=== PATIENT | female | born 1965 | race Caucasian/White ===

== ENCOUNTER 2021-11-06 20:08 | Emergency (ER) | payer MEDICARE, MEDICAID, SELFPAY ==
[2021-11-06 20:15] VITALS: BP 138/69; PULSE 65; RESP 18; TEMP 37.2; O2SAT 96; BMI 34.9
[2021-11-06 22:22] LABS: Appearance Urine Clear; Color Urine Yellow; Glucose Urine UA Negative (Negative); Leukocyte Esterase Urine Large (3+) (Negative); Nitrite Urine Negative (Negative); Specific Gravity - Urine <= 1.005 (1.005-1.025); UMIC TRIGGER UACC YES; Urine Blood Negative (Negative); Urine Ketones Negative (Negative); Urine Protein Negative (Neg-Trace)
[2021-11-06 22:27] LABS: Bacteria Urine None Seen (None Seen); Hyaline Casts Urine 0-2 /LPF (0-2); RBC Urine 0-2 /HPF (0-2); Squamous Epithelial Cell Urine 0-2 /HPF (0-2); UACC Culture Trigger YES
--- NOTE | 2021-11-07 02:05 | ED_ITS ---
HPI - Female Genitourinary General Chief complaint: Urogenital-Female Stated complaint: sharp pains down below for passed cpl weeks Time Seen by Provider: 11/07/21 01:27 Source: patient Mode of arrival: ambulatory History of Present Illness HPI Narrative: 56-year-old female who presents with urinary pain and burning but denies any associated fever, chills, nausea, vomiting. In addition, patient denies any vaginal discharge. Related Data Previous Rx's Medication Instructions Recorded nitrofurantoin 100 mg PO Q12H 5 days #10 caps 11/07/21 monohydrate/macrocrystals 100 mg capsule (Macrobid) Allergies Allergy/AdvReac Type Severity Reaction Status Date / Time acetaminophen [From Vicodin] Allergy Mild Anaphylaxis Verified 03/02/21 17:15 hydrocodone [From Vicodin] Allergy Mild Anaphylaxis Verified 03/02/21 17:15 penicillin V Allergy Mild Hives Verified 03/02/21 17:15 Review of Systems Review of Systems: Pertinent positives and negatives as stated in HPI 10 point review of systems is otherwise negative. PMFSH Past Medical History Source: nursing notes reviewed Social History Social History Advance Directives: No Physical Exam Vital Signs: Vital Signs: Last Vital Signs Temp 98.9 F 11/06/21 20:15 Pulse 65 11/06/21 20:15 Resp 18 11/06/21 20:15 BP 138/69 11/06/21 20:15 Pulse Ox 96 11/06/21 20:15 O2 Del Method 11/06/21 20:15 BMI result Body Mass Index 34.9 VITAL SIGNS: Reviewed. GENERAL: Well developed, well nourished, in no acute distress. HEAD: Normocephalic/atraumatic EYES: PERRLA, EOMI EARS: Ext canals without abnormality OROPHARYNX: no oral lesions noted, posterior pharynx clear LUNGS: Normal breath sounds. No adventitious sounds or accessory muscle use. SpO2<96> CARDIOVASCULAR: Regular rate and rhythm without noted murmurs ABDOMEN: Soft, non-tender, non-distended with bowel sounds. MUSCULOSKELETAL: No tenderness, deformities, or effusions noted on gross inspection. EXTREMITIES: No cyanosis, clubbing or edema. SKIN: Inspection of the skin reveals no rashes NEUROLOGIC: Alert and oriented x 4. Strength and sensation to light touch were grossly intact x 4. Course Course Course Narrative: 56-year-old female with history and clinical presentation consistent with UTI on review investigations. Patient received initial antibiotics here in the emergency room and then was discharged with remaining course. She also received ibuprofen for pain control. MDM - Female Genitourinary Lab Data Labs: Lab Results 11/06/21 Range/Units 22:09 Urine Color Yellow Urine Appearance Clear Urine pH 7.0 (5.0-9.0) Ur Specific [place] <= 1.005 (1.005-1.025) Urine Protein Negative (Neg-Trace) mg/dL Urine Glucose (UA) Negative (Negative) mg/dL Urine Ketones Negative (Negative) mg/dL Urine Blood Negative (Negative) Urine Nitrite Negative (Negative) Ur Leukocyte Esterase Large (3+) H (Negative) Urine RBC 0-2 (0-2) /HPF Urine WBC 6-10 H (0-5) /HPF Ur Squamous Epith Cells 0-2 (0-2) /HPF Urine Bacteria None Seen (None Seen) Hyaline Casts 0-2 (0-2) /LPF Discharge Plan Discharge Clinical Impression: Cystitis Patient Disposition: Home, Self-Care Instructions: Urinary Tract Infection in Women (ED) Additional Instructions: 1. Resume all home medications as prescribed. 2. Complete the entire course of antibiotics as ordered. 3. Follow-up with your primary care provider for re-evaluation further outpatient management. Return to the ER for worsening symptoms. Prescriptions: New nitrofurantoin monohyd/m-cryst [Macrobid] 100 mg capsule 100 mg PO Q12H 5 Days Qty: 10 0RF Rx Instructions: must administer with a meal/food Referrals: Micah Rosado MD [Primary Care Provider] -
[2021-11-07] MEDS: Ibuprofen 400 MG TABLET PO (02:10)
[2021-11-07] MEDS: Nitrofurantoin Monohyd/M-Cryst 100 MG CAPSULE PO (02:10)
[2021-11-07 12:51] LABS: CT PCR NOT DETECTED (Not Detect.); NG PCR NOT DETECTED (Not Detect.)
== END 2021-11-07 02:14 | disposition home or self-care (01) ==
PROVIDERS: Emergency Provider Student in an Organized Health Care Education/Training Program; PCP Internal Medicine
DX: N30.90 Cystitis, unspecified without hematuria (principal)
CPT/HCPCS: 81001; 87086; 87491; 87591; 99283

== ENCOUNTER 2022-02-22 18:41 | Emergency (ER) | payer MEDICARE, MEDICAID, SELFPAY ==
--- NOTE | ~2022-02-22 | XR_ITS ---
EXAMINATION: XR CHEST CLINICAL INFORMATION: Productive cough. COMPARISON: None TECHNIQUE: Frontal view of the chest was obtained. 8:06 PM FINDINGS: No significant abnormality is noted involving the heart, lungs, mediastinum, bony thorax or soft tissues. XR/XR chest 1V IMPRESSION: Unremarkable examination.
[2022-02-22 19:31] VITALS: BP 134/85; PULSE 84; RESP 20; TEMP 36.6; O2SAT 96; BMI 34.2
--- NOTE | 2022-02-22 19:34 | ED_ITS ---
HPI - Chest Pain General Chief Complaint: Upper Respiratory Symptoms <OLIVIA Mcnulty - Last Filed: 02/22/22 19:38> Stated Complaint: Mucus discharge, chest pain <OLIVIA Mcnulty - Last Filed: 02/22/22 19:38> Time Seen by Provider: 02/22/22 21:24 <OLIVIA Mcnulty - Last Filed: 02/22/22 19:38> Source: patient and family <Diya Menezes MD - Last Filed: 02/22/22 23:12> Mode of arrival: ambulatory <Diya Menezes MD - Last Filed: 02/22/22 23:12> Limitations: no limitations <Diya Menezes MD - Last Filed: 02/22/22 23:12> History of Present Illness HPI narrative: 56-year-old female history of asthma and obstructive sleep apnea presented with coughing for about 10 days with green sputum, no fever, no chills, significant other had similar symptoms but he feels better now. Patient declined any fever or chills, patient had no history of smoking but using his CPAP at night for obstructive sleep apnea. No recent travel or prolonged immobilization, patient also been having sore throat and voice change. <Diya Menezes MD - Last Filed: 02/22/22 23:12> Related Data Home Medications: Home Medications Medication Instructions Recorded Confirmed adalimumab 40 mg/0.4 mL 40 mg subcut Q2W 11/21/21 subcutaneous pen kit (Humira(CF) Pen) albuterol sulfate 90 mcg/actuation 2 puff inhalation Q4H PRN wheezing 11/21/21 aerosol inhaler apple cider vinegar 500 mg tablet mg PO 11/21/21 cetirizine 10 mg tablet 10 mg PO QAM 11/21/21 citalopram 20 mg tablet 20 mg PO QAM 11/21/21 cranberry extract 500 mg capsule 2,000 mg PO BID 11/21/21 (Cranberry Concentrate) fluticasone propionate 220 1 puff inhalation BID 11/21/21 mcg/actuation HFA aerosol inhaler (Flovent HFA) fluticasone propionate 50 2 spray intranasal DAILY PRN 11/21/21 mcg/actuation nasal spray,suspension folic acid 1 mg tablet 1 mg PO QAM 11/21/21 levothyroxine 100 mcg tablet 100 mcg PO DAILY 11/21/21 methocarbamol 500 mg tablet 500 mg PO BEDTIME PRN low back pain 11/21/21 methotrexate sodium 2.5 mg tablet 20 mg PO QWEEK 11/21/21 omeprazole 20 mg capsule,delayed 20 mg PO QAM 11/21/21 release simvastatin 20 mg tablet 20 mg PO BEDTIME 11/21/21 Previous Rx's Medication Instructions Recorded lidocaine 4 % topical patch 1 patch topical DAILY PRN pain #15 11/21/21 (AsperFlex (lidocaine)) ea prednisone 20 mg tablet 40 mg PO DAILY 5 days #10 tabs 11/21/21 albuterol sulfate 90 mcg/actuation 1 inh inhalation QID PRN shortness 02/22/22 aerosol inhaler of breath or wheezing #8.5 grams azithromycin 250 mg tablet See Rx Instructions PO .COMPLEX #6 02/22/22 (Zithromax Z-Luiz) tabs prednisone 20 mg tablet 20 mg PO BID #10 tabs 02/22/22 <OLIVIA Mcnulty - Last Filed: 02/22/22 19:38> Allergies/Adverse Reactions: Allergies Allergy/AdvReac Type Severity Reaction Status Date / Time naproxen [From Naprosyn] Allergy Severe Anaphylaxis Verified 02/22/22 19:37 acetaminophen [From Vicodin] Allergy Mild Anaphylaxis Verified 02/22/22 19:37 hydrocodone [From Vicodin] Allergy Mild Anaphylaxis Verified 02/22/22 19:37 penicillin V Allergy Mild Hives Verified 02/22/22 19:37 ibuprofen Allergy Stomach Verified 02/22/22 21:03 Upset <OLIVIA Mcnulty - Last Filed: 02/22/22 19:38> Review of Systems Review of Systems: All other systems are reviewed and are negative Constitutional: Reports as per HPI and Reports no additional constitutional complaints Eyes: Reports as per HPI and Reports no additional eye complaints Reports system reviewed and no additional complaints, except as documented Cardiovascular: Reports as per HPI and Reports no additional cardiovascular complaints Respiratory: Reports as per HPI and Reports no additional respiratory complaints Gastrointestinal: Reports as per HPI and Reports no additional gastrointestinal complaints Genitourinary: Reports no additional female genitourinary complaints Musculoskeletal: Reports no additional musculoskeletal complaints Skin/Breast: Reports system reviewed and no additional complaints, except as docu Psychiatric: Reports no additional psychiatric complaints Endocrine: Reports no additional endocrine complaints Hematologic/Lymphatic: Reports no additional hematologic/lymphatic complaints Allergic/Immunologic: Reports no additional allergic/immunologic complaints Reports system reviewed and no additional complaints, except as documented and Reports Abnormal speech present <Diya Menezes MD - Last Filed: 02/22/22 23:12> [facility] Social History Social History: Social History Advance Directives: No Advance Directives Information Provided: Yes <OLIVIA Mcnulty - Last Filed: 02/22/22 19:38> Physical Exam Vital Signs: Vital Signs: Last Vital Signs Temp 97.9 F 02/22/22 19:31 Pulse 84 02/22/22 21:11 Resp 20 02/22/22 21:11 BP 134/85 02/22/22 19:31 Pulse Ox 96 02/22/22 19:31 O2 Del Method 02/22/22 19:31 BMI result Body Mass Index 34.2 <OLIVIA Mcnulty - Last Filed: 02/22/22 19:38> Vital Signs: Last Vital Signs Temp 97.9 F 02/22/22 19:31 Pulse 84 02/22/22 21:11 Resp 20 02/22/22 21:11 BP 134/85 02/22/22 19:31 Pulse Ox 96 02/22/22 19:31 O2 Del Method 02/22/22 19:31 BMI result Body Mass Index 34.2 vital signs have been reviewed as appeared to be correct. Blood pressure no rmal. Heart rate normal. Respiration rate normal. Temperature normal. Oxygen saturation normal. <Diya Menezes MD - Last Filed: 02/22/22 23:12> Appearance: Alert. Oriented X3. No acute distress. Head: Normal external exam. Normocephalic. Atraumatic. No Celis signs noted. No raccoon eyes noted Eyes: PERRLA. EOMI. Conjunctiva and sclera normal. Eyelids normal. ENT: TM's Normal. Pharynx normal. Uvula midline. Moist mucous membranes. No trismus noted. No drooling noted. No muffled voice noted. Neck: Normal inspection. Neck supple. FROM. No adenopathy. Thyroid Normal. No meningeal signs. No neck mass noted. CVS: Normal heart rate and rhythm. Heart sound normal. No murmurs noted. Pulses normal throughout. Respiratory: No respiratory distress. Painless inspiration. Breath sounds normal. diffuse bilateral expiratory wheezing, with prolonged expiration. Chest nontender. No accessory muscle usage noted or decreased air movement noted. Abdomen: Soft and nontender. Bowel sounds normal in all 4 quadrants. No distention noted. No organomegaly noted. No visible injury noted. Back: No CVA tenderness. Full range of motion noted. Skin: Skin warm and dry. Normal skin color. Normal skin turgor. No rashes/lesions/lacerations noted. Extremities: No lower extremity edema. Extremities exhibit normal range of motion. Extremities nontender. Neuro: Oriented X 3. Cranial nerve exam: II-XII are grossly intact No motor deficit. No sensory deficit. Reflexes normal. <Diya Menezes MD - Last Filed: 02/22/22 23:12> Course Course Course Narrative: RME--56yo F w/PMHx asthma c/o productive cough of green phlegm and lethargy x 1 week. Reports CP when coughing. denies SOB Lung sounds diminished in bases. hoarse voice on exam, talking in complete sentences COVID/flu/RSV, CXR, albuterol inhaler ordered <OLIVIA Mcnulty - Last Filed: 02/22/22 19:38> Reevaluation(s) Reevaluation #1: acute bronchitis times 10 days with greenish sputum we will start the patient on Z-Luiz/ prednisone/albuterol. <Diya Menezes MD - Last Filed: 02/22/22 23:12> Time: 23:11 <Diya Menezes MD - Last Filed: 02/22/22 23:12> Medications Administered Discontinued Medications Generic Name Dose Route Start Last Admin Trade Name Freq PRN Reason Stop Dose Admin Albuterol Sulfate 2 puff 02/22/22 19:35 02/22/22 21:04 Albuterol Sulfate 90 Mcg 8 Gm Inhaler INHALE 02/22/22 19:36 2 puff ONCE ONE Administration Prednisone 40 mg 02/22/22 21:48 02/22/22 22:40 Prednisone 20 Mg Tablet PO 02/22/22 21:49 40 mg ONCE ONE Administration <OLIVIA Mcnulty - Last Filed: 02/22/22 19:38> Medications Administered Discontinued Medications Generic Name Dose Route Start Last Admin Trade Name Sharron PRN Reason Stop Dose Admin Albuterol Sulfate 2 puff 02/22/22 19:35 02/22/22 21:04 Albuterol Sulfate 90 Mcg 8 Gm Inhaler INHALE 02/22/22 19:36 2 puff ONCE ONE Administration Prednisone 40 mg 02/22/22 21:48 02/22/22 22:40 Prednisone 20 Mg Tablet PO 02/22/22 21:49 40 mg ONCE ONE Administration <Diya Menezes MD - Last Filed: 02/22/22 23:12> Medical Decision Making Differential Diagnosis Differential Diagnoses: The differential diagnosis associated with the presentation includes <Diya Menezes MD - Last Filed: 02/22/22 23:12> Pneumonia, RSV, COVID-19 infection, influenza. <Diya Menezes MD - Last Filed: 02/22/22 23:12> Lab Data MDM Lab Attestation statement: I reviewed the patient's lab results. <Diya Menezes MD - Last Filed: 02/22/22 23:12> Labs: Lab Results 02/22/22 Range/Units 21:32 Influenza Type A (PCR) NEGATIVE (Negative) Influenza Type B (PCR) NEGATIVE (Negative) RSV RNA Qual (PCR) NEGATIVE (Negative) SARS-CoV-2 RNA (RT-PCR) NEGATIVE (Negative) <OLIVIA Mcnulty - Last Filed: 02/22/22 19:38> Lab Results 02/22/22 Range/Units 21:32 Influenza Type A (PCR) NEGATIVE (Negative) Influenza Type B (PCR) NEGATIVE (Negative) RSV RNA Qual (PCR) NEGATIVE (Negative) SARS-CoV-2 RNA (RT-PCR) NEGATIVE (Negative) <Diya Menezes MD - Last Filed: 02/22/22 23:12> Independent Interpretation I performed an independent interpretation of an: Plain X-Ray ( Chest: No acute pathology.) <Diya Menezes MD - Last Filed: 02/22/22 23:12> Radiology Impression Discussion of test interpretation with radiology: I have reviewed the radiologist's reading. ( No acute intrathoracic pathology.) <Diya Menezes MD - Last Filed: 02/22/22 23:12> Discharge Plan Discharge Clinical Impression: Bronchitis <OLIVIA Mcnulty - Last Filed: 02/22/22 19:38> Patient Disposition: Home, Self-Care <OLIVIA Mcnulty - Last Filed: 02/22/22 19:38> Instructions: Acute Bronchitis (ED) <OLIVIA Mcnulty - Last Filed: 02/22/22 19:38> Prescriptions: New albuterol sulfate 90 mcg/actuation HFA aerosol inhaler 1 inh inhalation QID PRN (Reason: shortness of breath or wheezing) Qty: 8.5 0RF prednisone 20 mg tablet 20 mg PO BID Qty: 10 0RF azithromycin [Zithromax Z-Luiz] 250 mg tablet See Rx Instructions .ROUTE .COMPLEX Qty: 6 0RF Rx Instructions: For 250 mg dose pack: take 500 mg today (day 1), then 250 mg for 4 days (days 2-5) No Action prednisone 20 mg tablet 40 mg PO DAILY 5 Days Qty: 10 0RF fluticasone propionate 50 mcg/actuation spray,suspension 2 spray intranasal DAILY PRN fluticasone propionate [Flovent HFA] 220 mcg/actuation HFA aerosol inhaler 1 puff inhalation BID methotrexate sodium 2.5 mg tablet 20 mg PO QWEEK folic acid 1 mg tablet 1 mg PO QAM omeprazole 20 mg capsule,delayed release(DR/EC) 20 mg PO QAM citalopram 20 mg tablet 20 mg PO QAM levothyroxine 100 mcg tablet 100 mcg PO DAILY cetirizine 10 mg tablet 10 mg PO QAM Humira(CF) Pen 40 mg/0.4 mL pen injector kit 40 mg subcut Q2W albuterol sulfate 90 mcg/actuation HFA aerosol inhaler 2 puff inhalation Q4H PRN (Reason: wheezing) methocarbamol 500 mg tablet 500 mg PO BEDTIME PRN (Reason: low back pain) simvastatin 20 mg tablet 20 mg PO BEDTIME apple cider vinegar 500 mg tablet PO cranberry extract [Cranberry Concentrate] 500 mg capsule 2,000 mg PO BID Rx Instructions: administer with meals lidocaine [AsperFlex (lidocaine)] 4 % adhesive patch,medicated 1 patch topical DAILY PRN (Reason: pain) Qty: 15 0RF <OLIVIA Mcnulty Last Filed: 02/22/22 19:38> Referrals: Micah Rosado MD [Primary Care Provider] - <OLIVIA Mcnulty - Last Filed: 02/22/22 19:38>
[2022-02-22] MEDS: Albuterol Sulfate 90 MCG 8 GM INHALER 2 PUFF INHALE (21:04)
--- OUTSIDE RECORDS SUMMARY | 2022-02-22 21:07 | XMS_ITS | Continuity of Care Document ---
:1965 Author Organization [facility] Address [address] [place] [id number]- Care Team Providers Name Role Phone Jacqueline Calero MD Primary Care Physician Encounter [facility] [place] Date(s): 03/25/20 - 03/25/[address] [address]- Discharge Disposition: A-D/C Home Attending Physician: Sylvia Blas MD Admitting Physician: Sylvia Blas MD Referring Physician: Not on Staff, Referring MD Allergies, Adverse Reactions, Alerts Substance Reaction Severity Status ibuprofen Bleeding hemorrhoids Active penicillin Dyspnea Active sulfa drugs Active Vicodin Active Medications citalopram 20 mg oral tablet TAKE 1 TABLET BY MOUTH EVERY MORNING Start Date: 02/23/20 Status: Orderedfolic acid 1 mg oral tablet 1 mg, 1, tablet, By Mouth, Daily, # 30 tablet, Refills 0, Maintenance, 02/23/20 11:29:00 EST, Partial fill upon patient request if the prescription is for a schedule II opioid drug. Start Date: 02/23/20 Status: Orderedibuprofen 400 mg oral tablet 400 mg, 1, tablet, By Mouth, Every 4 hours, PRN, # 40 tablet, Refills 0, Tot. Refills 0, Maintenance, Pain , Mild, 03/25/20 9:49:00 EST, Route to Pharmacy Electronically, [id number], Partial fill upon patient request if the prescripti... Start Date: 03/25/20 Status: OrderedKeflex Capsule 500 mg, By Mouth, 2 times a day, Maintenance, 03/23/20 17:54:00 EST Start Date: 03/23/20 Stop Date: 03/30/20 Status: Orderedlevothyroxine 0.1 mg oral tablet 1 tablet = 100 mcg, By Mouth, Daily, # 30 tablet, 0 Refills, Maintenance, 02/23/20 11:29:00 EST, Tablet, Partial fill upon patient request if the prescription is for a schedule II opioid drug. Start Date: 02/23/20 Status: Orderedmethocarbamol 500 mg oral tablet TK 1 T PO HS PRF BACK PAIN Start Date: 02/23/20 Status: Orderedmethotrexate 2.5 mg oral tablet TK 8 TS PO ONCE A WEEK Start Date: 02/23/20 Status: Orderedomeprazole 20 mg oral enteric coated capsule 1 capsule = 20 mg, By Mouth, Daily, # 30 capsule, 0 Refills, Maintenance, 02/23/20 11:28:00 EST, EC Capsule, Partial fill upon patient request if the prescription is for a schedule II opioid drug. Start Date: 02/23/20 Status: Orderedondansetron 4 mg oral tablet, disintegrating 1 tablet = 4 mg, By Mouth, Every 8 hours, PRN as needed for nausea/vomiting, # 9 tablet, 0 Refills, Maintenance, 03/20/20 15:08:00 EST, DIS Tablet, Partial fill upon patient request if the prescriptionis for a schedule II opioid drug. Start Date: 03/20/20 Stop Date: 03/23/20 Status: Orderedsimvastatin 20 mg oral tablet 20 mg, 1, tablet, By Mouth, Daily at bedtime, # 90 tablet, Refills 0, Maintenance, 02/23/20 11:29:00EST, Partial fill upon patient request if the prescription is for a schedule II opioid drug. Start Date: 02/23/20 Status: Ordered Problem List Condition Effective Dates Status Health Status Informant Fibromyalgia(Confirmed) Active Hyperlipidemia(Confirmed) Active Hypothyroidism(Confirmed) Active ANITA on CPAP(Confirmed) Active Osteoarthritis(Confirmed) Active Arthritis, rheumatoid(Confirmed) Active Results Radiology Reports Exam Date Time Procedure Performing Provider Status 03/25/20 3:33 AM Chest Portable Odessa Fernandez; Oscar (Verified) Notes:(Chest Portable) Reason For Exam: Shortness of BreathRESULT: Chest Portable Chest Portable Hx of Present Illness: day 6 of covid symptoms reports not feeling well, sob, dizzy when supine, sharp chest pains incr. w inspirtion, upper chest sternal area; Reason: Shortness of Breath; Clinical Question(s): CHF COMPARISON: 03/20/2020 FINDINGS: LINES AND TUBES: None. LUNGS AND PLEURA: Clear lungs. Normal pulmonary vascularity. No pleural effusion. No pneumothorax. HEART, MEDIASTINUM AND PATRICIA: Heart is normal in size. Normal upper mediastinal and hilar contour. BONES AND SOFT TISSUES: No acute abnormality. IMPRESSION: No active disease. WSN: [id number] Ordering Physician: Raeann Lubin Dictated By: Pedrito Isaac MD Dictated Date/Time: 03/25/20 8:21 am Reviewed By: Pedrito Isaac MD Signed By: Pedrito Isaac MD Signed Date/Time: 03/25/20 8:21 am Transcribed By: HECTOR Transcribed Date/Time: 03/25/20 8:20 am Vital Signs Most recent to oldest [Reference 1 2 3 Range]: Oxygen Saturation [94-100 %] 96 % 97 % 96 % (03/25/20 9:44 AM) (03/25/20 6:37 AM) (03/25/20 4:23 A M) Pulse Rate [55-90 bpm] 71 bpm 68 bpm 71 bpm (03/25/20 9:44 AM) (03/25/20 6:37 AM) (03/25/20 4:23 A M) Blood Pressure [90-138/55-84 mm 143/79 mm Hg 142/73 mm Hg 143/83 mm Hg Hg] *H* *H* *H* (03/25/20 9:44 AM) (03/25/20 6:37 AM) (03/25/20 4:23 A M) Respiratory Rate [16-30 br/min] 20 br/min 16 br/min 18 br/min (03/25/20 9:44 AM) (03/25/20 6:37 AM) (03/25/20 4:23 A M) Temperature [96.8-100.4 DegF] 98.0 DegF 98.4 DegF (03/25/20 9:44 AM) (03/25/20 2:24 AM) Mode of Delivery (Oxygen) Room air Room air Room a ir (03/25/20 9:44 AM) (03/25/20 6:37 AM) (03/25/20 4:23 A M) Blood pressure sites Arm, left (03/25/20 9:44 AM) Temperature Route Oral Oral (03/25/20 9:44 AM) (03/25/20 2:24 AM) Social History Social History Type Response Smoking Status Never (less than 100 in life time) entered on: 02/23/20 Sex
--- OUTSIDE RECORDS SUMMARY | 2022-02-22 21:07 | XMS_ITS | Continuity of Care Document ---
:1965 Author Organization [facility] Address [address] [place] [address]- Care Team Providers Name Role Phone Jacqueline Calero MD Primary Care Physician [id number] Date(s): 04/02/20 - 04/09/20 [facility] [id number] [place] [address]- Encounter Diagnosis UTI (urinary tract infection) (Discharge Diagnosis) - 04/02/20 COVID-19 virus infection (Discharge Diagnosis) - 04/02/20 Viral upper respiratory illness (Discharge Diagnosis) - 04/02/20 Attending Physician: Jacqueline Calero MD Allergies, Adverse Reactions, Alerts Substance Reaction Severity Status penicillin Dyspnea Active sulfa drugs Active Vicodin [...] 03/25/20 9:49:00 EST, Route to Pharmacy Electronically, [facility] #[id number], Partial fill upon patient request if the [...] CPAP(Confirmed) Active Osteoarthritis(Confirmed) Active Arthritis, rheumatoid(Confirmed) Active Diagnosis Diagnosis Type Effective Dates Health [facility] Status Service UTI (urinary tract Discharge 04/02/20 infection) Diagnosis COVID-19 virus Discharge 04/02/20 infection Diagnosis Viral upper Discharge 04/02/20 respiratory Diagnosis illness Social History Social History Type Response Smoking Status Never (less than 100 in life time) entered on: 02/23/20 Sex
--- OUTSIDE RECORDS SUMMARY | 2022-02-22 21:07 | XMS_ITS | Continuity of Care Document ---
:1965 Author Organization [facility] Address [address] [place] [id number]- Care Team Providers Name Role Phone Jacqueline Calero MD Primary Care Physician Encounter [facility] Date(s): 03/20/20 - 03/20/[address] [address]- Encounter Diagnosis COVID-19 virus infection (Final) - 03/20/20 Discharge Disposition: A-D/C Home Attending Physician: Virginia Beatty MD Admitting Physician: Virginia Beatty MD Referring Physician: Not on Staff, Referring [...] II opioid drug. Start Date: 02/23/20 Status: Orderedlevothyroxine 0.1 mg oral tablet 1 [...] Exam Date Time Procedure Performing Provider Status 03/20/20 12:37 PM Chest Portable Suma Naranjo (Verified ) Notes:(Chest Portable) Reason For Exam: COVID, vomiting;Other:RESULT: Chest Portable Chest Portable Hx of Present Illness: 2 days of chills, N V and fatigue. No CP . No SOB; Reason: Other:; COVID, vomiting; Clinical Question(s): Other: COMPARISON: None. FINDINGS: LINES AND TUBES: None. LUNGS AND PLEURA: Clear lungs. Normal pulmonary vascularity. No pleural effusion. No pneumothorax. HEART, MEDIASTINUM AND PATRICIA: Heart is normal in size. Normal upper mediastinal and hilar contour. BONES AND SOFT TISSUES: No acute abnormality. IMPRESSION: No acute abnormality. WSN: [id number] Ordering Physician: Elena Anne Dictated By: Jono Blackburn MD Dictated Date/Time: 03/20/20 12:45 p Reviewed By: Jono Blackburn MD Signed By: Jono Blackburn MD Signed Date/Time: 03/20/20 12:45 pm Transcribed By: HECTOR Transcribed Date/Time: 03/20/20 12:44 pm Vital Signs Most recent to oldest 1 2 3 [Reference Range]: Oxygen Saturation [94-100 %] 97 % 96 % 96 % (03/20/20 3:48 PM) (03/20/20 1:51 PM) (03/20/20 11: 14 AM) Pulse Rate [55-90 bpm] 77 bpm 74 bpm 85 bpm (03/20/20 3:48 PM) (03/20/20 1:51 PM) (03/20/20 11: 14 AM) Blood Pressure [90-138/55-84 130/73 mm Hg 121/68 mm Hg 117 /70 mm Hg mm Hg] (03/20/20 3:48 PM) (03/20/20 1:51 PM) (03/20/20 11: 14 AM) Respiratory Rate [16-30 18 br/min 18 br/min 18 br/mi n br/min] (03/20/20 3:48 PM) (03/20/20 1:51 PM) (03/20/20 11: 14 AM) Temperature [96.8-100.4 98.8 DegF 98.0 DegF DegF] (03/20/20 3:48 PM) (03/20/20 10:35 AM) Mode of Delivery (Oxygen) Room air Room air Room a ir (03/20/20 3:48 PM) (03/20/20 1:51 PM) (03/20/20 11: 14 AM) Blood pressure sites Arm, right (03/20/20 10:35 AM) Temperature Route Oral Oral (03/20/20 3:48 PM) (03/20/20 10:35 AM) Social History Social History Type Response Smoking Status Never (less than 100 in life time) entered on: 02/23/20 Sex
--- OUTSIDE RECORDS SUMMARY | 2022-02-22 21:07 | XMS_ITS | Continuity of Care Document ---
:1965 Author Organization [facility] Address [address] [place] [id number]- Care Team Providers Name Role Phone Jacqueline Calero MD Primary Care Physician Encounter [facility] [place] Date(s): 11/17/21 - 11/18/[address] [address]- Discharge Disposition: A-D/C Walkout Attending Physician: Not on Staff, Attending MD Admitting Physician: Not on Staff, Admitting MD Referring Physician: Not on Staff, Referring MD Allergies, Adverse Reactions, Alerts Substance Reaction Severity Status sulfa drugs Active Vicodin Active penicillin Dyspnea Active Medications citalopram 20 mg oral tablet [...] 03/25/20 9:49:00 EST, Route to Pharmacy Electronically, [id number], Partial fill upon patient request if the [...] Date: 02/23/20 Status: Ordered Problem List Condition Confirmation Course Effective Dates Status Health I nformant Status Fibromyalgia Confirmed Active Hyperlipidemia Confirmed Active Hypothyroidism Confirmed Active ANITA on CPAP Confirmed Active Osteoarthritis Confirmed Active Arthritis, rheumatoid Confirmed Active Results Radiology Reports Exam Date Time Procedure Performing Provider Status 11/17/21 5:34 PM Foot Min 3 Views Right Matilde Flynn; Auth ( Verified) Notes:(Foot Min 3 Views Right) Reason For Exam: PainRESULT: Foot Min 3 Views Right Foot Min 3 Views Right, 3 views Hx of Present Illness: Patient reports severe right foot pain since yesterday. No known tramatic injury but patient reports has been doing a lot of walking at [employer] over past few days. Has history of arthritis, taking tylenol and methotrexate without effect.; Reason: Pain; Clinical Question(s): Fracture; Arthritis COMPARISON: None. FINDINGS: No fractures or bone lesions. Mild narrowing of the talonavicular joint. Mild degenerative narrowing of the first MTP joint. Smallto moderate plantar calcaneal spur. Normal soft tissues. IMPRESSION: 1. No acute fracture or malalignment. 2. Mild degenerative narrowing of the talonavicular joint. 3. Mild degenerative narrowing of the first MTP joint. 4. Small to moderate plantar calcaneal spur. WSN: [id number] Ordering Physician: Ozzy Bundy Dictated By: Gary Gómez MD Dictated Date/Time: 11/17/21 5:37 pm Reviewed By: Gary Gómez MD Signed By: Gary óGmez MD Signed Date/Time: 11/17/21 5:37 pm Transcribed By: HECTOR Transcribed Date/Time: 11/17/21 5:34 pm Vital Signs Most recent to oldest 1 2 3 [Reference Range]: Oxygen Saturation [94-100 %] 94 % 97 % 99 % (11/17/21 11:40 PM) (11/17/21 9:32 PM) (11/17/21 7: 47 PM) Pulse Rate [55-90 bpm] 72 bpm 66 bpm 65 bpm (11/17/21 11:40 PM) (11/17/21 9:32 PM) (11/17/21 7: 47 PM) Blood Pressure [90-138/55-84 152/83 mm Hg 133/77 mm Hg 127 /67 mm Hg mm Hg] *H* (11/17/21 9:32 PM) (11/17/21 7:47 PM) (11/17/21 11:40 PM) Respiratory Rate [16-30 16 br/min 18 br/min br/min] (11/17/21 2:50 PM) (11/17/21 11:55 AM) Temperature [96.8-100.4 DegF] 98.4 DegF 99.2 DegF 98 .1 DegF (11/17/21 11:40 PM) (11/17/21 9:32 PM) (11/17/21 7: 47 PM) Mode of Delivery (Oxygen) Room air Room air Room a ir (11/17/21 5:46 PM) (11/17/21 2:50 PM) (11/17/21 2:0 3 PM) Blood pressure sites Leg, left Arm, left Arm, left (11/17/21 11:40 PM) (11/17/21 9:32 PM) (11/17/21 7: 47 PM) Temperature Route Oral Oral Oral (11/17/21 11:40 PM) (11/17/21 9:32 PM) (11/17/21 7: 47 PM) Social History Social History Type Response Smoking Status Never (less than 100 in life time) entered on: 02/23/20 Sex XR Foot - right GE 3 Views BHSPowerscribe , CIS S: TRANSCRIBE Gary Gómez MD: VERIFY Event Display: Result: Authored Date: [id number] Foot Min 3 Views Right, 3 views Hx of Present Illness: Patient reports severe right foot pain since yesterday. No known tramatic injury but patient reports has been doing a lot of walking at [employer] over past few days. Has history of arthritis, taking tylenol and methotrexate without effect.; Reason: Pain; Clinical Question(s): Fracture; Arthritis COMPARISON: None. FINDINGS: No fractures or bone lesions. Mild narrowing of the talonavicular joint. Mild degenerative narrowing of the first MTP joint. Smallto moderate plantar calcaneal spur. Normal soft tissues. IMPRESSION: 1. No acute fracture or malalignment. 2. Mild degenerative narrowing of the talonavicular joint. 3. Mild degenerative narrowing of the first MTP joint. 4. Small to moderate plantar calcaneal spur. WSN: [id number] Ordering Physician: Ozzy Bundy Dictated By: Gary Gómez MD Dictated Date/Time: 11/17/21 5:37 pm Reviewed By: Gary Gómez MD Signed By: Gary Gómez MD Signed Date/Time: 11/17/21 5:37 pm Transcribed By: HECTOR Transcribed Date/Time: 11/17/21 5:34 pm Patient Care team information PersonnelName: Jacqueline Calero MD Address: Address: [address] [place] [address] [facility] [address]
--- OUTSIDE RECORDS SUMMARY | 2022-02-22 21:07 | XMS_ITS | Continuity of Care Document ---
:1965 Author Organization [facility] Address [address] [place] [address]- Care Team Providers Name Role Phone Jacqueline Calero MD Primary Care Physician Encounter [facility] [place] Date(s): 02/23/20 - 03/01/20 [facility] [address] [place] [address]- Encounter Diagnosis Osteoarthritis (Discharge Diagnosis) - 02/23/20 Arthritis, rheumatoid (Discharge Diagnosis) - 02/23/20 Fibromyalgia (Discharge Diagnosis) - 02/23/20 Hypothyroidism (Discharge Diagnosis) - 02/23/20 Hyperlipidemia (Discharge Diagnosis) - 02/23/20 ANITA on CPAP (Discharge Diagnosis) - 02/23/20 Attending Physician: Jacqueline Calero MD Allergies, Adverse [...] II opioid drug. Start Date: 02/23/20 Status: Orderedsimvastatin 20 mg oral tablet 20 [...] Diagnosis Type Effective Dates Health Clinical Infor mant Status Service Osteoarthritis Discharge 02/23/20 Diagnosis Arthritis, Discharge 02/23/20 rheumatoid Diagnosis Fibromyalgia Discharge 02/23/20 Diagnosis Hypothyroidism Discharge 02/23/20 Diagnosis Hyperlipidemia Discharge 02/23/20 Diagnosis ANITA on CPAP Discharge 02/23/20 Diagnosis Procedures Procedure Date Related Diagnosis Body Site Status H/O: tubal ligation Complete d Social History Social History Type Response Smoking Status Never (less than 100 in life time) entered on: 02/23/20 Sex
--- OUTSIDE RECORDS SUMMARY | 2022-02-22 21:07 | XMS_ITS | Continuity of Care Document ---
:1965 Author Organization [facility] Address [address] [place] [address]- Care Team Providers Name Role Phone Jacqueline Calero MD Primary Care Physician Encounter [facility] Date(s): 02/23/20 - 05/23/20 [facility] [address] [place], [place] [address] Attending Physician: Jacqueline Calero MD Allergies, Adverse [...] 03/25/20 9:49:00 EST, Route to Pharmacy Electronically, [facility] #[id number], Partial fill upon patient request if the [...] CPAP(Confirmed) Active Osteoarthritis(Confirmed) Active Arthritis, rheumatoid(Confirmed) Active Social History Social History Type Response Smoking Status Never (less than 100 in life time) entered on: 02/23/20 Sex
--- OUTSIDE RECORDS SUMMARY | 2022-02-22 21:07 | XMS_ITS | Continuity of Care Document ---
:[address] [facility] Address [address] [place] [address]- Care Team Providers Name Role Phone Abdias ORTEGA, Jacqueline Primary Care Physician Encounter [facility] Date(s): 02/26/20 - 03/27/20 [facility] [address] [place], [place] [address] Allergies, Adverse Reactions, Alerts Substance Reaction Severity [...] 03/25/20 9:49:00 EST, [id number], Partial fill upon patient request if the [...]
--- OUTSIDE RECORDS SUMMARY | 2022-02-22 21:07 | XMS_ITS | Continuity of Care Document ---
:1965 Author Organization [facility] Address [address] [place] [address]- Care Team Providers Name Role Phone Abdias ORTEGA, Jacqueline Primary Care Physician Encounter [facility] [place] Date(s): 04/23/20 - 05/23/20 [facility] [address] [place], [place] [address] Attending Physician: Ozzie Christy Admitting Physician: Ozzie Christy Referring Physician: Ozzie Christy Allergies, Adverse Reactions, Alerts Substance Reaction Severity [...] 03/25/20 9:49:00 EST, Route to Pharmacy Electronically, [facility] #[id number], Partial fill upon patient request if the [...]
--- OUTSIDE RECORDS SUMMARY | 2022-02-22 21:07 | XMS_ITS | Continuity of Care Document ---
:1965 Author Organization [facility] Address [address] [place] [address]- Care Team Providers Name Role Phone Abdias ORTEGA, Jacqueline Primary Care Physician Encounter [facility] [place] Date(s): 03/29/20 - 04/28/20 [facility] [address] [place], [place] [address] Allergies, Adverse Reactions, Alerts Substance Reaction Severity [...] 03/25/20 9:49:00 EST, Route to Pharmacy Electronically, [facility] #[id number], Partial fill upon patient request if the [...]
[2022-02-22 21:11] VITALS: PULSE 84; RESP 20; O2SAT 98
[2022-02-22 22:15] LABS: Influenza A PCR NEGATIVE (Negative); Influenza B PCR NEGATIVE (Negative); Resp Syncy Virus RNA Qual PCR NEGATIVE (Negative); SARS COV2 PCR INHOUSE NEGATIVE (Negative)
[2022-02-22] MEDS: predniSONE 20 MG TABLET 40 MG PO (22:40)
[2022-02-22 23:38] VITALS: BP 115/76; PULSE 93; RESP 16; O2SAT 97
== END 2022-02-22 23:38 | disposition home or self-care (01) ==
PROVIDERS: Physician Assistant; Emergency Provider Emergency Medicine; PCP Internal Medicine
DX: J40 Bronchitis, not specified as acute or chronic (principal); Z20.828 Contact with and (suspected) exposure to other viral communicable diseases
CPT/HCPCS: 0241U; 71045; 94640; 99283; 99284

== ENCOUNTER 2022-06-02 22:33 | Emergency (ER) | payer MEDICARE, MEDICAID, SELFPAY ==
--- NOTE | ~2022-06-02 | US_ITS ---
EXAMINATION: US LOWER EXTREMITY VENOUS WITH DOPPLER, BILATERAL CLINICAL INFORMATION: Bilateral lower extremity edema and pain. Evaluate for deep vein thrombosis. COMPARISON: None available. TECHNIQUE: Ultrasound of the deep veins is performed from the hip to the calf with compression sonography and color and pulse Doppler assessment. Spectral analysis with color-flow imaging is performed. FINDINGS: RIGHT: There is normal venous compression and respiratory variation and augmented flow. The visualized common femoral vein, superficial femoral vein, profunda femoral vein, popliteal vein, and the trifurcation region shows no evidence of deep venous thrombosis. There is no significant popliteal fossa cyst. LEFT: There is normal venous compression and respiratory variation and augmented flow. The visualized common femoral vein, superficial femoral vein, profunda femoral vein, popliteal vein, and the trifurcation region shows no evidence of deep venous thrombosis. There is no significant popliteal fossa cyst. If the patient's symptoms persist, followup ultrasound in 5 days 7 days might be of value to exclude proximal propagation from a non-visualized calf vein. US/US venous duplex LE BI IMPRESSION: No DVT demonstrated in the bilateral lower extremity.
--- NOTE | ~2022-06-02 | XR_ITS ---
EXAMINATION: XR KNEE, RIGHT XR KNEE, LEFT CLINICAL INFORMATION: Bilateral knee pain and swelling. COMPARISON: None. TECHNIQUE: AP, bilateral oblique, and lateral views of the right and left knee. FINDINGS: Right Knee: Mild tricompartmental joint space narrowing with tricompartmental marginal osteophytes. Patellofemoral subchondral cystic change. No acute fracture or dislocation. No concerning lytic or blastic osseous lesion. Superior patellar enthesophytes. Trace joint effusion. Left Knee: Severe medial compartment joint space narrowing with mild bony remodeling. Prominent tricompartmental marginal osteophytes. No concerning lytic or blastic osseous lesion. No acute fracture or dislocation. Trace joint effusion. Posterior ossified loose body measuring up to 0.6 cm. XR/XR knee RT 3V IMPRESSION: RIGHT KNEE: Moderate tricompartmental osteoarthritis. Trace joint effusion. LEFT KNEE: Severe medial as well as moderate patellofemoral and lateral compartment osteoarthritis. Trace joint effusion. Posterior ossified loose body measuring up to 0.6 cm.
--- NOTE | ~2022-06-02 | XR_ITS ---
EXAMINATION: XR KNEE, RIGHT XR KNEE, LEFT CLINICAL INFORMATION: Bilateral knee pain and swelling. COMPARISON: None. TECHNIQUE: AP, bilateral oblique, and lateral views of the right and left knee. FINDINGS: Right Knee: Mild tricompartmental joint space narrowing with tricompartmental marginal osteophytes. Patellofemoral subchondral cystic change. No acute fracture or dislocation. No concerning lytic or blastic osseous lesion. Superior patellar enthesophytes. Trace joint effusion. Left Knee: Severe medial compartment joint space narrowing with mild bony remodeling. Prominent tricompartmental marginal osteophytes. No concerning lytic or blastic osseous lesion. No acute fracture or dislocation. Trace joint effusion. Posterior ossified loose body measuring up to 0.6 cm. XR/XR knee LT 3V IMPRESSION: RIGHT KNEE: Moderate tricompartmental osteoarthritis. Trace joint effusion. LEFT KNEE: Severe medial as well as moderate patellofemoral and lateral compartment osteoarthritis. Trace joint effusion. Posterior ossified loose body measuring up to 0.6 cm.
[2022-06-02 23:25] VITALS: BP 138/80; PULSE 64; RESP 16; TEMP 36.1; O2SAT 96; BMI 33.5
[2022-06-03 02:34] VITALS: BP 155/66; PULSE 59; RESP 14; TEMP 36.6; O2SAT 97
[2022-06-03 04:00] LABS: MANUAL DIFF FLAG NO
[2022-06-03 04:02] LABS: Basophils Absolute Auto 0.1 X10*3/uL (0.0-0.2); Basophils Percent Auto 0.6 % (0-2); Eosinophils Percent Auto 0.5 % (0-4); Hematocrit 41.6 % (37.0-47.0); Hemoglobin 14.6 g/dl (12.0-16.0); Imm Gran Abs Auto 0.02 X10*3/uL (0.00-0.03); Imm Gran Pct Auto 0.3 % (0.0-0.4); Lymphocytes Absolute Auto 3.3 X10*3/uL (1.2-4.9); Lymphocytes Percent Auto 41.4 % (20-40); Mean Corpuscular HGB Conc 35.1 g/dl (31.0-35.0); Mean Corpuscular Volume 91.2 fL (80.0-98.0); Mean Platelet Volume 9.8 fL (9.4-12.3); Monocytes Absolute Auto 0.6 X10*3/uL (0.1-1.2); Monocytes Percent Auto 7.2 % (2-11); Neutrophils Absolute Auto 3.9 x10*3/uL (2.0-8.3); Platelet Count 271 X10*3/uL (160-400); Red Blood Count 4.56 X10*6/uL (4.20-5.50); Red Cell Distribution Width 13.4 % (11.0-16.0); White Blood Count 7.9 X10*3/uL (4.8-10.8)
[2022-06-03 04:21] LABS: Alanine Aminotransferase 20 U/L (0-31); Albumin Level 4.1 g/dL (3.5-5.0); Alkaline Phosphatase 61 U/L (39-117); Anion Gap 13 (12-20); Aspartate Amino Transferase 15 U/L (5-31); Bilirubin Total 0.6 mg/dL (0.0-1.0); Blood Urea Nitrogen 18 mg/dL (9-16); Carbon Dioxide 25 mmol/L (22-29); Chloride 106 mmol/L (96-108); Creatinine Clr Calc Pharmacy 70.7; Estimated Glomerular Filt Rate > 60; Glucose Random 92 mg/dL (60-115); Potassium 4.2 mmol/L (3.3-5.1); Sodium 140 mmol/L (135-145); Total Protein 6.6 g/dL (6.5-8.0)
[2022-06-03 05:02] VITALS: BP 135/62; PULSE 58; RESP 16; TEMP 36.5; O2SAT 96
[2022-06-03 05:18] LABS: Appearance Urine Cloudy; Color Urine Yellow; Glucose Urine UA Negative (Negative); Leukocyte Esterase Urine Large (3+) (Negative); Nitrite Urine Negative (Negative); UMIC TRIGGER UACC YES; Urine Blood Small (1+) (Negative); Urine Ketones Negative (Negative); Urine Protein Negative (Neg-Trace)
[2022-06-03 05:28] LABS: Bacteria Urine 1+ (None Seen); Hyaline Casts Urine 0-2 /LPF (0-2); UACC Culture Trigger YES; WBC Urine >50 /HPF (0-5)
[2022-06-03 06:30] VITALS: BP 138/55; PULSE 58; RESP 19; TEMP 36.8; O2SAT 95
--- NOTE | 2022-06-03 07:00 | ED.FALL ---
HPI - Fall General Chief Complaint: Fall Stated Complaint: Fall Time Seen by Provider: 06/03/22 06:47 Source: patient Mode of arrival: ambulatory Limitations: no limitations History of Present Illness HPI Narrative: 56-year-old female with a history of hypothyroidism, GERD, high cholesterol, rheumatoid arthritis on methotrexate and Humira who presents to the ER with complaints of bilateral knee pain/swelling/instability. Patient reports this has been ongoing for several weeks. Yesterday her legs gave out completing her to fall. Denies head strike or loss of consciousness. Patient reports she seen by a Dr Harrell ([facility] In the last month she has had cortisone injections in both knees. She denies any associated redness, warmth, fevers or chills. MD complaint: fall Related Data Home Medications Medication Instructions Recorded Confirmed adalimumab 40 mg/0.4 mL 40 mg subcut Q2W 11/21/21 subcutaneous pen kit (Humira(CF) Pen) albuterol sulfate 90 mcg/actuation 2 puff inhalation Q4H PRN wheezing 11/21/21 06/03/22 aerosol inhaler citalopram 20 mg tablet 20 mg PO QAM 11/21/21 06/03/22 fluticasone propionate 220 1 puff inhalation BID 11/21/21 06/03/22 mcg/actuation HFA aerosol inhaler (Flovent HFA) fluticasone propionate 50 2 spray intranasal DAILY PRN 11/21/21 06/03/22 mcg/actuation nasal Congestion spray,suspension folic acid 1 mg tablet 1 mg PO QAM 11/21/21 06/03/22 levothyroxine 100 mcg tablet 100 mcg PO DAILY 11/21/21 06/03/22 methocarbamol 500 mg tablet 500 mg PO BEDTIME PRN low back pain 11/21/21 06/03/22 methotrexate sodium 2.5 mg tablet 20 mg PO QWEEK 11/21/21 06/03/22 omeprazole 20 mg capsule,delayed 20 mg PO QAM 11/21/21 06/03/22 release simvastatin 20 mg tablet 20 mg PO BEDTIME 11/21/21 06/03/22 Previous Rx's Medication Instructions Recorded nitrofurantoin 100 mg PO Q12H 5 days #10 caps 06/03/22 monohydrate/macrocrystals 100 mg capsule (Macrobid) Allergies Allergy/AdvReac Type Severity Reaction Status Date / Time naproxen [From Naprosyn] Allergy Severe Anaphylaxis Verified 02/22/22 19:37 acetaminophen [From Vicodin] Allergy Mild Anaphylaxis Verified 02/22/22 19:37 hydrocodone [From Vicodin] Allergy Mild Anaphylaxis Verified 02/22/22 19:37 penicillin V Allergy Mild Hives Verified 02/22/22 19:37 ibuprofen Allergy Stomach Verified 02/22/22 21:03 Upset Review of Systems Review of Systems: Yes all other systems are reviewed and are negative Constitutional: Constitutional: Reports no additional constitutional complaints, Denies body ache(s), Denies chills, Denies fever(s), Denies headache(s) and Denies weakness Eyes: Eyes: Reports no additional eye complaints and Denies change in vision ENT: Reports system reviewed and no additional complaints, except as documented, Denies dizziness, Denies headache(s), Denies nasal congestion, Denies nasal discharge and Denies neck pain Cardiovascular: Cardiovascular: Reports no additional cardiovascular complaints, Denies chest pain, Denies leg edema and Denies dyspnea Respiratory: Respiratory: Reports no additional respiratory complaints, Denies cough and Denies dyspnea Gastrointestinal: Gastrointestinal: Reports no additional gastrointestinal complaints, Denies abdominal pain, Denies diarrhea, Denies nausea and Denies vomiting Genitourinary: Genitourinary: Reports no additional female genitourinary complaints and Denies urinary incontinence Musculoskeletal: Musculoskeletal: Reports no additional musculoskeletal complaints, Denies back pain, Reports arthralgias, Reports joint swelling, Denies neck pain, Denies numbness and Denies tingling Integumentary/Breasts: Skin/Breast: Reports system reviewed and no additional complaints, except as docu and Denies rash Neurologic: Reports system reviewed and no additional complaints, except as documented, Denies Abnormal speech present, Denies dizziness, Denies headache(s), Denies numbness, Denies tingling and Denies weakness PMFSH Past Medical History Attestation statement: The following information was validated with the patient. Source: old records reviewed and nursing notes reviewed Social History Social History Alcohol intake: never Smoked in Last 30 Days: No Use of substances other than those prescribed or required for medical reasons: No Advance Directives: No Advance Directives Information Provided: Yes Patient : No Physical Exam Vital Signs: Vital Signs: Last Vital Signs Temp 98.3 F 06/03/22 06:30 Pulse 53 06/03/22 08:41 Resp 18 06/03/22 08:41 BP 129/60 06/03/22 08:41 Pulse Ox 94 06/03/22 08:41 O2 Del Method Room Air 06/03/22 08:41 BMI result Body Mass Index 33.5 Const: General: cooperative, healthy appearing, comfortable and no acute distress Orientation/consciousness: patient oriented x3 Limitations: no limitations HEENT: Head: Yes normal to inspection Ears: hearing grossly normal bilaterally General nose exam: Normal external nose present Face and sinus: Yes normal facial exam Mouth: Normal oral and palatal mucosa present Throat: Yes posterior oropharynx normal Eyes: General: appearance normal, both eyes and all related structures Pupils: Equal, round and reactive pupils present Neck: Neck: Yes normal visual inspection Chest: Chest palpation & inspection: normal inspection of the chest Resp: Effort & Inspection: normal respiratory effort Auscultation: clear to auscultation bilaterally Cardio: Rate: regular rate Rhythm: regular rhythm Peripheral pulses: Peripheral pulses 2+ throughout GI: Inspection: Yes normal to inspection Palpation (GI): Soft to palpation and nontender Auscultation: normal bowel sounds Back/Spine/Pelvis: Thoracic/Lumbar Spine: thoracic and lumbar spine normal to inspection Skin: General skin exam: no rashes or lesions noted Neuro: General: patient oriented x3, no focal motor deficits and normal sensation to monofilament Cranial nerves: Yes Equal, round and reactive pupils present Cognition (Neuro): normal cognition Speech: No Abnormal speech present Gait exam (Neuro): Normal gait present Motor exam (neuro): 5/5 motor strength present throughout Extrem: Other: Patient with mild tenderness in the patient over both anterior and posterior knees. There is some mild swelling noted over the posterior aspect of both knees. There is no warmth or redness. There is full range of motion of both knees. There is no ligamental laxity. Patient has distal DP and PT pulses bilaterally. Sensation is intact distally. No calf pain or calf swelling General: Yes normal to inspection Course Course Course Narrative: Labs are unremarkable. UA is consistent with UTI Venous ultrasounds are negative for DVT X-rays of the knees show osteoarthritis, small joint effusion Patient is ambulatory. Plan for discharge home with antibiotic for her urinary tract infection. Patient can follow up outpatient with her wire twister. Reviewed worrisome signs and symptoms of when to return to the emergency room. Comfortable plan for discharge home. Medical Decision Making Medical Decision Making [facility] Narrative: This is a 56-year-old female who presents to the ER with complaints of bilateral knee pain, swelling, instability for the last few weeks with a fall which occurred yesterday after her legs gave out on her. Patient denies any head strike or loss of consciousness. She does have a history of rheumatoid arthritis and is on methotrexate and Humira followed by wire twister. Patient has also had bilateral cortisone injections in the last month. None exam there is some tenderness on palpation as well as some mild swelling to both posterior knees. There is full range of motion, CMS is intact, no ligamental laxity. Will obtain bilateral knee x-rays, venous ultrasound, lab Differential Diagnosis Differential Diagnoses: The differential diagnosis associated with the presentation includes No signs of cellulitis, consider arthritis, ligamental strain, DVT Lab Data [facility] Lab Attestation statement: I reviewed the patient's lab results. 06/03/22 03:54 06/03/22 03:54 Labs: Lab Results 06/03/22 06/03/22 06/03/22 Range/Units 03:54 03:54 05:12 WBC 7.9 (4.8-10.8) X10*3/uL RBC 4.56 (4.20-5.50) X10*6/uL Hgb 14.6 (12.0-16.0) g/dl Hct 41.6 (37.0-47.0) % MCV 91.2 (80.0-98.0) fL MCH 32.0 (27.0-33.0) pg MCHC 35.1 H (31.0-35.0) g/dl RDW 13.4 (11.0-16.0) % Plt Count 271 (160-400) X10*3/uL MPV 9.8 (9.4-12.3) fL Immature Gran % (Auto) 0.3 (0.0-0.4) % Neut % (Auto) 50.0 (45-73) % Lymph % (Auto) 41.4 H (20-40) % Slope % (Auto) 7.2 (2-11) % Eos % (Auto) 0.5 (0-4) % Baso % (Auto) 0.6 (0-2) % Lymph # (Auto) 3.3 (1.2-4.9) X10*3/uL [place] # (Auto) 0.6 (0.1-1.2) X10*3/uL Eos # (Auto) 0.0 (0.0-0.4) X10*3/uL Baso # (Auto) 0.1 (0.0-0.2) X10*3/uL Abs Immat Gran (auto) 0.02 (0.00-0.03) X10*3/uL Absolute Neuts (auto) 3.9 (2.0-8.3) x10*3/uL Absolute Nucleated RBC 0.000 (0.0-0.012) X10*3/uL Nucleated RBC % (auto) 0.0 (0.0-0.2) /100WBC Sodium 140 (135-145) mmol/L Potassium 4.2 (3.3-5.1) mmol/L Chloride 106 (96-108) mmol/L Carbon Dioxide 25 (22-29) mmol/L Anion Gap 13 (12-20) BUN 18 H (9-16) mg/dL Creatinine 0.81 (0.5-1.4) mg/dL Estim Creat Clear Calc 70.7 Estimated GFR > 60 Random Glucose 92 (60-115) mg/dL Calcium 9.0 (8.4-10.2) mg/dL Magnesium 2.1 (1.6-2.6) mg/dL Total Bilirubin 0.6 (0.0-1.0) mg/dL AST 15 (5-31) U/L ALT 20 (0-31) U/L Alkaline Phosphatase 61 (39-117) U/L Total Creatine Kinase 60 (26-140) U/L Total Protein 6.6 (6.5-8.0) g/dL Albumin 4.1 (3.5-5.0) g/dL Urine Color Yellow Urine Appearance Cloudy Urine pH 6.0 (5.0-9.0) Ur Specific Preemption 1.010 (1.005-1.025) Urine Protein Negative (Neg-Trace) mg/dL Urine Glucose (UA) Negative (Negative) mg/dL Urine Ketones Negative (Negative) mg/dL Urine Blood Small (1+) H (Negative) Urine Nitrite Negative (Negative) Ur Leukocyte Esterase Large (3+) H (Negative) Urine RBC 3-5 H (0-2) /HPF Urine WBC >50 (0-5) /HPF Ur Squamous Epith Cells 3-5 (0-2) /HPF Urine Bacteria 1+ (None Seen) Hyaline Casts 0-2 (0-2) /LPF Independent Interpretation I performed an independent interpretation of an: Plain X-Ray and Ultrasound Interpretation: I independently reviewed the ultrasound and knee x-rays agree with radiologist's report Radiology Impression Discussion of test interpretation with radiology: I have reviewed the radiologist's reading. Radiologist Impression: [address] [address] Ultrasound Report Signed Patient: Breanne Palacios MR#: [id number] : 1965 Acct:[id number] Age/Sex: 56 / F ADM Date: 06/03/22 Loc: .ED Attending Dr: Ordering Physician: Denisha Vidales NP Date of Service: 06/03/22 Procedure(s): US venous duplex LE BI Accession Number(s): [id number] cc: Dneisha Vidales NP~ EXAMINATION: US LOWER EXTREMITY VENOUS WITH DOPPLER, BILATERAL CLINICAL INFORMATION: Bilateral lower extremity edema and pain. Evaluate for deep vein thrombosis. COMPARISON: None available. TECHNIQUE: Ultrasound of the deep veins is performed from the hip to the calf with compression sonography and color and pulse Doppler assessment. Spectral analysis with color-flow imaging is performed. FINDINGS: RIGHT: There is normal venous compression and respiratory variation and augmented flow. The visualized common femoral vein, superficial femoral vein, profunda femoral vein, popliteal vein, and the trifurcation region shows no evidence of deep venous thrombosis. There is no significant popliteal fossa cyst. LEFT: There is normal venous compression and respiratory variation and augmented flow. The visualized common femoral vein, superficial femoral vein, profunda femoral vein, popliteal vein, and the trifurcation region shows no evidence of deep venous thrombosis. There is no significant popliteal fossa cyst. If the patient's symptoms persist, followup ultrasound in 5 days 7 days might be of value to exclude proximal propagation from a non-visualized calf vein. US/US venous duplex LE BI IMPRESSION: No DVT demonstrated in the bilateral lower extremity. INDINGS: Right Knee: Mild tricompartmental joint space narrowing with tricompartmental marginal osteophytes. Patellofemoral subchondral cystic change. No acute fracture or dislocation. No concerning lytic or blastic osseous lesion. Superior patellar enthesophytes. Trace joint effusion. Left Knee: Severe medial compartment joint space narrowing with mild bony remodeling. Prominent tricompartmental marginal osteophytes. No concerning lytic or blastic osseous lesion. No acute fracture or dislocation. Trace joint effusion. Posterior ossified loose body measuring up to 0.6 cm. XR/XR knee RT 3V IMPRESSION: RIGHT KNEE: Moderate tricompartmental osteoarthritis. Trace joint effusion. ? LEFT KNEE: Severe medial as well as moderate patellofemoral and lateral compartment osteoarthritis. Trace joint effusion. Posterior ossified loose body measuring up to 0.6 cm. Discharge Plan Discharge Clinical Impression: Osteoarthritis, Urinary tract infection Patient Disposition: Home, Self-Care Instructions: Urinary Tract Infection in Women (ED), Osteoarthritis (ED) Additional Instructions: Your x-ray show osteoarthritis of both of your knees. You do have a small amount of fluid in your knees which can happen from inflammation. There is no signs of blood clots or [place] cyst on the ultrasound. Your lab work is normal. You do have a urinary tract infection. We are prescribing you an antibiotic. Take the antibiotic as prescribed. Increase fluids, rest. Follow-up with your arthritis doctor in regards to your visit today Prescriptions: New nitrofurantoin monohyd/m-cryst [Macrobid] 100 mg capsule 100 mg PO Q12H 5 Days Qty: 10 0RF Rx Instructions: must administer with a meal/food No Action fluticasone propionate 50 mcg/actuation spray,suspension 2 spray intranasal DAILY PRN (Reason: Congestion) fluticasone propionate [Flovent HFA] 220 mcg/actuation HFA aerosol inhaler 1 puff inhalation BID methotrexate sodium 2.5 mg tablet 20 mg PO QWEEK folic acid 1 mg tablet 1 mg PO QAM omeprazole 20 mg capsule,delayed release(DR/EC) 20 mg PO QAM citalopram 20 mg tablet 20 mg PO QAM levothyroxine 100 mcg tablet 100 mcg PO DAILY Humira(CF) Pen 40 mg/0.4 mL pen injector kit 40 mg subcut Q2W albuterol sulfate 90 mcg/actuation HFA aerosol inhaler 2 puff inhalation Q4H PRN (Reason: wheezing) methocarbamol 500 mg tablet 500 mg PO BEDTIME PRN (Reason: low back pain) simvastatin 20 mg tablet 20 mg PO BEDTIME Referrals: Nicholas Kapadia MD [Physician] - 1 week Micah Rosado MD [Primary Care Provider] - 1 week
[2022-06-03 07:49] LABS: Magnesium 2.1 mg/dL (1.6-2.6)
[2022-06-03 08:41] VITALS: BP 129/60; PULSE 53; RESP 18; O2SAT 94
== END 2022-06-03 10:27 | disposition home or self-care (01) ==
PROVIDERS: Nurse Practitioner Family; Emergency Provider Emergency Medicine; PCP Internal Medicine
DX: M17.0 Bilateral primary osteoarthritis of knee (principal); N39.0 Urinary tract infection, site not specified; M79.662 Pain in left lower leg; M79.661 Pain in right lower leg; M25.462 Effusion, left knee; M25.461 Effusion, right knee; Z79.899 Other long term (current) drug therapy
CPT/HCPCS: 36415; 73562; 80053; 81001; 82550; 83735; 85025; 87086; 87147; 93970; 99284

== ENCOUNTER 2022-07-29 23:26 | Emergency (ER) | payer MEDICARE, MEDICAID, SELFPAY ==
--- NOTE | 2022-07-30 | ECG_ITS ---
Test Reason : chest pain Blood Pressure : / mmHG Vent. Rate : 056 BPM Atrial Rate : 056 BPM P-R Int : 148 ms QRS Dur : 076 ms QT Int : 442 ms P-R-T Axes : 040 004 025 degrees QTc Int : 426 ms Sinus bradycardia Otherwise normal ECG No previous ECGs available Referred By: Generic ED Physician Electronically Signed By:Alex Qiu
[2022-07-30 00:38] VITALS: BP 139/72; PULSE 59; RESP 18; TEMP 36.5; O2SAT 96; BMI 34.5
[2022-07-30 01:03] VITALS: BP 148/79; PULSE 59; RESP 14; TEMP 36.4; O2SAT 100
[2022-07-30 01:19] LABS: MANUAL DIFF FLAG NO
[2022-07-30 01:20] LABS: Basophils Absolute Auto 0.1 X10*3/uL (0.0-0.2); Basophils Percent Auto 0.7 % (0-2); Eosinophils Absolute Auto 0.1 X10*3/uL (0.0-0.4); Eosinophils Percent Auto 1.2 % (0-4); Hematocrit 40.4 % (37.0-47.0); Hemoglobin 14.5 g/dl (12.0-16.0); Imm Gran Abs Auto 0.01 X10*3/uL (0.00-0.03); Imm Gran Pct Auto 0.1 % (0.0-0.4); Lymphocytes Absolute Auto 2.6 X10*3/uL (1.2-4.9); Lymphocytes Percent Auto 35.5 % (20-40); Mean Corpuscular HGB Conc 35.9 g/dl (31.0-35.0); Mean Corpuscular Hemoglobin 32.9 pg (27.0-33.0); Mean Corpuscular Volume 91.6 fL (80.0-98.0); Mean Platelet Volume 9.8 fL (9.4-12.3); Monocytes Absolute Auto 0.5 X10*3/uL (0.1-1.2); Neutrophils Absolute Auto 4.1 x10*3/uL (2.0-8.3); Neutrophils Percent Auto 55.5 % (45-73); Platelet Count 276 X10*3/uL (160-400); Red Blood Count 4.41 X10*6/uL (4.20-5.50); Red Cell Distribution Width 13.1 % (11.0-16.0); White Blood Count 7.4 X10*3/uL (4.8-10.8)
[2022-07-30 01:43] LABS: Alanine Aminotransferase 29 U/L (0-31); Alkaline Phosphatase 63 U/L (39-117); Anion Gap 12 (12-20); Aspartate Amino Transferase 28 U/L (5-31); Bilirubin Total 0.6 mg/dL (0.0-1.0); Blood Urea Nitrogen 14 mg/dL (9-16); Carbon Dioxide 28 mmol/L (22-29); Chloride 106 mmol/L (96-108); Creatinine Clr Calc Pharmacy 71.8; Estimated Glomerular Filt Rate > 60; Glucose Random 95 mg/dL (60-115); Potassium 4.4 mmol/L (3.3-5.1); Sodium 142 mmol/L (135-145); Total Protein 6.7 g/dL (6.5-8.0)
[2022-07-30 01:45] LABS: Troponin-I High Sensitivity < 2.7 ng/L (<3.5-17.0)
--- NOTE | 2022-07-30 02:10 | ED.GENADULT ---
HPI - General Adult General Chief complaint: General Medical Stated complaint: lower back pain radiating down leg Time Seen by Provider: 07/30/22 01:30 Source: patient Limitations: no limitations History of Present Illness HPI narrative: 56-year-old female presents with multiple complaints. Patient is complaining of left back pain radiating slightly anteriorly. The pain is sharp and severe. Is worse with movement. Not associated with nausea, vomiting, diarrhea, constipation. She denies any urinary frequency, urgency or dysuria. Patient denies any falls or injuries. Symptoms started earlier today. Patient is also complaining of a chest pain. Chest pain is sharp and intermittent. The symptoms last approximately 5 minutes at the longest. There are worse with movement and palpation. Patient describes the pain as moderate. Patient has had this in the past. Symptoms are associated with anxiety Related Data Home Medications Medication Instructions Recorded Confirmed adalimumab 40 mg/0.4 mL 40 mg subcut Q2W 11/21/21 subcutaneous pen kit (Humira(CF) Pen) albuterol sulfate 90 mcg/actuation 2 puff inhalation Q4H PRN wheezing 11/21/21 06/03/22 aerosol inhaler citalopram 20 mg tablet 20 mg PO QAM 11/21/21 06/03/22 fluticasone propionate 220 1 puff inhalation BID 11/21/21 06/03/22 mcg/actuation HFA aerosol inhaler (Flovent HFA) fluticasone propionate 50 2 spray intranasal DAILY PRN 11/21/21 06/03/22 mcg/actuation nasal Congestion spray,suspension folic acid 1 mg tablet 1 mg PO QAM 11/21/21 06/03/22 levothyroxine 100 mcg tablet 100 mcg PO DAILY 11/21/21 06/03/22 methocarbamol 500 mg tablet 500 mg PO BEDTIME PRN low back pain 11/21/21 06/03/22 methotrexate sodium 2.5 mg tablet 20 mg PO QWEEK 11/21/21 06/03/22 omeprazole 20 mg capsule,delayed 20 mg PO QAM 11/21/21 06/03/22 release simvastatin 20 mg tablet 20 mg PO BEDTIME 11/21/21 06/03/22 Previous Rx's Medication Instructions Recorded nitrofurantoin 100 mg PO Q12H 5 days #10 caps 06/03/22 monohydrate/macrocrystals 100 mg capsule (Macrobid) cyclobenzaprine 10 mg tablet 10 mg PO TID PRN muscle spasm #10 07/30/22 tabs gabapentin 300 mg capsule 300 mg PO TID #14 caps 07/30/22 Allergies Allergy/AdvReac Type Severity Reaction Status Date / Time naproxen [From Naprosyn] Allergy Severe Anaphylaxis Verified 07/30/22 00:47 hydrocodone [From Vicodin] Allergy Mild Anaphylaxis Verified 07/30/22 00:47 penicillin V Allergy Mild Hives Verified 07/30/22 00:47 ibuprofen Allergy Stomach Verified 07/30/22 00:47 Upset Review of Systems Review of Systems: CONSTITUTIONAL: Denies weight loss, fever and chills. HEENT: Denies changes in vision and hearing. RESPIRATORY: Denies SOB and cough. CV: Denies palpitations + CP. GI: Denies abdominal pain, nausea, vomiting and diarrhea. : Denies dysuria and urinary frequency. MSK: Denies myalgia and joint pain. SKIN: Denies rash and pruritus. NEUROLOGICAL: Denies headache and syncope. PSYCHIATRIC: Denies recent changes in mood. Denies anxiety and depression. All other ROS are negative unless in HPI [facility] Social History Social History Alcohol intake: never Smoked in Last 30 Days: No Use of substances other than those prescribed or required for medical reasons: No Advance Directives: No Advance Directives Information Provided: Yes Patient : No Physical Exam ED Vital Signs: Vital Signs - 24 hr 07/30/22 00:38 07/30/22 01:03 Temperature 97.7 F 97.5 F Pulse Rate 59 59 Respiratory Rate 18 14 Blood Pressure 139/72 148/79 H Pulse Oximetry 96 100 Oxygen Delivery Method Room Air Room Air BMI result Body Mass Index 34.5 GEN: Well developed, no acute distress, alert, oriented HEENT: Normocephalic, atraumatic, normal external ears, nose appears normal, no oropharyngeal edema or exudates Eyes: Normal to appearance Neck: Supple, no lymphadenopathy Respiratory: Talks in complete sentences, no respiratory distress, clear to auscultation bilaterally Cardiovascular: Regular rate and rhythm, no murmurs rubs or gallops Abdomen: Soft, nontender, nondistended, no guarding, no rebound Back: No CVA tenderness, reproducible tenderness a left will lateral posterior thoracic area of, reproducible chest wall tenderness to the sternal area bilateral midclavicular lines Extremities: No clubbing cyanosis or edema Neurologic: No focal neurologic deficits, cranial nerves 2-12 intact, strength is 5/5 bilaterally Skin: No rash Course Course Course Narrative: The workup is complete. EKG shows no evidence of ischemia. Her examination is most consistent with musculoskeletal chest pain and back pain given the reproducible component of it. I doubt aortic dissection, aneurysm, pneumonia, pneumothorax, acute coronary sent. Patient is allergic to NSAIDs. Patient will start gabapentin, Tylenol and muscle relaxants. She will follow-up with her primary care provider. Patient will return for any worsening concerning symptoms. Medical Decision Making Medical Decision Making [facility] Narrative: 56-year-old female presents with multiple pain complaints. Patient complains of pain in the left thoracic lateral back area radiating anteriorly. It is reproducible on examination. Lung exam reveals no evidence of crackles, rales or wheezing. Suspect this is musculoskeletal. Doubt cardiac, pneumothorax, PE, radiculopathy. EKG is nonischemic. Will order troponin. No emergent indication for x-ray. Patient is also complaining of with vague sharp chest pain. The chest pain started on the right side, migrated to left in the sternum. The symptoms are atypical in that they are not associated with exertion, sharp and lasts approximately 5 minutes duration. They go away on her own. Patient has also had these symptoms in the past associated with anxiety. Examination revealed reproducible component to her pain symptoms. Most likely is musculoskeletal. As above, doubt acute coronary syndrome, pneumothorax, pneumonia Differential Diagnosis Differential Diagnoses: The differential diagnosis associated with the presentation includes (See above) Lab Data [facility] Lab Attestation statement: I reviewed the patient's lab results. 07/30/22 01:15 07/30/22 01:15 Labs: Lab Results 07/30/22 07/30/22 07/30/22 Range/Units 01:15 01:15 01:15 WBC 7.4 (4.8-10.8) X10*3/uL RBC 4.41 (4.20-5.50) X10*6/uL Hgb 14.5 (12.0-16.0) g/dl Hct 40.4 (37.0-47.0) % MCV 91.6 (80.0-98.0) fL MCH 32.9 (27.0-33.0) pg MCHC 35.9 H (31.0-35.0) g/dl RDW 13.1 (11.0-16.0) % Plt Count 276 (160-400) X10*3/uL MPV 9.8 (9.4-12.3) fL Immature Gran % (Auto) 0.1 (0.0-0.4) % Neut % (Auto) 55.5 (45-73) % Lymph % (Auto) 35.5 (20-40) % [place] % (Auto) 7.0 (2-11) % Eos % (Auto) 1.2 (0-4) % Baso % (Auto) 0.7 (0-2) % Lymph # (Auto) 2.6 (1.2-4.9) X10*3/uL [place] # (Auto) 0.5 (0.1-1.2) X10*3/uL Eos # (Auto) 0.1 (0.0-0.4) X10*3/uL Baso # (Auto) 0.1 (0.0-0.2) X10*3/uL Abs Immat Gran (auto) 0.01 (0.00-0.03) X10*3/uL Absolute Neuts (auto) 4.1 (2.0-8.3) x10*3/uL Absolute Nucleated RBC 0.000 (0.0-0.012) X10*3/uL Nucleated RBC % (auto) 0.0 (0.0-0.2) /100WBC Sodium 142 (135-145) mmol/L Potassium 4.4 (3.3-5.1) mmol/L Chloride 106 (96-108) mmol/L Carbon Dioxide 28 (22-29) mmol/L Anion Gap 12 (12-20) BUN 14 (9-16) mg/dL Creatinine 0.81 (0.5-1.4) mg/dL Estim Creat Clear Calc 71.8 Estimated GFR > 60 Random Glucose 95 (60-115) mg/dL Calcium 9.0 (8.4-10.2) mg/dL Total Bilirubin 0.6 (0.0-1.0) mg/dL AST 28 (5-31) U/L ALT 29 (0-31) U/L Alkaline Phosphatase 63 (39-117) U/L Troponin I High Sens < 2.7 (<3.5-17.0) ng/L Total Protein 6.7 (6.5-8.0) g/dL Albumin 4.0 (3.5-5.0) g/dL Independent Interpretation I performed an independent interpretation of an: EKG (Sinus bradycardia heart rate 56, no acute ST elevations depressions, nonspecific T-wave changes.) Prescription Management I considered prescription management with: Pain Medication Chronic Conditions Patient?s care impacted by: Other (Chronic arthritis) Discharge Plan Discharge Clinical Impression: Back pain, Atypical chest pain Patient Disposition: Home, Self-Care Instructions: Chest Pain (ED), Back Pain (ED), Chest Wall Pain (ED) Prescriptions: New cyclobenzaprine 10 mg tablet 10 mg PO TID PRN (Reason: muscle spasm) Qty: 10 0RF gabapentin 300 mg capsule 300 mg PO TID Qty: 14 0RF No Action nitrofurantoin monohyd/m-cryst [Macrobid] 100 mg capsule 100 mg PO Q12H 5 Days Qty: 10 0RF Rx Instructions: must administer with a meal/food fluticasone propionate 50 mcg/actuation spray,suspension 2 spray intranasal DAILY PRN (Reason: Congestion) fluticasone propionate [Flovent HFA] 220 mcg/actuation HFA aerosol inhaler 1 puff inhalation BID methotrexate sodium 2.5 mg tablet 20 mg PO QWEEK folic acid 1 mg tablet 1 mg PO QAM omeprazole 20 mg capsule,delayed release(DR/EC) 20 mg PO QAM citalopram 20 mg tablet 20 mg PO QAM levothyroxine 100 mcg tablet 100 mcg PO DAILY Humira(CF) Pen 40 mg/0.4 mL pen injector kit 40 mg subcut Q2W albuterol sulfate 90 mcg/actuation HFA aerosol inhaler 2 puff inhalation Q4H PRN (Reason: wheezing) methocarbamol 500 mg tablet 500 mg PO BEDTIME PRN (Reason: low back pain) simvastatin 20 mg tablet 20 mg PO BEDTIME Referrals: Micah Rosado MD [Primary Care Provider] - 3 days
[2022-07-30] MEDS: Gabapentin 300 MG CAPSULE PO (02:32)
[2022-07-30] MEDS: Acetaminophen 325 MG TABLET 975 MG PO (02:32)
[2022-07-30] MEDS: Cyclobenzaprine HCl 10 MG TABLET PO (02:32)
== END 2022-07-30 02:44 | disposition home or self-care (01) ==
PROVIDERS: Emergency Provider Emergency Medicine; PCP Internal Medicine
DX: M54.50 Low back pain, unspecified (principal); R07.89 Other chest pain; M79.605 Pain in left leg; M79.604 Pain in right leg; Z79.899 Other long term (current) drug therapy
CPT/HCPCS: 36415; 80053; 84484; 85025; 93005; 99283; 99285

== ENCOUNTER 2022-08-07 06:14 | Emergency (ER) | payer MEDICARE, MEDICAID, SELFPAY ==
[2022-08-07 06:37] VITALS: BP 146/76; PULSE 63; RESP 18; O2SAT 94
[2022-08-07 06:54] VITALS: PULSE 63; RESP 18; O2SAT 94; BMI 34.2
--- NOTE | 2022-08-07 07:06 | PC.NURSE ---
N2N report given to ALBIN Pérez
--- NOTE | 2022-08-07 07:11 | ECG_ITS ---
Test Reason : chest pain Blood Pressure : / mmHG Vent. Rate : 063 BPM Atrial Rate : 063 BPM P-R Int : 150 ms QRS Dur : 074 ms QT Int : 420 ms P-R-T Axes : 042 -02 030 degrees QTc Int : 429 ms Artifact in tracing Normal sinus rhythm Normal ECG When compared with ECG of 30-JUL-2022 00:52, No significant changes seen Referred By: Marion Mckeon Electronically Signed By:ARUN MALCOLM
[2022-08-07] MEDS: Magnesium Hydrox/Alum Hydrox 30 ML ORAL.SUSP PO (07:35)
[2022-08-07] MEDS: Lidocaine HCl Viscous 2 % 15 ML SOLUTION 10 ML MUCOUS MEM (07:35)
[2022-08-07 07:41] LABS: MANUAL DIFF FLAG NO
[2022-08-07 07:47] LABS: Basophils Absolute Auto 0.1 X10*3/uL (0.0-0.2); Basophils Percent Auto 0.8 % (0-2); Eosinophils Absolute Auto 0.2 X10*3/uL (0.0-0.4); Eosinophils Percent Auto 3.9 % (0-4); Hematocrit 40.4 % (37.0-47.0); Hemoglobin 14.6 g/dl (12.0-16.0); Imm Gran Abs Auto 0.01 X10*3/uL (0.00-0.03); Imm Gran Pct Auto 0.2 % (0.0-0.4); Lymphocytes Absolute Auto 2.3 X10*3/uL (1.2-4.9); Mean Corpuscular HGB Conc 36.1 g/dl (31.0-35.0); Mean Corpuscular Hemoglobin 33.4 pg (27.0-33.0); Mean Corpuscular Volume 92.4 fL (80.0-98.0); Mean Platelet Volume 9.5 fL (9.4-12.3); Monocytes Absolute Auto 0.4 X10*3/uL (0.1-1.2); Monocytes Percent Auto 7.1 % (2-11); Platelet Count 238 X10*3/uL (160-400); Red Blood Count 4.37 X10*6/uL (4.20-5.50); Red Cell Distribution Width 13.2 % (11.0-16.0); White Blood Count 5.9 X10*3/uL (4.8-10.8)
--- NOTE | 2022-08-07 07:51 | ED.CHESTPAIN ---
HPI - Chest Pain General Chief Complaint: Chest Pain Stated Complaint: chest pain Time Seen by Provider: 08/07/22 07:02 Source: patient Mode of arrival: ambulatory History of Present Illness HPI narrative: 56-year-old female who arrives with onset of burning chest pain that started at 530 this morning and was not associated with any recent fever, chills, cough, sore throat, dizziness, diaphoresis, shortness of breath, nausea, abdominal pain or dysuria. Patient states she is still experiencing this symptom. Related Data Home Medications Medication Instructions Recorded Confirmed adalimumab 40 mg/0.4 mL 40 mg subcut Q2W 11/21/21 subcutaneous pen kit (Humira(CF) Pen) albuterol sulfate 90 mcg/actuation 2 puff inhalation Q4H PRN wheezing 11/21/21 06/03/22 aerosol inhaler citalopram 20 mg tablet 20 mg PO QAM 11/21/21 06/03/22 fluticasone propionate 220 1 puff inhalation BID 11/21/21 06/03/22 mcg/actuation HFA aerosol inhaler (Flovent HFA) fluticasone propionate 50 2 spray intranasal DAILY PRN 11/21/21 06/03/22 mcg/actuation nasal Congestion spray,suspension folic acid 1 mg tablet 1 mg PO QAM 11/21/21 06/03/22 levothyroxine 100 mcg tablet 100 mcg PO DAILY 11/21/21 06/03/22 methocarbamol 500 mg tablet 500 mg PO BEDTIME PRN low back pain 11/21/21 06/03/22 methotrexate sodium 2.5 mg tablet 20 mg PO QWEEK 11/21/21 06/03/22 omeprazole 20 mg capsule,delayed 20 mg PO QAM 11/21/21 06/03/22 release simvastatin 20 mg tablet 20 mg PO BEDTIME 11/21/21 06/03/22 Previous Rx's Medication Instructions Recorded nitrofurantoin 100 mg PO Q12H 5 days #10 caps 06/03/22 monohydrate/macrocrystals 100 mg capsule (Macrobid) cyclobenzaprine 10 mg tablet 10 mg PO TID PRN muscle spasm #10 07/30/22 tabs gabapentin 300 mg capsule 300 mg PO TID #14 caps 07/30/22 Allergies Allergy/AdvReac Type Severity Reaction Status Date / Time naproxen [From Naprosyn] Allergy Severe Anaphylaxis Verified 07/30/22 00:47 hydrocodone [From Vicodin] Allergy Mild Anaphylaxis Verified 07/30/22 00:47 penicillin V Allergy Mild Hives Verified 07/30/22 00:47 ibuprofen Allergy Stomach Verified 07/30/22 00:47 Upset Review of Systems Review of Systems: Pertinent positives and negatives as stated in HPI PMFSH Past Medical History Source: nursing notes reviewed Social History Social History Alcohol intake: never Smoked in Last 30 Days: No Use of substances other than those prescribed or required for medical reasons: No Advance Directives: No Advance Directives Information Provided: No Patient : No Physical Exam Vital Signs: Vital Signs: Last Vital Signs Pulse 63 08/07/22 06:54 Resp 18 08/07/22 06:54 BP 146/76 H 08/07/22 06:37 Pulse Ox 94 08/07/22 06:54 O2 Del Method Room Air 08/07/22 06:54 BMI result Body Mass Index 34.2 VITAL SIGNS: Reviewed. GENERAL: Well developed, well nourished, in no acute distress. HEAD: Normocephalic/atraumatic EYES: PERRLA, EOMI EARS: Ext canals without abnormality NOSE: Nares patent bilateral OROPHARYNX: no oral lesions noted, posterior pharynx clear NECK: Supple, no adenopathy LUNGS: Normal breath sounds. No adventitious sounds or accessory muscle use. SpO2<94> CARDIOVASCULAR: Regular rate and rhythm without noted murmurs, no JVD or lower extremity edema. ABDOMEN: Soft, non-tender, non-distended with bowel sounds. MUSCULOSKELETAL: No tenderness, deformities, or effusions noted on gross inspection. EXTREMITIES: No cyanosis, clubbing or edema. SKIN: Inspection of the skin reveals no rashes NEUROLOGIC: Alert and oriented x 4. Strength and sensation to light touch were grossly intact x 4. Medications Administered Discontinued Medications Generic Name Dose Route Start Last Admin Trade Name Freq PRN Reason Stop Dose Admin Al Hydroxide/Mg Hydroxide 30 ml 08/07/22 07:25 08/07/22 07:35 Magnesium Hydrox/Alum Hydrox 30 Ml Oral.Susp PO 08/07/22 07:26 30 ml ONCE ONE Administration Lidocaine HCl 10 ml 08/07/22 07:25 08/07/22 07:35 Lidocaine Hcl Viscous 2 % 15 Ml Solution MUCOUS MEM 08/07/22 07:26 10 ml ONCE ONE Administration Sucralfate 1 gm 08/07/22 07:52 08/07/22 08:29 Sucralfate Oral Suspension 1 Gm/10 Ml Oral.Susp PO 08/07/22 07:53 1 gm ONCE ONE Administration Medical Decision Making Medical Decision Making MDM Narrative: 56-year-old female with suspicion that this is not cardiac type chest pain but will rule out. I reviewed all investigations and my suspicion is that patient is having acid reflux and will be treated as such. There are otherwise no concerns for acute abnormalities, on re-evaluation patient is feeling improved. Differential Diagnosis Please see the discussion above Lab Data Please see the discussion above 08/07/22 07:38 08/07/22 07:38 Labs: Lab Results 08/07/22 08/07/22 08/07/22 Range/Units 07:38 07:38 07:38 WBC 5.9 (4.8-10.8) X10*3/uL RBC 4.37 (4.20-5.50) X10*6/uL Hgb 14.6 (12.0-16.0) g/dl Hct 40.4 (37.0-47.0) % MCV 92.4 (80.0-98.0) fL MCH 33.4 H (27.0-33.0) pg MCHC 36.1 H (31.0-35.0) g/dl RDW 13.2 (11.0-16.0) % Plt Count 238 (160-400) X10*3/uL MPV 9.5 (9.4-12.3) fL Immature Gran % (Auto) 0.2 (0.0-0.4) % Neut % (Auto) 50.0 (45-73) % Lymph % (Auto) 38.0 (20-40) % [place] % (Auto) 7.1 (2-11) % Eos % (Auto) 3.9 (0-4) % Baso % (Auto) 0.8 (0-2) % Lymph # (Auto) 2.3 (1.2-4.9) X10*3/uL [place] # (Auto) 0.4 (0.1-1.2) X10*3/uL Eos # (Auto) 0.2 (0.0-0.4) X10*3/uL Baso # (Auto) 0.1 (0.0-0.2) X10*3/uL Abs Immat Gran (auto) 0.01 (0.00-0.03) X10*3/uL Absolute Neuts (auto) 3.0 (2.0-8.3) x10*3/uL Absolute Nucleated RBC 0.000 (0.0-0.012) X10*3/uL Nucleated RBC % (auto) 0.0 (0.0-0.2) /100WBC Sodium 145 (135-145) mmol/L Potassium 5.2 H (3.3-5.1) mmol/L Chloride 110 H (96-108) mmol/L Carbon Dioxide 26 (22-29) mmol/L Anion Gap 14 (12-20) BUN 12 (9-16) mg/dL Creatinine 0.82 (0.5-1.4) mg/dL Estim Creat Clear Calc 70.6 Estimated GFR > 60 Random Glucose 104 (60-115) mg/dL Calcium 9.3 (8.4-10.2) mg/dL Total Bilirubin 0.7 (0.0-1.0) mg/dL AST 22 (5-31) U/L ALT 33 H (0-31) U/L Alkaline Phosphatase 68 (39-117) U/L Troponin I High Sens < 2.7 (<3.5-17.0) ng/L Total Protein 6.7 (6.5-8.0) g/dL Albumin 3.9 (3.5-5.0) g/dL 08/07/22 Range/Units 09:26 WBC (4.8-10.8) X10*3/uL RBC (4.20-5.50) X10*6/uL Hgb (12.0-16.0) g/dl Hct (37.0-47.0) % MCV (80.0-98.0) fL MCH (27.0-33.0) pg MCHC (31.0-35.0) g/dl RDW (11.0-16.0) % Plt Count (160-400) X10*3/uL MPV (9.4-12.3) fL Immature Gran % (Auto) (0.0-0.4) % Neut % (Auto) (45-73) % Lymph % (Auto) (20-40) % [place] % (Auto) (2-11) % Eos % (Auto) (0-4) % Baso % (Auto) (0-2) % Lymph # (Auto) (1.2-4.9) X10*3/uL [place] # (Auto) (0.1-1.2) X10*3/uL Eos # (Auto) (0.0-0.4) X10*3/uL Baso # (Auto) (0.0-0.2) X10*3/uL Abs Immat Gran (auto) (0.00-0.03) X10*3/uL Absolute Neuts (auto) (2.0-8.3) x10*3/uL Absolute Nucleated RBC (0.0-0.012) X10*3/uL Nucleated RBC % (auto) (0.0-0.2) /100WBC Sodium 143 (135-145) mmol/L Potassium 4.8 (3.3-5.1) mmol/L Chloride 108 (96-108) mmol/L Carbon Dioxide 26 (22-29) mmol/L Anion Gap 14 (12-20) BUN 12 (9-16) mg/dL Creatinine 0.84 (0.5-1.4) mg/dL Estim Creat Clear Calc 68.9 Estimated GFR > 60 Random Glucose 98 (60-115) mg/dL Calcium 9.1 (8.4-10.2) mg/dL Total Bilirubin (0.0-1.0) mg/dL AST (5-31) U/L ALT (0-31) U/L Alkaline Phosphatase (39-117) U/L Troponin I High Sens (<3.5-17.0) ng/L Total Protein (6.5-8.0) g/dL Albumin (3.5-5.0) g/dL Independent Interpretation I performed an independent interpretation of an: EKG Interpretation: Normal sinus rhythm, HR-63, no STEMI, CA/QRS/QTC is within normal limits. Discharge Plan Discharge Clinical Impression: Gastroesophageal reflux disease Patient Disposition: Home, Self-Care Instructions: Diet for Stomach Ulcers and Gastritis (ED), Gastroesophageal Reflux Disease (ED), Noncardiac Chest Pain (ED) Additional Instructions: 1. Resume all home medication. 2. Recommend additional Mylanta as directed on the outside packaging just prior to your meals for additional symptom relief. 3. Follow-up with primary care provider. Return to the ER for any worsening symptoms. Prescriptions: No Action nitrofurantoin monohyd/m-cryst [Macrobid] 100 mg capsule 100 mg PO Q12H 5 Days Qty: 10 0RF Rx Instructions: must administer with a meal/food cyclobenzaprine 10 mg tablet 10 mg PO TID PRN (Reason: muscle spasm) Qty: 10 0RF gabapentin 300 mg capsule 300 mg PO TID Qty: 14 0RF fluticasone propionate 50 mcg/actuation spray,suspension 2 spray intranasal DAILY PRN (Reason: Congestion) fluticasone propionate [Flovent HFA] 220 mcg/actuation HFA aerosol inhaler 1 puff inhalation BID methotrexate sodium 2.5 mg tablet 20 mg PO QWEEK folic acid 1 mg tablet 1 mg PO QAM omeprazole 20 mg capsule,delayed release(DR/EC) 20 mg PO QAM citalopram 20 mg tablet 20 mg PO QAM levothyroxine 100 mcg tablet 100 mcg PO DAILY Humira(CF) Pen 40 mg/0.4 mL pen injector kit 40 mg subcut Q2W albuterol sulfate 90 mcg/actuation HFA aerosol inhaler 2 puff inhalation Q4H PRN (Reason: wheezing) methocarbamol 500 mg tablet 500 mg PO BEDTIME PRN (Reason: low back pain) simvastatin 20 mg tablet 20 mg PO BEDTIME
[2022-08-07 08:02] LABS: Alanine Aminotransferase 33 U/L (0-31); Albumin Level 3.9 g/dL (3.5-5.0); Alkaline Phosphatase 68 U/L (39-117); Anion Gap 14 (12-20); Aspartate Amino Transferase 22 U/L (5-31); Bilirubin Total 0.7 mg/dL (0.0-1.0); Blood Urea Nitrogen 12 mg/dL (9-16); Calcium 9.3 mg/dL (8.4-10.2); Carbon Dioxide 26 mmol/L (22-29); Chloride 110 mmol/L (96-108); Creatinine Clr Calc Pharmacy 70.6; Estimated Glomerular Filt Rate > 60; Glucose Random 104 mg/dL (60-115); Potassium 5.2 mmol/L (3.3-5.1); Sodium 145 mmol/L (135-145); Total Protein 6.7 g/dL (6.5-8.0)
[2022-08-07 08:19] LABS: Troponin-I High Sensitivity < 2.7 ng/L (<3.5-17.0)
[2022-08-07] MEDS: Sucralfate Oral Suspension 1 GM/10 ML ORAL.SUSP PO (08:29)
[2022-08-07 09:58] LABS: Anion Gap 14 (12-20); Blood Urea Nitrogen 12 mg/dL (9-16); Calcium 9.1 mg/dL (8.4-10.2); Carbon Dioxide 26 mmol/L (22-29); Chloride 108 mmol/L (96-108); Creatinine Clr Calc Pharmacy 68.9; Estimated Glomerular Filt Rate > 60; Glucose Random 98 mg/dL (60-115); Potassium 4.8 mmol/L (3.3-5.1); Sodium 143 mmol/L (135-145)
== END 2022-08-07 10:23 | disposition home or self-care (01) ==
PROVIDERS: Emergency Provider Student in an Organized Health Care Education/Training Program
DX: K21.9 Gastro-esophageal reflux disease without esophagitis (principal); R07.89 Other chest pain; Z79.899 Other long term (current) drug therapy
CPT/HCPCS: 36415; 80048; 80053; 84484; 85025; 93005; 99283; 99285

== ENCOUNTER 2023-03-01 22:48 | Emergency (ER) | payer MEDICARE, MEDICAID, SELFPAY ==
--- NOTE | ~2023-03-01 | XR_ITS ---
EXAMINATION: XR CHEST CLINICAL INFORMATION: Chest pain. COMPARISON: Chest radiograph 02/22/2022. TECHNIQUE: 2 views of the chest were obtained. FINDINGS: Normal appearance of the cardiomediastinal silhouette. Mild central peribronchial thickening is not significantly changed. No focal consolidation. No pleural effusion or pneumothorax. No acute osseous findings. Visualized upper abdomen is within normal limits. XR/XR chest 2V IMPRESSION: Mild central peribronchial thickening which is nonspecific and could be associated with asthma, bronchitis, reactive airways disease or atypical infections.
--- NOTE | 2023-03-01 22:50 | ECG_ITS ---
Test Reason : CHESTPAIN Blood Pressure : / mmHG Vent. Rate : 087 BPM Atrial Rate : 087 BPM P-R Int : 142 ms QRS Dur : 076 ms QT Int : 362 ms P-R-T Axes : 049 001 033 degrees QTc Int : 435 ms Normal sinus rhythm Cannot rule out Anterior infarct , age undetermined Abnormal ECG When compared with ECG of 07-AUG-2022 07:49, T wave inversion no longer evident in Lateral leads Referred By: Generic ED Physician Electronically Signed By:JAMIE LANTIGUA MD
[2023-03-01 23:03] VITALS: BP 167/94; PULSE 85; RESP 20; TEMP 36.3; O2SAT 97; BMI 34.6
[2023-03-01 23:07] LABS: MANUAL DIFF FLAG NO
[2023-03-01 23:10] LABS: Basophils Absolute Auto 0.1 X10*3/uL (0.0-0.2); Basophils Percent Auto 0.9 % (0-2); Eosinophils Absolute Auto 0.2 X10*3/uL (0.0-0.4); Eosinophils Percent Auto 2.8 % (0-4); Hematocrit 40.8 % (37.0-47.0); Hemoglobin 14.5 g/dl (12.0-16.0); Imm Gran Abs Auto 0.01 X10*3/uL (0.00-0.03); Imm Gran Pct Auto 0.1 % (0.0-0.4); Lymphocytes Absolute Auto 2.2 X10*3/uL (1.2-4.9); Lymphocytes Percent Auto 32.5 % (20-40); Mean Corpuscular HGB Conc 35.5 g/dl (31.0-35.0); Mean Corpuscular Hemoglobin 31.8 pg (27.0-33.0); Mean Corpuscular Volume 89.5 fL (80.0-98.0); Mean Platelet Volume 9.8 fL (9.4-12.3); Monocytes Absolute Auto 0.5 X10*3/uL (0.1-1.2); Monocytes Percent Auto 7.4 % (2-11); Neutrophils Absolute Auto 3.8 x10*3/uL (2.0-8.3); Neutrophils Percent Auto 56.3 % (45-73); Platelet Count 326 X10*3/uL (160-400); Red Blood Count 4.56 X10*6/uL (4.20-5.50); Red Cell Distribution Width 12.5 % (11.0-16.0); White Blood Count 6.8 X10*3/uL (4.8-10.8)
[2023-03-01 23:22] LABS: Alanine Aminotransferase 20 U/L (0-31); Albumin Level 3.9 g/dL (3.5-5.0); Alkaline Phosphatase 107 U/L (39-117); Anion Gap 12 (12-20); Aspartate Amino Transferase 20 U/L (5-31); Bilirubin Direct 0.1 mg/dL (0.0-0.5); Bilirubin Total 0.4 mg/dL (0.0-1.0); Blood Urea Nitrogen 9 mg/dL (9-16); Calcium 9.2 mg/dL (8.4-10.2); Carbon Dioxide 26 mmol/L (22-29); Chloride 108 mmol/L (96-108); Creatinine Clr Calc Pharmacy 68.9; Estimated Glomerular Filt Rate > 60; Glucose Random 110 mg/dL (60-115); Lipase 20 U/L (8-78); Sodium 142 mmol/L (135-145); Total Protein 7.2 g/dL (6.5-8.0)
[2023-03-01 23:32] LABS: Troponin-I High Sensitivity < 2.7 ng/L (<3.5-17.0)
[2023-03-01 23:34] VITALS: BP 138/82; PULSE 84; RESP 18; O2SAT 93
[2023-03-01 23:35] LABS: COVID-19 Test Negative (Negative); IDNOW Serial# 16C4AD1C
[2023-03-01 23:54] LABS: IDNOW Serial# 55D5AD1C; Influenza A Negative (Negative); Influenza B2 Negative (Negative)
--- NOTE | 2023-03-02 00:18 | ED.CHESTPAIN ---
HPI - Chest Pain General Chief Complaint: Chest Pain Stated Complaint: chest and right arm pain Time Seen by Provider: 03/01/23 23:47 Source: patient Mode of arrival: ambulatory Limitations: no limitations History of Present Illness HPI narrative: Patient comes to the emergency room complaining of chest pain for 1 week. Patient states that she has under a lot of pressure. Patient's son-in-law recently . Patient states that everybody is asking her questions regarding the service which patient does not know the answers. Patient states that she feels a lot of pressure that people at expecting her to know all the details of the service and it is making her feel very anxious and having chest pressure. At this time, patient states that she feels well, no chest pain or pressure. Related Data Home Medications Medication Instructions Recorded Confirmed adalimumab 40 mg/0.4 mL 40 mg subcut Q2W 11/21/21 subcutaneous pen kit (Humira(CF) Pen) albuterol sulfate 90 mcg/actuation 2 puff inhalation Q4H PRN wheezing 11/21/21 06/03/22 aerosol inhaler citalopram 20 mg tablet 20 mg PO QAM 11/21/21 06/03/22 fluticasone propionate 220 1 puff inhalation BID 11/21/21 06/03/22 mcg/actuation HFA aerosol inhaler (Flovent HFA) fluticasone propionate 50 2 spray intranasal DAILY PRN 11/21/21 06/03/22 mcg/actuation nasal Congestion spray,suspension folic acid 1 mg tablet 1 mg PO QAM 11/21/21 06/03/22 levothyroxine 100 mcg tablet 100 mcg PO DAILY 11/21/21 06/03/22 methocarbamol 500 mg tablet 500 mg PO BEDTIME PRN low back pain 11/21/21 06/03/22 methotrexate sodium 2.5 mg tablet 20 mg PO QWEEK 11/21/21 06/03/22 omeprazole 20 mg capsule,delayed 20 mg PO QAM 11/21/21 06/03/22 release simvastatin 20 mg tablet 20 mg PO BEDTIME 11/21/21 06/03/22 Previous Rx's Medication Instructions Recorded nitrofurantoin 100 mg PO Q12H 5 days #10 caps 06/03/22 monohydrate/macrocrystals 100 mg capsule (Macrobid) cyclobenzaprine 10 mg tablet 10 mg PO TID PRN muscle spasm #10 07/30/22 tabs gabapentin 300 mg capsule 300 mg PO TID #14 caps 07/30/22 Allergies Allergy/AdvReac Type Severity Reaction Status Date / Time naproxen [From Naprosyn] Allergy Severe Anaphylaxis Verified 03/01/23 23:06 hydrocodone [From Vicodin] Allergy Mild Anaphylaxis Verified 03/01/23 23:06 penicillin V Allergy Mild Hives Verified 03/01/23 23:06 ibuprofen Allergy Stomach Verified 03/01/23 23:06 Upset Review of Systems Review of Systems: Constitutional : No Weight loss, No Fever, No Chills, No Night Sweats, No Fatigue, No Malaise ENT/Mouth : No Hearing loss, No Ear Pain, No Nasal Congestion, No Sinus Pain, No Hoarseness, No sore throat, No Rhinorrhea, No Swallowing Difficulty Eyes: No Eye Pain, No Swelling, No Redness, No Foreign Body, No Discharge, No Vision Changes Cardiovascular : Complaining of chest pressure, No Chest Pain, No SOB, No Dyspnea on Exertion, No Orthopnea, No Edema, No Palpitations Respiratory : No Cough, No Sputum, No Wheezing, No Smoke Exposure, No Dyspnea Gastrointestinal : No Nausea, No Vomiting, No Diarrhea, No Constipation, No abdominal Pain, No Hematochezia, No Melena Genitourinary : no irregular bleeding, No Dysuria, No Urinary Frequency, No Hematuria, No Urinary Incontinence, No Urgency, No Flank Pain, No Urinary Flow Changes, No Hesitancy Musculoskeletal : No joint pain, No Myalgias, No Joint Swelling Skin : No Skin Lesions, No rash Neuro : No Weakness, No Numbness, No Paresthesias, No Loss of Consciousness, No Dizziness, No Headache Psych : Complaining of anxiety, No Depression, No SI/HI/AH/VH, No Social Issues, Heme/Lymph: No Bruising, No Bleeding,No Lymphadenopathy Endocrine : No Polyuria, No Polydipsia, No Temperature Intolerance [facility] Social History Social History Alcohol intake: never Smoked in Last 30 Days: No Use of substances other than those prescribed or required for medical reasons: No Advance Directives: No Advance Directives Information Provided: Yes Patient : No Physical Exam Vital Signs: Vital Signs: Last Vital Signs Temp 97.3 F 03/01/23 23:03 Pulse 84 03/01/23 23:34 Resp 18 03/01/23 23:34 BP 138/82 03/01/23 23:34 Pulse Ox 93 03/01/23 23:34 O2 Del Method Room Air 03/01/23 23:34 BMI result Body Mass Index 34.6 Const: Other: Appearance: Alert. Oriented X3. No acute distress. Eyes: Pupils equal, round and reactive to light. ENT: Pharynx normal. Neck: Normal inspection. Neck supple. No lymph nodes noted. No crepitus CVS: Normal heart rate and rhythm. Pulses normal. Normal S1 and S2 Respiratory: No respiratory distress. Breath sounds normal. No Wheezing. No rales Abdomen: Soft and nontender. No rigidity. No distention. Skin: Skin warm and dry. Normal skin color. Normal skin turgor. Extremities: No lower extremity edema. No Lacerations. No Rash Neuro: Oriented X 3. No motor deficit. No sensory deficit. Moving all extremities. No slurred speech. CN 2 through 12 grossly intact Psych: calm, cooperative, normal affect Medical Decision Making Medical Decision Making [facility] Narrative: -my interpretation of EKG: Normal sinus rhythm, heart rate 87, no ST segment depression or elevation, no T-wave inversion, QTC 435 -my interpretation of chest x-ray: No acute abnormality, no infiltrates or rib fractures -my interpretation of labs, hematology and chemistry unremarkable, troponin negative. -patient has been symptomatic for 1 week, troponin negative. Given patient's history, patient likely having anxiety. At this time patient is asymptomatic -patient's vitals are stable, blood pressure 138/82, heart rate 84, respirations 18, oxygen saturation 97% on room air Differential Diagnosis Differential Diagnoses: The differential diagnosis associated with the presentation includes (Anxiety, acute coronary syndrome, STEMI, NSTEMI) Admission/Observation Consideration of admission/observation: Escalation of care including admission/observation considered (Given patient's symptoms, admission was considered an arrival) Lab Data [facility] Lab Attestation statement: I reviewed the patient's lab results. 03/01/23 23:01 03/01/23 23:01 Labs: Lab Results 03/01/23 Range/Units 23:01 WBC 6.8 (4.8-10.8) X10*3/uL RBC 4.56 (4.20-5.50) X10*6/uL Hgb 14.5 (12.0-16.0) g/dl Hct 40.8 (37.0-47.0) % MCV 89.5 (80.0-98.0) fL MCH 31.8 (27.0-33.0) pg MCHC 35.5 H (31.0-35.0) g/dl RDW 12.5 (11.0-16.0) % Plt Count 326 D (160-400) X10*3/uL MPV 9.8 (9.4-12.3) fL Immature Gran % (Auto) 0.1 (0.0-0.4) % Neut % (Auto) 56.3 (45-73) % Lymph % (Auto) 32.5 (20-40) % [place] % (Auto) 7.4 (2-11) % Eos % (Auto) 2.8 (0-4) % Baso % (Auto) 0.9 (0-2) % Lymph # (Auto) 2.2 (1.2-4.9) X10*3/uL [place] # (Auto) 0.5 (0.1-1.2) X10*3/uL Eos # (Auto) 0.2 (0.0-0.4) X10*3/uL Baso # (Auto) 0.1 (0.0-0.2) X10*3/uL Abs Immat Gran (auto) 0.01 (0.00-0.03) X10*3/uL Absolute Neuts (auto) 3.8 (2.0-8.3) x10*3/uL Absolute Nucleated RBC 0.000 (0.0-0.012) X10*3/uL Nucleated RBC % (auto) 0.0 (0.0-0.2) /100WBC Sodium 142 (135-145) mmol/L Potassium 4.0 (3.3-5.1) mmol/L Chloride 108 (96-108) mmol/L Carbon Dioxide 26 (22-29) mmol/L Anion Gap 12 (12-20) BUN 9 (9-16) mg/dL Creatinine 0.80 (0.5-1.4) mg/dL Estim Creat Clear Calc 68.9 Estimated GFR > 60 Random Glucose 110 (60-115) mg/dL Calcium 9.2 (8.4-10.2) mg/dL Total Bilirubin 0.4 (0.0-1.0) mg/dL Direct Bilirubin 0.1 (0.0-0.5) mg/dL AST 20 (5-31) U/L ALT 20 (0-31) U/L Alkaline Phosphatase 107 (39-117) U/L Troponin I High Sens < 2.7 (<3.5-17.0) ng/L Total Protein 7.2 (6.5-8.0) g/dL Albumin 3.9 (3.5-5.0) g/dL Lipase 20 (8-78) U/L COVID-19 ([place]) Negative (Negative) COVID-19 Clin Com See Note Influenza Type A ([place]) Negative (Negative) Influenza Type B ([place]) Negative (Negative) Influenza A & B Note See Note Independent Interpretation I performed an independent interpretation of an: EKG and Plain X-Ray Radiology Impression Discussion of test interpretation with radiology: I have reviewed the radiologist's reading. Radiologist Impression: FINDINGS: Normal appearance of the cardiomediastinal silhouette. Mild central peribronchial thickening is not significantly changed. No focal consolidation. No pleural effusion or pneumothorax. No acute osseous findings. Visualized upper abdomen is within normal limits. XR/XR chest 2V IMPRESSION: Mild central peribronchial thickening which is nonspecific and could be associated with asthma, bronchitis, reactive airways disease or atypical infections. Discharge Plan Discharge Clinical Impression: Anxiety, Atypical chest pain Patient Disposition: Home, Self-Care Instructions: Anxiety (ED), Chest Pain (ED) Additional Instructions: Please follow-up with your primary care physician tomorrow. If you have any worsening or new symptoms, please return to the emergency room or call 911 Prescriptions: No Action nitrofurantoin monohyd/m-cryst [Macrobid] 100 mg capsule 100 mg PO Q12H 5 Days Qty: 10 0RF Rx Instructions: must administer with a meal/food cyclobenzaprine 10 mg tablet 10 mg PO TID PRN (Reason: muscle spasm) Qty: 10 0RF gabapentin 300 mg capsule 300 mg PO TID Qty: 14 0RF fluticasone propionate 50 mcg/actuation spray,suspension 2 spray intranasal DAILY PRN (Reason: Congestion) fluticasone propionate [Flovent HFA] 220 mcg/actuation HFA aerosol inhaler 1 puff inhalation BID methotrexate sodium 2.5 mg tablet 20 mg PO QWEEK folic acid 1 mg tablet 1 mg PO QAM omeprazole 20 mg capsule,delayed release(DR/EC) 20 mg PO QAM citalopram 20 mg tablet 20 mg PO QAM levothyroxine 100 mcg tablet 100 mcg PO DAILY Humira(CF) Pen 40 mg/0.4 mL pen injector kit 40 mg subcut Q2W albuterol sulfate 90 mcg/actuation HFA aerosol inhaler 2 puff inhalation Q4H PRN (Reason: wheezing) methocarbamol 500 mg tablet 500 mg PO BEDTIME PRN (Reason: low back pain) simvastatin 20 mg tablet 20 mg PO BEDTIME
[2023-03-02 00:46] VITALS: BP 139/74; PULSE 84; RESP 14; TEMP 36.7; O2SAT 96
== END 2023-03-02 00:57 | disposition home or self-care (01) ==
PROVIDERS: Emergency Provider Emergency Medicine; PCP Internal Medicine
DX: F41.9 Anxiety disorder, unspecified (principal); R07.89 Other chest pain; Z11.52 Encounter for screening for COVID-19
CPT/HCPCS: 71046; 80048; 80076; 83690; 84484; 85025; 87502; 87635; 93005; 99283; 99285

== ENCOUNTER → 2023-03-01 22:50 | Outpatient (BNV) | payer MEDICARE, MEDICAID, SELFPAY | PROVIDERS: Emergency Provider Emergency Medicine; PCP Internal Medicine; Visit Provider Internal Medicine Cardiovascular Disease | DX: R94.31 Abnormal electrocardiogram [ECG] [EKG] (principal); R07.9 Chest pain, unspecified | CPT/HCPCS: 93010 ==

== ENCOUNTER 2023-09-05 20:17 | Emergency (ER) | payer MEDICARE, MEDICAID, SELFPAY ==
--- NOTE | ~2023-09-05 | XR_ITS ---
EXAMINATION: XR LUMBOSACRAL SPINE CLINICAL INFORMATION: Pain. COMPARISON: None available. TECHNIQUE: Three views of the lumbosacral spine. 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 Grade 1 anterolisthesis of L4 on L5. Mild multilevel degenerative disc disease, as well as multilevel bilateral facet arthropathy. No loss of vertebral body height. No acute fracture or subluxation. No concerning lytic or blastic osseous lesion. XR/XR lumbar spine 2-3V IMPRESSION: 1. 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 2. Grade 1 anterolisthesis of L4 on L5. Mild multilevel degenerative disc disease and bilateral facet arthropathy.
[2023-09-05 20:49] VITALS: BP 140/68; PULSE 73; RESP 17; TEMP 36.1; O2SAT 96; BMI 34.2
[2023-09-06 00:53] VITALS: BP 155/76; PULSE 67; RESP 17; TEMP 36.8; O2SAT 98
--- OUTSIDE RECORDS SUMMARY | 2023-09-06 01:07 | XMS_ITS | Continuity of Care Document ---
Author Organization [facility] ter Address [address] [place] [id number]- Care Team Providers Care Associate Software Developer Name Role Phone Jacqueline Calero MD Primary Care Physician Encounter [facility] Date(s): 12/01/22 - 12/31/[address] [id number] Attending Physician: Ozzie Christy Admitting Physician: AdmOzzie lim Referring Physician: Admtr, Ar8 Allergies, Adverse Reactions, Alerts Substance Reaction Severity Status naproxen nausea and vomiting Active penicillin Dyspnea Active sulfa drugs nausea and vomiting Active Vicodin Active Medications acetaminophen 325 mg oral tablet 650 mg, By Mouth, Every 6 hours, May take OTC not to exceed 3000 mg/day, Refills 0, Maintenance, 12/08/22 8:13:00 EDT, Partial fill upon patient request if the prescription is for a schedule II opioid drug. Start Date: 12/08/22 Status: Ordered Albuterol (Eqv-Proventil HFA) 90 mcg/inh inhalation aerosol 2 puffs, Inhalation, Every 6 hours, 0 Refills, Maintenance, 11/29/22 10:33:00 EDT, Partial fill upon patient request if the prescription is for a schedule II opioid drug. Start Date: 11/29/22 Status: Ordered aspirin 325 mg oral delayed release tablet 325 mg, By Mouth, 2 times a day, to begin POD # 1, Refills 0, Maintenance, 12/08/22 8:14:00 EDT, Partial fill upon patient request if the prescription is for a schedule II opioid drug. Start Date: 12/08/22 Status: Ordered atorvastatin 20 mg oral tablet 1 tablet = 20 mg, TAKE 1 TABLET BY MOUTH EVERY DAY Start Date: 11/29/22 Status: Ordered cetirizine 10 mg oral tablet 1 tablet = 10 mg, By Mouth, Daily, # 30 tablet, 0 Refills, Maintenance, 11/29/22 10:30:00 EDT, Tablet, Partial fill upon patient request if the prescription is for a schedule II opioid drug. Start Date: 11/29/22 Status: Ordered citalopram 20 mg oral tablet TAKE 1 TABLET BY MOUTH EVERY MORNING Start Date: 02/23/20 Status: Ordered Colace Capsule 100 mg, 1, capsule, By Mouth, 2 times a day, Refills 0, Maintenance, 12/08/22 8:14:00 EDT, Partial fill upon patient request if the prescription is for a schedule II opioid drug. Start Date: 12/08/22 Status: Ordered folic acid 1 mg oral tablet 1 mg, 1, tablet, By Mouth, Daily, # 30 tablet, Refills 0, Maintenance, 02/23/20 11:29:00 EST, Partial fill upon patient request if the prescription is for a schedule II opioid drug. Start Date: 02/23/20 Status: Ordered levothyroxine 0.1 mg oral tablet 1 tablet = 100 mcg, By Mouth, Daily, # 30 tablet, 0 Refills, Maintenance, 02/23/20 11:29:00 EST, Tablet, Partial fill upon patient request if the prescription is for a schedule II opioid drug. Start Date: 02/23/20 Status: Ordered methotrexate 2.5 mg oral tablet TK 8 TS PO ONCE A WEEK Start Date: 02/23/20 Status: Ordered omeprazole 20 mg oral enteric coated capsule 1 capsule = 20 mg, By Mouth, Daily, # 30 capsule, 0 Refills, Maintenance, 02/23/20 11:28:00 EST, ECCapsule, Partial fill upon patient request if the prescription is for a schedule II opioid drug. Start Date: 02/23/20 Status: Ordered Problem List Condition Confirmation Course Effective Dates Status H ealth Status Informant Fibromyalgia Confirmed Active Hyperlipidemia Confirmed Active Hypothyroidism Confirmed Active Obese class I Confirmed Active ANITA on CPAP Confirmed Active Osteoarthritis Confirmed Active Arthritis, rheumatoid Confirmed Active Social History Social History Type Response Smoking Status Never (less than 100 in lifetime) entered on: 11/29/22 Sex Patient Care team information Care Team Personnel Name: Surendra Henning RN Position: [facility] RN Member Role: Primary Care Nurse Name: Vanessa James RN Position: [facility] RN Member Role: Primary Care Nurse Name: Jacqueline Calero MD Position: [facility] Physician - Primary Care Member Role: PCP Address: Address: [address] [place] [address] Adult [facility] [place] [address]- Name: Makeda Prasad RN Position: [facility] RN Member Role: Primary Care Nurse Care Team Related Persons Name: RIASTACIE Address: home [address] [place] [address] Name: JAGDISH ROLLINS Address: home [address] [place] [address]
--- OUTSIDE RECORDS SUMMARY | 2023-09-06 01:07 | XMS_ITS | Continuity of Care Document ---
Author Organization [facility] Address [address] [place] [address]- Care Team Providers Care Brim Pouncer Machine Operator Name Role Phone Abdias ORTEGA, Jacqueline Primary Care Physician Encounter [facility] Date(s): 11/29/22 - 12/29/22 [facility] [address], [place] [id number] Attending Physician: Ozzie Christy Admitting Physician: AdmOzzie lim Referring Physician: Admtr, Ar8 Allergies, Adverse Reactions, Alerts Substance Reaction Severity Status sulfa drugs nausea and vomiting Active Vicodin Active naproxen nausea and vomiting Active penicillin Dyspnea Active Medications acetaminophen 325 mg oral tablet [...] Team Personnel Name: Surendra Henning RN Position: [facility] RN Member Role: Primary Care Nurse Name: Vanessa James RN Position: [facility] RN Member Role: Primary Care Nurse Name: Jacqueline Calero MD Position: [facility] Physician - Primary Care Member Role: PCP Address: Address: [address] [place] [address] Adult & [place] [address]- Name: Makeda Prasad RN Position: [facility] RN Member Role: Primary Care Nurse Care Team Related Persons Name: RIASTACIE Address: home [address] [place] [address] Name: JAGDISH ROLLINS Address: home [address] [place] [address]
--- OUTSIDE RECORDS SUMMARY | 2023-09-06 01:07 | XMS_ITS | Continuity of Care Document ---
Author Organization [facility] ter Address [address] [place] [address]- Care Team Providers Care Energy Advisor Name Role Phone Abdias ORTEGA, Jacqueline Primary Care Physician Encounter [facility] Date(s): 12/07/22 - 12/08/[address] [address] Discharge Disposition: A-Transfer VNA/Home Health Attending Physician: Jasen Layton MD Admitting Physician: Jasen Layton MD Referring Physician: Jasen Layton MD Allergies, Adverse Reactions, Alerts Substance Reaction [...] opioid drug. Start Date: 12/08/22 Status: Ordered Acetaminophen Tablet 650 mg, Tablet, By Mouth, 12/08/22 7:00:00 EDT Start Date: 12/08/22 Stop Date: 12/08/22 Status: Completed Albuterol (Eqv-Proventil HFA) 90 mcg/inh inhalation aerosol [...] opioid drug. Start Date: 02/23/20 Status: Ordered oxyCODONE 5 mg oral tablet See Instructions, PRN, Take 1-2 tablets every 4 hours as needed for moderate to severe pain., # 84 tablet, Refills 0, Tot. Refills 0, Acute 12/16/22 8:00:00 EDT, Pain , Severe, 12/08/22 8:10:00 EDT, Instructions Replace Required Details, Route to Phar... Start Date: 12/08/22 Stop Date: 12/16/22 Status: Ordered OxyCODONE IR Tablet 10 mg, Tablet, By Mouth, Every 4 hours, PRN for Pain , Severe, Routine, 12/07/22 13:29:00 EDT Start Date: 12/07/22 Stop Date: 12/08/22 Status: Discontinued traMADol 50 mg oral tablet See Instructions, PRN Pain , Mild, Take 1-2 tablets every 6 hours as needed for mild pain. not to exceed 400 mg/day, # 56 tablet, 0 Refills, Acute 12/18/22 8:00:00 EDT, 12/08/22 8:11:00 EDT, Tablet, [facility], Partial fill upon patien... Start Date: 12/08/22 Stop Date: 12/18/22 Status: Ordered Problem List Condition Confirmation Course Effective Dates Status H ealth Status Informant Fibromyalgia Confirmed Active Hyperlipidemia Confirmed Active Hypothyroidism Confirmed Active Obese class I Confirmed Active ANITA on CPAP Confirmed Active Osteoarthritis Confirmed Active Arthritis, rheumatoid Confirmed Active Results Radiology Reports * Exam Date Time Procedure Performing Provider Status 12/07/22 2:39 PM Knee 1 or 2 Views Left Crissy Gutierrez (Verified) Notes: (Knee 1 or 2 Views Left) Reason For Exam: Postop RESULT: Knee 1 or 2 Views Left Knee 1 or 2 Views Left INDICATION: Postop knee replacement COMPARISON: None. FINDINGS: Distal femoral and proximal tibial metallic components are in typical position. No periprosthetic fracture. Soft tissue emphysema, but no unexpected soft tissue findings. IMPRESSION: Typical postoperative appearance. WSN: [id number] Ordering Physician: Tiffany Cates Dictated By: Francisco Wu MD Dictated Date/Time: 12/07/22 3:02 pm Reviewed By: Francisco Wu MD Signed By: Francisco Wu MD Signed Date/Time: 12/07/22 3:02 pm Transcribed By: HECTOR Transcribed Date/Time: 12/07/22 3:02 pm Vital Signs Most recent to oldest [Reference Range]: 1 2 3 Height 150 cm (12/08/22 7:55 AM) 150 cm (12/08/22 3:38 AM) 150 cm (12/07/22 11:54 PM) Weight 76.3 kg (12/07/22 2:37 PM) 76.3 kg (12/07/22 11:20 AM) Oxygen Saturation [94-100 %] 95 % (12/08/22 7:55 AM) 97 % (12/08/22 3:38 AM) 96 % (12/07/22 11:54 PM) Pulse Rate [55-90 bpm] 76 bpm (12/08/22 7:55 AM) 58 bpm (12/08/22 3:38 AM) 65 bpm (12/07/22 11:54 PM) Body Mass Index [18.5-24.99 kg/m2] 33.91 kg/m2 *>HHI* (12/07/22 2:37 PM) 31.76 kg/m2 *>HHI* (12/07/22 11:20 AM) Blood Pressure [90-138/55-84 mm Hg] 106/63mm Hg (12/08/22 7:55 AM) 118/64mm Hg (12/08/22 3:38 AM) 117/63mm Hg (12/07/22 11:54 PM) Respiratory Rate [16-30 br/min] 18 br/min (12/08/22 9:22 AM) 18 br/min (12/08/22 8:29 AM) 18 br/min (12/08/22 7:55 AM) Temperature [96.8-100.4 DegF] 99.1 DegF (12/08/22 7:55 AM) 98.4 DegF (12/08/22 3:38 AM) 98.2 DegF (12/07/22 11:54 PM) Liters per Minute 4 L/min (12/07/22 11:40 AM) 4 L/min (12/07/22 11:35 AM) Mode of Delivery (Oxygen) Room air (12/08/22 7:55 AM) Room air (12/08/22 3:38 AM) Room air (12/07/22 11:54 PM) Blood pressure sites Arm, right (12/08/22 7:55 AM) Arm, right (12/08/22 3:38 AM) Arm, right (12/07/22 11:54 PM) Temperature Route Oral (12/08/22 7:55 AM) Oral (12/08/22 3:38 AM) Oral (12/07/22 11:54 PM) Dry Weight 76.3 kg (12/07/22 2:37 PM) 76.3 kg (12/07/22 11:20 AM) Weight Obtained Via Standing scale (12/07/22 11:20 AM) Dry Weight Obtained Via Standing scale (12/07/22 11:20 AM) Social History Social History Type Response Smoking Status Never (less than 100 in lifetime) entered on: 11/29/22 Sex History and physical note * Event Display: History and Physical Hospital Authored Date: [id number] * Event Display: History and Physical Hospital Authored Date: [id number] SURGICAL HISTORY AND PHYSICAL DATE: 12/07/2022 PRIMARY DIAGNOSIS: Osteoarthritis of the left knee. REASON FOR ADMISSION: Left total knee replacement. HISTORY OF PRESENT ILLNESS: The patient is a 57-year-old female who presents today for evaluation of her left knee for upcoming surgery. She has a known longstanding history of left knee osteoarthritis and has undergone a lengthy course of conservative management with generalized failure of nonsurgical options. Her pain is severe and worsened with activity. She is now ready to pursue a left totalknee replacement with Dr. Layton on 12/07/2022. PAST MEDICAL HISTORY: 1. Osteoarthritis of the left knee. 2. Obesity, BMI 34. 3. Sleep apnea. 4. Hyperlipidemia. 5. Depression. 6. Fibromyalgia. 7. Hypothyroidism. 8. Rheumatoid arthritis. 9. Hernia, which she is seeing a surgeon for tomorrow for evaluation; however, she reports this is not bothering her that much at this time. She was instructed to update us after this evaluation. PAST SURGICAL HISTORY: 1. Hernia. 2. Tubal ligation. MEDICATIONS: 1. Albuterol inhaler as needed. 2. Tylenol as needed. 3. Apple cider vinegar, which she has stopped in preparation for surgery. 4. Atorvastatin 40 mg daily at night. 5. Cetirizine 10 mg daily at night. 6. Citalopram 20 mg daily at night. 7. Folic acid 1 mg daily at night. 8. Levothyroxine 0.1 mg at night. 9. Methotrexate 2.5 mg, she takes 8 tablets every Sunday at night. 10. Omeprazole 20 mg at night. 11. Humira, which she is no longer taking, she reports. ALLERGIES: VICODIN, PENICILLIN, SULFA and NAPROSYN. SOCIAL HISTORY: Denies alcohol, tobacco or illicit drug usage. PHYSICIANS: Primary care provider is Dr. Calero. REVIEW OF SYSTEMS: The patient denies headache, dizziness or syncope. Denies fever, chills, unexplained weight loss or fatigue. Denies rash or lesions. Denies rhinorrhea, earache, sore throat or swollen glands. Denies cough, shortness of breath or wheezing. Denies chest pain, pressure, palpitationsor edema. Denies nausea, vomiting, diarrhea, constipation, or abdominal pain. Denies dysuria, urinary urgency or frequency. Denies calf pain or history of blood clots. Denies any bleeding tendencies.Denies any active dental issues. PHYSICAL EXAMINATION: VITAL SIGNS: Weight 168 pounds, temperature 95.3, blood pressure 108/74, pulse 70. GENERAL: Alert and oriented. Normal insight, affect, and grooming. SKIN: Intact without rash or lesions. Nails without clubbing or cyanosis. HEENT: Normocephalic. Conjunctivae pink. Sclerae are anicteric. NECK: Supple. Trachea midline. No lymphadenopathy. CHEST: Lungs are clear to auscultation bilaterally and breathing is unlabored. CARDIOVASCULAR: Heart has a regular rate and rhythm with normal S1, S2. No murmurs, rubs or gallopsappreciated. No JVD. Carotid pulses without bruits. ABDOMEN: Soft, nontender with normal bowel sounds. No masses noted. No bruits appreciated. EXTREMITIES: No erythema, no abrasions, no edema noted. Skin temperature is normal. Swelling is notpresent. Sensation is normal, 2+ dorsalis pedis pulses bilaterally. Good dorsi and plantar flexion bilaterally. Calves are supple, nontender. Skin about the feet is intact. Left knee range of motion is 0-100 degrees. PREOPERATIVE DIAGNOSTIC DATA: Orthopedic x-rays demonstrate osteoarthritis of the left knee. EKG, which reads sinus bradycardia. LABORATORY DATA: CBC, chem panel, coag studies within normal limits. Her A1c is 4.9. ASSESSMENT AND PLAN: The patient has advanced osteoarthritis of the left knee and is now scheduled for left total knee replacement with Dr. Layton on 12/07/2022. The patient saw the medical consultteam for preoperative clearance, who stated there is no absolute medical contraindications for the proposed surgery, who stated the patient is at low risk for upcoming surgery and no further testing is required at this time. The patient wishes to spend at least one night in the hospital. The patient will receive IV TXA. She will be on aspirin postoperatively for DVT prophylaxis. She will not receive Celebrex due to her allergy. We will monitor her end-tidal CO2 and O2 levels will utilize a CPAPmachine and will bring the setting with her to the hospital. The patient has been counseled regarding the risks and benefits of the proposed procedure. Her questions have been answered and she acknowledges understanding. The patient wishes to proceed with surgery. CONTACTS: [facility] phone number [phone]. Prescriptions given at the time of the H and P include aspirin and Colace. She already has omeprazole at home. She will require prescription for pain medications upon discharge. Dictated by: Diana Guerin N.P. Signing Clinician: Jaesn Layton M.D. Dictated: 12/04/2022 09:17:30 Transcribed: 04:37:23 AM Transcribed by: NAYAN DocID: [id number] PRELIMINARY REPORT UNLESS MANUALLY/ELECTRONICALLY SIGNED Note * Event Display: Adult Preadmission Health Questionnaire Authored Date: * Event Display: Lab Data & Pts Medical History Authored Date: * Vanessa James RN: PERFORM Event Display: Discharge/Transfer Note Hospital Authored Date: Nursing Discharge Note Entered On: 12/08/2022 11:30 EDT Performed On: 12/08/2022 11:30 EDT by Vanessa James RN Nursing Discharge Note 2 Discharge Time : 12/08/2022 11:20 EDT Discharge Level of Care at Discharge : Homehealth/VNA Discharge VNA/Hospice/Home Care(v001) : [facility] Patient Left Unit Via : Wheelchair Patient Accompanied Off Unit with : Significant other DC Instructions Provided & Signed by Pt : Yes Patient Understands D/C Instructions : Yes Patient Instructions Discharge Signed : Yes Did Pt have Specialty Bed or Wound Vac : No Vanessa James RN - 12/08/2022 11:30 EDT * Teresa Zhang NP: PERFORM, SIGN, VERIFY, MODIFY, SIGN Event Display: Discharge/Transfer Note Hospital Authored Date: Patient: ZAINAB ROLLINS Age: 57 years Sex: Female : 1965 Associated Diagnoses: None Author: Teresa Zhang NP Discharge Summary Admission Date: December 07, 2022 Discharge Date: December 08, 2022 Admitting Diagnosis: Left knee osteoarthritis Discharge Diagnosis: Left knee osteoarthritis Final Diagnosis : Left knee osteoarthritis Procedure: Left total knee arthroplasty Surgeon: Dr. Jasen Layton. Past Medical History: 1. Osteoarthritis of the left knee. 2. Obesity, BMI 34. 3. Sleep apnea. 4. Hyperlipidemia. 5. Depression. 6. Fibromyalgia. 7. Hypothyroidism. 8. Rheumatoid arthritis. 9. Hernia, which she is seeing a surgeon for tomorrow for evaluation; however, she reports this is not bothering her that much at this time. She was instructed to update us after this evaluation. PAST SURGICAL HISTORY: 1. Hernia. 2. Tubal ligation. Orthopedics: The patient is status post left total knee arthroplasty. It is anticipated that they will be discharged home today pending PT, OT clearance. The patient is doing well from a surgical standpoint. Their incision is healing well. Neurovascular status is intact. Calves are supple and nontender. Making good progress with Physical Therapy and Occupational therapy. Supervision with ambulation walking 30 feet , ambulating with a walker WBAT. ROM 0-90. Pain is well controlled on their current regimen, Acetaminophen 650 mg every 6 hours, Tramadol as needed for mild pain, and Oxycodone as needed for moderate to severe pain. Patient is tolerating this well. They will be sent home with a pre scription for this medication. Prescription: Tramadol 50 mg tablet. Take 1-2 tablets every 6 hours as needed for pain x 7 days. # 56 tablet. Oxycodone IR 5mg tablet. Take 1-2 tablets every 4 hours as needed for pain x 7 days. # 84 tablet. Hospital course: Relatively uneventful medically. The patient denies any nausea or vomiting and has been able to tolerate their diet. Pain is controlled now. Patient is voiding spontaneously. + bowel sounds. Bowels medications given with anticipation of a BM. No other issues. No calf tenderness. Current Medication List: Acetaminophen (acetaminophen 325 mg oral tablet) 650 Milligram By Mouth Every 6 hours May take OTC not to exceed 3000 mg/day Albuterol (Albuterol (Eqv-Proventil HFA) 90 mcg/inh inhalation aerosol) 2 puff(s) Inhalation Every 6 hours Aspirin (aspirin 325 mg oral delayed release tablet) 325 Milligram By Mouth 2 times a day to begin POD # 1 Atorvastatin (atorvastatin 20 mg oral tablet) 1 tab(s) 20 Milligram TAKE 1 TABLET BY MOUTH EVERY DAY Cetirizine (cetirizine 10 mg oral tablet) 1 tab(s) 10 Milligram By Mouth Daily Citalopram (citalopram 20 mg oral tablet) TAKE 1 TABLET BY MOUTH EVERY MORNING Docusate (Colace Capsule) 100 Milligram 1 capsule By Mouth 2 times a day Folic Acid (folic acid 1 mg oral tablet) 1 Milligram 1 tablet By Mouth Daily Levothyroxine (levothyroxine 0.1 mg oral tablet) 1 tab(s) 100 Microgram By Mouth Daily Methotrexate (methotrexate 2.5 mg oral tablet) TK 8 TS PO ONCE A WEEK Omeprazole (omeprazole 20 mg oral enteric coated capsule) 1 capsule 20 Milligram By Mouth Daily Oxycodone (oxyCODONE 5 mg oral tablet) See Instructions as needed Take 1-2 tablets every 4 hours asneeded for moderate to severe pain. Pain , Severe Tramadol (traMADol 50 mg oral tablet) See Instructions as needed Pain , Mild Take 1-2 tablets every6 hours as needed for mild pain. not to exceed 400 mg/day Allergies: Allergies (Active and Proposed Allergies Only) naproxen (Severity: Unknown severity, Onset: Unknown) Reactions: nausea and vomiting sulfa drugs (Severity: Unknown severity, Onset: Unknown) Reactions: nausea and vomiting Vicodin (Severity: Unknown severity, Onset: Unknown) penicillin (Severity: Unknown severity, Onset: Unknown) Reactions: Dyspnea Current Labs: Basic Metabolic Panel: Hematology: Sodium: 140 mmol/L (12/08/22) Hgb: 12.8 Gm/dL (12/08/22) Potassium (POC): 4.3 mmol/L (12/08/22) Hemoglobin A1C (Monitoring): ------ Phosphorus: ------ WBC: 8.8 k/mm3 (12/08/22) Magnesium: ------ Platelets: 211 k/mm3 (12/08/22) BUN (POC) POC Cartridge: 12 mg/dL (12/08/22) INR Level: ------ Creatinine-Blood: 0.9 mg/dL (12/08/22) Creatinine Clearance: ------ Additional - Last 24 Hours Abs. NRBC: 0.0 k/mm3 (12/08/22) Anion Gap: 12 (12/08/22) Bicarbonate Level: 25 mmol/L (12/08/22) BUN: BUN (12/08/22) Chloride: 103 mmol/L (12/08/22) Creatinine, Blood: Creatinine, Blood (12/08/22) Est Creatinine Clearance: 46.60 (12/08/22) Estimated GFR Creatinine: 72 ML/MIN/1.73 M2 (12/08/22) Hct: 36.1 % (12/08/22) MCH: 32.8 pg (12/08/22) MCHC: 35.5 g/dL (12/08/22) MCV: 92.6 femtoliters (12/08/22) MPV: 10.6 femtoliters (12/08/22) Nucleated RBC (Automated): 0.0 #/100 WBC'S (12/08/22) RBC: 3.90 m/mm3 (12/08/22) RDW-SD: 44.3 femtoliters (12/08/22) DVT prophylaxis ASA EC 325 mg p o bid x 30 days Disposition: Anticipates being discharged today to home. Follow up at [facility] in two weeks , patient is aware of this. The patient has an Aquacel dressing in place. They may shower with it and the dressing can be discontinued on POD 14. Discharge Information Admission Date: 12/07/2022 Principal Discharge Diagnosis Discharge Plan Discharge Disposition Discharge: home with VNA. Home Health Face to Face I certify that this patient is under my care and that I or an allowed non- physician practitioner working with me, had a [id number] encounter with the patient on this date: 12/08/2022. The encounter with the patient was in whole, or in part, for the following medical condition, whichis the primary reason for home health care: Localized osteoarthritis of left knee. Physical Therapy: Functional mobility training, Home exercise program to strengthen, increase ROM, Falls prevention training. Homebound due to: Inability to leave home without assistance/supervision, Inability to ambulate without assistance. Physician Signature: Jasen Layton MD * Marah Page RN: PERFORM, SIGN, VERIFY Event Display: Case Management Discharge Plan Authored Date: [id number] Patient: ZAINAB ROLLINS Age: 57 years Sex: Female : 1965 Associated Diagnoses: None Author: Marah Page RN Discharge Plan Case Management Discharge Plan : Case Management Discharge Plan Data 12/08/2022 9:54 EDT Discharge Level of Care at Discharge Homehealth/VNA Discharge VNA/Hospice/Home Care [facility] Discharge Transportation Arranged car Discharge Arranged Transport Date/Time 12/08/2022 13:00 Mode of Transportation Arranged family Name of Agency #1 [facility] Service Categories #1 Physical Therapy Service Comments #1 [facility] will call within 24-48h of dischargefor start of care if you do not hear from them please call * Vanessa James RN: PERFORM Event Display: Patient Education/Instruction Authored Date: [id number] Inpatient Adult Discharge Instructions [address] [address] Name: ZAINAB ROLLINS : 1965 Visit: 12/07/2022 09:58:00 Current Date: 12/08/2022 11:06 Account: [id number] Inpatient Adult Discharge Instructions We would like to thank you for allowing us to assist you with your healthcare needs. The following includes patient education materials and information regarding your injury/illness. Our entire staffstrives to provide an excellent experience for our patients and their families. PLEASE ENSURE YOU FOLLOW-UP PER THE INSTRUCTIONS BELOW! ?? YOUR OPINION IS IMPORTANT TO US! Please complete the survey you may receive by mail or email. Your feedback will be used to make improvements to the healthcare experiences of our patients and their families. Surveys are administered by [employer] ?? If further treatment with your primary care physician or another doctor is recommended, it is important for you to keep the appointment. Call your primary care physician or return to the Emergency Department immediately if your condition worsens, fails to improve, or new symptoms develop. If you need to find a doctor, you can call [facility] Link for a referral at [phone] or toll free at [phone]) or log in to [email or web address].. ?? [facility], in keeping with [facility] guidance, no longer requires face masks for staff, patientsor visitors in most situations. Similiar to time spent indoors at other locations, there is the chance that you were exposed to repiratory viruses during your time with us (such as flu or COVID-19). If you develop symptoms concerning for a viral respiratory infection, please seek testing (and treatment if indicated) from your medical provider or home test kit. ?? You can view and manage your care through the patient portal or by using a health care zuleima of your choosing. [employer] is a website that allows you to securely view your medical information including your hospital discharge summary, office visit summaries, medications and follow-up visits. You can also request appointments, renew medications, and request access to your medical information using a health care zuleima of your choosing, or just ask a question. You can enroll at [email or web address] or register during your next office visit. You have been discharged from [facility], Patient Care Unit: SW7. If you have any questions regarding these instructions after you leave, please call us and we will be happy to assist you. [facility] Your Care Team Attending Physician Jasen Layton MD Discharging Providers Vicente LOVE, Teresa Reason for Admission OA LEFT KNEE 23HR Your Diagnosis Localized osteoarthritis of left knee Tests Performed Below is a partial list of the tests performed during your hospitalization. You may have had other tests and procedures not included in this list. Please discuss all test results with your provider. BUN CBC Creatinine Electrolytes XR Knee 1 or 2 Views Left Primary Care Provider Abdias ORTEGA, [facility] Advance Directive Health Care Proxy on File Yes - Health Care Proxy Discharge Vitals Temperature: 99.1 DegF Height: 150 cm Pulse Rate: 76 bpm Weight: 76.3 kg Respiratory Rate: 18 br/min Body Mass Index:??33.91 kg/m2??Critical Systolic Blood Pressure: 106 mm Hg Body surface area: 1.78 Diastolic Blood Pressure: 63 mm Hg ?? Oxygen Saturation: 95 % ?? Studies Pending All tests and labs ordered during this hospital stay have been completed unless listed below. Please discuss all pending results with your provider listed above in these instructions. ?? BUN CBC Creatinine Electrolytes What to do next Instructions From Your Doctor Discharge Orders You Need to Schedule the Following Appointments Follow Up with??[facility] When:??Within 1 to 2 weeks Discharge Medications ZAINAB ROLLINS :1965 Visit Date:12/07/2022 Medications: Please continue your medications until treatment is completed or stopped by your provider. Medications not listed below should be discontinued. Discuss any questions related to medications with your provider. What How Much When Instructions Next Dose New Acetaminophen (acetaminophen 325 mg oral tablet) 650 Milligram Oral Every 6 hours May take OTC not to exceed 3000 mg/ day ?? 1:30 pm New Aspirin (aspirin 325 mg oral delayed release tablet) 325 Milligram Oral Twice a day to begin POD # 1 ?? 8 pm New Docusate (Colace Capsule) 100 Milligram Oral Twice a day 8 pm New Oxycodone (oxyCODONE 5 mg oral tablet) See instructions Take 1-2 tablets every 4 hours as needed for moderate to severe pain., As needed for Pain , Severe ?? Pickup at [facility] 3 1:30 pm New Tramadol (traMADol 50 mg oral tablet) See instructions Take 1-2 tablets every 6 hours as needed for mild pain. not to exceed 400 mg/ day, As needed for Pain , Mild ?? Pickup at [facility] 3 anytime, as needed, as directed, not in combination with oxycodone Unchanged Albuterol (Albuterol (Eqv-Proventil HFA) 90 mcg/ inh inhalation aerosol) 2 puff(s) Inhalation Every 6 hours Unchanged Atorvastatin (atorvastatin 20 mg oral tablet) 1 tab(s) TAKE 1 TABLET BY MOUTH EVERY DAY ?? Unchanged Cetirizine (cetirizine 10 mg oral tablet) 1 tab(s) Oral Daily Unchanged Citalopram (citalopram 20 mg oral tablet) TAKE 1 TABLET BY MOUTH EVERY MORNING ?? Unchanged Folic Acid (folic acid 1 mg oral tablet) 1 tab(s) Oral Daily Unchanged Levothyroxine (levothyroxine 0.1 mg oral tablet) 1 tab(s) Oral Daily Unchanged Methotrexate (methotrexate 2.5 mg oral tablet) TK 8 TS PO ONCE A WEEK ?? Unchanged Omeprazole (omeprazole 20 mg oral enteric coated capsule) 1 capsule Oral Daily Pharmacy Information [facility] 3: [address], [place] [id number] [phone] ?? What When Comments Stop Taking Adalimumab (Humira Pen 40 mg/ 0.4 mL subcutaneous kit) Test Results Below is a partial list of the most recent Laboratory test results done prior to this discharge. You may have had other tests and procedures not included in this list. Please discuss all test resultswith your provider. Est Creatinine Clearance - 46.60 mL/min (12/08/2022) BUN (12/08/2022) ???BUN - 12 mg/dL CBC (12/08/2022) ???WBC - 8.8 k/mm3???RBC - 3.90 m/mm3???Hgb - 12.8 Gm/dL???Hct - 36.1 %???MCV - 92.6 femtoliters???MCH - 32.8 pg???MCHC - 35.5 g/dL???Platelet Count - 211 k/mm3???RDW-SD - 44.3 femtoliters???MPV - 10.6 femtoliters???Nucleated RBC (Automated) - 0.0 #/100 WBC'S???Abs. NRBC - 0.0 k/mm3 Creatinine (12/08/2022) ???Creatinine-Blood - 0.9 mg/dL???Estimated GFR Creatinine - 72 ML/MIN/1.73 M2 Electrolytes (12/08/2022) ???Sodium - 140 mmol/L???Potassium - 4.3 mmol/L???Chloride - 103 mmol/L???Bicarbonate Level - 25 mmol/L???Anion Gap - 12 Allergies (NKA means No Known Allergies) Vicodin naproxen??(nausea and vomiting) penicillin??(Dyspnea) sulfa drugs??(nausea and vomiting) Problems Active Problems??(7) Arthritis, rheumatoid?? Fibromyalgia?? Hyperlipidemia?? Hypothyroidism?? Obese class I?? ANITA on CPAP?? Osteoarthritis?? Education Materials Below is the list of Educational Leaflet Providered with your Discharge Instructions. Total Knee Replacement Discharge Instructions?? Valuables and Belongings I fully understand and agree that [facility] accepts no responsibility for all my personal property including clothing, toilet articles, radios, jewelry, dentures, hearing aids, rings, money, or any other property that is in my possession or is brought to me after admission. I understand certain valuables may be placed in a hospital safe for a short period of time. I understand that the hospital is not liable for loss or damage due to accident, fire, or other natural occurrence while said property is in the safe. I accept full responsibility for any personal property that I keep with me, and will not hold the hospital responsible in case of loss or disappearance. I acknowledge that i have been encouraged to send valuables and belongings home. ?? Review of Valuable and Belonging List: With patient Possessions released to: Hair ties in patient's hair sent to OR with patient, all other valuabels and belongings sent with patient's siter Elisa Date for Pt to Sign Valuables/Belongings: 12/07/22 16:45:00 ?? Other Discharge Information ? Case Management Discharge Plan?? Discharge Plan?? Discharge Agency Information?? Discharge Level of Care at Discharge: Homehealth/VNA Name of Agency #1: [facility] Discharge Transportation Arranged: car Service Categories #1: Physical Therapy Mode of Transportation Arranged: family Service Comments #1: [facility] will call within 24-48h of dischargefor start of care ??if you do not hear from them please call Discharge Arranged Transport Date/Time: 12/08/22 13:00:00 ?? Discharge VNA/Hospice/Home Care: [facility] ? Pulmonary Rehab Status?? Pulmonary Rehab Discharge Status?? Respiratory Rate: 18 br/min ? Common Emergency Awareness Tips IS IT A STROKE? Act FAST and Check for these signs: FACE Does the face look uneven? ARM Does one arm drift down? SPEECH Does their speech sound strange? TIME Call at any sign of stroke ?? Heart Attack Signs Chest discomfort: Most heart attacks involve discomfort in the center of the chest and lasts more than a few minutes, or goes away and comes back. It can feel like uncomfortable pressure, squeezing, fullness or pain. Discomfort in upper body: Symptoms can include pain or discomfort in one or both arms, back, neck, jaw or stomach. Shortness of breath: With or without discomfort. Other signs: Breaking out in a cold sweat, nausea, or lightheaded. Remember, MINUTES DO MATTER. If you experience any of these heart attack warning signs, call to get immediate medical attention! ?? Smoking can increase your chances of developing chronic health problems and can cause harmful effects to other family members in your house. If you smoke, you are strongly encouraged to quit. Please call [facility] at [phone] or [phone] ([phone]) or log in to [email or web address] for referrals to smoking cessation programs. ?? 471 Suicide & Crisis Lifeline is available 11/09 if you or someone you know needs to find a reason to keep living. By calling 283 you'll be connected to a skilled, trained counselor at a crisis center in your area. INPATIENT DISCHARGE INSTRUCTIONS SIGNATURE ALPHONSE ZAINAB ROLLINS Location:[facility] Registration Date and Time:12/07/2022 09:58 EDT Primary Care Physician: Farzana Calero MD, Attending Physician: Jasen Layton MD, I ZAINAB ROLLINS, have received the above patient education materials/instructions and have verbalized understanding. If ambulance or transport services are being used I further acknowledge being given a choice of service. ?? If you need to contact me, please call me at this number: . Patient/Cdl Instructor Name: Patient/Cdl Instructor Signature: Relationship to Patient: Witness Name/Signature: Date: * Vanessa James RN: PERFORM Event Display: Patient Education Leaflets Authored Date: Total Knee Replacement Discharge Instructions ?? 667 Total Knee Replacement Discharge Instructions ??? Please read and review your Total Knee Replacement Book for detailed information ??? Your appetite may be decreased but try to maintain a good balanced diet ?? Ice and elevation ?Ice is important to help keep swelling down. ?Keep elevated as much as possible. ?Ice the knee 4 times a day for 20 minutes each time. Be sure not to put the ice/ice pack directly on your skin. Use a dish towel or something similar between the ice and your skin. ??? Moving ? Get up and walk frequently. ??? Do 20 ankle pumps every hour. ??? Complete your exercises 4times a day, bending and straightening your knee ??? Begin exercises the evening you go home ??? Moving is especially important. This helps to prevent blood clots. Take short frequent walks. ? Wear your knee brace when walking until your surgeon or physical therapist tells you to stop. ??? You may sleep with or without the brace and sleep anyway you are comfortable. ??? Place a pillow underthe ankle/lower leg when lying down to help with extension of your knee. ??? Do not put a pillow under your knee ??? Continue to move your foot up and down, this exercise helps to prevent blood clotsand to help reduce swelling in your knee ??? No driving until approved by your surgeon ?? Incision ?Your incision is closed with absorbable stitches and surgical glue. ?The dressing iswaterproof. You may shower the next day. ??? You may develop some discoloration around your incision (yellowish or bruising) ??? Your dressing will stay on for 1-2 weeks ?You cannot go in a bath, pool, ocean, pond, allan or jacuzzi for 6 weeks. This is to reduce your risk of infection ? You may have some numbness around the incision. This is normal and will improve with time. Some patients have numbness that does not completely go away. ?? When to call the Surgeon?CALL [phone] ?If you have shortness of breath or chest pain, call 911 or go to the nearest emergency department. ??? If you have drainage and/or redness around your wound. ?If you have a fever greater than 101.5 (38.5 degrees Celsius). ?If you have persistent calf pain or swelling (This couldbe a blood clot). ??? If your pain is worsening. ? If you have any difficulty with urination or burning with urination ? Cardiology * Event Display: Cardiac Rhythm Strips Authored Date: * Event Display: Cardiac Rhythm Strips Authored Date: Hospital Progress note * Aleksandra Frank DO: PERFORM, SIGN, VERIFY Event Display: Progress Note Hospital Authored Date: [id number] Patient: ZAINAB ROLLINS Age: 57 years Sex: Female : 1965 Associated Diagnoses: None Author: Aleksandra Frank DO Block Information Procedure Date: 12/07/22 Laterality: left Type: adductor canal, spinal Injection Site: Bruising: no Redness: no Swelling: no Tenderness: no Block site: clean and dry Block Duration: Block length of time: 6-8 Hours Motor Blockade: no Sensory Blockade: no Patient Satisfaction: Were you satisfied with your block/procedure? yes Would you have a block/procedure in the future? yes Patient Follow-up: None, Block Resolved * Jacob TALAMANTES, Vanessa: SIGN, MODIFY, PERFORM, SIGN, VERIFY Event Display: Progress Note Hospital Authored Date: Patient: ZAINAB ROLLINS Age: 57 years Sex: Female : 1965 Associated Diagnoses: None Author: Vanessa James RN Findings Problem Related to Alteration in Musculoskeletal : Alteration in Musculoskeletal Func/new 12/08/2022 9:00 EDT Alteration in Musculoskeletal Related to Mobility, Orthopedic Procedure, Total joint replacement, Other: [facility] Goals & Outcomes, Musculoskeletal Affected extremity will maintain color/motion/sensation, Pt able to perform ADL's to best of ability, Pt demonstrates precautions/exercise/ transfers per protocol, Pt will ambulate safely with assistive device, Pt will be free from complications of immobility, Pt will demonstrate ability to participate in ADL's, Pt will report acceptable level of comfort/painrelief Interventions, Musculoskeletal Monitor patients ambulation status, monitor Color/Motion/Sensation, Assist with repositioning, Teach & Encourage use of Incentive spirometer Goals/Interventions, Musculoskeletal No Musculoskeletal, Problem Start 12/08/2022 9:26 Reviewed Plan with, Musculoskeletal Patient Patient Progression, Musculoskeletal Pt progressing according to plan . Nursing Data Vital Signs : VITAL SIGNS SECTION 12/08/2022 7:55 EDT Early Warning Score 2.00 12/08/2022 7:55 EDT Temperature 99.1 DegF Temperature Route Oral Pulse Rate 76 bpm Respiratory Rate 18 br/min Systolic Blood Pressure 106 mm Hg Diastolic Blood Pressure 63 mm Hg Blood pressure sites Arm, right Mean Arterial Pressure 77 mm Hg Pulse Pressure 43 mm Hg Oxygen Saturation 95 % Mode of Delivery (Oxygen) Room air . Narrative/Incidental POD #1 L TKR. Patient is alert and oriented x3. Lung sounds are clear upon auscultation. Patient denies any sob/cp. Incentive spirometer encouraged. Bowel sounds are +x4, abdomen is soft/nontender, patient endorses flatus. Last bowel movement 12/07, patient on a regular diet, tolerating well, patient denies any n/v. Patient voiding clear/yellow urine. Patient oob with walker and 1 assist, up to chair this am, worked with PT/OT. Patient has a left knee aquacel dressing c/d/i, +pp, +cms, +d/p flex. Patient rating pain 7/10, 10mg of oxycodone po q4 and scheduled tylenol po given as ordered. C boots on bilaterally, aspirin for dvt prophylaxis. Immobilizer in place. Ice to knee. Will continue tomonitor musculoskeletal status.. Discharge Information Case Management Discharge Plan : Case Management Discharge Plan Data 12/07/2022 12:26 EDT Discharge Level of Care at Discharge Homehealth/VNA Discharge VNA/Hospice/Home Care [facility] Name of Agency #1 [facility] Service Categories #1 Physical Therapy Service Comments #1 [facility] will contact you to schedule home visits Rehabilitation Discharge : Rehab Discharge Index 12/07/2022 17:02 EDT Comments on treatment indicated Ot to address ADL's, transfers, safety Full chart review completed Yes Hospital course PROCEDURE: Left total knee replacement.c Dr. Layton on 12/07. Transfer tub/shower OT Plan Supervision 12/07/2022 16:26 EDT Comments on treatment indicated 57 yo F s/p L TKA with Dr. Layton on 12/07/22. LLE WBAT with KI only if unable to SLR. Skilled PT for transfers, gait with RW, stairs, therex. Rec home with services. Walker: distance 10-20 Distance pt will ambulate 100 ft with RW Full chart review completed Yes Hospital course Hospital course Other findings see comment Plan of care PT Gait training, Transfer training, Therapeutic exercise, Functional Activities, Balance training, Neuromuscular education * Jacob TALAMANTES, Vanessa: PERFORM Event Display: Progress Note Hospital Authored Date: Discharge instructions reviewed, questions answered. IV removed, tip intact. * Surendra Henning RN: PERFORM, SIGN, VERIFY Event Display: Progress Note Hospital Authored Date: [id number] Patient: ZAINAB ROLLINS Age: 57 years Sex: Female : 1965 Associated Diagnoses: None Author: Surendra Henning RN Findings Problem Related to Alteration in Musculoskeletal : Alteration in Musculoskeletal Func/new 12/07/2022 16:00 EDT Alteration in Musculoskeletal Related to Mobility, Orthopedic Procedure, Totaljoint replacement, Other: left TKR 12/[facility] Goals & Outcomes, Musculoskeletal Affected extremity will maintain color/motion/sensation, Pt able to perform ADL's to best of ability, Pt demonstrates precautions/exercise/ transfers per protocol, Pt will ambulate safely with assistive device, Pt will be free from complications of immobility, Pt will demonstrate ability to participate in ADL's, Pt will report acceptable level of comfort/painrelief Interventions, Musculoskeletal Monitor patients ambulation status, monitor Color/Motion/Sensation, Assist with repositioning, Encourage deep breathing & coughing exercises, Notify MD immediately if tissue perfusion deteriorates, Obtain assistive devices as needed, Teach & Encourage use of Incentive spirometer, Teach Pt/caregiver on ADL's & adaptive equipment, Teach Pt/caregiver on exercises, Teach pt/caregiver on use of pain scale, Teach Pt/caregiver complications of immobility, Teach Pt/caregiver techniques to increase mobility, Teach Pt/caregiver on safety precautions [facility] Goals/Interventions, Musculoskeletal Yes Musculoskeletal, Problem Start 12/07/2022 16:07 Reviewed Plan with, Musculoskeletal Patient Patient Progression, Musculoskeletal Plan Initiation . Nursing Data Vital Signs : VITAL SIGNS SECTION 12/07/2022 18:40 EDT Early Warning Score 2.00 12/07/2022 18:40 EDT Temperature 97.5 DegF Temperature Route Oral Pulse Rate 70 bpm Respiratory Rate 18 br/min Systolic Blood Pressure 118 mm Hg Diastolic Blood Pressure 67 mm Hg Blood pressure sites Arm, right Mean Arterial Pressure 84 mm Hg Pulse Pressure 51 mm Hg Oxygen Saturation 97 % Mode of Delivery (Oxygen) Room air . Narrative/Incidental Pt A+Ox3, VSS. Lung sounds clear, incentive spirometer encouraged, pt denies any SOB or chest pain.Pt on capno at bedtime and ETCO2 is WNL. Abdomen s/nt/nd, +BS, LBM 12/07. Pt voiding in the bathroom with no issues. Cboots on and pt to start ASA in the AM for DVT prophylaxis. Evaluation P: Alteration in Musculoskeletal I: Interventions in care plan E: Pt OOB 1 assist with the walker, +PP, +CMS, +D/P. Left knee aquacel/acewrap dressing is C/D/I. Immobilizer and ice in place. Pt given 5mg oxy for pain. Will continue to monitor pt for pain and continue to monitor CMS. Discharge Information Case Management Discharge Plan : Case Management Discharge Plan Data 12/07/2022 12:26 EDT Discharge Level of Care at Discharge Homehealth/VNA [facility] Service Comments #1 [facility] will contact you to schedule home visits Rehabilitation Discharge : Rehab Discharge Index 12/07/2022 17:02 EDT Comments on treatment indicated Ot to address ADL's, transfers, safety Full chart review completed Yes Hospital course PROCEDURE: Left total knee replacement.c Dr. Layton on 12/07. Transfer tub/shower OT Plan Supervision 12/07/2022 16:26 EDT Comments on treatment indicated 57 yo F s/p L TKA with Dr. Layton on 12/07/22. LLE WBAT with KI only if unable to SLR. Skilled PT for transfers, gait with RW, stairs, therex. Rec home with services. Walker: distance 10-20 Distance pt will ambulate 100 ft with RW Full chart review completed Yes Hospital course Hospital course Other findings see comment Plan of care PT Gait training, Transfer training, Therapeutic exercise, Functional Activities, Balance training, Neuromuscular education Patient Care team information Care Team Personnel Name: Surendra Henning RN Position: [facility] RN Member Role: Primary Care Nurse Name: Vanessa James RN Position: S RN Member Role: Primary Care Nurse Name: Jacqueline Calero MD Position: [facility] Physician - Primary Care Member Role: PCP Address: Address: [address] [place] [address] Adult [place] [address]- Name: Makeda Prasad RN Position: [facility] RN Member Role: Primary Care Nurse Care Team Related Persons Name: STACIE ROLLINS Address: home [address] [place] [address] Name: JAGDISH ROLLINS Address: [place] [address] [place] [address]
--- OUTSIDE RECORDS SUMMARY | 2023-09-06 01:07 | XMS_ITS | Continuity of Care Document ---
Author Organization [facility] Address [address] [place] [address]- Care Team Providers Care Maintenance Repairer Name Role Phone Abdias ORTEGA, Jacqueline Primary Care Physician Encounter [facility] Date(s): 11/29/22 - 12/06/22 [facility] [address] [place], [place] [address] Attending Physician: Kai Turner MD Referring Physician: Jasen Layton MD Allergies, Adverse Reactions, Alerts Substance Reaction Severity Status naproxen nausea and vomiting Active Vicodin Active penicillin Dyspnea Active sulfa drugs nausea and vomiting Active Medications Albuterol (Eqv-Proventil HFA) 90 mcg/inh inhalation aerosol 2 puffs, Inhalation, Every 6 hours, 0 Refills, Maintenance, 11/29/22 10:33:00 EDT, Partial fill upon patient request if the prescription is for a schedule II opioid drug. Start Date: 11/29/22 Status: Ordered atorvastatin 20 mg oral tablet [...] EVERY MORNING Start Date: 02/23/20 Status: Ordered folic acid 1 mg oral tablet 1 mg, 1, tablet, By Mouth, Daily, # 30 tablet, Refills 0, Maintenance, 02/23/20 11:29:00 EST, Partial fill upon patient request if the prescription is for a schedule II opioid drug. Start Date: 02/23/20 Status: Ordered Humira Pen 40 mg/0.4 mL subcutaneous kit 0 Refills, Maintenance, 11/29/22 10:33:00 EDT, Partial fill upon patient request if the prescription is for a schedule II opioid drug. Start Date: 11/29/22 Status: Ordered levothyroxine 0.1 mg oral tablet [...] Osteoarthritis Confirmed Active Arthritis, rheumatoid Confirmed Active Procedures Procedure Date Related Diagnosis Body Site Status Hernia surgery Completed Vital Signs Most recent to oldest [Reference Range]: 1 Height 151 cm (11/29/22 10:15 AM) Weight 77.4 kg (11/29/22 10:15 AM) Oxygen Saturation [94-100 %] 99 % (11/29/22 10:15 AM) Pulse Rate [55-90 bpm] 57 bpm (11/29/22 10:15 AM) Body Mass Index [18.5-24.99 kg/m2] 33.95 kg/m2 *>HHI* (11/29/22 10:15 AM) Blood Pressure [90-138/55-84 mm Hg] 160/ 75mm Hg *H* (11/29/22 10:15 AM) Respiratory Rate [16-30 br/min] 18 br/mi n (11/29/22 10:15 AM) Mode of Delivery (Oxygen) Room air (11/29/22 10:15 AM) Blood pressure sites Arm, right (11/29/22 10:15 AM) Dry Weight 77.4 kg (11/29/22 10:15 AM) Weight Obtained Via Standing scale (11/29/22 10:15 AM) Dry Weight Obtained Via Standing scale (11/29/22 10:15 AM) Social History Social History Type Response Smoking Status Never (less than 100 in lifetime) entered on: 11/29/22 Sex EKG study * Event Display: ECG 12-Lead Authored Date: Please click on pdf link to open report * Event Display: ECG 12-Lead Authored Date: Ventricular Rate: 52 BPM Atrial Rate: 52 BPM P-R Interval: 156 ms QRS Duration: 70 ms Q-T Interval: 438 ms QTC Calculation(Bazett): 407 ms P Hammond: 58 degrees R Hammond: 7 degrees T Hammond: 23 degrees Sinus bradycardia Otherwise normal ECG When compared with ECG of 25-MAR-2020 02:35, No significant change was found Confirmed by JONAS REBOLLAR MD ([id number]) on 11/29/2022 4:33:38 PM [place]: JONAS REBOLLAR MD Patient Care team information Care Team Personnel Name: Jacqueline Calero MD Position: [facility] Physician - Primary Care Member Role: PCP Address: Address: [address] [place] [address] Adult [place] [address]- Care Team Related Persons Name: STACIE ROLLINS Address: [address] [place] [address] Name: JAGDISH ROLLINS Address: [address] [place] [address]
[2023-09-06 02:46] VITALS: BP 135/81; PULSE 65; RESP 18; TEMP 36.6; O2SAT 97
[2023-09-06] MEDS: oxyCODONE HCl Immed Release 5 MG TABLET PO (03:29)
--- NOTE | 2023-09-06 03:48 | ED.BACK ---
HPI - Back Pain/Injury General Chief Complaint: Back Pain/Injury Stated Complaint: hip and back pain Time Seen by Provider: 09/06/23 03:16 Source: patient Mode of arrival: ambulatory Limitations: no limitations History of Present Illness ED Provider: Dr. Trina Valdes HPI Narrative: Patient comes to the emergency room complaining of lower back pain for several days. Patient states that she did not fall or did not sustain any obvious injury. According to the patient, she does note that she has chronic arthritis in her right knee and needs surgery. Patient states that over last few days the lower back pain has gradually become worse, does not radiate. Patient states it is worse with sitting or standing. Denies any urinary/fecal incontinence/retention. Denies any radiation down to the legs. Patient states that the pain is mostly in the lower back and stays in the buttocks area. Related Data Home Medications ?Medication ?Instructions ?Recorded ?Confirmed adalimumab 40 mg/0.4 mL 40 mg subcut Q2W 11/21/21 subcutaneous pen kit (Humira(CF) Pen) albuterol sulfate 90 mcg/actuation 2 puff inhalation Q4H PRN wheezing 11/21/21 06/03/22 aerosol inhaler citalopram 20 mg tablet 20 mg PO QAM 11/21/21 06/03/22 fluticasone propionate 220 1 puff inhalation BID 11/21/21 06/03/22 mcg/actuation HFA aerosol inhaler (Flovent HFA) fluticasone propionate 50 2 spray intranasal DAILY PRN 11/21/21 06/03/22 mcg/actuation nasal Congestion spray,suspension folic acid 1 mg tablet 1 mg PO QAM 11/21/21 06/03/22 levothyroxine 100 mcg tablet 100 mcg PO DAILY 11/21/21 06/03/22 methocarbamol 500 mg tablet 500 mg PO BEDTIME PRN low back pain 11/21/21 06/03/22 methotrexate sodium 2.5 mg tablet 20 mg PO QWEEK 11/21/21 06/03/22 omeprazole 20 mg capsule,delayed 20 mg PO QAM 11/21/21 06/03/22 release simvastatin 20 mg tablet 20 mg PO BEDTIME 11/21/21 06/03/22 Previous Rx's ?Medication ?Instructions ?Recorded nitrofurantoin 100 mg PO Q12H 5 days #10 caps 06/03/22 monohydrate/macrocrystals 100 mg capsule (Macrobid) cyclobenzaprine 10 mg tablet 10 mg PO TID PRN muscle spasm #10 07/30/22 tabs gabapentin 300 mg capsule 300 mg PO TID #14 caps 07/30/22 oxycodone 5 mg tablet 5 mg PO BID PRN pain #8 tabs 09/06/23 Allergies Allergy/AdvReac Type Severity Reaction Status Date / Time naproxen [From Naprosyn] Allergy Severe Anaphylaxis Verified 09/05/23 20:53 hydrocodone [From Vicodin] Allergy Mild Anaphylaxis Verified 09/05/23 20:53 penicillin V Allergy Mild Hives Verified 09/05/23 20:53 ibuprofen Allergy Stomach Verified 09/05/23 20:53 Upset Review of Systems Review of Systems: Constitutional : No Weight loss, No Fever, No Chills, No Night Sweats, No Fatigue, No Malaise ENT/Mouth : No Hearing loss, No Ear Pain, No Nasal Congestion, No Sinus Pain, No Hoarseness, No sore throat, No Rhinorrhea, No Swallowing Difficulty Eyes: No Eye Pain, No Swelling, No Redness, No Foreign Body, No Discharge, No Vision Changes Cardiovascular : No Chest Pain, No SOB, No Dyspnea on Exertion, No Orthopnea, No Edema, No Palpitations Respiratory : No Cough, No Sputum, No Wheezing, No Smoke Exposure, No Dyspnea Gastrointestinal : No Nausea, No Vomiting, No Diarrhea, No Constipation, No abdominal Pain, No Hematochezia, No Melena Genitourinary : no irregular bleeding, No Dysuria, No Urinary Frequency, No Hematuria, No Urinary Incontinence, No Urgency, No Flank Pain, No Urinary Flow Changes, No Hesitancy Musculoskeletal : Complaining of lower back pain, No joint pain, No Myalgias, No Joint Swelling Skin : No Skin Lesions, No rash Neuro : No Weakness, No Numbness, No Paresthesias, No Loss of Consciousness, No Dizziness, No Headache Psych : No Anxiety/Panic, No Depression, No SI/HI/AH/VH, No Social Issues, Heme/Lymph: No Bruising, No Bleeding,No Lymphadenopathy Endocrine : No Polyuria, No Polydipsia, No Temperature Intolerance PMFSH Past Medical History Medical History (Updated 09/06/23 @ 03:53 by Trina Valdes MD) Hypothyroidism Arthritis Spondylolisthesis, grade 1 Social History Social History Alcohol intake: never Smoked in Last 30 Days: No Advance Directives: No Advance Directives Information Provided: Yes Do you have a plan to hurt others: No Plan Patient : No Physical Exam Vital Signs: Vital Signs: Last Vital Signs Temp 97.8 F 09/06/23 02:46 Pulse 65 09/06/23 02:46 Resp 18 09/06/23 02:46 BP 135/81 09/06/23 02:46 Pulse Ox 97 09/06/23 02:46 O2 Del Method Room Air 09/06/23 02:46 BMI result Body Mass Index 34.2 Const: Other: Appearance: Alert. Oriented X3. No acute distress. Eyes: Pupils equal, round and reactive to light. ENT: Pharynx normal. Neck: Normal inspection. Neck supple. No lymph nodes noted. No crepitus CVS: Normal heart rate and rhythm. Pulses normal. Normal S1 and S2 Respiratory: No respiratory distress. Breath sounds normal. No Wheezing. No rales Abdomen: Soft and nontender. No rigidity. No distention. Back: Pain to palpation in the lumbar area, no palpable step-offs, negative straight leg raise test Skin: Skin warm and dry. Normal skin color. Normal skin turgor. Extremities: No lower extremity edema. No Lacerations. No Rash Neuro: Oriented X 3. No motor deficit. No sensory deficit. Moving all extremities. No slurred speech. CN 2 through 12 grossly intact Psych: calm, cooperative, normal affect Medications Administered Discontinued Medications Generic Name Dose Route Start Last Admin Trade Name Sharron PRN Reason Stop Dose Admin Oxycodone HCl 5 mg 09/06/23 03:26 09/06/23 03:29 Oxycodone Hcl Immed Release 5 Mg Tablet PO 09/06/23 03:27 5 mg ONCE ONE Administration Medical Decision Making Medical Decision Making MDM Narrative: Radiology report: Spondylolisthesis grade 1. -I discussed the x-rays with the patient. Patient will follow-up with her primary care physician. It is likely that she will need physical therapy. -patient can not take NSAIDs due to history of GI bleed. Tylenol not helping much. I discussed with the patient that she can take oxycodone. I discussed with the patient that this medication is on narcotic and has the potential of overdose and addiction. Patient states that she has had oxycodone in the past for her previous knee replacement and uses narcotics judiciously. Differential Diagnosis Differential Diagnoses: The differential diagnosis associated with the presentation includes (Sciatica, herniated disc, spondylolisthesis, contusion) Independent Interpretation I performed an independent interpretation of an: Plain X-Ray Radiology Impression Discussion of test interpretation with radiology: I have reviewed the radiologist's reading. 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 Grade 1 anterolisthesis of L4 on L5. Mild multilevel degenerative disc disease, as well as multilevel bilateral facet arthropathy. No loss of vertebral body height. No acute fracture or subluxation. No concerning lytic or blastic osseous lesion. XR/XR lumbar spine 2-3V IMPRESSION: 1. 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 2. Grade 1 anterolisthesis of L4 on L5. Mild multilevel degenerative disc disease and bilateral facet arthropathy Discharge Plan Discharge Clinical Impression: Spondylolisthesis, grade 1 Patient Disposition: Home, Self-Care Instructions: Spondylolisthesis (ED) Additional Instructions: Please follow-up with your primary care physician tomorrow. If you have any worsening or new symptoms, please return to the emergency room or call 911 Prescriptions: New oxycodone 5 mg tablet 5 mg PO BID PRN (Reason: pain) Qty: 8 0RF Rx Instructions: Partial Fill upon patient request. No Action nitrofurantoin monohyd/m-cryst [Macrobid] 100 mg capsule 100 mg PO Q12H 5 Days Qty: 10 0RF Rx Instructions: must administer with a meal/food cyclobenzaprine 10 mg tablet 10 mg PO TID PRN (Reason: muscle spasm) Qty: 10 0RF gabapentin 300 mg capsule 300 mg PO TID Qty: 14 0RF fluticasone propionate 50 mcg/actuation spray,suspension 2 spray intranasal DAILY PRN (Reason: Congestion) fluticasone propionate [Flovent HFA] 220 mcg/actuation HFA aerosol inhaler 1 puff inhalation BID methotrexate sodium 2.5 mg tablet 20 mg PO QWEEK folic acid 1 mg tablet 1 mg PO QAM omeprazole 20 mg capsule,delayed release(DR/EC) 20 mg PO QAM citalopram 20 mg tablet 20 mg PO QAM levothyroxine 100 mcg tablet 100 mcg PO DAILY Humira(CF) Pen 40 mg/0.4 mL pen injector kit 40 mg subcut Q2W albuterol sulfate 90 mcg/actuation HFA aerosol inhaler 2 puff inhalation Q4H PRN (Reason: wheezing) methocarbamol 500 mg tablet 500 mg PO BEDTIME PRN (Reason: low back pain) simvastatin 20 mg tablet 20 mg PO BEDTIME Print Language: Frisian
[2023-09-06 03:56] VITALS: BP 155/74; PULSE 60; RESP 16; TEMP 36.4; O2SAT 99
== END 2023-09-06 04:00 | disposition home or self-care (01) ==
PROVIDERS: Emergency Provider Emergency Medicine; PCP Internal Medicine
DX: M43.16 Spondylolisthesis, lumbar region (principal); M54.50 Low back pain, unspecified; M17.11 Unilateral primary osteoarthritis, right knee; E03.9 Hypothyroidism, unspecified; Z79.899 Other long term (current) drug therapy
CPT/HCPCS: 72100; 99283; 99284

== ENCOUNTER 2024-01-14 22:47 | Emergency (ER) | payer MEDICARE, MEDICAID, SELFPAY ==
[2024-01-14 22:49] VITALS: BP 145/78; PULSE 84; RESP 18; TEMP 36.4; O2SAT 96; BMI 34.3
[2024-01-14 23:10] LABS: MANUAL DIFF FLAG NO
[2024-01-14 23:15] LABS: Basophils Percent Auto 0.7 % (0-2); Eosinophils Absolute Auto 0.2 X10*3/uL (0.0-0.4); Eosinophils Percent Auto 3.9 % (0-4); Hematocrit 38.2 % (37.0-47.0); Hemoglobin 13.8 g/dl (12.0-16.0); Imm Gran Abs Auto 0.01 X10*3/uL (0.00-0.03); Imm Gran Pct Auto 0.2 % (0.0-0.4); Lymphocytes Percent Auto 36.5 % (20-40); Mean Corpuscular HGB Conc 36.1 g/dl (31.0-35.0); Mean Corpuscular Hemoglobin 31.3 pg (27.0-33.0); Mean Corpuscular Volume 86.6 fL (80.0-98.0); Mean Platelet Volume 9.2 fL (9.4-12.3); Monocytes Absolute Auto 0.5 X10*3/uL (0.1-1.2); Monocytes Percent Auto 9.4 % (2-11); Neutrophils Absolute Auto 2.7 x10*3/uL (2.0-8.3); Neutrophils Percent Auto 49.3 % (45-73); Platelet Count 267 X10*3/uL (160-400); Red Blood Count 4.41 X10*6/uL (4.20-5.50); Red Cell Distribution Width 13.8 % (11.0-16.0); White Blood Count 5.4 X10*3/uL (4.8-10.8)
[2024-01-14 23:29] LABS: Alanine Aminotransferase 32 U/L (0-31); Albumin Level 3.9 g/dL (3.5-5.0); Alkaline Phosphatase 95 U/L (39-117); Anion Gap 11 (12-20); Aspartate Amino Transferase 25 U/L (5-31); Bilirubin Total 0.3 mg/dL (0.0-1.0); Blood Urea Nitrogen 12 mg/dL (9-16); Calcium 9.1 mg/dL (8.4-10.2); Carbon Dioxide 26 mmol/L (22-29); Chloride 106 mmol/L (96-108); Creatinine Clr Calc Pharmacy 68.9; Estimated Glomerular Filt Rate > 60; Glucose Random 99 mg/dL (60-115); Potassium 3.9 mmol/L (3.3-5.1); Sodium 139 mmol/L (135-145); Total Protein 6.8 g/dL (6.5-8.0)
[2024-01-15 00:57] LABS: Appearance Urine Clear; Color Urine Yellow; Glucose Urine UA Negative (Negative); Leukocyte Esterase Urine Large (3+) (Negative); Nitrite Urine Negative (Negative); PH 5.5 (5.0-9.0); Specific Gravity - Urine 1.015 (1.005-1.025); UMIC TRIGGER UACC YES; Urine Blood Negative (Negative); Urine Ketones Negative (Negative); Urine Protein Negative (Neg-Trace)
[2024-01-15 01:02] LABS: Bacteria Urine None Seen (None Seen); Hyaline Casts Urine 0-2 /LPF (0-2); RBC Urine 0-2 /HPF (0-2); UACC Culture Trigger YES; WBC Urine 21-50 /HPF (0-5)
--- NOTE | 2024-01-15 01:46 | ED.FEMALEGU ---
HPI - Female Genitourinary General Chief complaint: Urogenital-Female Stated complaint: ?UTI Time Seen by Provider: 01/15/24 00:45 Source: patient Mode of arrival: ambulatory Limitations: no limitations History of Present Illness ED Provider: Nacho Conrad HPI Narrative: 58-year-old female past medical history of pediculosis presents to ED for increased urinary frequency and foul odor and urine. Patient denies any abdominal pain Related Data Home Medications ?Medication ?Instructions ?Recorded ?Confirmed adalimumab 40 mg/0.4 mL 40 mg subcut Q2W 11/21/21 subcutaneous pen kit (Humira(CF) Pen) albuterol sulfate 90 mcg/actuation 2 puff inhalation Q4H PRN wheezing 11/21/21 06/03/22 aerosol inhaler citalopram 20 mg tablet 20 mg PO QAM 11/21/21 06/03/22 fluticasone propionate 220 1 puff inhalation BID 11/21/21 06/03/22 mcg/actuation HFA aerosol inhaler (Flovent HFA) fluticasone propionate 50 2 spray intranasal DAILY PRN 11/21/21 06/03/22 mcg/actuation nasal Congestion spray,suspension folic acid 1 mg tablet 1 mg PO QAM 11/21/21 06/03/22 levothyroxine 100 mcg tablet 100 mcg PO DAILY 11/21/21 06/03/22 methocarbamol 500 mg tablet 500 mg PO BEDTIME PRN low back pain 11/21/21 06/03/22 methotrexate sodium 2.5 mg tablet 20 mg PO QWEEK 11/21/21 06/03/22 omeprazole 20 mg capsule,delayed 20 mg PO QAM 11/21/21 06/03/22 release simvastatin 20 mg tablet 20 mg PO BEDTIME 11/21/21 06/03/22 Previous Rx's ?Medication ?Instructions ?Recorded nitrofurantoin 100 mg PO Q12H 5 days #10 caps 06/03/22 monohydrate/macrocrystals 100 mg capsule (Macrobid) cyclobenzaprine 10 mg tablet 10 mg PO TID PRN muscle spasm #10 07/30/22 tabs gabapentin 300 mg capsule 300 mg PO TID #14 caps 07/30/22 oxycodone 5 mg tablet 5 mg PO BID PRN pain #8 tabs 09/06/23 nitrofurantoin 100 mg PO Q12H 7 days #14 caps 01/15/24 monohydrate/macrocrystals 100 mg capsule (Macrobid) Allergies Allergy/AdvReac Type Severity Reaction Status Date / Time naproxen [From Naprosyn] Allergy Severe Anaphylaxis Verified 01/14/24 22:54 hydrocodone [From Vicodin] Allergy Mild Anaphylaxis Verified 01/14/24 22:54 penicillin V Allergy Mild Hives Verified 01/14/24 22:54 ibuprofen Allergy Stomach Verified 01/14/24 22:54 Upset Review of Systems Review of Systems: Foul odor urine, increased urinary frequency Yes all other systems are reviewed and are negative [facility] Past Medical History Medical History (Updated 01/15/24 @ 01:56 by OLIVIA Bai) Hypothyroidism Arthritis Spondylolisthesis, grade 1 Social History Social History Alcohol intake: never Smoked in Last 30 Days: No Use of substances other than those prescribed or required for medical reasons: No Advance Directives: No Advance Directives Information Provided: Yes Do you have a plan to hurt others: No Plan Physical Exam Vital Signs: Vital Signs: Last Vital Signs Temp 97.6 F 01/14/24 22:49 Pulse 84 01/14/24 22:49 Resp 18 01/14/24 22:49 BP 145/78 H 01/14/24 22:49 Pulse Ox 96 01/14/24 22:49 O2 Del Method Room Air 01/14/24 22:49 BMI result Body Mass Index 34.3 Const: General: cooperative, healthy appearing, comfortable, no acute distress, well developed, alert, awake and Physically active Orientation/consciousness: patient oriented x3 HEENT: Head: Yes normal to inspection, Yes No palpable skull fracture present, Yes normocephalic and Yes atraumatic Eyes: General: appearance normal, both eyes and all related structures Neck: Neck: Yes normal visual inspection, Yes full ROM, Yes no lymphadenopathy, Yes no meningeal signs, Yes trachea midline, Yes supple, No anterior neck swelling and No tender Chest: Chest palpation & inspection: normal inspection of the chest and normal palpation of entire chest wall Resp: Effort & Inspection: normal respiratory effort and able to speak in complete sentences Auscultation: clear to auscultation bilaterally Cardio: Jugular venous distension: no JVD Heart sounds: S1 normal heart sound present and S2 normal heart sound present GI: Inspection: Yes normal to inspection Palpation (GI): Soft to palpation, not firm, nontender, no guarding and not rigid : General: Yes no CVA tenderness Back/Spine/Pelvis: Back: no CVA tenderness and No back tenderness Skin: General skin exam: no rashes or lesions noted, elasticity normal and turgor normal Neuro: General: patient oriented x3, gait normal, tone normal, moves all extremities, Normal light touch and pain sensation, no meningeal signs, no focal motor deficits, CN's II-XI intact bilaterally and normal sensation to monofilament Extrem: General: Yes normal to inspection, Yes full ROM and Yes capillary refill normal Psych: Appearance: grossly normal, well kempt and not disheveled Medical Decision Making Medical Decision Making [facility] Narrative: 58-year-old female presents to ED for increased urinary frequency and foul odor urine. Patient denies any abdominal pain, nausea, vomiting, flank pain, fever, or chills. Labs were normal. UA shows UTI. Ravin antibiotics. Not suspecting urosepsis, kidney stones, pyelonephritis, SERENITY, any life-threatening etiologies. Tenderness and informed to return to the ED immediately. Differential Diagnosis Differential Diagnoses: The differential diagnosis associated with the presentation includes (UTI, pyelonephritis, kidney stone) Admission/Observation Consideration of admission/observation: Escalation of care including admission/observation considered Lab Data [facility] Lab Attestation statement: I reviewed the patient's lab results. 01/14/24 23:04 01/14/24 23:04 Labs: Lab Results 01/14/24 01/15/24 Range/Units 23:04 00:50 WBC 5.4 (4.8-10.8) X10*3/uL RBC 4.41 (4.20-5.50) X10*6/uL Hgb 13.8 (12.0-16.0) g/dl Hct 38.2 (37.0-47.0) % MCV 86.6 (80.0-98.0) fL MCH 31.3 (27.0-33.0) pg MCHC 36.1 H (31.0-35.0) g/dl RDW 13.8 (11.0-16.0) % Plt Count 267 (160-400) X10*3/uL MPV 9.2 L (9.4-12.3) fL Immature Gran % (Auto) 0.2 (0.0-0.4) % Neut % (Auto) 49.3 (45-73) % Lymph % (Auto) 36.5 (20-40) % [place] % (Auto) 9.4 (2-11) % Eos % (Auto) 3.9 (0-4) % Baso % (Auto) 0.7 (0-2) % Lymph # (Auto) 2.0 (1.2-4.9) X10*3/uL [place] # (Auto) 0.5 (0.1-1.2) X10*3/uL Eos # (Auto) 0.2 (0.0-0.4) X10*3/uL Baso # (Auto) 0.0 (0.0-0.2) X10*3/uL Abs Immat Gran (auto) 0.01 (0.00-0.03) X10*3/uL Absolute Neuts (auto) 2.7 (2.0-8.3) x10*3/uL Absolute Nucleated RBC 0.000 (0.0-0.012) X10*3/uL Nucleated RBC % (auto) 0.0 (0.0-0.2) /100WBC Sodium 139 (135-145) mmol/L Potassium 3.9 (3.3-5.1) mmol/L Chloride 106 (96-108) mmol/L Carbon Dioxide 26 (22-29) mmol/L Anion Gap 11 L (12-20) BUN 12 (9-16) mg/dL Creatinine 0.82 (0.5-1.4) mg/dL Estim Creat Clear Calc 68.9 Estimated GFR > 60 Random Glucose 99 (60-115) mg/dL Calcium 9.1 (8.4-10.2) mg/dL Total Bilirubin 0.3 (0.0-1.0) mg/dL AST 25 (5-31) U/L ALT 32 H (0-31) U/L Alkaline Phosphatase 95 (39-117) U/L Total Protein 6.8 (6.5-8.0) g/dL Albumin 3.9 (3.5-5.0) g/dL Urine Color Yellow Urine Appearance Clear Urine pH 5.5 (5.0-9.0) Ur Specific [place] 1.015 (1.005-1.025) Urine Protein Negative (Neg-Trace) mg/dL Urine Glucose (UA) Negative (Negative) mg/dL Urine Ketones Negative (Negative) mg/dL Urine Blood Negative (Negative) Urine Nitrite Negative (Negative) Ur Leukocyte Esterase Large (3+) H (Negative) Urine RBC 0-2 (0-2) /HPF Urine WBC 21-50 H (0-5) /HPF Ur Squamous Epith Cells 3-5 (0-2) /HPF Urine Bacteria None Seen (None Seen) Hyaline Casts 0-2 (0-2) /LPF Independent Historian Clinical information obtained from an independent historian. History obtained from or confirmed by: Other (Patient) External Record Review External record reviewed: Other (prior visits) Prescription Management I considered prescription management with: Antibiotic Discharge Plan Discharge Clinical Impression: Urinary tract infection Patient Disposition: Home, Self-Care Instructions: Urinary Tract Infection in Women (ED) Additional Instructions: Return to the ED for any flank pain, dysuria, hematuria, abdominal pain, nausea, vomiting, fever, chills, or any other concerning symptoms. Recommend follow up with primary care provider. Child with antibiotics. Prescriptions: New nitrofurantoin monohyd/m-cryst [Macrobid] 100 mg capsule 100 mg PO Q12H 7 Days Qty: 14 0RF Rx Instructions: must administer with a meal/food No Action nitrofurantoin monohyd/m-cryst [Macrobid] 100 mg capsule 100 mg PO Q12H 5 Days Qty: 10 0RF Rx Instructions: must administer with a meal/food cyclobenzaprine 10 mg tablet 10 mg PO TID PRN (Reason: muscle spasm) Qty: 10 0RF gabapentin 300 mg capsule 300 mg PO TID Qty: 14 0RF oxycodone 5 mg tablet 5 mg PO BID PRN (Reason: pain) Qty: 8 0RF Rx Instructions: Partial Fill upon patient request. fluticasone propionate 50 mcg/actuation spray,suspension 2 spray intranasal DAILY PRN (Reason: Congestion) fluticasone propionate [Flovent HFA] 220 mcg/actuation HFA aerosol inhaler 1 puff inhalation BID methotrexate sodium 2.5 mg tablet 20 mg PO QWEEK folic acid 1 mg tablet 1 mg PO QAM omeprazole 20 mg capsule,delayed release(DR/EC) 20 mg PO QAM citalopram 20 mg tablet 20 mg PO QAM levothyroxine 100 mcg tablet 100 mcg PO DAILY Humira(CF) Pen 40 mg/0.4 mL pen injector kit 40 mg subcut Q2W albuterol sulfate 90 mcg/actuation HFA aerosol inhaler 2 puff inhalation Q4H PRN (Reason: wheezing) methocarbamol 500 mg tablet 500 mg PO BEDTIME PRN (Reason: low back pain) simvastatin 20 mg tablet 20 mg PO BEDTIME Stand Alone Forms: Work/School Release Interventions: ED Discharge Assessment Last Done: 01/15/24 02:37 Discharge Date/Time: 01/15/24 02:37 Print Language: Kyrgyz
--- NOTE | 2024-01-15 02:36 | PC.NURSE ---
Reviewed discharge instructions with pt. pt verbalized understanding, no distress upon discharge.
[2024-01-15 02:37] VITALS: BP 145/78; PULSE 84; RESP 18; TEMP 36.4; O2SAT 96
== END 2024-01-15 02:37 | disposition home or self-care (01) ==
PROVIDERS: Emergency Provider Emergency Medicine; PCP Internal Medicine
DX: N39.0 Urinary tract infection, site not specified (principal); R35.0 Frequency of micturition; Z79.899 Other long term (current) drug therapy
CPT/HCPCS: 36415; 80053; 81001; 85025; 87086; 87147; 99283; 99284

== ENCOUNTER 2024-01-25 17:35 | Emergency (ER) | payer MEDICARE, MEDICAID, SELFPAY ==
[2024-01-25 18:20] VITALS: BP 147/88; PULSE 94; RESP 18; TEMP 37; O2SAT 100; BMI 34.7
--- NOTE | 2024-01-25 18:21 | ED_ITS ---
HPI - General Adult General Chief complaint: General Medical Stated complaint: ? UTI Time Seen by Provider: 01/25/24 21:59 Source: patient and old records reviewed Limitations: no limitations History of Present Illness ED Provider: Juanpablo TOLEDO narrative: This is a 58-year-old female who presents to the emergency department for rash on her stomach. She recently was treated here for a UTI, in his since finished her antibiotics. She reports that few days ago she started getting a rash located in the fold the bottom of her stomach. It is not itchy, she has tried using medicated powder on it with no relief of symptoms. She also has been experiencing dark urine, and thought water to her urine for the past 1-2 days. Denies any history of diabetes. Related Data Home Medications ?Medication ?Instructions ?Recorded ?Confirmed adalimumab 40 mg/0.4 mL 40 mg subcut Q2W 11/21/21 subcutaneous pen kit (Humira(CF) Pen) albuterol sulfate 90 mcg/actuation 2 puff inhalation Q4H PRN wheezing 11/21/21 06/03/22 aerosol inhaler citalopram 20 mg tablet 20 mg PO QAM 11/21/21 06/03/22 fluticasone propionate 220 1 puff inhalation BID 11/21/21 06/03/22 mcg/actuation HFA aerosol inhaler (Flovent HFA) fluticasone propionate 50 2 spray intranasal DAILY PRN 11/21/21 06/03/22 mcg/actuation nasal Congestion spray,suspension folic acid 1 mg tablet 1 mg PO QAM 11/21/21 06/03/22 levothyroxine 100 mcg tablet 100 mcg PO DAILY 11/21/21 06/03/22 methocarbamol 500 mg tablet 500 mg PO BEDTIME PRN low back pain 11/21/21 06/03/22 methotrexate sodium 2.5 mg tablet 20 mg PO QWEEK 11/21/21 06/03/22 omeprazole 20 mg capsule,delayed 20 mg PO QAM 11/21/21 06/03/22 release simvastatin 20 mg tablet 20 mg PO BEDTIME 11/21/21 06/03/22 Previous Rx's ?Medication ?Instructions ?Recorded nitrofurantoin 100 mg PO Q12H 5 days #10 caps 06/03/22 monohydrate/macrocrystals 100 mg capsule (Macrobid) cyclobenzaprine 10 mg tablet 10 mg PO TID PRN muscle spasm #10 07/30/22 tabs gabapentin 300 mg capsule 300 mg PO TID #14 caps 07/30/22 oxycodone 5 mg tablet 5 mg PO BID PRN pain #8 tabs 09/06/23 nitrofurantoin 100 mg PO Q12H 7 days #14 caps 01/15/24 monohydrate/macrocrystals 100 mg capsule (Macrobid) nystatin 100,000 unit/gram topical 1 appl topical TID 2 weeks #60 01/25/24 powder grams Allergies Allergy/AdvReac Type Severity Reaction Status Date / Time naproxen [From Naprosyn] Allergy Severe Anaphylaxis Verified 01/25/24 18:22 hydrocodone [From Vicodin] Allergy Mild Anaphylaxis Verified 01/25/24 18:22 penicillin V Allergy Mild Hives Verified 01/25/24 18:22 ibuprofen Allergy Stomach Verified 01/25/24 18:22 Upset Review of Systems Constitutional: Constitutional: Reports as per HPI Integumentary/Breasts: Skin/Breast: Reports new lesions Endocrine: Endocrine: Reports polydipsia PMFSH Past Medical History Medical History (Updated 01/25/24 @ 23:27 by Medardo Geronimo) Hypothyroidism Arthritis Spondylolisthesis, grade 1 Social History Social History Alcohol intake: never Advance Directives: No Advance Directives Information Provided: No Physical Exam ED Vital Signs: Vital Signs - 24 hr 01/25/24 18:20 01/25/24 23:37 01/25/24 23:43 Temperature 98.6 F 97.8 F 97.8 F Pulse Rate 94 88 88 Respiratory Rate 18 16 16 Blood Pressure 147/88 H 147/92 H 147/92 H Pulse Oximetry 100 98 98 Oxygen Delivery Method Room Air Room Air Room Air BMI result Body Mass Index 34.7 Const General: cooperative, healthy appearing and no acute distress Nutritional Appearance: obese Limitations: no limitations GI Other: Minimal redness, with find scaling located in the skin fold of the pannus. No discharge, petechiae or ecchymoses. Without swelling, bleeding. Course Course Course Narrative: This is an RME done by OLIVIA Chambers: Additional HPI, ROS, PE not included below will be deferred to primary provider. 58-year-old female who was recently on antibiotics presents with rash in [place] region/abdominal folds status post taking antibiotics. She states she does not feel great. She reports she took her antibiotics to their entirety. Medical Decision Making Medical Decision Making [facility] Narrative: 58-year-old female presents for evaluation of a minor rash. Her rash is consistent with a candidal infection after recently being treated with antibiotics for UTI. Given that it is in a skin fold we will treat with nystatin powder Differential Diagnosis Differential Diagnoses: The differential diagnosis associated with the presentation includes Intertrigo Tinea corporis Eczema Contact dermatitis Cellulitis Lab Data Labs: Lab Results 01/25/24 Range/Units 18:33 Urine Color Yellow Urine Appearance Clear Urine pH 6.0 (5.0-9.0) Ur Specific [place] 1.010 (1.005-1.025) Urine Protein Negative (Neg-Trace) mg/dL Urine Glucose (UA) Negative (Negative) mg/dL Urine Ketones Negative (Negative) mg/dL Urine Blood Negative (Negative) Urine Nitrite Negative (Negative) Ur Leukocyte Esterase Small (1+) H (Negative) Urine RBC 0-2 (0-2) /HPF Urine WBC 6-10 H (0-5) /HPF Ur Squamous Epith Cells 0-2 (0-2) /HPF Urine Bacteria None Seen (None Seen) Hyaline Casts 0-2 (0-2) /LPF Discharge Plan Discharge Clinical Impression: Candidal intertrigo Patient Disposition: Home, Self-Care Instructions: Skin Yeast Infection (ED) Additional Instructions: You appear to have a skin infection. This is a fungal skin infection that is calm and after being on antibiotics. Use the nystatin powder 3 times a day for 1-2 weeks Follow-up with your primary doctor, return for new or worsening symptoms Prescriptions: New nystatin 100,000 unit/gram powder 1 appl topical TID 14 Days Qty: 60 0RF No Action nitrofurantoin monohyd/m-cryst [Macrobid] 100 mg capsule 100 mg PO Q12H 5 Days Qty: 10 0RF Rx Instructions: must administer with a meal/food cyclobenzaprine 10 mg tablet 10 mg PO TID PRN (Reason: muscle spasm) Qty: 10 0RF gabapentin 300 mg capsule 300 mg PO TID Qty: 14 0RF oxycodone 5 mg tablet 5 mg PO BID PRN (Reason: pain) Qty: 8 0RF Rx Instructions: Partial Fill upon patient request. nitrofurantoin monohyd/m-cryst [Macrobid] 100 mg capsule 100 mg PO Q12H 7 Days Qty: 14 0RF Rx Instructions: must administer with a meal/food fluticasone propionate 50 mcg/actuation spray,suspension 2 spray intranasal DAILY PRN (Reason: Congestion) fluticasone propionate [Flovent HFA] 220 mcg/actuation HFA aerosol inhaler 1 puff inhalation BID methotrexate sodium 2.5 mg tablet 20 mg PO QWEEK folic acid 1 mg tablet 1 mg PO QAM omeprazole 20 mg capsule,delayed release(DR/EC) 20 mg PO QAM citalopram 20 mg tablet 20 mg PO QAM levothyroxine 100 mcg tablet 100 mcg PO DAILY Humira(CF) Pen 40 mg/0.4 mL pen injector kit 40 mg subcut Q2W albuterol sulfate 90 mcg/actuation HFA aerosol inhaler 2 puff inhalation Q4H PRN (Reason: wheezing) methocarbamol 500 mg tablet 500 mg PO BEDTIME PRN (Reason: low back pain) simvastatin 20 mg tablet 20 mg PO BEDTIME Interventions: ED Discharge Assessment Last Done: 01/25/24 23:43 Discharge Date/Time: 01/25/24 23:47 Print Language: Telugu
[2024-01-25 18:39] LABS: Appearance Urine Clear; Color Urine Yellow; Glucose Urine UA Negative (Negative); Leukocyte Esterase Urine Small (1+) (Negative); Nitrite Urine Negative (Negative); UMIC TRIGGER UACC YES; Urine Blood Negative (Negative); Urine Ketones Negative (Negative); Urine Protein Negative (Neg-Trace)
[2024-01-25 18:41] LABS: Bacteria Urine None Seen (None Seen); Hyaline Casts Urine 0-2 /LPF (0-2); RBC Urine 0-2 /HPF (0-2); Squamous Epithelial Cell Urine 0-2 /HPF (0-2); UACC Culture Trigger YES
[2024-01-25 23:37] VITALS: BP 147/92; PULSE 88; RESP 16; TEMP 36.6; O2SAT 98
[2024-01-25 23:43] VITALS: BP 147/92; PULSE 88; RESP 16; TEMP 36.6; O2SAT 98
== END 2024-01-25 23:47 | disposition home or self-care (01) ==
PROVIDERS: Physician Assistant; Emergency Provider Internal Medicine; PCP Internal Medicine
DX: B37.2 Candidiasis of skin and nail (principal); Z87.440 Personal history of urinary (tract) infections
CPT/HCPCS: 81001; 87086; 87147; 99283

== ENCOUNTER 2024-01-29 01:02 | Emergency (ER) | payer MEDICARE, MEDICAID, SELFPAY ==
--- NOTE | 2024-01-29 | ECG_ITS ---
Test Reason : CHEST PAIN Blood Pressure : / mmHG Vent. Rate : 079 BPM Atrial Rate : 079 BPM P-R Int : 148 ms QRS Dur : 072 ms QT Int : 396 ms P-R-T Axes : 056 008 031 degrees QTc Int : 454 ms Normal sinus rhythm Normal ECG When compared with ECG of 01-MAR-2023 22:53, No significant change was found Referred By: Generic ED Physician Electronically Signed By:JAMIE LANTIGUA MD
[2024-01-29 01:17] VITALS: BP 145/75; PULSE 74; RESP 20; TEMP 36.4; O2SAT 99; BMI 33.8
[2024-01-29 01:29] LABS: Basophils Absolute Auto 0.1 X10*3/uL (0.0-0.2); Basophils Percent Auto 1.1 % (0-2); Eosinophils Absolute Auto 0.3 X10*3/uL (0.0-0.4); Eosinophils Percent Auto 7.2 % (0-4); Hematocrit 38.9 % (37.0-47.0); Hemoglobin 13.8 g/dl (12.0-16.0); Lymphocytes Absolute Auto 1.8 X10*3/uL (1.2-4.9); Lymphocytes Percent Auto 38.7 % (20-40); MANUAL DIFF FLAG NO; Mean Corpuscular HGB Conc 35.5 g/dl (31.0-35.0); Mean Corpuscular Hemoglobin 30.6 pg (27.0-33.0); Mean Corpuscular Volume 86.3 fL (80.0-98.0); Mean Platelet Volume 9.6 fL (9.4-12.3); Monocytes Absolute Auto 0.5 X10*3/uL (0.1-1.2); Monocytes Percent Auto 9.6 % (2-11); Neutrophils Percent Auto 43.4 % (45-73); Platelet Count 279 X10*3/uL (160-400); Red Blood Count 4.51 X10*6/uL (4.20-5.50); Red Cell Distribution Width 13.3 % (11.0-16.0); White Blood Count 4.7 X10*3/uL (4.8-10.8)
[2024-01-29 01:43] LABS: Albumin Level 3.8 g/dL (3.5-5.0); Anion Gap 14 (12-20); Aspartate Amino Transferase 38 U/L (5-31); Bilirubin Total 0.4 mg/dL (0.0-1.0); Blood Urea Nitrogen 9 mg/dL (9-16); Calcium 9.2 mg/dL (8.4-10.2); Carbon Dioxide 25 mmol/L (22-29); Chloride 106 mmol/L (96-108); Estimated Glomerular Filt Rate > 60; Glucose Random 105 mg/dL (60-115); Potassium 4.4 mmol/L (3.3-5.1); Sodium 141 mmol/L (135-145); Total Protein 6.7 g/dL (6.5-8.0)
[2024-01-29 01:50] LABS: Troponin-I High Sensitivity < 2.7 ng/L (<3.5-17.0)
[2024-01-29 02:45] LABS: Alanine Aminotransferase 32 U/L (0-31); Alkaline Phosphatase 93 U/L (39-117)
[2024-01-29 04:00] VITALS: PULSE 75
[2024-01-29 04:10] VITALS: BP 161/82; PULSE 73; RESP 18; TEMP 36.7; O2SAT 99
--- NOTE | 2024-01-29 04:11 | MHC.EDTECH ---
pt brought back to room, placed on surveillance monitor and vitals taken. call varela within reach.
--- NOTE | 2024-01-29 06:07 | ED.CHESTPAIN ---
HPI - Chest Pain General Chief Complaint: Chest Pain Stated Complaint: chest pain , hbp Time Seen by Provider: 01/29/24 06:07 Source: patient, RN notes reviewed and old records reviewed Mode of arrival: ambulatory Limitations: no limitations History of Present Illness ED Provider: Jonny Christine PA-C HPI narrative: 58 yo female with history of RA and fibromyalgia who presents to the ER for evaluation of panic attack and chest pain. She reports last night she had chest pain that woke her up out of sleep, was sharp and radiated up to both shoulders. She reports she felt very anxious and nervous and has been having recurring episodes like this since her mother . She also reports having elevated blood pressure for the last several months, which she thinks is due to chronic pain from her recent knee replacement. She reports upon arrival to the ER her chest pain resolved on its own. MD complaint: chest pain Onset (ago): hour(s) Timing of current episode: episodic Prior episodes: Yes Onset: during rest Pain location: left chest and right chest Pain radiation: left shoulder and right shoulder Severity: moderate Quality: tightness and sharp Relieving factors: rest Exacerbating factors: stress Treatment prior to arrival: none Risk Factors Coronary artery disease risk factors: none Thoracic aortic dissection risk factors: none Related Data Home Medications ?Medication ?Instructions ?Recorded ?Confirmed adalimumab 40 mg/0.4 mL 40 mg subcut Q2W 11/21/21 subcutaneous pen kit (Humira(CF) Pen) albuterol sulfate 90 mcg/actuation 2 puff inhalation Q4H PRN wheezing 11/21/21 06/03/22 aerosol inhaler citalopram 20 mg tablet 20 mg PO QAM 11/21/21 06/03/22 fluticasone propionate 220 1 puff inhalation BID 11/21/21 06/03/22 mcg/actuation HFA aerosol inhaler (Flovent HFA) fluticasone propionate 50 2 spray intranasal DAILY PRN 11/21/21 06/03/22 mcg/actuation nasal Congestion spray,suspension folic acid 1 mg tablet 1 mg PO QAM 11/21/21 06/03/22 levothyroxine 100 mcg tablet 100 mcg PO DAILY 11/21/21 06/03/22 methocarbamol 500 mg tablet 500 mg PO BEDTIME PRN low back pain 11/21/21 06/03/22 methotrexate sodium 2.5 mg tablet 20 mg PO QWEEK 11/21/21 06/03/22 omeprazole 20 mg capsule,delayed 20 mg PO QAM 11/21/21 06/03/22 release simvastatin 20 mg tablet 20 mg PO BEDTIME 11/21/21 06/03/22 Previous Rx's ?Medication ?Instructions ?Recorded nitrofurantoin 100 mg PO Q12H 5 days #10 caps 06/03/22 monohydrate/macrocrystals 100 mg capsule (Macrobid) cyclobenzaprine 10 mg tablet 10 mg PO TID PRN muscle spasm #10 07/30/22 tabs gabapentin 300 mg capsule 300 mg PO TID #14 caps 07/30/22 oxycodone 5 mg tablet 5 mg PO BID PRN pain #8 tabs 09/06/23 nitrofurantoin 100 mg PO Q12H 7 days #14 caps 01/15/24 monohydrate/macrocrystals 100 mg capsule (Macrobid) nystatin 100,000 unit/gram topical 1 appl topical TID 2 weeks #60 01/25/24 powder grams blood pressure monitor #1 ea 01/29/24 Allergies Allergy/AdvReac Type Severity Reaction Status Date / Time naproxen [From Naprosyn] Allergy Severe Anaphylaxis Verified 01/29/24 01:18 hydrocodone [From Vicodin] Allergy Mild Anaphylaxis Verified 01/29/24 01:18 penicillin V Allergy Mild Hives Verified 01/29/24 01:18 ibuprofen Allergy Stomach Verified 01/29/24 01:18 Upset Review of Systems Review of Systems: Yes all other systems are reviewed and are negative [facility], [facility] Past Medical History Medical History (Updated 01/29/24 @ 07:33 by OLIVIA Aranda) Hypothyroidism Arthritis Spondylolisthesis, grade 1 Social History Social History Alcohol intake: never Smoked in Last 30 Days: No Use of substances other than those prescribed or required for medical reasons: No Advance Directives: No Advance Directives Information Provided: Yes Do you have a plan to hurt others: No Plan Physical Exam Vital Signs: Vital Signs: Last Vital Signs Temp 97.6 F 01/29/24 08:18 Pulse 78 01/29/24 08:18 Resp 20 01/29/24 08:18 BP 136/87 01/29/24 08:18 Pulse Ox 98 01/29/24 08:18 O2 Del Method Room Air 01/29/24 08:18 BMI result Body Mass Index 33.8 Appearance: Alert. Oriented X3. No acute distress. Head: normocephalic, atraumatic. Eyes: Pupils equal, round and reactive to light. ENT: Pharynx normal. No tonsillar swelling or exudate. Neck: Normal inspection. Neck supple. CVS: Normal heart rate and rhythm. Pulses normal. Respiratory: No respiratory distress. Breath sounds normal. Abdomen: obese, soft and nontender. +BS x4 Skin: Skin warm and dry. Normal skin color. Normal skin turgor. No rashes. Extremities: well healed surgical scars on bilateral knees, No lower extremity edema. No joint swelling, no calf tenderness or swelling Neuro/psych: Oriented X 3. No motor deficit. No sensory deficit. CN II-XII intact. Normal speech and cognition. Medical Decision Making Medical Decision Making [facility] Narrative: 58-year-old female presents to the ER for evaluation of chest pain and anxiety this morning. Symptoms have resolved upon arrival to the ER. She reports increased stress and anxiety at home since the passing of her mother. She is worried about her blood pressure. She can not see her PCP until next year. She does not have a blood pressure cuff at home but every time she has gone to the doctors or come here her blood pressure has been elevated. She denies history of hypertension and is not on any antihypertensive agents. On arrival to the ER patient's blood pressure is in the 140s to 160s. She has no headache. Chest pain is resolved. Lab work reviewed, no anemia, normal renal function. Troponin is negative and EKG did not have any ischemic changes. She is feeling better would like to go home. We discussed the importance of outpatient blood pressure monitoring, no emergent need to start antihypertensive agent today. We also discussed other measures of lowering blood pressure including activity modification, diet modification, weight loss. At this time she is stable for discharge home with outpatient follow-up. Differential Diagnosis Differential Diagnoses: The differential diagnosis associated with the presentation includes anxiety, ACS, PE, HTN emergency, non-cardiac chest pain Admission/Observation Consideration of admission/observation: Escalation of care including admission/observation considered Lab Data [facility] Lab Attestation statement: I reviewed the patient's lab results. 01/29/24 01:20 01/29/24 01:20 Labs: Lab Results 01/29/24 Range/Units 01:20 WBC 4.7 L (4.8-10.8) X10*3/uL RBC 4.51 (4.20-5.50) X10*6/uL Hgb 13.8 (12.0-16.0) g/dl Hct 38.9 (37.0-47.0) % MCV 86.3 (80.0-98.0) fL MCH 30.6 (27.0-33.0) pg MCHC 35.5 H (31.0-35.0) g/dl RDW 13.3 (11.0-16.0) % Plt Count 279 (160-400) X10*3/uL MPV 9.6 (9.4-12.3) fL Immature Gran % (Auto) 0.0 (0.0-0.4) % Neut % (Auto) 43.4 L (45-73) % Lymph % (Auto) 38.7 (20-40) % [place] % (Auto) 9.6 (2-11) % Eos % (Auto) 7.2 H (0-4) % Baso % (Auto) 1.1 (0-2) % Lymph # (Auto) 1.8 (1.2-4.9) X10*3/uL [place] # (Auto) 0.5 (0.1-1.2) X10*3/uL Eos # (Auto) 0.3 (0.0-0.4) X10*3/uL Baso # (Auto) 0.1 (0.0-0.2) X10*3/uL Abs Immat Gran (auto) 0.00 (0.00-0.03) X10*3/uL Absolute Neuts (auto) 2.0 (2.0-8.3) x10*3/uL Absolute Nucleated RBC 0.000 (0.0-0.012) X10*3/uL Nucleated RBC % (auto) 0.0 (0.0-0.2) /100WBC Sodium 141 (135-145) mmol/L Potassium 4.4 (3.3-5.1) mmol/L Chloride 106 (96-108) mmol/L Carbon Dioxide 25 (22-29) mmol/L Anion Gap 14 (12-20) BUN 9 (9-16) mg/dL Creatinine 0.79 (0.5-1.4) mg/dL Estim Creat Clear Calc 71.0 Estimated GFR > 60 Random Glucose 105 (60-115) mg/dL Calcium 9.2 (8.4-10.2) mg/dL Total Bilirubin 0.4 (0.0-1.0) mg/dL AST 38 H (5-31) U/L ALT 32 H (0-31) U/L Alkaline Phosphatase 93 (39-117) U/L Troponin I High Sens < 2.7 (<3.5-17.0) ng/L Total Protein 6.7 (6.5-8.0) g/dL Albumin 3.8 (3.5-5.0) g/dL Independent Interpretation I performed an independent interpretation of an: EKG Interpretation: EKG with normal sinus rhythm, ventricular rate 79 beats per minute, normal QTC, normal IN interval, no ST segment elevations or depressions, no change from last year Independent Historian Clinical information obtained from an independent historian. History obtained from or confirmed by: Spouse and EMS External Record Review External record reviewed: Outpatient record, Prior outpatient labs and Prior outpatient radiology Prescription Management I considered prescription management with: Pain Medication and Other (Anxiolytic, antihypertensive) Chronic Conditions Patient?s care impacted by: Other (Obesity) Social Determinants Patient?s care significantly limited by Social Determinants of Health including: Other Social Determinant of Health Critical Care Time Critical Care Time Critical Care Time: No Discharge Plan Discharge Clinical Impression: Atypical chest pain Hypertension Qualifiers: Hypertension type: unspecified Qualified Code(s): I10 - Essential (primary) hypertension Patient Disposition: Home, Self-Care Instructions: How to Take a Blood Pressure (ED), DASH Eating Plan (ED) Additional Instructions: your cardiac workup today was normal recommend monitoring your blood pressure at home once per day and keeping a record for your doctor a blood pressure cuff has been sent to [facility] in [place]. it may or may not be covered by your insurance do your best to increase your physical activity, decrease salt intake and lose weight - these factors will help decrease your blood pressure follow up with your doctor. If you develop new or worsening symptoms call 911 or come back to the ER for further evaluation. Prescriptions: New (DME) blood pressure monitor Kit See Rx Instructions .Route Qty: 1 0RF Rx Instructions: As directed No Action nitrofurantoin monohyd/m-cryst [Macrobid] 100 mg capsule 100 mg PO Q12H 5 Days Qty: 10 0RF Rx Instructions: must administer with a meal/food cyclobenzaprine 10 mg tablet 10 mg PO TID PRN (Reason: muscle spasm) Qty: 10 0RF gabapentin 300 mg capsule 300 mg PO TID Qty: 14 0RF oxycodone 5 mg tablet 5 mg PO BID PRN (Reason: pain) Qty: 8 0RF Rx Instructions: Partial Fill upon patient request. nitrofurantoin monohyd/m-cryst [Macrobid] 100 mg capsule 100 mg PO Q12H 7 Days Qty: 14 0RF Rx Instructions: must administer with a meal/food nystatin 100,000 unit/gram powder 1 appl topical TID 14 Days Qty: 60 0RF fluticasone propionate 50 mcg/actuation spray,suspension 2 spray intranasal DAILY PRN (Reason: Congestion) fluticasone propionate [Flovent HFA] 220 mcg/actuation HFA aerosol inhaler 1 puff inhalation BID methotrexate sodium 2.5 mg tablet 20 mg PO QWEEK folic acid 1 mg tablet 1 mg PO QAM omeprazole 20 mg capsule,delayed release(DR/EC) 20 mg PO QAM citalopram 20 mg tablet 20 mg PO QAM levothyroxine 100 mcg tablet 100 mcg PO DAILY Humira(CF) Pen 40 mg/0.4 mL pen injector kit 40 mg subcut Q2W albuterol sulfate 90 mcg/actuation HFA aerosol inhaler 2 puff inhalation Q4H PRN (Reason: wheezing) methocarbamol 500 mg tablet 500 mg PO BEDTIME PRN (Reason: low back pain) simvastatin 20 mg tablet 20 mg PO BEDTIME Referrals: Micah Rosado MD [Primary Care Provider] - Interventions: ED Discharge Assessment Last Done: 01/29/24 08:18 Discharge Date/Time: 01/29/24 08:19 Print Language: Irish
[2024-01-29 07:32] VITALS: BP 136/87; PULSE 78; RESP 20; O2SAT 98
[2024-01-29 08:18] VITALS: BP 136/87; PULSE 78; RESP 20; TEMP 36.4; O2SAT 98
== END 2024-01-29 08:19 | disposition home or self-care (01) ==
PROVIDERS: Emergency Medicine; Emergency Provider Emergency Medicine; PCP Internal Medicine
DX: R07.9 Chest pain, unspecified (principal); F41.0 Panic disorder [episodic paroxysmal anxiety]; I10 Essential (primary) hypertension; M06.9 Rheumatoid arthritis, unspecified; M79.7 Fibromyalgia; G89.29 Other chronic pain; Z79.899 Other long term (current) drug therapy; Z96.659 Presence of unspecified artificial knee joint; Z63.4 Disappearance and death of family member
CPT/HCPCS: 36415; 80053; 84484; 85025; 93005; 99283; 99285

== ENCOUNTER → 2024-01-29 01:10 | Outpatient (BNV) | payer MEDICARE, MEDICAID, SELFPAY | PROVIDERS: Emergency Provider Emergency Medicine; PCP Internal Medicine; Visit Provider Internal Medicine Cardiovascular Disease | DX: R07.9 Chest pain, unspecified (principal) | CPT/HCPCS: 93010 ==

== ENCOUNTER 2024-03-19 13:02 | Emergency (ER) | payer MEDICARE, MEDICAID, SELFPAY ==
--- NOTE | ~2024-03-19 | CT_ITS ---
CLINICAL HISTORY: abd pain CT abdomen and pelvis with contrast Comparison: None Findings: No consolidation or effusion. There is cholelithiasis. No biliary ductal dilatation. No inflammatory changes adjacent to the gallbladder. The liver, spleen, pancreas, adrenal glands and kidneys are unremarkable. Slight prominence of part of the left ureter with no ureteral stones and no evidence of hydronephrosis. No bowel obstruction, pneumoperitoneum, or pneumatosis. Descending and sigmoid colon diverticulosis with no evidence of acute diverticulitis. No free fluid. No loculated fluid collection. No adenopathy. Pelvic contents unremarkable. Normal appendix. No aneurysm of the abdominal aorta. No acute fracture. Degenerative changes of the spine. L5-S1 facet arthropathy bilaterally. IMPRESSION: 1. No acute findings. 2. Cholelithiasis. 3. Diverticulosis. This document has been electronically signed by: Eileen Walker MD on 03/19/2024 22:08:35
[2024-03-19 13:50] VITALS: BP 133/77; PULSE 81; RESP 16; TEMP 36.4; O2SAT 98; BMI 34.8
--- NOTE | 2024-03-19 13:53 | ED.GENADULT ---
HPI - General Adult General Chief complaint: Urogenital-Female Stated complaint: ? UTI Time Seen by Provider: 03/19/24 20:03 History of Present Illness HPI narrative: Patient is a 58-year-old female with a history of having abdominal pain. Patient is feeling suprapubic left lower quadrant pain. Has a history of UTI. Have some pain on urination. Patient from home. No chest pain or diaphoresis. Positive history of allergies to penicillin where she develops a high. Patient denies any nausea vomiting. No diaphoresis. Chills. Related Data Home Medications ?Medication ?Instructions ?Recorded ?Confirmed adalimumab 40 mg/0.4 mL 40 mg subcut Q2W 11/21/21 subcutaneous pen kit (Humira(CF) Pen) albuterol sulfate 90 mcg/actuation 2 puff inhalation Q4H PRN wheezing 11/21/21 06/03/22 aerosol inhaler citalopram 20 mg tablet 20 mg PO QAM 11/21/21 06/03/22 fluticasone propionate 220 1 puff inhalation BID 11/21/21 06/03/22 mcg/actuation HFA aerosol inhaler (Flovent HFA) fluticasone propionate 50 2 spray intranasal DAILY PRN 11/21/21 06/03/22 mcg/actuation nasal Congestion spray,suspension folic acid 1 mg tablet 1 mg PO QAM 11/21/21 06/03/22 levothyroxine 100 mcg tablet 100 mcg PO DAILY 11/21/21 06/03/22 methocarbamol 500 mg tablet 500 mg PO BEDTIME PRN low back pain 11/21/21 06/03/22 methotrexate sodium 2.5 mg tablet 20 mg PO QWEEK 11/21/21 06/03/22 omeprazole 20 mg capsule,delayed 20 mg PO QAM 11/21/21 06/03/22 release simvastatin 20 mg tablet 20 mg PO BEDTIME 11/21/21 06/03/22 Previous Rx's ?Medication ?Instructions ?Recorded nitrofurantoin 100 mg PO Q12H 5 days #10 caps 06/03/22 monohydrate/macrocrystals 100 mg capsule (Macrobid) cyclobenzaprine 10 mg tablet 10 mg PO TID PRN muscle spasm #10 07/30/22 tabs gabapentin 300 mg capsule 300 mg PO TID #14 caps 06/11/23 oxycodone 5 mg tablet 5 mg PO BID PRN pain #8 tabs 09/06/23 nitrofurantoin 100 mg PO Q12H 7 days #14 caps 01/15/24 monohydrate/macrocrystals 100 mg capsule (Macrobid) nystatin 100,000 unit/gram topical 1 appl topical TID 2 weeks #60 01/25/24 powder grams blood pressure monitor #1 ea 01/29/24 nitrofurantoin 100 mg PO Q12H 7 days #14 caps 03/19/24 monohydrate/macrocrystals 100 mg capsule (Macrobid) Allergies Allergy/AdvReac Type Severity Reaction Status Date / Time naproxen [From Naprosyn] Allergy Severe Anaphylaxis Verified 03/19/24 13:51 hydrocodone [From Vicodin] Allergy Mild Anaphylaxis Verified 03/19/24 13:51 penicillin V Allergy Mild Hives Verified 03/19/24 13:51 ibuprofen Allergy Stomach Verified 03/19/24 13:51 Upset Review of Systems Review of Systems: Positive abdominal pain Yes all other systems are reviewed and are negative PMFSH Past Medical History Attestation statement: The following information was validated with the patient. Medical History Hypothyroidism Arthritis Spondylolisthesis, grade 1 Social History Social History Alcohol intake: never Advance Directives: No Advance Directives Information Provided: Yes Physical Exam ED Vital Signs: Vital Signs - 24 hr 03/19/24 13:50 03/19/24 20:04 Temperature 97.5 F 97.7 F Pulse Rate 81 76 Respiratory Rate 16 18 Blood Pressure 133/77 142/87 H Pulse Oximetry 98 98 Oxygen Delivery Method Room Air Room Air BMI result Body Mass Index 34.8 Appearance: Alert. Oriented X3. No acute distress. Eyes: Pupils equal, round and reactive to light. ENT: Pharynx normal. Neck: Normal inspection. Neck supple. No lymph nodes noted. No crepitus CVS: Normal heart rate and rhythm. Pulses normal. Normal S1 and S2 Respiratory: No respiratory distress. Breath sounds normal. No Wheezing. No rales Abdomen: Soft and nontender. No rigidity. No distention. good BS x4 Skin: Skin warm and dry. Normal skin color. Normal skin turgor. Extremities: No lower extremity edema. Neurovascular intact to all extremities. No Lacerations. No Rash Neuro: Oriented X 3. No motor deficit. No sensory deficit. Moving all extermities. No slurred speech Course Course Course Narrative: This is a Rapid Medical Examination (RME) performed by Nikolay Armstrong PA-C in triage. Full HPI, ROS, assessment and treatment plan per primary provider in the Main ED. 58 yo female here for eval of LLQ abd pain which began this morning, worsening since onset w/ assoc dysuria. no radiation of pain. no N/V, surgical hx: tubal ligation. Plan: labs, UA Medications Administered Discontinued Medications Generic Name Dose Route Start Last Admin Trade Name Freq PRN Reason Stop Dose Admin Sodium Chloride 1,000 mls @ 999 mls/hr 03/19/24 20:45 03/19/24 22:31 Ns IV 03/19/24 21:45 Infused .Q1H1M SEAN Infusion Iohexol 85 ml 03/19/24 21:19 03/19/24 21:20 Iohexol 350 Mg/Ml 100 Ml Infus..Btl IV 03/19/24 21:20 85 ml ONCE ONE Administration Medical Decision Making Medical Decision Making [facility] Narrative: Patient well appearing no acute distress. CT scan of the abdomen pelvis was done. CT scan negative for obstruction no abscess no perforation positive diverticulitis only. Patient's urine showed a question UTI. There is 2+ leukocyte esterase but there was no white cells there is no bacteria. Honestly I doubt this is actually a UTI. Nevertheless patient's previous culture results reviewed. Will start patient on a course of Macrobid. There is no evidence for diverticulitis on CT. Patient is otherwise well. Will discharge patient home. Close follow-up advised. In stable condition. White count is normal. Electrolyte is normal. Differential Diagnosis Differential Diagnoses: The differential diagnosis associated with the presentation includes Urinary tract infection, kidney stone, diverticulitis, obstruction, abscess, perforation Admission/Observation Consideration of admission/observation: Escalation of care including admission/observation considered Lab Data [facility] Lab Attestation statement: I reviewed the patient's lab results. 03/19/24 15:43 03/19/24 15:43 Labs: Lab Results 03/19/24 03/19/24 Range/Units 14:00 15:43 WBC 6.0 (4.8-10.8) X10*3/uL RBC 4.86 (4.20-5.50) X10*6/uL Hgb 15.1 (12.0-16.0) g/dl Hct 42.0 (37.0-47.0) % MCV 86.4 (80.0-98.0) fL MCH 31.1 (27.0-33.0) pg MCHC 36.0 H (31.0-35.0) g/dl RDW 14.4 (11.0-16.0) % Plt Count 307 (160-400) X10*3/uL MPV 9.2 L (9.4-12.3) fL Immature Gran % (Auto) 0.2 (0.0-0.4) % Neut % (Auto) 57.9 (45-73) % Lymph % (Auto) 29.0 (20-40) % [place] % (Auto) 8.2 (2-11) % Eos % (Auto) 3.7 (0-4) % Baso % (Auto) 1.0 (0-2) % Lymph # (Auto) 1.7 (1.2-4.9) X10*3/uL [place] # (Auto) 0.5 (0.1-1.2) X10*3/uL Eos # (Auto) 0.2 (0.0-0.4) X10*3/uL Baso # (Auto) 0.1 (0.0-0.2) X10*3/uL Abs Immat Gran (auto) 0.01 (0.00-0.03) X10*3/uL Absolute Neuts (auto) 3.5 (2.0-8.3) x10*3/uL Absolute Nucleated RBC 0.000 (0.0-0.012) X10*3/uL Nucleated RBC % (auto) 0.0 (0.0-0.2) /100WBC Sodium 140 (135-145) mmol/L Potassium 4.2 (3.3-5.1) mmol/L Chloride 105 (96-108) mmol/L Carbon Dioxide 26 (22-29) mmol/L Anion Gap 13 (12-20) BUN 16 (9-16) mg/dL Creatinine 0.77 (0.5-1.4) mg/dL Estim Creat Clear Calc 74.0 Estimated GFR > 60 Random Glucose 92 (60-115) mg/dL Calcium 9.5 (8.4-10.2) mg/dL Total Bilirubin 0.4 (0.0-1.0) mg/dL AST 25 (5-31) U/L ALT 26 (0-31) U/L Alkaline Phosphatase 93 (39-117) U/L Total Protein 7.8 (6.5-8.0) g/dL Albumin 4.1 (3.5-5.0) g/dL Urine Color Yellow Urine Appearance Clear Urine pH 7.0 (5.0-9.0) Ur Specific [place] 1.010 (1.005-1.025) Urine Protein Negative (Neg-Trace) mg/dL Urine Glucose (UA) Negative (Negative) mg/dL Urine Ketones Negative (Negative) mg/dL Urine Blood Negative (Negative) Urine Nitrite Negative (Negative) Ur Leukocyte Esterase Moderate (2+) H (Negative) Urine RBC 0-2 (0-2) /HPF Urine WBC 0-5 (0-5) /HPF Ur Squamous Epith Cells 0-2 (0-2) /HPF Urine Bacteria None Seen (None Seen) Hyaline Casts 0-2 (0-2) /LPF Independent Interpretation I performed an independent interpretation of an: CT Scan (No overt obstruction noted) Radiology Impression Discussion of test interpretation with radiology: I have reviewed the radiologist's reading. External Record Review Previous culture results reviewed Chronic Conditions History of arthritis. History of frequent UTIs. Social Determinants Patient?s care significantly limited by Social Determinants of Health including: Problems related to primary support group Discharge Plan Discharge Clinical Impression: Urinary tract infection Patient Disposition: Home, Self-Care Instructions: Urinary Tract Infection in Women (DC) Prescriptions: New nitrofurantoin monohyd/m-cryst [Macrobid] 100 mg capsule 100 mg PO Q12H 7 Days Qty: 14 0RF Rx Instructions: must administer with a meal/food No Action nitrofurantoin monohyd/m-cryst [Macrobid] 100 mg capsule 100 mg PO Q12H 5 Days Qty: 10 0RF Rx Instructions: must administer with a meal/food cyclobenzaprine 10 mg tablet 10 mg PO TID PRN (Reason: muscle spasm) Qty: 10 0RF gabapentin 300 mg capsule 300 mg PO TID Qty: 14 0RF oxycodone 5 mg tablet 5 mg PO BID PRN (Reason: pain) Qty: 8 0RF Rx Instructions: Partial Fill upon patient request. nitrofurantoin monohyd/m-cryst [Macrobid] 100 mg capsule 100 mg PO Q12H 7 Days Qty: 14 0RF Rx Instructions: must administer with a meal/food (DME) blood pressure monitor Kit See Rx Instructions .Route Qty: 1 0RF Rx Instructions: As directed nystatin 100,000 unit/gram powder 1 appl topical TID 14 Days Qty: 60 0RF fluticasone propionate 50 mcg/actuation spray,suspension 2 spray intranasal DAILY PRN (Reason: Congestion) fluticasone propionate [Flovent HFA] 220 mcg/actuation HFA aerosol inhaler 1 puff inhalation BID methotrexate sodium 2.5 mg tablet 20 mg PO QWEEK folic acid 1 mg tablet 1 mg PO QAM omeprazole 20 mg capsule,delayed release(DR/EC) 20 mg PO QAM citalopram 20 mg tablet 20 mg PO QAM levothyroxine 100 mcg tablet 100 mcg PO DAILY Humira(CF) Pen 40 mg/0.4 mL pen injector kit 40 mg subcut Q2W albuterol sulfate 90 mcg/actuation HFA aerosol inhaler 2 puff inhalation Q4H PRN (Reason: wheezing) methocarbamol 500 mg tablet 500 mg PO BEDTIME PRN (Reason: low back pain) simvastatin 20 mg tablet 20 mg PO BEDTIME Referrals: Micah Rosado MD [Primary Care Provider] - 03/21/24 Print Language: Colombian
[2024-03-19 14:06] LABS: Appearance Urine Clear; Color Urine Yellow; Glucose Urine UA Negative (Negative); Leukocyte Esterase Urine Moderate (2+) (Negative); Nitrite Urine Negative (Negative); UMIC TRIGGER UACC YES; Urine Blood Negative (Negative); Urine Ketones Negative (Negative); Urine Protein Negative (Neg-Trace)
[2024-03-19 14:20] LABS: Bacteria Urine None Seen (None Seen); Hyaline Casts Urine 0-2 /LPF (0-2); RBC Urine 0-2 /HPF (0-2); Squamous Epithelial Cell Urine 0-2 /HPF (0-2); UACC Culture Trigger YES; WBC Urine 0-5 /HPF (0-5)
[2024-03-19 15:47] LABS: MANUAL DIFF FLAG NO
[2024-03-19 15:57] LABS: Basophils Absolute Auto 0.1 X10*3/uL (0.0-0.2); Eosinophils Absolute Auto 0.2 X10*3/uL (0.0-0.4); Eosinophils Percent Auto 3.7 % (0-4); Hemoglobin 15.1 g/dl (12.0-16.0); Imm Gran Abs Auto 0.01 X10*3/uL (0.00-0.03); Imm Gran Pct Auto 0.2 % (0.0-0.4); Lymphocytes Absolute Auto 1.7 X10*3/uL (1.2-4.9); Mean Corpuscular Hemoglobin 31.1 pg (27.0-33.0); Mean Corpuscular Volume 86.4 fL (80.0-98.0); Mean Platelet Volume 9.2 fL (9.4-12.3); Monocytes Absolute Auto 0.5 X10*3/uL (0.1-1.2); Monocytes Percent Auto 8.2 % (2-11); Neutrophils Absolute Auto 3.5 x10*3/uL (2.0-8.3); Neutrophils Percent Auto 57.9 % (45-73); Platelet Count 307 X10*3/uL (160-400); Red Blood Count 4.86 X10*6/uL (4.20-5.50); Red Cell Distribution Width 14.4 % (11.0-16.0)
[2024-03-19 16:10] LABS: Alanine Aminotransferase 26 U/L (0-31); Albumin Level 4.1 g/dL (3.5-5.0); Alkaline Phosphatase 93 U/L (39-117); Anion Gap 13 (12-20); Aspartate Amino Transferase 25 U/L (5-31); Bilirubin Total 0.4 mg/dL (0.0-1.0); Blood Urea Nitrogen 16 mg/dL (9-16); Calcium 9.5 mg/dL (8.4-10.2); Carbon Dioxide 26 mmol/L (22-29); Chloride 105 mmol/L (96-108); Estimated Glomerular Filt Rate > 60; Glucose Random 92 mg/dL (60-115); Potassium 4.2 mmol/L (3.3-5.1); Sodium 140 mmol/L (135-145); Total Protein 7.8 g/dL (6.5-8.0)
--- OUTSIDE RECORDS SUMMARY | 2024-03-19 17:30 | XMS_ITS | Encounter Summary ---
Author Organization [facility] Address [address] [place] [address] Care Team Providers Care Executive Assistant To President Name Role Phone Micah Rosado MD Primary Care Provider [phone] Reason for Visit * Reason Onset Date Comments faxed order 03/13/2024 Faxed order rece ived from [facility] sign and fax back to [phone]. Encounter Details Date Type Department Care Team (Late st Contact Info) Description 03/13/2024 Telephone Adult Medicine [facility] [address] [place] [phone] Micah Rosado MD [address] [place], [place] [id number] faxed order (Faxed order received from [facility] sign and fax back to [phone].) Social History Tobacco Use Types Packs/Day Years Used Date Smoking Tobacco: Never Smokeless Tobacco: Never Alcohol Use Standard Drinks/Week Comments No 0 (1 standard drink = 0.6 oz pur e alcohol) Sex and Gender Information Value Date Recorded Sex Assigned at Not on file Gender Identity Not on file Sexual Orientation Not on file Job Start Date Occupation Industry Not on file Not on file Not on file documented as of this encounter Progress Notes * Kathy Patel MA - 03/17/2024 11:57 AM EST [facility] Order signed and faxed with confirmation * Kathy Patel MA - 03/14/2024 1:36 PM EST Order put in Dr Rosado's office for signature documented in this encounter Plan of Treatment Upcoming Encounters Date Type Department Care Team (Late st Contact Info) Description 11/29/2024 9:00 AM EDT Appointment Radiology Department - [address] [phone] documented as of this encounter Visit Diagnoses Not on filedocumented in this encounter Care Teams Executive Assistant To President Relationship Specialty Start Date End Date Micah Rosado MD [address] [place] [address] PCP - General 06/02/10 documented as of this encounter
--- OUTSIDE RECORDS SUMMARY | 2024-03-19 17:30 | XMS_ITS | Encounter Summary ---
Author Organization [facility] Address [address] [place] [address] Care Team Providers Care Blacksmith Apprentice Name Role Phone Micah Rosado MD Primary Care Provider [phone] Reason for Visit * Reason Onset Date Comments information needed 03/11/2024 Encounter Details Date Type Department Care Team ([facility] Contact Info) Description 03/11/2024 Telephone Adult Medicine [facility] [place] [address] [place] [address] Micah Rosado MD [address], [place] information needed Social History Tobacco Use Types Packs/Day Years [...] Progress Notes * Kathy Patel MA - 03/14/2024 2:22 PM EST This form is in DR Rosado's office for signature * Gena Zaragoza - 03/11/2024 3:46 PM EST Yariel from [facility] is calling and said he faxed a two page result and is waiting on a response please advise fax to [phone] documented in this encounter Plan of Treatment Upcoming Encounters Date Type Department Care Team ([facility] st Contact Info) Description 11/29/2024 9:00 AM EDT Appointment Radiology Department - [address] [address] documented as of this encounter Visit Diagnoses Not on filedocumented in this encounter Care Teams Blacksmith Apprentice Relationship Specialty Start Date End Date Micah Rosado MD [address] [place] [id number] PCP - General 06/02/10 documented as of this encounter
--- OUTSIDE RECORDS SUMMARY | 2024-03-19 17:30 | XMS_ITS | Clinical Summary ---
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 Naproxen 01/16/2005 GI bleed Oxycodone-Acetaminophen 12/05/2022 Penicillins Nausea And Vomiting,Rash,Wheezi ng High 01/16/2005 Within the past ten years Sulfacetamide Sodium Anaphylaxis High 01/16/2005 Vomiting, angioedema, difficulty breathing Sulindac Nausea And Vomiting 07/12/2005 Medications Medication Sig Dispensed Refills Start Date End Date Status cholecalciferol (VITAMIN D-3) 50 mcg (2,000 unit) tablet Take 1 Tablet by mouth daily. 12/26/2022 Active NON FORMULARY CPAP HISTORICAL (HISTORICAL CPAP) Inhale into the lungs. Active docusate sodium (COLACE) 100 mg capsule Take 1 Capsule by mouth 2 times daily. 12/04/2022 Active estradioL (ESTRACE) 0.01 % (0.1 mg/gram) vaginal cream 1 gram vaginally at bed time for 2 weeks, 500 mg vaginally at bedtime for 2 weeks, then 500 mg vaginally at bedtime three times a week for maintance. 02/16/2023 Active famotidine (PEPCID) 20 mg tablet Take 1 Tablet by mouth 2 times daily as needed for Heartburn. Take one dose at bedtime 06/01/2023 Active fluticasone furoate (Arnuity Ellipta) 200 mcg/actuation blister with device inhaler Inhale 1 Puff into the lungs daily. 04/09/2023 Active folic acid (FOLVITE) 1 mg tablet TAKE ONE TABLET BY MOUTH DAILY AT 9AM (VIAL) 09/11/2022 Active methocarbamoL (ROBAXIN) 500 mg tablet TAKE ONE TABLET BY MOUTH DAILY AT BEDTIME NEEDED FOR BACK PAIN (VIAL) 10/27/2022 Active methotrexate 2.5 mg tablet Take 8 Tablets by mouth once a week. 06/07/2021 Active multivit-mineral s/folic acid (ONE-A-DAY WOMEN'S 50 PLUS ORAL) Take by mouth. Active omeprazole (PriLOSEC) [address] capsule Take 1 Capsule by mouth 2 times daily (before meals). Take After thryoid med in am, wait 30 mins and then eat to activate the medication. Take again about 30 mins before supper and then wait and then eat to activate the medication 06/01/2023 Active sertraline (ZOLOFT) 50 mg tablet Take 1 Tablet by mouth daily. 04/09/2023 Active triamcinolone (NASACORT) 55 mcg nasal inhaler 55 mcg by Nasal route daily. 05/28/2018 Active fluticasone propionate (FLONASE) 50 mcg/actuation nasal spray INSTILL 2 SPRAYS IN EACH NOSTRIL DAILY NEEDED (BULK) 03/21/2023 Active albuterol HFA (PROAIR HFA ; PROVENTIL HFA ; VENTOLIN HFA) 90 mcg/actuation inhaler Inhale 2 Puffs into the lungs every 4 hours as needed for Cough or Wheezing. 10/04/2021 Active acetaminophen (TYLENOL 8 HOUR) 650 mg 8 hr tablet Take 650 mg by mouth every 8 hours as needed. Active atorvastatin (LIPITOR) 20 mg tablet Take 1 tablet (20 mg total) by mouth 1 (one) time each day. 90 tablet 12/27/2023 Active citalopram (CeleXA) 20 mg tablet Take 1 tablet (20 mg total) by mouth 1 (one) time each day. 90 tablet 12/27/2023 Active cetirizine (ZyrTEC) 10 mg tablet Take 1 tablet (10 mg total) by mouth 1 (one) time each day. 90 tablet 12/27/2023 Active levothyroxine (SYNTHROID, LEVOTHROID) 88 mcg tablet TAKE 1 TABLET BY MOUTH EVERY DAY 90 tablet 02/26/2024 Active levothyroxine (SYNTHROID, LEVOTHROID) 88 mcg tablet Take 1 Tablet by mouth daily for 360 days. 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 Date 07/15/2018. Wt 189#; BMI 37; SE 88 % SM 90 %; spent 22 % of the study in REM. On CPAP @ 15; RDI 3.7 (AHI 3.7), Central apneas 12; Obstructive apneas 3; Mixed apneas 0; hypopneas 0; RERAs 0; and, average oxygen saturation was 96%. For the entire study, PLMs ~36. [facility] Sleep Center Polysomnogram: Date 07/21/2020; Wt 172#; BMI 37; SE 86%; SM 87%; REM 23%; RDI 11 (AHI 10), REM (RDI 17 - AHI 17), Central apneas 2; Obstructive apneas 38; Mixed apneas 9; hypopneas 33; RERAs 9; average oxygen saturation 95% (lowest 87% - without saturations <88% for 5% or more of study); PLMs 35. - Obstructive Sleep Apnea - mild overall and moderate in REM; mostly obstructive apnea and hypopneas; without sleep related hypoventilation by 2020 polysomnogram. + PLMD. Treatment study pending. - Obstructive Sleep Apnea - moderate; mostly hypopneas and obstructive apneas; with sleep related hypoventilation by 2018 home polysomnogram. Dysfunctional uterine bleeding 04/18/2013 Osteoarthritis of knee 11/19/2012 Hypothyroidism 06/25/2012 Obesity 06/25/2012 Hyperlipidemia 10/25/2011 Anxiety 05/26/2009 Asthma 06/29/2006 Overview (11/21/2023): no inhaled steroid, started 06/25 Seropositive rheumatoid arthritis 01/16/2005 Overview (11/21/2023): Symptoms in childhood. Recurrence in 2004: RF POS, CCP NEG; equivocal response to hydroxychloroquine, DC due to muscle weakness On methotrexate started 2005. Humira added 02/03 Last Assessment & Plan: Lab work due in July and September Encounters Date Type Department Care Team Description 03/13/2024 Telephone Adult Medicine [address] [phone] Micah Rosado MD faxed order (Faxed order received from [facility] Clinical Lab pls sign and fax back to [phone].) 03/11/2024 Telephone Adult Medicine [address] [phone] Micah Rosado MD information needed 12/26/2023 Telephone Adult Medicine [address] [phone] Micah Rosado MD from Last 3 Months Immunizations Name Administration Dates Next Due H1N1 Inj Preservative Free 01/12/2009 Influenza Quadravalent, MDCK , 0.5ml, preservative free (Flucelvax) 6mo and older 10/21/2019 Influenza Quadravalent, MDCK , 0.5ml, with preservative (Flucelvax) 6mo and older 11/09/2022,11/23/2021 Influenza trivalent, with pr eservative (Fluzone; Afluria) 6mo and older 11/26/2020,12/03/2018,12/27/2017,11/16,11/15/2016,12/04/2014,01/02/2014 ,10/28/2012,10/25/2011,10/28/2010,08/2009,11/08/2007,11/23/2006,,01/17/2005 Influenza, Unspecified 11/02/2020,11/19/2017 Moderna (age 6mo & older) Bi valent, COVID-19, 0.5 mL or 0.25 mL dosage 11/11/2021 Pneumococcal conjugate 13 va lent (Prevnar 13, PCV13) 2mo and older 02/20/2017 Pneumococcal polysaccharide 23 valent (Pneumovax 23) 2yo and older 07/03/2014 Td Tetanus diptheria (Tdvax) 7yo and older 10/14/2005 Tdap Tetanus diptheria acell ular pertussis (Boostrix; Adacel) 7yo and older 10/10/2022,02/26/2012,10/14/2005 Zoster recombinant (Shingrix ) 19yo and older 12/03/2018,10/03/2018 Surgical History Surgery Date Site/Laterality Comments TUBAL LIGATION PROCEDURE: HISTORICAL TUBAL LIGATION; COMMENT: 1993 OTHER SURGICAL HISTORY 04/02/13 PROCEDURE: HISTORICAL D&C; COMMENT: cervical stenosis, polyps COLONOSCOPY 11/03/2014 PROCEDURE: HISTORICAL COLONOSCOPY; COMMENT: Hyperplastic polyps x2. MULTIPLE TOOTH EXTRACTIONS 2018 PROCEDURE: HISTORICAL DENTAL EXTRACTION Medical History Medical History Date Comments Allergic rhinitis, cause unspecified DX:Allergic rhinitis, cause unspecified Depressive disorder, not els ewhere classified DX:Depressive disorder, not elsewhere classified Unspecified asthma(493.90) 06/29/2006 DX:Un specified asthma(493.90); COMMENT: no inhaled steroid, started 06/25 Rheumatoid arthritis(714.0) onset 05/2004 DX:R heumatoid arthritis(714.0); COMMENT: RF POS, CCP NEG On Plaquenil and methotrexate Anxiety 05/26/2009 DX:Anxiety Obesity DX:Obesity Hypothyroidism 06/25/2012 DX:Hypothyroidis m Osteoarthritis of knee 11/19/2012 DX:Osteoa rthritis of knee Osteoarthritis of lumbar spine 03/04/2019 D X:Osteoarthritis of lumbar spine Gastroesophageal reflux dise ase without esophagitis 09/01/2019 DX:Gastroesophageal reflux d isease without esophagitis Osteoarthritis of lumbosacra l spine with radiculopathy 09/09/2019 DX:Osteoarthritis of lumbosa cral spine with radiculopathy History of COVID-19 06/02/2020 DX:History o f COVID-19; COMMENT: 02/2020 Functional dyspepsia DX:Function al dyspepsia Other chest pain DX:Other chest pain Family History Medical History Relation Name Comments Heart attack Father Thyroid disease Father heart failur e Cataracts Mother Other: peanut allergy Mother Blindness Other Eczema Son 1 Asthma Son 2 Prostate cancer Uncle Breast cancer Neg Hx Colon cancer Neg Hx Ovarian cancer Neg Hx Relation Name Status Comments Brother 1 Alive Brother 2 Alive Daughter Alive Father CHF, Diabetes Mother Alive Other Sister Alive Son 1 Alive blind, mental r etardation Son 2 Uncle Social History Tobacco Use Types Packs/Day Years [...] file Not on file Not on file Obstetrics History Last Filed Vital Signs Vital Sign Reading Time Taken Comments Blood Pressure 122/69 06/21/2023 1:13 PM EDT Pulse 71 06/21/2023 1:13 PM EDT Temperature - - Respiratory Rate - - Oxygen Saturation - - Inhaled Oxygen Concentration - - Weight 79.1 kg (174 lb 6.4 oz) 06/21/2023 1:13 P M EDT Height 152.4 cm (5') 06/01/2023 10:53 AM EDT Body Mass Index 34.06 06/01/2023 10:53 AM EDT Plan of Treatment Upcoming Encounters Date Type Department Care Team (Late st Contact Info) Description 11/29/2024 9:00 AM EDT Appointment Radiology [address] [phone] Health Maintenance Due Date Last Done Comments Hepatitis B Vaccines (1 of 3 - 19+ 3-dose series) 09/18/1983 Colorectal Cancer Screening: Stool Based Tests (FOBT/FIT) 01/28/2022 Medicare Annual Wellness Visit 01/28/2022 Social Influencers of Health Screening 01/28/2022 Depression Screening 10/11/2023 10/10/2022 Breast Cancer Screening 11/23/2025 11/24/19 24, 11/24/2023, 10/07/2022, Additional history exists Cervical Cancer Screening: HPV 11/17/2027 11/16/2022 Cholesterol Screening (Lipid Panel) 11/21/2027 11/20/2022 Pneumococcal Vaccine: Pediatrics (0 to 5 Years) and At-Risk Patients (6 to 64 Years) (3 of 3 - PPSV23 or PCV20) 2029 02/20/2017, 07/03/2014 DTaP,Tdap,and Td Vaccines (5 - Td or Tdap) 10/10/2032 10/10/2022, 02/26/2012, 10/14/2005, Additional history exists RSV Immunization Patients 60+ Years Old (1 - 1-dose 75+ series) 09/18/2039 Hepatitis C Screening Completed 07/19/2005 HIV Screening Completed 09/03/2006 Colorectal Cancer Screening: Colonoscopy Discontinued 11/03/2014 Zoster Vaccines Completed 12/03/2018, 10/03/2018 COVID-19 Vaccine Completed 11/07/2023, , 06/07/2021, Additional history exists Influenza Vaccine Completed 11/07/2023, , 11/23/2021, Additional history exists HIB Vaccines Aged Out No longer eligi ble based on patient's age to complete this topic HPV Vaccines Aged Out No longer eligi ble based on patient's age to complete this topic Hepatitis A Vaccines Aged Out No long er eligible based on patient's age to complete this topic IPV Vaccines Aged Out No longer eligi ble based on patient's age to complete this topic MMR Vaccines Aged Out No longer eligi ble based on patient's age to complete this topic Meningococcal ACWY Vaccine Aged Out N o longer eligible based on patient's age to complete this topic RSV Immunization Patients Under 20 months Aged Out No longer eligible based on patient's age to complete this topic Varicella Vaccines Aged Out No longer eligible based on patient's age to complete this topic Procedures Procedure Name Priority Date/Time Associated Diagnosis Comments SCREENING MAMMOGRAPHY BI 2-VIEW BREAST INC CAD Routine 11/24/2023 9:06 AM EDT Encounter for screening mammogram for malignant neoplasm of breast LIPID PANEL Routine 11/20/2022 HM HPV Routine 11/16/2022 DEPRESSION SCREENING Routine 10/10/2022 COLONOSCOPY Routine 11/03/2014 HIV SCREENING Routine 09/03/2006 HEPATITIS C SCREENING Routine 07/19/2005 from Last 3 Months or Most Recently Relevant to Health Maintenance Results * SCREENING MAMMOGRAPHY BI 2-VIEW BREAST INC CAD (11/24/2023 9:06 AM EDT) Anatomical Region Laterality Modality Radiographic Sally ging 10/07/2022 8:49 AM EDT Narrative 11/26/2023 3:26 PM EDT This is a summary report. The complete report is available in the patient's medical record. If you cannot access the medical record, please contact the sending organization for a detailed fax or copy. Exam: Screening mammogram Findings: Digital bilateral full-field screening mammography is performed with tomosynthesis and interpreted with the aid of computer-aided detection. ??Comparison is made with 10/07/2022 and as far back as 11/03/2019. Breast parenchyma is composed of scattered fibroglandular densities. ??No new suspicious mass, architectural distortion, or suspicious calcifications. Impression: No mammographic evidence of malignancy. BI-RADS 1 - negative [facility] [address] [id number] Procedure Note Juany Dorantes MD - 12/18/2023 This is a summary report. The complete report is available in thepatient's medical record. If you cannot access the medical record, pleasecontact the sending organization for a detailed fax or copy. Exam: Screening mammogram Findings: Digital bilateral full-field screening mammography is performedwith tomosynthesis and interpreted with the aid of computer-aideddetection. Comparison is made with 10/07/2022 and as far back as11/03/2019. Breast parenchyma is composed of scattered fibroglandular densities. Nonew suspicious mass, architectural distortion, or suspiciouscalcifications. Impression: No mammographic evidence of malignancy. BI-RADS 1 - negative [address] [id number] Micah Rosado MD IMG XR PROCEDURES * Lipid panel (11/20/2022) [facility] LDL/HDL Ratio 2 0 - 4 Triglycerides 89 0 - 150 mg/dL Cholesterol 185 0 - 200 mg/dL HDL 86 40 mg/dL LDL Cholesterol 82 0 - 100 mg/dL Blood Venous blood specimen / Unknown Historical Provider LAB BLOOD ORDERAB [facility] Cervical Cancer Screening: HPV (11/16/2022) [facility] Cervical Cancer Screening: HPV No Interpretation , Abstracted Historical Provider [facility] Depression Screening (10/10/2022) [facility] Depression Screening Abstracted Historical Provider [facility] Colonoscopy (11/03/2014) [facility] Colonoscopy No Interpretation , Abstracted Anatomical Region Laterality Modality Other [facility] Provider [facility] HIV Screening (09/03/2006) [facility] HIV Screening Abstracted Historical Provider MD [facility] Hepatitis C Screening (07/19/2005) [facility] Hepatitis C Screening Abstracted 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
[2024-03-19 20:04] VITALS: BP 142/87; PULSE 76; RESP 18; TEMP 36.5; O2SAT 98
[2024-03-19] MEDS: 0.9 % Sodium Chloride 1,000 ML 999 ML IV (21:02)
[2024-03-19] MEDS: iohexoL 350 MG/ML 100 ML INFUS..BTL 85 ML IV (21:20)
[2024-03-19 22:59] VITALS: BP 142/87; PULSE 76; RESP 18; TEMP 36.5; O2SAT 98
== END 2024-03-19 23:00 | disposition home or self-care (01) ==
PROVIDERS: Physician Assistant Medical; Emergency Provider Emergency Medicine Emergency Medical Services; PCP Internal Medicine
DX: N39.0 Urinary tract infection, site not specified (principal); R10.2 Pelvic and perineal pain; R10.31 Right lower quadrant pain; R30.0 Dysuria; R11.0 Nausea; Z79.899 Other long term (current) drug therapy
CPT/HCPCS: 36415; 74177; 80053; 81001; 85025; 87086; 96360; 99283; 99284; Q9967

== ENCOUNTER → 2024-03-19 20:33 | Outpatient (BNV) | payer MEDICARE, MEDICAID, SELFPAY | PROVIDERS: Emergency Provider Emergency Medicine Emergency Medical Services; PCP Internal Medicine; Visit Provider Specialist | DX: K80.20 Calculus of gallbladder without cholecystitis without obstruction (principal); K57.30 Diverticulosis of large intestine without perforation or abscess without bleeding | CPT/HCPCS: 74177 ==

== ENCOUNTER 2024-04-15 22:30 | Emergency (ER) | payer MEDICARE, MEDICAID, SELFPAY ==
--- NOTE | ~2024-04-15 | XR_ITS ---
CLINICAL HISTORY: SOB 2 view chest x-ray Comparison: CR/TX/SR - XR CHEST 2V - 03/01/23 23:13 EST Findings: The lungs are clear. Heart size is normal. No acute fracture. IMPRESSION: 1. No acute findings. This document has been electronically signed by: Esteban Edmondson MD on 04/16/2024 07:33:03
--- NOTE | 2024-04-15 22:32 | ECG_ITS ---
Test Reason : CHEST PAIN Blood Pressure : */* mmHG Vent. Rate : 66 BPM Atrial Rate : 66 BPM P-R Int : 154 ms QRS Dur : 74 ms QT Int : 406 ms P-R-T Axes : 49 12 28 degrees QTcB Int : 425 ms Normal sinus rhythm Normal ECG When compared with ECG of 29-Jan-2024 01:10, No significant change was found Referred By: Generic ED Physician Electronically Signed By: Alex Qiu
[2024-04-15 22:57] VITALS: BP 135/71; PULSE 70; RESP 14; TEMP 36.4; O2SAT 98; BMI 35.1
[2024-04-15 23:14] LABS: MANUAL DIFF FLAG NO
[2024-04-15 23:23] LABS: Basophils Absolute Auto 0.1 X10*3/uL (0.0-0.2); Basophils Percent Auto 1.1 % (0-2); Eosinophils Absolute Auto 0.3 X10*3/uL (0.0-0.4); Eosinophils Percent Auto 5.7 % (0-4); Hematocrit 40.7 % (37.0-47.0); Hemoglobin 14.7 g/dl (12.0-16.0); Imm Gran Abs Auto 0.01 X10*3/uL (0.00-0.03); Imm Gran Pct Auto 0.2 % (0.0-0.4); Lymphocytes Percent Auto 34.5 % (20-40); Mean Corpuscular HGB Conc 36.1 g/dl (31.0-35.0); Mean Corpuscular Hemoglobin 31.3 pg (27.0-33.0); Mean Corpuscular Volume 86.6 fL (80.0-98.0); Mean Platelet Volume 9.5 fL (9.4-12.3); Monocytes Absolute Auto 0.5 X10*3/uL (0.1-1.2); Monocytes Percent Auto 8.1 % (2-11); Neutrophils Absolute Auto 2.9 x10*3/uL (2.0-8.3); Neutrophils Percent Auto 50.4 % (45-73); Platelet Count 282 X10*3/uL (160-400); Red Cell Distribution Width 13.7 % (11.0-16.0); White Blood Count 5.7 X10*3/uL (4.8-10.8)
[2024-04-15 23:37] LABS: Alanine Aminotransferase 23 U/L (0-31); Albumin Level 3.9 g/dL (3.5-5.0); Alkaline Phosphatase 93 U/L (39-117); Anion Gap 11 (12-20); Aspartate Amino Transferase 23 U/L (5-31); Bilirubin Total 0.5 mg/dL (0.0-1.0); Blood Urea Nitrogen 10 mg/dL (9-16); Carbon Dioxide 25 mmol/L (22-29); Chloride 107 mmol/L (96-108); Creatinine Clr Calc Pharmacy 77.4; Estimated Glomerular Filt Rate > 60; Glucose Random 109 mg/dL (60-115); Potassium 4.1 mmol/L (3.3-5.1); Sodium 139 mmol/L (135-145); Total Protein 7.6 g/dL (6.5-8.0)
[2024-04-15 23:47] LABS: Troponin-I High Sensitivity < 2.7 ng/L (<3.5-17.0)
[2024-04-16 02:22] VITALS: BP 128/69; PULSE 66; RESP 18; TEMP 36.2; O2SAT 99
--- NOTE | 2024-04-16 04:09 | PC.NURSE ---
pt a&ox4, respirations even and unlabored. pt reporting sudden onset of chest pain, denies radiations. pt reports hx of anxiety and feels it may be an anxiety attack. vss. pt denies n/v/d.
[2024-04-16 06:17] VITALS: BP 135/69; PULSE 88; RESP 14; TEMP 36.2; O2SAT 98
--- NOTE | 2024-04-16 06:31 | ED.CHESTPAIN ---
HPI - Chest Pain General Chief Complaint: Chest Pain Stated Complaint: Chest pain Time Seen by Provider: 04/16/24 06:33 Source: patient and RN notes reviewed Mode of arrival: ambulatory Limitations: no limitations History of Present Illness ED Provider: Marina Dumont PA-C HPI narrative: This is a 58-year-old female, with a history of thyroid disease, arthritis, hyperlipidemia, who presents emergency department with complaints of 2 episodes of chest pain which occurred yesterday. Patient reports that while she was at [employer] yesterday she developed chest pain, describing it as a tight/ sharp pain that lasted for approximately 20 minutes resolved on its own. She states that she did have some shortness for breath associated with that. She states that it resolved on its own. 3 states that this happened while she was playing [employer]. She states that it felt as though she was having a panic attack like she used to have this is a 19-year-old female. She states that when she went home she developed a similar episode of chest pain, that lasted 20 minutes and resolved on its own. she denies history of similar symptoms in the past. She denies any fevers, chills, recent illness, palpitations, abdominal pain, nausea, vomiting or diarrhea. Denies taking any medications at home to treat her current symptoms. She has not had any episodes of chest pain since yesterday. No other complaints or concerns at this time. MD complaint: chest pain Pertinent past history: asthma Onset (ago): day(s) Onset: during rest Pain location: left chest and right chest Pain radiation: none Quality: tightness Relieving factors: nothing Exacerbating factors: nothing Context: recent travel Treatment prior to arrival: none Risk Factors Coronary artery disease risk factors: hyperlipidemia Thoracic aortic dissection risk factors: none Related Data On Oral Contraceptives: No Home Medications ?Medication ?Instructions ?Recorded ?Confirmed adalimumab 40 mg/0.4 mL 40 mg subcut Q2W 11/21/21 subcutaneous pen kit (Humira(CF) Pen) albuterol sulfate 90 mcg/actuation 2 puff inhalation Q4H PRN wheezing 11/21/21 06/03/22 aerosol inhaler citalopram 20 mg tablet 20 mg PO QAM 11/21/21 06/03/22 fluticasone propionate 220 1 puff inhalation BID 11/21/21 06/03/22 mcg/actuation HFA aerosol inhaler (Flovent HFA) fluticasone propionate 50 2 spray intranasal DAILY PRN 11/21/21 06/03/22 mcg/actuation nasal Congestion spray,suspension folic acid 1 mg tablet 1 mg PO QAM 11/21/21 06/03/22 levothyroxine 100 mcg tablet 100 mcg PO DAILY 11/21/21 06/03/22 methocarbamol 500 mg tablet 500 mg PO BEDTIME PRN low back pain 11/21/21 06/03/22 methotrexate sodium 2.5 mg tablet 20 mg PO QWEEK 11/21/21 06/03/22 omeprazole 20 mg capsule,delayed 20 mg PO QAM 11/21/21 06/03/22 release simvastatin 20 mg tablet 20 mg PO BEDTIME 11/21/21 06/03/22 Previous Rx's ?Medication ?Instructions ?Recorded nitrofurantoin 100 mg PO Q12H 5 days #10 caps 06/03/22 monohydrate/macrocrystals 100 mg capsule (Macrobid) cyclobenzaprine 10 mg tablet 10 mg PO TID PRN muscle spasm #10 07/30/22 tabs gabapentin 300 mg capsule 300 mg PO TID #14 caps 07/30/22 oxycodone 5 mg tablet 5 mg PO BID PRN pain #8 tabs 09/06/23 nitrofurantoin 100 mg PO Q12H 7 days #14 caps 01/15/24 monohydrate/macrocrystals 100 mg capsule (Macrobid) nystatin 100,000 unit/gram topical 1 appl topical TID 2 weeks #60 01/25/24 powder grams blood pressure monitor #1 ea 01/29/24 nitrofurantoin 100 mg PO Q12H 7 days #14 caps 03/19/24 monohydrate/macrocrystals 100 mg capsule (Macrobid) Allergies Allergy/AdvReac Type Severity Reaction Status Date / Time naproxen [From Naprosyn] Allergy Severe Anaphylaxis Verified 04/15/24 23:00 hydrocodone [From Vicodin] Allergy Mild Anaphylaxis Verified 04/15/24 23:00 penicillin V Allergy Mild Hives Verified 04/15/24 23:00 ibuprofen Allergy Stomach Verified 04/15/24 23:00 Upset Review of Systems Review of Systems: Yes all other systems are reviewed and are negative Constitutional: Constitutional: Reports as per [facility] Past Medical History Attestation statement: The following information was validated with the patient. Medical History Hypothyroidism Arthritis Spondylolisthesis, grade 1 Social History Social History Alcohol intake: never Smoked in Last 30 Days: No Use of substances other than those prescribed or required for medical reasons: No Advance Directives: No Advance Directives Information Provided: No Do you have a plan to hurt others: No Plan Patient : No Physical Exam Vital Signs: Vital Signs: Last Vital Signs Temp 97.2 F 04/16/24 06:17 Pulse 88 04/16/24 06:17 Resp 14 04/16/24 06:17 BP 135/69 04/16/24 06:17 Pulse Ox 98 04/16/24 06:17 O2 Del Method Room Air 04/16/24 06:17 BMI result Body Mass Index 35.1 Const: General: cooperative, comfortable and no acute distress Orientation/consciousness: patient oriented x3 Limitations: no limitations HEENT: Head: Yes normal to inspection, Yes normocephalic and Yes atraumatic Ears: hearing grossly normal bilaterally General nose exam: Normal external nose present Face and sinus: Yes normal facial exam Mouth: Normal oral and palatal mucosa present, oropharynx normal and moist mucous membranes Throat: Yes posterior oropharynx normal Eyes: General: appearance normal, both eyes and all related structures Eyelids: Yes eyelids normal Conjunctivae: conjunctivae normal Sclerae: sclerae normal Pupils: Equal, round and reactive pupils present EOM: EOMs intact bilaterally Neck: Neck: Yes normal visual inspection, Yes full ROM and Yes no lymphadenopathy Lymphatic: no lymphadenopathy noted Chest: Chest palpation & inspection: normal inspection of the chest Resp: Effort & Inspection: normal respiratory effort and able to speak in complete sentences Auscultation: clear to auscultation bilaterally, no crackles, no rales, no rhonchi and no wheezes Cardio: Rate: regular rate Rhythm: regular rhythm Heart sounds: S1 normal heart sound present and S2 normal heart sound present GI: Inspection: Yes normal to inspection Skin: General skin exam: no rashes or lesions noted Trauma: no lacerations or abrasions Wounds: no wounds Neuro: General: patient oriented x3 and moves all extremities Cranial nerves: Yes Equal, round and reactive pupils present Extrem: General: Yes normal to inspection Right upper extremity: normal to inspection Left upper extremity: normal to inspection Right lower extremity: normal to inspection Left lower extremity: normal to inspection Course Reevaluation(s) Reevaluation #1: repeat troponin negative. BNP less than 10. Viral swabs still pending Time: 07:41 Reevaluation #2: viral swabs returned, negative. Patient has a heart score of 2. She has had no return of chest pain. Vital signs remained stable. She is well-appearing and comfortable. She is unclear what is causing her symptoms however workup today was reassuring. She will follow-up with your primary care physician. Given strict return precautions. She understands and agrees with plan. Patient stable for discharge. Time: 08:20 Medical Decision Making Medical Decision Making [facility] Narrative: This is a 58-year-old female who presents emergency department for evaluation of chest pain. On arrival, patient was initially presented to the emergency room on 04/15/2024 at 22:57. vital signs at that time were within normal limits. I assess patient at approximately 6:30 a.m., vital signs have remained stable. She has had no return of any episodes of chest pain. Labs were obtained prior to my assessment, she has no leukocytosis, stable H&H, chemistry within normal limits. EKG normal sinus rhythm with no ST elevation or depression. I added a 2nd troponin, chest x-ray. Differential diagnoses include ACS, anxiety, panic disorder, pneumonia. She is not hypoxic or tachycardic no current chest pain, no pleuritic chest pain therefore PE is unlikely. She is well-appearing. Lungs are clear to auscultation bilaterally. Regular rate and rhythm. No calf tenderness. Differential Diagnosis Differential Diagnoses: The differential diagnosis associated with the presentation includes See above Lab Data [facility] Lab Attestation statement: I reviewed the patient's lab results. see [facility] 04/15/24 23:10 04/15/24 23:10 Labs: Lab Results 04/15/24 04/16/24 Range/Units 23:10 06:51 WBC 5.7 (4.8-10.8) X10*3/uL RBC 4.70 (4.20-5.50) X10*6/uL Hgb 14.7 (12.0-16.0) g/dl Hct 40.7 (37.0-47.0) % MCV 86.6 (80.0-98.0) fL MCH 31.3 (27.0-33.0) pg MCHC 36.1 H (31.0-35.0) g/dl RDW 13.7 (11.0-16.0) % Plt Count 282 (160-400) X10*3/uL MPV 9.5 (9.4-12.3) fL Immature Gran % (Auto) 0.2 (0.0-0.4) % Neut % (Auto) 50.4 (45-73) % Lymph % (Auto) 34.5 (20-40) % [place] % (Auto) 8.1 (2-11) % Eos % (Auto) 5.7 H (0-4) % Baso % (Auto) 1.1 (0-2) % Lymph # (Auto) 2.0 (1.2-4.9) X10*3/uL [place] # (Auto) 0.5 (0.1-1.2) X10*3/uL Eos # (Auto) 0.3 (0.0-0.4) X10*3/uL Baso # (Auto) 0.1 (0.0-0.2) X10*3/uL Abs Immat Gran (auto) 0.01 (0.00-0.03) X10*3/uL Absolute Neuts (auto) 2.9 (2.0-8.3) x10*3/uL Absolute Nucleated RBC 0.000 (0.0-0.012) X10*3/uL Nucleated RBC % (auto) 0.0 (0.0-0.2) /100WBC Sodium 139 (135-145) mmol/L Potassium 4.1 (3.3-5.1) mmol/L Chloride 107 (96-108) mmol/L Carbon Dioxide 25 (22-29) mmol/L Anion Gap 11 L (12-20) BUN 10 (9-16) mg/dL Creatinine 0.74 (0.5-1.4) mg/dL Estim Creat Clear Calc 77.4 Estimated GFR > 60 Random Glucose 109 (60-115) mg/dL Calcium 9.0 (8.4-10.2) mg/dL Total Bilirubin 0.5 (0.0-1.0) mg/dL AST 23 (5-31) U/L ALT 23 (0-31) U/L Alkaline Phosphatase 93 (39-117) U/L Troponin I High Sens < 2.7 < 2.7 (<3.5-17.0) ng/L B-Natriuretic Peptide < 10 (<100) pg/mL Total Protein 7.6 (6.5-8.0) g/dL Albumin 3.9 (3.5-5.0) g/dL Influenza Type A (PCR) NEGATIVE (Negative) Influenza Type B (PCR) NEGATIVE (Negative) RSV RNA Qual (PCR) NEGATIVE (Negative) SARS-CoV-2 RNA (RT-PCR) NEGATIVE (Negative) Independent Interpretation I performed an independent interpretation of an: EKG Interpretation: EKG normal sinus rhythm at a ventricular rate of 66 beats per minute, no ST elevation or depression. TN interval 154, QT QTC 406/425. Radiology Impression Discussion of test interpretation with radiology: I have reviewed the radiologist's reading. Radiologist Impression: Ordering Physician: Marina Dumont Date of Service: 04/16/24 Procedure(s): XR chest 2V Accession Number(s): [id number] cc: Marina Dumont; Micah Rosado MD~ CLINICAL HISTORY: SOB 2 view chest x-ray Comparison: CR/TN/SR - XR CHEST 2V - 03/01/23 23:13 EST Findings: The lungs are clear. Heart size is normal. No acute fracture. IMPRESSION: 1. No acute findings. This document has been electronically signed by: Esteban Edmondson MD on 04/16/2024 07:33:03 Dictated By: Esteban Edmondson MD Scores Heart Score History: -0- slightly suspicious ECG: -0- normal Age: -1- >45 - <65 Risk factory: -1- 1 or 2 risk factors Troponin: -0- < or = normal limit Score: 2 Risk: 1.7% Discharge Plan Discharge Clinical Impression: Chest pain Patient Disposition: Home, Self-Care Instructions: Chest Pain (ED) Additional Instructions: You were seen in the emergency department due to chest pain. You tested negative for COVID, flu, and RSV. Your blood work was reassuring. Your EKG was normal. Your chest x-ray was normal. It is unclear what caused you to have the symptoms however your overall workup today was reassuring. Please follow-up with your primary care physician regarding this visit. If any new or worsening symptoms occur including but not limited to severe chest pain, shortness of breath, dizziness, lightheadedness, weakness, please seek emergent care. Prescriptions: No Action nitrofurantoin monohyd/m-cryst [Macrobid] 100 mg capsule 100 mg PO Q12H 5 Days Qty: 10 0RF Rx Instructions: must administer with a meal/food cyclobenzaprine 10 mg tablet 10 mg PO TID PRN (Reason: muscle spasm) Qty: 10 0RF gabapentin 300 mg capsule 300 mg PO TID Qty: 14 0RF oxycodone 5 mg tablet 5 mg PO BID PRN (Reason: pain) Qty: 8 0RF Rx Instructions: Partial Fill upon patient request. nitrofurantoin monohyd/m-cryst [Macrobid] 100 mg capsule 100 mg PO Q12H 7 Days Qty: 14 0RF Rx Instructions: must administer with a meal/food (DME) blood pressure monitor Kit See Rx Instructions .Route Qty: 1 0RF Rx Instructions: As directed nystatin 100,000 unit/gram powder 1 appl topical TID 14 Days Qty: 60 0RF nitrofurantoin monohyd/m-cryst [Macrobid] 100 mg capsule 100 mg PO Q12H 7 Days Qty: 14 0RF Rx Instructions: must administer with a meal/food fluticasone propionate 50 mcg/actuation spray,suspension 2 spray intranasal DAILY PRN (Reason: Congestion) fluticasone propionate [Flovent HFA] 220 mcg/actuation HFA aerosol inhaler 1 puff inhalation BID methotrexate sodium 2.5 mg tablet 20 mg PO QWEEK folic acid 1 mg tablet 1 mg PO QAM omeprazole 20 mg capsule,delayed release(DR/EC) 20 mg PO QAM citalopram 20 mg tablet 20 mg PO QAM levothyroxine 100 mcg tablet 100 mcg PO DAILY Humira(CF) Pen 40 mg/0.4 mL pen injector kit 40 mg subcut Q2W albuterol sulfate 90 mcg/actuation HFA aerosol inhaler 2 puff inhalation Q4H PRN (Reason: wheezing) methocarbamol 500 mg tablet 500 mg PO BEDTIME PRN (Reason: low back pain) simvastatin 20 mg tablet 20 mg PO BEDTIME Print Language: [place]
[2024-04-16 07:33] LABS: Troponin-I High Sensitivity < 2.7 ng/L (<3.5-17.0)
[2024-04-16 07:37] LABS: B Type Natriuretic Peptide < 10 pg/mL (<100)
[2024-04-16 07:47] LABS: Influenza A PCR NEGATIVE (Negative); Influenza B PCR NEGATIVE (Negative); Resp Syncy Virus RNA Qual PCR NEGATIVE (Negative); SARS COV2 PCR INHOUSE NEGATIVE (Negative)
[2024-04-16 08:39] VITALS: BP 129/79; PULSE 87; RESP 16; TEMP 36.4; O2SAT 99
== END 2024-04-16 08:40 | disposition home or self-care (01) ==
PROVIDERS: Physician Assistant Medical; Emergency Provider Emergency Medicine; PCP Internal Medicine
DX: R07.89 Other chest pain (principal); R06.02 Shortness of breath; E78.5 Hyperlipidemia, unspecified; Z79.899 Other long term (current) drug therapy; Z03.818 Encounter for observation for suspected exposure to other biological agents ruled out
CPT/HCPCS: 0241U; 36415; 71046; 80053; 83880; 84484; 85025; 93005; 99283; 99285

== ENCOUNTER → 2024-04-15 22:32 | Outpatient (BNV) | payer MEDICARE, MEDICAID, SELFPAY | PROVIDERS: Emergency Provider Emergency Medicine; PCP Internal Medicine; Visit Provider Internal Medicine Cardiovascular Disease | DX: R07.9 Chest pain, unspecified (principal) | CPT/HCPCS: 93010 ==

== ENCOUNTER → 2024-04-16 06:45 | Outpatient (BNV) | payer MEDICARE, MEDICAID, SELFPAY | PROVIDERS: Emergency Provider Emergency Medicine; PCP Internal Medicine; Visit Provider Radiology Diagnostic Radiology | DX: R06.02 Shortness of breath (principal) | CPT/HCPCS: 71046 ==

== ENCOUNTER 2024-06-01 11:20 | Emergency (ER) | payer MEDICARE, MEDICAID, SELFPAY ==
--- NOTE | ~2024-06-01 | XR_ITS ---
CLINICAL HISTORY: dorsal tenderness Three views of the right foot. COMPARISON: None FINDINGS: Soft tissue swelling overlying the forefoot. No ankle joint effusion. Small calcaneal enthesophyte and plantar calcaneal spur. Small osteophytes present along the dorsal aspect of the tarsal bones. Normal tarsometatarsal alignment. Degenerative changes of the 1st MTP joint hallux valgus measuring 32 degrees with bunion. Tarsals, metatarsals and phalanges appear intact. No radiopaque foreign body. IMPRESSION: 1. Soft tissue swelling overlying the forefoot. No radiopaque foreign body. No evidence of injury to the underlying bones. 2. Polyarticular degenerative changes of the right foot. 3. Hallux valgus with bunion. This document has been electronically signed by: Buster Murrell MD on 06/01/2024 14:56:45
[2024-06-01 11:37] VITALS: BP 143/78; PULSE 71; RESP 19; TEMP 36.1; O2SAT 98; BMI 37.2
--- NOTE | 2024-06-01 11:37 | ED.GENADULT ---
HPI - General Adult General Chief complaint: Extremity Injury, Lower Stated complaint: foot swelling Time Seen by Provider: 06/01/24 12:22 Source: patient Mode of arrival: ambulatory Limitations: no limitations History of Present Illness ED Provider: Denisha Morgan APRN HPI narrative: 58 yo female with hypothyroidism, rheumatoid arthritis on MTX, HLD, fibromyalgia presents the ER with complaints of waking yesterday morning with a painful swollen right foot. No reports of injury or trauma. No associated fevers, chills, redness, numbness, tingling of the extremity. Patient reports she does have tinea pedis and she uses a topical cream in between her toes. Related Data Home Medications ?Medication ?Instructions ?Recorded ?Confirmed adalimumab 40 mg/0.4 mL 40 mg subcut Q2W 11/21/21 subcutaneous pen kit (Humira(CF) Pen) albuterol sulfate 90 mcg/actuation 2 puff inhalation Q4H PRN wheezing 11/21/21 06/03/22 aerosol inhaler citalopram 20 mg tablet 20 mg PO QAM 11/21/21 06/03/22 fluticasone propionate 220 1 puff inhalation BID 11/21/21 06/03/22 mcg/actuation HFA aerosol inhaler (Flovent HFA) fluticasone propionate 50 2 spray intranasal DAILY PRN 11/21/21 06/03/22 mcg/actuation nasal Congestion spray,suspension folic acid 1 mg tablet 1 mg PO QAM 11/21/21 06/03/22 levothyroxine 100 mcg tablet 100 mcg PO DAILY 11/21/21 06/03/22 methocarbamol 500 mg tablet 500 mg PO BEDTIME PRN low back pain 11/21/21 06/03/22 methotrexate sodium 2.5 mg tablet 20 mg PO QWEEK 11/21/21 06/03/22 omeprazole 20 mg capsule,delayed 20 mg PO QAM 11/21/21 06/03/22 release simvastatin 20 mg tablet 20 mg PO BEDTIME 11/21/21 06/03/22 Previous Rx's ?Medication ?Instructions ?Recorded nitrofurantoin 100 mg PO Q12H 5 days #10 caps 06/03/22 monohydrate/macrocrystals 100 mg capsule (Macrobid) cyclobenzaprine 10 mg tablet 10 mg PO TID PRN muscle spasm #10 07/30/22 tabs gabapentin 300 mg capsule 300 mg PO TID #14 caps 07/30/22 oxycodone 5 mg tablet 5 mg PO BID PRN pain #8 tabs 09/06/23 nitrofurantoin 100 mg PO Q12H 7 days #14 caps 01/15/24 monohydrate/macrocrystals 100 mg capsule (Macrobid) nystatin 100,000 unit/gram topical 1 appl topical TID 2 weeks #60 01/25/24 powder grams blood pressure monitor #1 ea 01/29/24 nitrofurantoin 100 mg PO Q12H 7 days #14 caps 03/19/24 monohydrate/macrocrystals 100 mg capsule (Macrobid) doxycycline hyclate 100 mg capsule 100 mg PO BID #20 caps 06/01/24 prednisone 20 mg tablet 40 mg (2 x 20 mg) PO DAILY #10 tabs 06/01/24 Allergies Allergy/AdvReac Type Severity Reaction Status Date / Time naproxen [From Naprosyn] Allergy Severe Anaphylaxis Verified 06/01/24 11:38 hydrocodone [From Vicodin] Allergy Mild Anaphylaxis Verified 06/01/24 11:38 penicillin V Allergy Mild Hives Verified 06/01/24 11:38 ibuprofen Allergy Stomach Verified 06/01/24 11:38 Upset Review of Systems Review of Systems: Yes all other systems are reviewed and are negative Constitutional: Constitutional: Reports no additional constitutional complaints, Denies body ache(s), Denies chills, Denies fever(s), Denies headache(s) and Denies weakness Eyes: Eyes: Reports no additional eye complaints and Denies change in vision ENT: Reports system reviewed and no additional complaints, except as documented, Denies dizziness, Denies headache(s), Denies nasal congestion, Denies nasal discharge and Denies neck pain Cardiovascular: Cardiovascular: Reports no additional cardiovascular complaints, Denies chest pain, Denies leg edema and Denies dyspnea Respiratory: Respiratory: Reports no additional respiratory complaints, Denies cough and Denies dyspnea Gastrointestinal: Gastrointestinal: Reports no additional gastrointestinal complaints, Denies abdominal pain, Denies diarrhea, Denies nausea and Denies vomiting Genitourinary: Genitourinary: Reports no additional female genitourinary complaints and Denies urinary incontinence Musculoskeletal: Musculoskeletal: Reports no additional musculoskeletal complaints, Denies back pain, Reports arthralgias, Reports joint swelling, Denies limited range of motion, Denies neck pain, Denies numbness and Denies tingling Integumentary/Breasts: Skin/Breast: Reports system reviewed and no additional complaints, except as docu and Denies rash Neurologic: Reports system reviewed and no additional complaints, except as documented, Denies Abnormal speech present, Denies dizziness, Denies headache(s), Denies numbness, Denies tingling and Denies weakness PMFSH Past Medical History Attestation statement: The following information was validated with the patient. Source: old records reviewed and nursing notes reviewed Medical History Hypothyroidism Arthritis Spondylolisthesis, grade 1 Social History Social History Alcohol intake: never Smoked in Last 30 Days: No Use of substances other than those prescribed or required for medical reasons: No Advance Directives: No Advance Directives Information Provided: No Do you have a plan to hurt others: No Plan Patient : No Physical Exam ED Vital Signs: Vital Signs - 24 hr 06/01/24 11:37 06/01/24 12:12 06/01/24 14:19 Temperature 97 F 97.7 F Pulse Rate 71 69 66 Respiratory Rate 19 16 20 Blood Pressure 143/78 H 128/67 123/72 Pulse Oximetry 98 98 98 Oxygen Delivery Method Room Air Room Air Room Air BMI result Body Mass Index 37.2 Const General: cooperative, healthy appearing, comfortable and no acute distress Orientation/consciousness: patient oriented x3 Limitations: no limitations [facility] Head: Yes normal to inspection Ears: hearing grossly normal bilaterally General nose exam: Normal external nose present Face and sinus: Yes normal facial exam Mouth: Normal oral and palatal mucosa present Throat: Yes posterior oropharynx normal Eyes General: appearance normal, both eyes and all related structures Pupils: Equal, round and reactive pupils present Neck Neck: Yes normal visual inspection Chest Chest palpation & inspection: normal inspection of the chest Resp Effort & Inspection: normal respiratory effort Auscultation: clear to auscultation bilaterally Cardio Rate: regular rate Rhythm: regular rhythm Peripheral pulses: Peripheral pulses 2+ throughout GI Inspection: Yes normal to inspection Palpation (GI): Soft to palpation and nontender Auscultation: normal bowel sounds Back/Spine/Pelvis Thoracic/Lumbar Spine: thoracic and lumbar spine normal to inspection Skin General skin exam: no rashes or lesions noted Neuro General: patient oriented x3, no focal motor deficits and normal sensation to monofilament Cranial nerves: Yes Equal, round and reactive pupils present Cognition (Neuro): normal cognition Speech: No Abnormal speech present Gait exam (Neuro): Normal gait present Motor exam (neuro): 5/5 motor strength present throughout Extrem Other: Pain on palpation over the dorsal foot, mild warmth. No appreciable swelling. 2+ DP/PT pulses. Full active and passive range of motion of the foot and ankle Between the toes there is excoriation and fissures seen c/w with tinea General: Yes normal to inspection Course Course Course Narrative: This is a rapid medical exam performed by Rajeev Clark NP: Additional HPI, ROS, PE not included below will be deferred to primary provider. 06/01/24 11:37 Patient is a 58-year-old female presenting with atraumatic right foot pain since yesterday. Reports feeling as though the dorsal aspect of her foot is bruised. No ecchymosis noted on exam, 2+ DP and PT pulses, sensation intact. Plan: xray, labs Reevaluation(s) Reevaluation #1: X-ray of the foot shows soft tissue swelling and underlying arthritis. Labs show no elevated white blood cell count. Mildly elevated inflammatory markers with a underlying history of rheumatoid arthritis. Discussed findings with patient. Likely she has an RA flare. It could consider a cellulitis early due to underlying tinea. Therefore I will cover her with prednisone and antibiotics. 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 We discussed supportive measures at home and reviewed worrisome signs and symptoms of when to return to the emergency room. Comfortable plan for discharge home. Medical Decision Making Medical Decision Making MDM Narrative: 58 yo female with hypothyroidism, rheumatoid arthritis on MTX, HLD, fibromyalgia presents the ER with complaints of waking yesterday morning with a painful swollen right foot. No reports of injury or trauma. No associated fevers, chills, redness, numbness, tingling of the extremity. Patient reports she does have tinea pedis and she uses a topical cream in between her toes. Pain on palpation over the dorsal foot, mild warmth. No appreciable swelling. 2+ DP/PT pulses. Full active and passive range of motion of the foot and ankle Between the toes there is excoriation and fissures seen c/w with tinea Plan will be to obtain labs and x-ray Differential Diagnosis Differential Diagnoses: The differential diagnosis associated with the presentation includes Gout, osteoarthritis, rheumatoid arthritis flare, cellulitis Admission/Observation Consideration of admission/observation: Escalation of care including admission/observation considered Se course of care Lab Data MDM Lab Attestation statement: I reviewed the patient's lab results. 06/01/24 12:34 06/01/24 12:34 Labs: Lab Results 06/01/24 Range/Units 12:34 WBC 6.4 (4.8-10.8) X10*3/uL RBC 4.41 (4.20-5.50) X10*6/uL Hgb 14.0 (12.0-16.0) g/dl Hct 39.5 (37.0-47.0) % MCV 89.6 (80.0-98.0) fL MCH 31.7 (27.0-33.0) pg MCHC 35.4 H (31.0-35.0) g/dl RDW 14.1 (11.0-16.0) % Plt Count 252 (160-400) X10*3/uL MPV 9.5 (9.4-12.3) fL Immature Gran % (Auto) 0.2 (0.0-0.4) % Neut % (Auto) 66.2 (45-73) % Lymph % (Auto) 21.2 (20-40) % Quay % (Auto) 7.8 (2-11) % Eos % (Auto) 3.8 (0-4) % Baso % (Auto) 0.8 (0-2) % Lymph # (Auto) 1.4 (1.2-4.9) X10*3/uL Quay # (Auto) 0.5 (0.1-1.2) X10*3/uL Eos # (Auto) 0.2 (0.0-0.4) X10*3/uL Baso # (Auto) 0.1 (0.0-0.2) X10*3/uL Abs Immat Gran (auto) 0.01 (0.00-0.03) X10*3/uL Absolute Neuts (auto) 4.2 (2.0-8.3) x10*3/uL Absolute Nucleated RBC 0.000 (0.0-0.012) X10*3/uL Nucleated RBC % (auto) 0.0 (0.0-0.2) /100WBC ESR 10 (0-20) MM/HR Sodium 142 (135-145) mmol/L Potassium 4.4 (3.3-5.1) mmol/L Chloride 108 (96-108) mmol/L Carbon Dioxide 26 (22-29) mmol/L Anion Gap 12 (12-20) BUN 11 (9-16) mg/dL Creatinine 0.79 (0.5-1.4) mg/dL Estim Creat Clear Calc 71.7 Estimated GFR > 60 Random Glucose 103 (60-115) mg/dL Uric Acid 5.6 (2.4-5.7) mg/dL Calcium 8.8 (8.4-10.2) mg/dL Total Bilirubin 0.5 (0.0-1.0) mg/dL AST 23 (5-31) U/L ALT 20 (0-31) U/L Alkaline Phosphatase 87 (39-117) U/L C-Reactive Protein 0.71 H (< or = 0.50) mg/dL Total Protein 6.7 (6.5-8.0) g/dL Albumin 3.8 (3.5-5.0) g/dL Independent Interpretation I performed an independent interpretation of an: Plain X-Ray Interpretation: I independently viewed the x-ray and agree with the radiology report Radiology Impression Discussion of test interpretation with radiology: I have reviewed the radiologist's reading. Radiologist Impression: [address] [address] XRay Report Signed Patient: Breanne Palacios MR#: [id number] : 1965 Acct:[id number] Age/Sex: 58 / F ADM Date: 06/01/24 Loc: .ED Attending Dr: Ordering Physician: Mita Clark NP Date of Service: 06/01/24 Procedure(s): XR foot RT min 3V Accession Number(s): [id number] cc: Mita Clark ELECTRICIAN CONSTRUCTOR SUPERVISOR; Micah Rosado MD~ CLINICAL HISTORY: dorsal tenderness Three views of the right foot. COMPARISON: None FINDINGS: Soft tissue swelling overlying the forefoot. No ankle joint effusion. Small calcaneal enthesophyte and plantar calcaneal spur. Small osteophytes present along the dorsal aspect of the tarsal bones. Normal tarsometatarsal alignment. Degenerative changes of the 1st MTP joint hallux valgus measuring 32 degrees with bunion. Tarsals, metatarsals and phalanges appear intact. No radiopaque foreign body. IMPRESSION: 1. Soft tissue swelling overlying the forefoot. No radiopaque foreign body. No evidence of injury to the underlying bones. 2. Polyarticular degenerative changes of the right foot. 3. Hallux valgus with bunion. Discharge Plan Discharge Clinical Impression: Osteoarthritis, Cellulitis Patient Disposition: Home, Self-Care Instructions: Cellulitis (ED), Osteoarthritis (ED) Additional Instructions: Use the Oral wrap for compression Elevate the extremity Take Tylenol if able as needed for pain or fever Follow-up with your pellet mill operator on Sunday Return for any worsening symptoms Prescriptions: New prednisone 20 mg tablet 40 mg PO DAILY Qty: 10 0RF doxycycline hyclate 100 mg capsule 100 mg PO BID Qty: 20 0RF No Action nitrofurantoin monohyd/m-cryst [Macrobid] 100 mg capsule 100 mg PO Q12H 5 Days Qty: 10 0RF Rx Instructions: must administer with a meal/food cyclobenzaprine 10 mg tablet 10 mg PO TID PRN (Reason: muscle spasm) Qty: 10 0RF gabapentin 300 mg capsule 300 mg PO TID Qty: 14 0RF oxycodone 5 mg tablet 5 mg PO BID PRN (Reason: pain) Qty: 8 0RF Rx Instructions: Partial Fill upon patient request. nitrofurantoin monohyd/m-cryst [Macrobid] 100 mg capsule 100 mg PO Q12H 7 Days Qty: 14 0RF Rx Instructions: must administer with a meal/food (DME) blood pressure monitor Kit See Rx Instructions .Route Qty: 1 0RF Rx Instructions: As directed nystatin 100,000 unit/gram powder 1 appl topical TID 14 Days Qty: 60 0RF nitrofurantoin monohyd/m-cryst [Macrobid] 100 mg capsule 100 mg PO Q12H 7 Days Qty: 14 0RF Rx Instructions: must administer with a meal/food fluticasone propionate 50 mcg/actuation spray,suspension 2 spray intranasal DAILY PRN (Reason: Congestion) fluticasone propionate [Flovent HFA] 220 mcg/actuation HFA aerosol inhaler 1 puff inhalation BID methotrexate sodium 2.5 mg tablet 20 mg PO QWEEK folic acid 1 mg tablet 1 mg PO QAM omeprazole 20 mg capsule,delayed release(DR/EC) 20 mg PO QAM citalopram 20 mg tablet 20 mg PO QAM levothyroxine 100 mcg tablet 100 mcg PO DAILY Humira(CF) Pen 40 mg/0.4 mL pen injector kit 40 mg subcut Q2W albuterol sulfate 90 mcg/actuation HFA aerosol inhaler 2 puff inhalation Q4H PRN (Reason: wheezing) methocarbamol 500 mg tablet 500 mg PO BEDTIME PRN (Reason: low back pain) simvastatin 20 mg tablet 20 mg PO BEDTIME Referrals: Micah Rosado MD [Primary Care Provider] - 2 weeks Print Language: Setswana
[2024-06-01 12:12] VITALS: BP 128/67; PULSE 69; RESP 16; O2SAT 98
[2024-06-01 12:40] LABS: MANUAL DIFF FLAG NO
[2024-06-01 12:43] LABS: Basophils Absolute Auto 0.1 X10*3/uL (0.0-0.2); Basophils Percent Auto 0.8 % (0-2); Eosinophils Absolute Auto 0.2 X10*3/uL (0.0-0.4); Eosinophils Percent Auto 3.8 % (0-4); Hematocrit 39.5 % (37.0-47.0); Imm Gran Abs Auto 0.01 X10*3/uL (0.00-0.03); Imm Gran Pct Auto 0.2 % (0.0-0.4); Lymphocytes Absolute Auto 1.4 X10*3/uL (1.2-4.9); Lymphocytes Percent Auto 21.2 % (20-40); Mean Corpuscular HGB Conc 35.4 g/dl (31.0-35.0); Mean Corpuscular Hemoglobin 31.7 pg (27.0-33.0); Mean Corpuscular Volume 89.6 fL (80.0-98.0); Mean Platelet Volume 9.5 fL (9.4-12.3); Monocytes Absolute Auto 0.5 X10*3/uL (0.1-1.2); Monocytes Percent Auto 7.8 % (2-11); Neutrophils Absolute Auto 4.2 x10*3/uL (2.0-8.3); Neutrophils Percent Auto 66.2 % (45-73); Platelet Count 252 X10*3/uL (160-400); Red Blood Count 4.41 X10*6/uL (4.20-5.50); Red Cell Distribution Width 14.1 % (11.0-16.0); White Blood Count 6.4 X10*3/uL (4.8-10.8)
[2024-06-01 13:04] LABS: Alanine Aminotransferase 20 U/L (0-31); Albumin Level 3.8 g/dL (3.5-5.0); Alkaline Phosphatase 87 U/L (39-117); Anion Gap 12 (12-20); Aspartate Amino Transferase 23 U/L (5-31); Bilirubin Total 0.5 mg/dL (0.0-1.0); Blood Urea Nitrogen 11 mg/dL (9-16); C Reactive Protein 0.71 mg/dL (< or = 0.50); Calcium 8.8 mg/dL (8.4-10.2); Carbon Dioxide 26 mmol/L (22-29); Chloride 108 mmol/L (96-108); Creatinine Clr Calc Pharmacy 71.7; Estimated Glomerular Filt Rate > 60; Glucose Random 103 mg/dL (60-115); Potassium 4.4 mmol/L (3.3-5.1); Sodium 142 mmol/L (135-145); Total Protein 6.7 g/dL (6.5-8.0); Uric Acid 5.6 mg/dL (2.4-5.7)
[2024-06-01 13:18] LABS: Erythrocyte Sedimentation Rate 10 MM/HR (0-20)
[2024-06-01 14:19] VITALS: BP 123/72; PULSE 66; RESP 20; TEMP 36.5; O2SAT 98
[2024-06-01 16:02] VITALS: BP 123/72; PULSE 66; RESP 20; TEMP 36.5; O2SAT 98
== END 2024-06-01 16:04 | disposition home or self-care (01) ==
PROVIDERS: Registered Nurse Emergency; Emergency Provider Emergency Medicine; PCP Internal Medicine
DX: L03.115 Cellulitis of right lower limb (principal); M19.071 Primary osteoarthritis, right ankle and foot; M79.671 Pain in right foot; M06.9 Rheumatoid arthritis, unspecified; E03.9 Hypothyroidism, unspecified; E78.5 Hyperlipidemia, unspecified; Z79.899 Other long term (current) drug therapy
CPT/HCPCS: 36415; 73630; 80053; 84550; 85025; 85652; 86140; 99283; 99284

== ENCOUNTER → 2024-06-01 11:39 | Outpatient (BNV) | payer MEDICARE, MEDICAID, SELFPAY | PROVIDERS: Emergency Provider Emergency Medicine; PCP Internal Medicine; Visit Provider Radiology Diagnostic Radiology | DX: M20.11 Hallux valgus (acquired), right foot (principal); M19.071 Primary osteoarthritis, right ankle and foot | CPT/HCPCS: 73630 ==

== ENCOUNTER 2024-07-21 10:56 | Emergency (ER) | payer MEDICARE, MEDICAID, SELFPAY ==
--- NOTE | ~2024-07-21 | CT_ITS ---
CLINICAL HISTORY: ?seizures shakiness CT HEAD WITHOUT CONTRAST Comparison: None Findings: No acute intracranial hemorrhage, extra-axial fluid collection, hydrocephalus or midline shift. Mild generalized parenchymal atrophy. No significant white matter disease. Opacification of multiple bilateral ethmoid air cells. There is an air-fluid level in the left maxillary sinus. No mastoid fluid. Visualized orbits: No acute abnormalities. There is no acute fracture. IMPRESSION: 1. No acute intracranial process. 2. Left maxillary and bilateral ethmoid sinusitis. This document has been electronically signed by: Salina Garzon DO on 07/21/2024 17:05:01
[2024-07-21 11:06] VITALS: BP 145/85; PULSE 76; RESP 18; TEMP 36.4; O2SAT 100; BMI 35.6
--- NOTE | 2024-07-21 11:06 | ED_ITS ---
HPI - General Adult General Chief complaint: General Medical Stated complaint: having seizures Time Seen by Provider: 07/21/24 15:20 Source: patient, RN notes reviewed and old records reviewed Mode of arrival: ambulatory History of Present Illness ED Provider: Shakira Barry PA-C HPI narrative: 58-year-old female with a past medical history hypothyroid, RA on methotrexate, HLD, fibromyalgia, presenting to the ED complaining of suspected ? seizure like activity the past 2 nights recurring while sleeping. States has been woken up by diffuse body shaking, admits she is awake during incident without any incontinence, tongue biting, or postictal / confused state. States she feels hot and cold. Reports mild right-sided headache. Denies fall out of bed, recent head trauma/ LOC, neck /back pain, CP/ SOB, vision change/loss, focal weakness, numbness/ tingling. Denies history of seizures, recent change in medications Related Data Home Medications ?Medication ?Instructions ?Recorded ?Confirmed adalimumab 40 mg/0.4 mL 40 mg subcut Q2W 11/21/21 subcutaneous pen kit (Humira(CF) Pen) albuterol sulfate 90 mcg/actuation 2 puff inhalation Q4H PRN wheezing 11/21/21 06/03/22 aerosol inhaler citalopram 20 mg tablet 20 mg PO QAM 11/21/21 06/03/22 fluticasone propionate 220 1 puff inhalation BID 11/21/21 06/03/22 mcg/actuation HFA aerosol inhaler (Flovent HFA) fluticasone propionate 50 2 spray intranasal DAILY PRN 11/21/21 06/03/22 mcg/actuation nasal Congestion spray,suspension folic acid 1 mg tablet 1 mg PO QAM 11/21/21 06/03/22 levothyroxine 100 mcg tablet 100 mcg PO DAILY 11/21/21 06/03/22 methocarbamol 500 mg tablet 500 mg PO BEDTIME PRN low back pain 11/21/21 06/03/22 methotrexate sodium 2.5 mg tablet 20 mg PO QWEEK 11/21/21 06/03/22 omeprazole 20 mg capsule,delayed 20 mg PO QAM 11/21/21 06/03/22 release simvastatin 20 mg tablet 20 mg PO BEDTIME 11/21/21 06/03/22 Previous Rx's ?Medication ?Instructions ?Recorded nitrofurantoin 100 mg PO Q12H 5 days #10 caps 06/03/22 monohydrate/macrocrystals 100 mg capsule (Macrobid) cyclobenzaprine 10 mg tablet 10 mg PO TID PRN muscle spasm #10 07/30/22 tabs gabapentin 300 mg capsule 300 mg PO TID #14 caps 07/30/22 oxycodone 5 mg tablet 5 mg PO BID PRN pain #8 tabs 09/06/23 nitrofurantoin 100 mg PO Q12H 7 days #14 caps 01/15/24 monohydrate/macrocrystals 100 mg capsule (Macrobid) nystatin 100,000 unit/gram topical 1 appl topical TID 2 weeks #60 01/25/24 powder grams blood pressure monitor #1 ea 01/29/24 nitrofurantoin 100 mg PO Q12H 7 days #14 caps 03/19/24 monohydrate/macrocrystals 100 mg capsule (Macrobid) doxycycline hyclate 100 mg capsule 100 mg PO BID #20 caps 06/01/24 prednisone 20 mg tablet 40 mg (2 x 20 mg) PO DAILY #10 tabs 06/01/24 Allergies Allergy/AdvReac Type Severity Reaction Status Date / Time naproxen [From Naprosyn] Allergy Severe Anaphylaxis Verified 07/21/24 11:08 hydrocodone [From Vicodin] Allergy Mild Anaphylaxis Verified 07/21/24 11:08 penicillin V Allergy Mild Hives Verified 07/21/24 11:08 ibuprofen Allergy Stomach Verified 07/21/24 11:08 Upset Review of Systems 2 Review of Systems: Yes all other systems are reviewed and are negative Constitutional: Constitutional: Reports as per HPI Neurologic: Denies Abnormal speech present [facility] Past Medical History Attestation statement: The following information was validated with the patient. Source: old records reviewed Medical History Hypothyroidism Arthritis Spondylolisthesis, grade 1 Social History Social History Alcohol intake: never Advance Directives: No Advance Directives Information Provided: Yes Do you have a plan to hurt others: No Plan Physical Exam ED Vital Signs: Vital Signs - 24 hr 07/21/24 11:06 07/21/24 16:50 Temperature 97.5 F 97.8 F Pulse Rate 76 76 Respiratory Rate 18 19 Blood Pressure 145/85 H 142/80 H Pulse Oximetry 100 99 Oxygen Delivery Method Room Air Room Air BMI result Body Mass Index 35.6 Const General: cooperative, healthy appearing and no acute distress Orientation/consciousness: patient oriented x3 Limitations: no limitations HENMT Head: Yes normal to inspection and Yes atraumatic Ears: hearing grossly normal bilaterally General nose exam: Normal external nose present Face and sinus: Yes normal facial exam Mouth: Normal oral and palatal mucosa present Eyes General: appearance normal, both eyes and all related structures Pupils: Equal, round and reactive pupils present EOM: EOMs intact bilaterally Neck Neck: Yes normal visual inspection and Yes no meningeal signs Resp Effort & Inspection: normal respiratory effort and no respiratory distress Auscultation: clear to auscultation bilaterally, no crackles and no wheezes Cardio Rate: regular rate Heart sounds: S1 normal heart sound present and S2 normal heart sound present GI Inspection: Yes normal to inspection Palpation (GI): Soft to palpation, nontender, no guarding and not rigid Skin Rashes: no rashes Wounds: no wounds Neuro General: patient oriented x3, gait normal, tone normal, moves all extremities, no meningeal signs, no focal motor deficits and CN's II-XI intact bilaterally Cranial nerves: Yes CN's II-XII intact bilaterally, Yes Equal, round and reactive pupils present and Yes Bilaterally intact EOM present Cognition (Neuro): normal cognition Speech: No Abnormal speech present Gait exam (Neuro): Normal gait present Motor exam (neuro): 5/5 motor strength present throughout, Pronator motor function not present and no tremor noted Coordination: [id number] test normal Romberg Test: Negative Extrem General: Yes normal to inspection Course Course Course Narrative: This is an RME: Additional HPI, ROS, PE not included below will be deferred to primary provider. RME assessment and note performed by: Marina Iyer PA-C This is a 58 yo female with hypothyroidism, rheumatoid arthritis on MTX, HLD, fibromyalgia presents the ER with concerns for ?seizure like activity which. Reports that she feels hot and cold and was shaking all over and thought she was going to bite her tongue. Had two episodes over the weekend and lasted for 10 minutes, both times occurred while she sleeping. No urinary incontinence. No headache, did not feel confused after, felt a pain in the back of her head. Pt well appearing, speaking in full sentences under no acute distress. Patient with tenderness palpation along the left cervical paraspinous muscles extending into the left trapezius muscle. No neurologic deficits on examination. Plan: Labs, EKG, further ER eval needed - labs hemolyzed > Patient is a difficult stick, waiting on phlebotomy for redraw - UA contaminated, patient asymptomatic, will wait on culture prior to initiating antibiotics - viral testing negative CT head/brain wo IV con IMPRESSION: 1. No acute intracranial process. 2. Left maxillary and bilateral ethmoid sinusitis. -[id number]-- ED care transferred to KATE Hernandez pending remaining labs. Anticipated discharge Reevaluation(s) Reevaluation #1: Aleksandra Mcdonnell NP 19:40 07/21/2024 CBC is without leukocytosis anemia or thrombocytopenia. No electrolyte derangement. No SERENITY. Overall unremarkable LFTs. High sensitive troponin below detectable limits. TSH within normal range. Urinalysis concerning for urogenital contamination as opposed to true urinary tract infection, asymptomatic, pending cultures prior to antibiotics. Viral serologies are negative. Results discussed with patient. All questions answered. Stable for discharge home Medical Decision Making Medical Decision Making [facility] Narrative: 58-year-old female with a past medical history hypothyroid, RA on methotrexate, HLD, fibromyalgia, presenting to the ED complaining of suspected ? seizure like activity the past 2 nights recurring while sleeping. On exam vital signs stable, NAD, nontoxic appearing, physical exam as noted above. No focal neuro deficits. Concern for metabolic abnormalities vs infectious etiology. Seizure on differential however less likely as patient is awake during entire incident without postictal state. rule out ICH/mass plan: EKG, labs, UA, head CT Please refer to course for remaining clinical decision making, interpretation of labs/imaging results, and discussions with consultants and/or family members. Differential Diagnosis Differential Diagnoses: The differential diagnosis associated with the presentation includes As above Admission/Observation Consideration of admission/observation: Escalation of care including admission/observation considered Lab Data [facility] Lab Attestation statement: I reviewed the patient's lab results. 07/21/24 16:34 07/21/24 18:38 Labs: Lab Results 07/21/24 07/21/24 07/21/24 Range/Units 11:41 16:34 18:38 WBC 4.8 (4.8-10.8) X10*3/uL RBC 4.62 (4.20-5.50) X10*6/uL Hgb 14.5 (12.0-16.0) g/dl Hct 41.1 (37.0-47.0) % MCV 89.0 (80.0-98.0) fL MCH 31.4 (27.0-33.0) pg MCHC 35.3 H (31.0-35.0) g/dl RDW 13.3 (11.0-16.0) % Plt Count 272 (160-400) X10*3/uL MPV 9.6 (9.4-12.3) fL Immature Gran % (Auto) 0.2 (0.0-0.4) % Neut % (Auto) 57.2 (45-73) % Lymph % (Auto) 29.1 (20-40) % [place] % (Auto) 8.8 (2-11) % Eos % (Auto) 3.6 (0-4) % Baso % (Auto) 1.1 (0-2) % Lymph # (Auto) 1.4 (1.2-4.9) X10*3/uL [place] # (Auto) 0.4 (0.1-1.2) X10*3/uL Eos # (Auto) 0.2 (0.0-0.4) X10*3/uL Baso # (Auto) 0.1 (0.0-0.2) X10*3/uL Abs Immat Gran (auto) 0.01 (0.00-0.03) X10*3/uL Absolute Neuts (auto) 2.7 (2.0-8.3) x10*3/uL Absolute Nucleated RBC 0.000 (0.0-0.012) X10*3/uL Nucleated RBC % (auto) 0.0 (0.0-0.2) /100WBC Sodium 139 (135-145) mmol/L Potassium 4.7 (3.3-5.1) mmol/L Chloride 107 (96-108) mmol/L Carbon Dioxide 24 (22-29) mmol/L Anion Gap 13 (12-20) BUN 11 (9-16) mg/dL Creatinine 0.80 (0.5-1.4) mg/dL Estim Creat Clear Calc 72.1 Estimated GFR > 60 Random Glucose 98 (60-115) mg/dL Calcium 9.3 (8.4-10.2) mg/dL Magnesium 2.3 (1.6-2.6) mg/dL Total Bilirubin 0.6 (0.0-1.0) mg/dL Direct Bilirubin 0.1 (0.0-0.5) mg/dL AST 33 H (5-31) U/L ALT 18 (0-31) U/L Alkaline Phosphatase 85 (39-117) U/L Troponin I High Sens < 2.7 (<3.5-17.0) ng/L Total Protein 7.6 (6.5-8.0) g/dL Albumin 3.9 (3.5-5.0) g/dL TSH 1.32 (0.32-4.0) uIU/mL Urine Color Yellow Urine Appearance Clear Urine pH 6.5 (5.0-9.0) Ur Specific [place] <= 1.005 (1.005-1.025) Urine Protein Negative (Neg-Trace) mg/dL Urine Glucose (UA) Negative (Negative) mg/dL Urine Ketones Negative (Negative) mg/dL Urine Blood Negative (Negative) Urine Nitrite Negative (Negative) Ur Leukocyte Esterase Large (3+) H (Negative) Urine RBC 0-2 (0-2) /HPF Urine WBC 21-50 H (0-5) /HPF Ur Squamous Epith Cells 6-10 (0-2) /HPF Urine Bacteria Trace (None Seen) Hyaline Casts 0-2 (0-2) /LPF Influenza Type A (PCR) NEGATIVE (Negative) Influenza Type B (PCR) NEGATIVE (Negative) RSV RNA Qual (PCR) NEGATIVE (Negative) SARS-CoV-2 RNA (RT-PCR) NEGATIVE (Negative) Independent Interpretation I performed an independent interpretation of an: EKG ( my interpretation EKG normal sinus rhythm rate of 72. QRS 74. QTC 433. No significant change when compared to prior) and CT Scan Radiology Impression Discussion of test interpretation with radiology: I have reviewed the radiologist's reading. External Record Review External record reviewed: Inpatient record, Office record, Outpatient record, Prior outpatient labs, Prior outpatient radiology, Primary care record and Outside ED record Tests considered The following testing was considered but not selected: As above Prescription Management I considered prescription management with: Other Chronic Conditions Patient?s care impacted by: Other ( fibromyalgia) Social Determinants Patient?s care significantly limited by Social Determinants of Health including: Other Social Determinant of Health Discharge Plan Discharge Clinical Impression: Episode of shaking Patient Disposition: Home, Self-Care Additional Instructions: your blood work and CAT scan are reassuring Please have close follow up with her primary care doctor If these episodes recur, persist, happen during the day/more often, you have chest pain, shortness of breath, headache, weakness return to the ED immediately Prescriptions: No Action nitrofurantoin monohyd/m-cryst [Macrobid] 100 mg capsule 100 mg PO Q12H 5 Days Qty: 10 0RF Rx Instructions: must administer with a meal/food cyclobenzaprine 10 mg tablet 10 mg PO TID PRN (Reason: muscle spasm) Qty: 10 0RF gabapentin 300 mg capsule 300 mg PO TID Qty: 14 0RF oxycodone 5 mg tablet 5 mg PO BID PRN (Reason: pain) Qty: 8 0RF Rx Instructions: Partial Fill upon patient request. nitrofurantoin monohyd/m-cryst [Macrobid] 100 mg capsule 100 mg PO Q12H 7 Days Qty: 14 0RF Rx Instructions: must administer with a meal/food (DME) blood pressure monitor Kit See Rx Instructions .Route Qty: 1 0RF Rx Instructions: As directed nystatin 100,000 unit/gram powder 1 appl topical TID 14 Days Qty: 60 0RF nitrofurantoin monohyd/m-cryst [Macrobid] 100 mg capsule 100 mg PO Q12H 7 Days Qty: 14 0RF Rx Instructions: must administer with a meal/food prednisone 20 mg tablet 40 mg PO DAILY Qty: 10 0RF doxycycline hyclate 100 mg capsule 100 mg PO BID Qty: 20 0RF fluticasone propionate 50 mcg/actuation spray,suspension 2 spray intranasal DAILY PRN (Reason: Congestion) fluticasone propionate [Flovent HFA] 220 mcg/actuation HFA aerosol inhaler 1 puff inhalation BID methotrexate sodium 2.5 mg tablet 20 mg PO QWEEK folic acid 1 mg tablet 1 mg PO QAM omeprazole 20 mg capsule,delayed release(DR/EC) 20 mg PO QAM citalopram 20 mg tablet 20 mg PO QAM levothyroxine 100 mcg tablet 100 mcg PO DAILY Humira(CF) Pen 40 mg/0.4 mL pen injector kit 40 mg subcut Q2W albuterol sulfate 90 mcg/actuation HFA aerosol inhaler 2 puff inhalation Q4H PRN (Reason: wheezing) methocarbamol 500 mg tablet 500 mg PO BEDTIME PRN (Reason: low back pain) simvastatin 20 mg tablet 20 mg PO BEDTIME Referrals: [facility] [place] Neuro/Sleep [Provider Group] - 1 week Micah Rosado MD [Primary Care Provider] - 3 days Print Language: Pashto
--- NOTE | 2024-07-21 11:11 | ECG_ITS ---
Test Reason : siezure like activity Blood Pressure : */* mmHG Vent. Rate : 72 BPM Atrial Rate : 72 BPM P-R Int : 150 ms QRS Dur : 74 ms QT Int : 396 ms P-R-T Axes : 49 3 25 degrees QTcB Int : 433 ms Normal sinus rhythm Normal ECG When compared with ECG of 15-Apr-2024 22:34, No significant change was found Referred By: Marina Iyer Electronically Signed By: ARUN MALCOLM
[2024-07-21 12:31] LABS: Influenza A PCR NEGATIVE (Negative); Influenza B PCR NEGATIVE (Negative); Resp Syncy Virus RNA Qual PCR NEGATIVE (Negative); SARS COV2 PCR INHOUSE NEGATIVE (Negative)
--- NOTE | 2024-07-21 14:20 | MHC.EDTECH ---
late entry- pt refusing lab draw due to not wanting needle in hand, educated pt that labs should be drawn and pt is a hard stick, pt adamant about not having labs drawn in hand
--- NOTE | 2024-07-21 16:34 | PC.NURSE ---
This RN was able to obtain IV access, 22g to left AC. However, shortly after insertion, IV began infiltrating and was removed. Labs drawn and sent for analysis. OLIVIA Barry aware that there is no IV access. Will refrain from additional IV attempts unless necessary at this time. Results pending. Care ongoing by this RN.
--- OUTSIDE RECORDS SUMMARY | 2024-07-21 16:37 | XMS_ITS | Clinical Summary ---
Author Organization [facility] [address] [facility] Address [address] [place] [address] Phone Care Team Providers Care Surg Tech Name Role Phone Micah Rosado MD Primary Care Provider [phone] Allergies Active Allergy Reactions Criticality Noted Date Comments Hydrocodone-Acetaminoph en 01/16/2005 Nausea and vomiting Ibuprofen Other 03/13/2009 Patient GI bleed on a long course of this. Naproxen 01/16/2005 GI bleed Oxycodone-Acetaminophen 12/05/2022 Penicillins Nausea And Vomiting,Rash,Wheezi ng High 01/16/2005 Within the past ten years Sulfacetamide Sodium Anaphylaxis High 01/16/2005 Vomiting, angioedema, difficulty breathing Sulindac Nausea And Vomiting 07/12/2005 Medications NON FORMULARY CPAP HISTORICAL (HISTORICAL CPAP) Inhale into the lungs. Active fluticasone furoate (Arnuity Ellipta) 200 mcg/actuation blister with device inhaler Take 1 puff by mouth 1 (one) time each day. Prescribed by Freight Forwarder 04/09/19 24 Active folic acid (FOLVITE) 1 mg tablet Take 1 tablet (1 mg total) by mouth 1 (one) time each day. Prescribed by Wood Boring Machine Operator Active methotrexate 2.5 mg tablet Take 1 tablet (2.5 mg total) by mouth 1 (one) time per week Prescribed By Wood Boring Machine Operator, Dr. Gresham Active multivit-minera ls/folic acid (ONE-A-DAY WOMEN'S 50 PLUS ORAL) Take 1 tablet by mouth 1 (one) time each day. Patient Buy OTC Active triamcinolone (NASACORT) 55 mcg nasal inhaler Administer 2 sprays into each nostril 1 (one) time each day. Prescribed by Freight Forwarder Active albuterol HFA (PROAIR HFA ; PROVENTIL HFA ; VENTOLIN HFA) 90 mcg/actuation inhaler Inhale 2 puffs by mouth every 4 (four) hours if needed for wheezing or shortness of breath. Proscribe by Freight Forwarder Active acetaminophen (TYLENOL 8 HOUR) 650 mg 8 hr tablet Take 1 tablet (650 mg total) by mouth every 8 (eight) hours if needed. Patient buy OTC Active nitrofurantoin, macrocrystal-mo nohydrate, (MACROBID) 100 mg capsule Take 1 capsule (100 mg total) by mouth 2 (two) times a day. Every 12 hours from [facility] 03/19/19 25 Active omeprazole (PriLOSEC) [address] capsule Take 1 capsule (20 mg total) by mouth 1 (one) time each day. Do not crush or chew. 90 capsule 1 03/24/19 25 Active cholecalciferol (VITAMIN D-3) 50 mcg (2,000 unit) tablet Take 1 tablet (2,000 Units total) by mouth 1 (one) time each day. 90 tablet 1 03/24/19 25 Active cetirizine (ZyrTEC) 10 mg tablet Take 1 tablet (10 mg total) by mouth 1 (one) time each day. 90 tablet 1 03/24/19 25 Active atorvastatin (LIPITOR) 20 mg tablet Take 1 tablet (20 mg total) by mouth 1 (one) time each day. 90 tablet 1 03/24/19 25 Active citalopram (CeleXA) 20 mg tablet Take 1 tablet (20 mg total) by mouth 1 (one) time each day. Prescribe by Mental Health Provider. Active ARIPiprazole (ABILIFY MAINTENA) 300 mg ER syringe Inject 300 mg into the shoulder, thigh, or buttocks 1 (one) time. Active docusate (COLACE) 50 mg/5 mL liquid Take 5 mL (50 mg total) by mouth 1 (one) time each day. Active famotidine (PEPCID) 20 mg tabletIndicatio ns:Gastroesopha geal reflux disease without esophagitis TAKE 1 TABLET BY MOUTH TWICE A DAY NEEDED FOR HEART BURN TAKE 1 OF THE DOSES AT BEDTIME 180 tablet 1 05/17/19 25 Active levothyroxine (SYNTHROID, LEVOTHROID) 88 mcg tablet Take 1 tablet (88 mcg total) by mouth 1 (one) time each day. 90 tablet 07/01/19 25 Active diclofenac (VOLTAREN) 1 % topical gel Apply 2 gram four times daily to affected joint 100 g 07/01/19 25 Active lidocaine (LIDODERM) 5 % patchIndication s:Acute right-sided low back pain with right-sided sciatica Apply 1 patch topically 1 (one) time each day. Remove & discard patch within 12 hours or as directed by MD. 10 patch 07/01/19 25 Active cyclobenzaprine (FLEXERIL) 5 mg tabletIndicatio ns:muscle spasm Take 1 tablet (5 mg total) by mouth 2 (two) times a day if needed for muscle spasms. 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 09/09/2019 Overview (11/21/2023): SI joint injection 11/2019 Gastroesophageal reflux disease without esophagi tis 09/01/2019 Seasonal allergic rhinitis 09/01/2019 Osteoarthritis of lumbar spine 03/04/2019 Overlap syndrome (CMS/HCC V24) 08/06/2018 PLMD (periodic limb movement disorder) 9 Depression 02/20/2017 ANITA (obstructive sleep apnea) 08/10/2014 Overview (11/21/2023): [facility] Home Polysomnogram: Date 06/30/2018; Wt 189#; BMI 37; CHINMAY 15, AI 6; HI 9; Unclassified apneas 1; Obstructive apneas 45; Central apneas 6; Mixed apneas 0; hypopneas 75; average oxygen saturation 93% (lowest 82% with saturations <88% for 5% or more of study) [facility] Polysomnogram treatment study. Date 07/15/2018. Wt 189#; BMI 37; SE 88 % SM 90 %; spent 22 % of the study in REM. On CPAP @ 15; RDI 3.7 (AHI 3.7), Central apneas 12; Obstructive apneas 3; Mixed apneas 0; hypopneas 0; RERAs 0; and, average oxygen saturation was 96%. For the entire study, PLMs ~36. [facility] Sleep Center Polysomnogram: Date 07/21/2020; Wt 172#; [...] no inhaled steroid, started 06/25 Seropositive rheumatoid arth ritis ([facility] V24, [facility] V28) 01/16/2005 Overview (11/21/2023): Symptoms in childhood. Recurrence in 2004: RF POS, CCP NEG; equivocal response to hydroxychloroquine, DC due to muscle weakness On methotrexate started 2005. Humira added 02/03 Last Assessment & Plan: Lab work due in July and September Encounters Date Type Department Care Team Description 07/01/2024 Telephone Adult Medicine [address] [phone] Micah Rosado MD prior auth for medication 06/30/2024 3:55 PM EDT - 06/30/2024 11:59 PM EDT Hospital Encounter [address] [phone] Acute right-sided low back pain with right-sided sciatica Discharge Disposition: Home or Self Care 06/30/2024 3:30 PM EDT Office Visit Adult Medicine [address] [phone] Sussy Merida NP Acute right-sided low back pain with right-sided sciatica (Primary Dx); Class 2 severe obesity due to excess calories with serious comorbidity and body mass index (BMI) of 36.0 to 36.9 in adult (CMS/HCC V24, CMS/HCC V28); Encounter for screening for cardiovascular disorders 06/27/2024 Telephone Adult Medicine [address] [phone] Micah Rosado MD Back Pain; Foot Swelling 06/24/2024 Telephone Gastroenterology - 299 [facility] [address] [phone] Medina Logan [place] Results 06/18/2024 6:32 AM EDT - 06/18/2024 11:59 PM EDT Hospital Encounter [facility] [address] [place] [phone] Choking due to food in larynx, subsequent encounter Discharge Disposition: Home or Self Care from Last 3 Months Immunizations Name Administration Dates Next Due H1N1 Inj Preservative Free 01/12/2009 Influenza Quadravalent, MDCK , 0.5ml, preservative free (Flucelvax) 6mo and older 10/21/2019 Influenza Quadravalent, MDCK , 0.5ml, with preservative (Flucelvax) 6mo and older 11/09/2022,11/23/2021 Influenza trivalent, with pr eservative (Fluzone; Afluria) 6mo and older 11/26/2020,12/03/2018,12/27/2017,11/16,11/15/2016,12/04/2014,01/02/2014 ,10/28/2012,10/25/2011,10/28/2010,08/2009,11/08/2007,11/23/2006, 6,01/17/2005 Influenza, Unspecified 11/02/2020,11/19/2017 Moderna (age 6mo & [...] Date Smoking Tobacco: Never Smokeless Tobacco: Never Tobacco Cessation:Counseling Given: Not Answered Alcohol Use Standard Drinks/Week Comments No 0 (1 standard drink = 0.6 oz pur e alcohol) Comments No Sex and Gender Information Value Date Recorded Sex Assigned at Female 04/24/2024 3:36 PM EST Legal Sex Female 11:01 AM EST Gender Identity Female 04/24/2024 3:36 PM EST Sexual Orientation Straight 04/24/2024 3: 36 PM EST Obstetrics History Last Filed Vital Signs Vital Sign Reading Time Taken Comments Blood Pressure 98/62 06/30/2024 3:17 PM EDT Pulse 73 06/30/2024 3:17 PM EDT Temperature 35.8 ??C (96.5 ??F) 06/30/2024 3:17 PM ED T Respiratory Rate 20 06/30/2024 3:17 PM EDT Oxygen Saturation 95% 06/30/2024 3:17 PM EDT Inhaled Oxygen Concentration - - Weight 84.8 kg (187 lb) 06/30/2024 3:17 PM EDT Height 152.4 cm (5') 06/30/2024 3:17 PM EDT Body Mass Index 36.52 06/30/2024 3:17 PM EDT Plan of Treatment Upcoming Encounters Date Type Department Care Team (Late st Contact Info) Description 11/29/2024 9:00 AM EDT Appointment Radiology Department - [address] [phone] Health Maintenance Due Date Last Done Comments Hepatitis B Vaccines (1 of 3 - 19+ 3-dose series) 09/18/1983 Colorectal Cancer Screening: Stool Based Tests (FOBT/FIT) 01/28/2022 Medicare Annual Wellness Visit 01/28/2022 Social Influencers of Health Screening 01/28/2022 Pneumococcal Vaccine: 50+ Years (3 of 3 - PCV20 or PCV21) 02/20/2022 02/20/2017, 07/03/2014 Pneumococcal Vaccine: Pediatrics (0 to 5 Years) and At-Risk Patients (6 to 64 Years) (3 of 3 - PCV20 or PCV21) 02/20/2022 02/20/2017, 07/03/2014 Depression Screening 10/11/2023 10/10/2022 COVID-19 Vaccine (7 - Moderna risk 2023- season) 2024 11/07/2023, 11/11/2021, 06/07/2021, Additional history exists Breast Cancer Screening 11/23/2025 11/24/19 24, 11/24/2023, 10/07/2022, Additional history exists Cervical Cancer Screening: HPV 11/17/2027 11/16/2022 Cholesterol Screening (Lipid Panel) 07/10/2029 07/10/2024, 11/20/2022 DTaP,Tdap,and Td Vaccines (5 - Td or Tdap) 10/10/2032 10/10/2022, 02/26/2012, 10/14/2005, Additional history exists RSV Immunization Adult Patients (1 - 1-dose 75+ series) 09/18/2039 Hepatitis C Screening Completed 07/19/2005 HIV Screening Completed 09/03/2006 Colorectal Cancer Screening: Colonoscopy Discontinued 11/03/2014 Zoster Vaccines Completed 12/03/2018, 10/03/2018 Influenza Vaccine Completed 11/07/2023, , 11/23/2021, Additional [...] patient's age to complete this topic Meningococcal B Vaccine Aged Out No l onger eligible based on patient's age to complete this topic RSV Immunization Patients Under 20 months Aged Out No longer eligible based on patient's age to complete this topic Varicella Vaccines Aged Out No longer eligible based on patient's age to complete this topic Procedures Procedure Name Priority Date/Time Associated Diagnosis Comments CBC WITH AUTO DIFFERENTIAL Routine 07/10/2024 10:06 AM EDT Acute right-sided low back pain with right-sided sciatica Encounter for screening for cardiovascular disorders Class 2 severe obesity due to excess calories with serious comorbidity and body mass index (BMI) of 36.0 to 36.9 in adult ([facility] V24, [facility] V28) LIPASE Routine 07/10/2024 10:06 AM EDT Acute cystitis with hematuria Pain of upper abdomen Hospital discharge follow-up LIPID PANEL WITH REFLEX TO DIRECT LDL Routine 07/10/2024 10:06 AM EDT Acute right-sided low back pain with right-sided sciatica Encounter for screening for cardiovascular disorders Class 2 severe obesity due to excess calories with serious comorbidity and body mass index (BMI) of 36.0 to 36.9 in adult (CMS/HCC V24, [facility] V28) CBC AND DIFFERENTIAL Routine 07/10/2024 10:06 AM EDT Acute right-sided low back pain with right-sided sciatica Encounter for screening for cardiovascular disorders Class 2 severe obesity due to excess calories with serious comorbidity and body mass index (BMI) of 36.0 to 36.9 in adult (CMS/HCC V24, [facility] V28) VITAMIN B12 Routine 07/10/2024 10:06 AM EDT Acute right-sided low back pain with right-sided sciatica Encounter for screening for cardiovascular disorders Class 2 severe obesity due to excess calories with serious comorbidity and body mass index (BMI) of 36.0 to 36.9 in adult ([facility] V24, [facility] V28) COMPREHENSIVE METABOLIC PANEL Routine 07/10/2024 10:06 AM EDT Acute right-sided low back pain with right-sided sciatica Encounter for screening for cardiovascular disorders Class 2 severe obesity due to excess calories with serious comorbidity and body mass index (BMI) of 36.0 to 36.9 in adult ([facility] V24, [facility] V28) XR LUMBAR SPINE 4+ VIEWS Routine 06/30/2024 4:01 PM EDT Acute right-sided low back pain with right-sided sciatica XR ESOPHAGRAM Routine 06/18/2024 8:11 AM EDT Choking due to food in larynx, subsequent encounter SCREENING MAMMOGRAPHY BI 2-VIEW BREAST INC CAD Routine 11/24/2023 9:06 AM EDT Encounter for screening mammogram for malignant neoplasm of breast HM HPV Routine 11/16/2022 HM DEPRESSION SCREENING Routine 10/10/2022 HM COLONOSCOPY Routine 11/03/2014 HM HIV SCREENING Routine 09/03/2006 HEPATITIS C SCREENING Routine 07/19/2005 from Last 3 Months or Most Recently Relevant to Health Maintenance Results * (ABNORMAL) Lipid panel with reflex to direct LDL (07/10/2024 10:06 AM EDT) Cholesterol 256(H) 0 - 200 mg/dL LAB CHEMISTRY METHOD 07/10/2024 1:[address] [facility] Triglycerides 236(H) 0 - 150 mg/dL LAB CHEMISTRY METHOD 07/10/2024 1:[address] [facility] HDL 54 >=40 mg/dL LAB CHEMISTRY METHOD 07/10/2024 1:[address] [facility] LDL Calculated 155(H) 0 - 100 mg/dL LAB CHEMISTRY METHOD 07/10/2024 1:[address] [facility] VLDL Cholesterol Parrish 47.2 mg/dL LAB CHEMISTRY METHOD 07/10/2024 1:[address] [facility] Non HDL Chol. (LDL+VLDL) 202(H) <145 mg/dL LAB CHEMISTRY METHOD 07/10/2024 1:[address] [facility] Chol/HDL Ratio 4.7(H) 0.0 - 4.4 LAB CHEMISTRY METHOD 07/10/2024 1:[address] [facility] Blood Venous blood specimen / Unknown Venipuncture / Unknown 07/10/2024 10:06 AM EDT 07/10/2024 10:06 AM EDT Sussy Merida ESTIMATOR AND DRAFTER LAB BLOOD ORDERABLES Final R esult [facility] [address] [place] [address], * (ABNORMAL) CBC auto differential (07/10/2024 10:06 AM EDT) WBC 7.1 4.8 - 10.8 K/[facility] LAB HEMETOLOGY METHOD 07/10/2024 12:[address] [facility] RBC 5.00(H) 3.80 - 4.80 M/[facility] LAB HEMETOLOGY METHOD 07/10/2024 12:[address] [facility] Hemoglobin 15.6 11.5 - 16.0 g/dL LAB HEMETOLOGY METHOD 07/10/2024 12:[address] [facility] Hematocrit 45.3 35.0 - 47.0 % LAB HEMETOLOGY METHOD 07/10/2024 12:[address] [facility] MCV 90.4 79.0 - 98.0 FL LAB HEMETOLOGY METHOD 07/10/2024 12:[address] [facility] MCH 31.1 27.0 - 32.0 pcg LAB HEMETOLOGY METHOD 07/10/2024 12:16 PM [facility] MCHC 34.4 32.0 - 37.0 g/dL LAB HEMETOLOGY METHOD 07/10/2024 12:[address] [facility] RDW 13.4 11.0 - 15.0 % LAB HEMETOLOGY METHOD 07/10/2024 12:16 PM [facility] Platelets 258 130 - 400 K/mcL LAB HEMETOLOGY METHOD 07/10/2024 12:16 PM [facility] MPV 10.2 7.0 - 11.0 FL LAB HEMETOLOGY METHOD 07/10/2024 12:16 PM [facility] NRBC 0.0 <1.0 % LAB HEMETOLOGY METHOD 07/10/2024 12:16 PM [facility] NRBC Absolute 0.00 <0.10 K/mcL LAB HEMETOLOGY METHOD 07/10/2024 12:16 PM [facility] Neutrophils Relative 69.0 % LAB HEMETOLOGY METHOD 07/10/2024 12:16 PM [facility] Lymphocytes Relative 19.5 % LAB HEMETOLOGY METHOD 07/10/2024 12:16 PM [facility] Monocytes Relative 7.3 % LAB HEMETOLOGY METHOD 07/10[facility]2024 [facility] Eosinophils Relative 3.1 % LAB HEMETOLOGY METHOD 07/10/2024 12:16 PM [facility] Basophils Relative 0.8 % LAB HEMETOLOGY METHOD 07/10/2024 12:[address] [facility] Immature Granulocytes Relative 0.3 % LAB HEMETOLOGY METHOD 07/10/2024 12:[address] [facility] Neutrophils Absolute 4.92 1.50 - 7.00 K/[facility] LAB HEMETOLOGY METHOD 07/10/2024 12:[address] [facility] Lymphocytes Absolute 1.39 1.00 - 5.00 K/[facility] LAB HEMETOLOGY METHOD 07/10/2024 12:[address] [facility] Monocytes Absolute 0.52 0.20 - 1.00 K/[facility] LAB HEMETOLOGY METHOD 07/10/2024 12:[address] [facility] Eosinophils Absolute 0.22 0.00 - 0.50 K/[facility] LAB HEMETOLOGY METHOD 07/10/2024 12:16 PM [facility] Basophils Absolute 0.06 0.00 - 0.20 K/mcL LAB HEMETOLOGY METHOD 07/10/2024 12:[address] [facility] Immature Granulocytes Absolute 0.02 0.00 - 0.03 K/mcL LAB HEMETOLOGY METHOD 07/10[facility]2024 [facility] Blood Venous blood specimen / Unknown Venipuncture / Unknown 07/10/2024 10:06 AM EDT 07/10/2024 10:06 AM EDT us Sussy Merida ESTIMATOR AND DRAFTER LAB BLOOD ORDERABLES Final R esult [facility]) [facility] [address] [place] [address], * Lipase (07/10/2024 10:06 AM EDT) Lipase 25 13 - 75 unit/L LAB CHEMISTRY METHOD 07/10/2024 12:[address] [facility] Blood Venous blood specimen / Unknown Venipuncture / Unknown 07/10/2024 10:06 AM EDT 07/10/2024 10:06 AM EDT Sussy Merida ESTIMATOR AND DRAFTER LAB BLOOD ORDERABLES Final R esult [facility] [address] [place] [address], [place] [phone] * Vitamin B12 (07/10/2024 10:06 AM EDT) [facility] Vitamin B-12 589 250 - 900 pcg/mL LAB CHEMISTRY METHOD 07/10/2024 1:[address] [facility] Blood Venous blood specimen / Unknown Venipuncture / Unknown 07/10/2024 10:06 AM EDT 07/10/2024 10:06 AM EDT Sussy Merida ESTIMATOR AND DRAFTER LAB BLOOD ORDERABLES Final R esult Performing Organization Address City/[facility]/ZIP Co de Phone Number [facility] [address] [place] [address], [place] [phone] * Comprehensive metabolic panel (07/10/2024 10:06 AM EDT) [facility] Sodium 139 133 - 145 mmol/L LAB CHEMISTRY METHOD 07/10/2024 1:[address] [facility] Potassium 4.5 3.5 - 5.5 mmol/L LAB CHEMISTRY METHOD 07/10/2024 1:[address] [facility] Chloride 104 96 - 110 mmol/L LAB CHEMISTRY METHOD 07/10/2024 1:[address] [facility] CO2 27 21 - 32 mmol/L LAB CHEMISTRY METHOD 07/10/2024 1:[address] [facility] Anion Gap 8 3 - 11 LAB CHEMISTRY METHOD 07/10/2024 1:[address] [facility] Glucose 93 70 - 100 mg/dL LAB CHEMISTRY METHOD 07/10/2024 1:15 PM [facility] BUN 10 5 - 25 mg/dL LAB CHEMISTRY METHOD 07/10/2024 1:15 PM [facility] Creatinine 0.90 0.50 - 1.10 mg/dL LAB CHEMISTRY METHOD 07/10/2024 1:15 PM [facility] eGFR 74 >=60 mL/min/1. 73m2 LAB CHEMISTRY METHOD 07/10/2024 1:15 PM [facility] Comment:Calculation based on the Chronic Kidney Disease Epidemiology Collaboration (CKD-EPI) equation refit without adjustment for race. BUN/Creatinine Ratio 11.1 LAB CHEMISTRY METHOD 07/10/2024 1:15 PM [facility] Calcium 9.1 8.5 - 10.5 mg/dL LAB CHEMISTRY METHOD 07/10/2024 1:15 PM [facility] AST (SGOT) 21 10 - 42 unit/L LAB CHEMISTRY METHOD 07/10/2024 1:15 PM [facility] ALT (SGPT) 28 10 - 60 unit/L LAB CHEMISTRY METHOD 07/10/2024 1:15 PM [facility] Alkaline Phosphatase 109 42 - 121 unit/L LAB CHEMISTRY METHOD 07/10/2024 1:15 PM [facility] Total Protein 7.5 6.0 - 8.0 g/dL LAB CHEMISTRY METHOD 07/10/2024 1:15 PM [facility] Albumin 3.8 3.2 - 5.0 g/dL LAB CHEMISTRY METHOD 07/10/2024 1:15 PM [facility] Total Bilirubin 0.6 0.0 - 1.4 mg/dL LAB CHEMISTRY METHOD 07/10/2024 1:15 PM [facility] Blood Venous blood specimen / Unknown Venipuncture / Unknown 07/10/2024 10:06 AM EDT 07/10/2024 10:06 AM EDT us Sussy Merida ESTIMATOR AND DRAFTER LAB BLOOD ORDERABLES Final R esult [facility] ([facility]) [facility] [address] [place] [address], [place] [phone] * XR Lumbar Spine 4+ Views (06/30/2024 4:01 PM EDT) Anatomical Region Laterality Modality Spine, L-spine Radiographic Sally ging 07/01/2024 11:3 1 AM EDT Impressions 07/01/2024 11:37 AM EDT Transitional anatomy. ??Degenerative changes which are more prominent in the lower spine. ??Grade 1 spondylolisthesis at L4-5. POS - [id number] -------- FINAL REPORT -------- Dictated By: Juany Dorantes Dictated Date: 07/01/2024 11:31 ET Assigned Physician: Juany Dorantes Reviewed and Electronically Signed By: Juany Dorantes Signed Date: 07/01/2024 11:37 ET Workstation ID: [id number] Transcribed By: Self Edit Transcribed Date: 07/01/2024 11:31 ET Narrative 07/01/2024 11:37 AM EDT EXAM: Lumbar spine x-ray HISTORY: Acute right low back pain with right sciatica. COMPARISON: 09/09/2019, correlation with lumbar spine MRI 11/19/2019 FINDINGS: 4 views of the lumbar spine were performed. Assuming hypoplastic ribs at T12, 4 lumbar type vertebral bodies and a transitional L5 element. ??Vertebral body heights are maintained. ??Mild disc space narrowing at L4-5. ??Multilevel endplate spurring. ??No evidence of spondylolysis. ??Facet arthropathy at L3-4 and L4-5. ??Grade 1 anterolisthesis of L4 on L5. Procedure Note Juany Dorantes MD - 07/01/2024 EXAM: Lumbar spine x-ray HISTORY: Acute right low back pain with right sciatica. COMPARISON: 09/09/2019, correlation with lumbar spine MRI 11/19/2019 FINDINGS: 4 views of the lumbar spine were performed. Assuming hypoplastic ribs at T12, 4 lumbar type vertebral bodies and atransitional L5 element. Vertebral body heights are maintained. Milddisc space narrowing at L4- 5. Multilevel endplate spurring. No evidenceof spondylolysis. Facet arthropathy at L3-4 and L4-5. Grade 1anterolisthesis of L4 on L5. IMPRESSION: Transitional anatomy. Degenerative changes which are more prominent inthe lower spine. Grade 1 spondylolisthesis at L4-5. POS - [id number] -------- FINAL REPORT -------- Dictated By: Juany Dorantes Dictated Date: 07/01/2024 11:31 ET Assigned Physician: Juany Dorantes Reviewed and Electronically Signed By: Juany Dorantes Signed Date: 07/01/2024 11:37 ET Workstation ID: [id number] Transcribed By: Self Edit Transcribed Date: 07/01/2024 11:31 ET Sussy Merida NP IMG XR PROCEDURES Final Resu lt * XR Esophagram (06/18/2024 8:11 AM EDT) Anatomical Region Laterality Modality Head and Neck Radiographic Sally ging 06/18/2024 10:0 1 AM EDT Impressions 06/20/2024 4:18 PM EDT Mild esophageal dysmotility, otherwise normal double contrast esophagram exam. -------- FINAL REPORT -------- Dictated By: Marialuisa Tabares Dictated Date: 06/18/2024 10:01 ET Assigned Physician: Leland Traylor Reviewed and Electronically Signed By: Leland Traylor Signed Date: 06/20/2024 16:18 ET Workstation ID: [id number] Transcribed By: Self Edit Transcribed Date: 06/18/2024 10:04 ET Resident/PA/ESTIMATOR AND DRAFTER: Marialuisa Tabares Narrative 06/20/2024 4:18 PM EDT FINDINGS: Double contrast esophagram performed. COMPARISON: No prior esophagram imaging HISTORY: Patient is a 58-year-old female with history of choking sensation, dysphagia. 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 Lungs are clear bilaterally. Costophrenic angles are sharp. Moderate bony degenerative changes of the thoracolumbar spine are noted. Bony degenerative changes of bilateral humeral heads. 1 view lateral soft tissue neck demonstrates no prevertebral soft tissue masses. Airway is widely patent. There are moderate bony degenerative changes of the cervical spine. Effervescent crystals were administered orally. Thick and thin barium were administered orally under fluoroscopic control. Pharyngoesophagram: There is mild esophageal dysmotility. Rapid sequence imaging of the hypopharynx during swallowing demonstrates prompt initiation of swallowing. There is normal soft palate elevation and normal epiglottic motion. There is no laryngeal penetration or natalie aspiration. There is no residual in the vallecula nor in the piriform sinuses. Thoracic esophagus: Normal distensibility and mucosal pattern without evidence of ulceration, stricture or mass formation. Hiatal hernia: None Reflux: Unable to elicit 13mm Barium pill: Swallowed without difficulty. Prompt passage of pill from the esophagus into the stomach. DAP: 7.88 Gycm^2 Procedure Note Leland Traylor MD - 06/20/2024 FINDINGS: Double contrast esophagram performed. COMPARISON: No prior esophagram imaging HISTORY: Patient is a 58-year-old female with history of chokingsensation, dysphagia. [employer] radiographs: 1 view chest radiograph demonstrates cardiac andmediastinal contours within normal limits. Lungs are clear bilaterally.Costophrenic angles are sharp. Moderate bony degenerative changes of thethoracolumbar spine are noted. Bony degenerative changes of bilateralhumeral heads. 1 view lateral soft tissue neck demonstrates noprevertebral soft tissue masses. Airway is widely patent. There aremoderate bony degenerative changes of the cervical spine. Effervescent crystals were administered orally. Thick and thin barium wereadministered orally under fluoroscopic control. Pharyngoesophagram: There is mild esophageal dysmotility. Rapid sequenceimaging of the hypopharynx during swallowing demonstrates promptinitiation of swallowing. There is normal soft palate elevation and normalepiglottic motion. There is no laryngeal penetration or natalie aspiration.There is no residual in the vallecula nor in the piriform sinuses. Thoracic esophagus: Normal distensibility and mucosal pattern withoutevidence of ulceration, stricture or mass formation. Hiatal hernia: None Reflux: Unable to elicit 13mm Barium pill: Swallowed without difficulty. Prompt passage of pillfrom the esophagus into the stomach. DAP: 7.88 Gycm^2 IMPRESSION: Mild esophageal dysmotility, otherwise normal double contrast esophagramexam. -------- FINAL REPORT -------- Dictated By: Marialuisa Tabares Dictated Date: 06/18/2024 10:01 ET Assigned Physician: Leland Traylor Reviewed and Electronically Signed By: Leland Traylor Signed Date: 06/20/2024 16:18 ET Workstation ID: [id number] Transcribed By: Self Edit Transcribed Date: 06/18/2024 10:04 ET Resident/PA/ESTIMATOR AND DRAFTER: Marialuisa Tabares Venancio BAKER IMG FLUOROSCOPY PROCEDURES F inal Result * SCREENING MAMMOGRAPHY BI 2-VIEW BREAST INC [...] evidence of malignancy. BI-RADS 1 - negative [facility] [address] [place] [id number] Procedure Note Juany Dorantes MD - 12/18/2023 [...] evidence of malignancy. BI-RADS 1 - negative [facility] [address] [place] [address] Result [facility] Micah Rosado MD IMG XR PROCEDURES Final Result * Cervical Cancer Screening: HPV (11/16/2022) [facility] Cervical Cancer Screening: HPV No Interpretation , Abstracted Result [facility] Provider HEALTH MAINTENANCE Final Result * Depression Screening (10/10/2022) [facility] Depression Screening Abstracted Result [facility] Provider HEALTH MAINTENANCE Final Result * Colonoscopy (11/03/2014) [facility] Colonoscopy No Interpretation , Abstracted Anatomical Region Laterality Modality Other Result [facility] [place] [facility] Final Result * HIV Screening (09/03/2006) [facility] HIV Screening Abstracted Result [facility] [place] [facility] Final Result * Hepatitis C Screening (07/19/2005) [facility] Hepatitis C Screening Abstracted Result [facility] [place] [facility] Final Result from Last 3 Months or Most Recently Relevant to Health Maintenance Insurance [place] [employer] MED[employer]ARE Care Teams Surg Tech Relationship Specialty Start Date End Date Micah Rosado MD [address] [place] [address] PCP - General 06/02/10
[2024-07-21 16:40] LABS: MANUAL DIFF FLAG NO
[2024-07-21 16:42] LABS: Appearance Urine Clear; Color Urine Yellow; Glucose Urine UA Negative (Negative); Leukocyte Esterase Urine Large (3+) (Negative); Nitrite Urine Negative (Negative); PH 6.5 (5.0-9.0); Specific Gravity - Urine <= 1.005 (1.005-1.025); UMIC TRIGGER UACC YES; Urine Blood Negative (Negative); Urine Ketones Negative (Negative); Urine Protein Negative (Neg-Trace)
[2024-07-21 16:47] LABS: Bacteria Urine Trace (None Seen); Hyaline Casts Urine 0-2 /LPF (0-2); RBC Urine 0-2 /HPF (0-2); UACC Culture Trigger YES; WBC Urine 21-50 /HPF (0-5)
[2024-07-21 16:50] VITALS: BP 142/80; PULSE 76; RESP 19; TEMP 36.6; O2SAT 99
[2024-07-21 17:01] LABS: Basophils Absolute Auto 0.1 X10*3/uL (0.0-0.2); Basophils Percent Auto 1.1 % (0-2); Eosinophils Absolute Auto 0.2 X10*3/uL (0.0-0.4); Eosinophils Percent Auto 3.6 % (0-4); Hematocrit 41.1 % (37.0-47.0); Hemoglobin 14.5 g/dl (12.0-16.0); Imm Gran Abs Auto 0.01 X10*3/uL (0.00-0.03); Imm Gran Pct Auto 0.2 % (0.0-0.4); Lymphocytes Absolute Auto 1.4 X10*3/uL (1.2-4.9); Lymphocytes Percent Auto 29.1 % (20-40); Mean Corpuscular HGB Conc 35.3 g/dl (31.0-35.0); Mean Corpuscular Hemoglobin 31.4 pg (27.0-33.0); Mean Platelet Volume 9.6 fL (9.4-12.3); Monocytes Absolute Auto 0.4 X10*3/uL (0.1-1.2); Monocytes Percent Auto 8.8 % (2-11); Neutrophils Absolute Auto 2.7 x10*3/uL (2.0-8.3); Neutrophils Percent Auto 57.2 % (45-73); Platelet Count 272 X10*3/uL (160-400); Red Blood Count 4.62 X10*6/uL (4.20-5.50); Red Cell Distribution Width 13.3 % (11.0-16.0); White Blood Count 4.8 X10*3/uL (4.8-10.8)
[2024-07-21 19:19] LABS: Alanine Aminotransferase 18 U/L (0-31); Albumin Level 3.9 g/dL (3.5-5.0); Alkaline Phosphatase 85 U/L (39-117); Anion Gap 13 (12-20); Aspartate Amino Transferase 33 U/L (5-31); Bilirubin Direct 0.1 mg/dL (0.0-0.5); Bilirubin Total 0.6 mg/dL (0.0-1.0); Blood Urea Nitrogen 11 mg/dL (9-16); Calcium 9.3 mg/dL (8.4-10.2); Carbon Dioxide 24 mmol/L (22-29); Chloride 107 mmol/L (96-108); Creatinine Clr Calc Pharmacy 72.1; Estimated Glomerular Filt Rate > 60; Glucose Random 98 mg/dL (60-115); Magnesium 2.3 mg/dL (1.6-2.6); Potassium 4.7 mmol/L (3.3-5.1); Sodium 139 mmol/L (135-145); Total Protein 7.6 g/dL (6.5-8.0); Troponin-I High Sensitivity < 2.7 ng/L (<3.5-17.0)
[2024-07-21 19:28] LABS: TSH reflex Free T4 1.32 uIU/mL (0.32-4.0)
[2024-07-21 19:59] VITALS: BP 142/80; PULSE 76; RESP 19; TEMP 36.6; O2SAT 99
== END 2024-07-21 19:59 | disposition home or self-care (01) ==
PROVIDERS: Physician Assistant Medical; Emergency Provider Emergency Medicine; PCP Internal Medicine
DX: R51.9 Headache, unspecified (principal); R56.9 Unspecified convulsions; J32.2 Chronic ethmoidal sinusitis; J32.0 Chronic maxillary sinusitis; E03.9 Hypothyroidism, unspecified; Z79.899 Other long term (current) drug therapy; Z03.818 Encounter for observation for suspected exposure to other biological agents ruled out
CPT/HCPCS: 0241U; 36415; 70450; 80048; 80076; 81001; 83735; 84443; 84484; 85025; 87086; 87147; 93005; 99284

== ENCOUNTER → 2024-07-21 11:11 | Outpatient (BNV) | payer MEDICARE, MEDICAID, SELFPAY | PROVIDERS: PCP Internal Medicine; Visit Provider Internal Medicine | DX: R56.9 Unspecified convulsions (principal) | CPT/HCPCS: 93010 ==

== ENCOUNTER → 2024-07-21 15:59 | Outpatient (BNV) | payer MEDICARE, MEDICAID, SELFPAY | PROVIDERS: Emergency Provider Emergency Medicine; PCP Internal Medicine; Visit Provider Radiology Diagnostic Radiology | DX: J01.20 Acute ethmoidal sinusitis, unspecified (principal) | CPT/HCPCS: 70450 ==

== ENCOUNTER 2024-08-09 08:54 | Outpatient (REF) | payer MEDICARE, MEDICAID, SELFPAY ==
--- NOTE | ~2024-08-09 | CT_ITS ---
CLINICAL HISTORY: EVAL FOR LOOSING OF RIGHT KNEE CT right knee without contrast Comparison: None Findings: Normal alignment without acute fracture. Streak artifacts from tricompartmental knee arthroplasty limits evaluation. No definite hardware complications. Small suprapatellar joint effusion. Up to 10 mm (AP dimension) thickening of the quadriceps tendon may be postsurgical or due to tendinosis. Impression: Streak artifacts from tricompartmental knee arthroplasty limits evaluation. No definite hardware complications. Up to 10 mm (AP dimension) thickening of the quadriceps tendon may be postsurgical or due to tendinosis. This document has been electronically signed by: Gena Peres MD on 08/12/2024 12:12:38
--- OUTSIDE RECORDS SUMMARY | 2024-08-09 08:56 | XMS_ITS | Clinical Summary ---
Author Organization [facility] [address] [facility] Address [address] [place] [address] Phone Care Team Providers Care Clinician Oncology Name Role Phone Micah Rosado MD Primary Care Provider [phone] Allergies Active Allergy Reactions Criticality Noted Date [...] 1 (one) time each day. Prescribed by Black Oxide Operator 024 Active folic acid (FOLVITE) 1 mg tablet Take 1 tablet (1 mg total) by mouth 1 (one) time each day. Prescribed by Sales Advisor Active methotrexate 2.5 mg tablet Take 1 tablet (2.5 mg total) by mouth 1 (one) time per week Prescribed By Sales Advisor, Dr. Gresham Active multivit-mineral technologist als/folic acid (ONE-A-DAY WOMEN'S 50 PLUS ORAL) Take 1 tablet by mouth 1 (one) time each day. Patient Buy OTC Active triamcinolone (NASACORT) 55 mcg nasal inhaler Administer 2 sprays into each nostril 1 (one) time each day. Prescribed by Black Oxide Operator Active albuterol HFA (PROAIR HFA ; PROVENTIL HFA ; VENTOLIN HFA) 90 mcg/actuation inhaler Inhale 2 puffs by mouth every 4 (four) hours if needed for wheezing or shortness of breath. Proscribe by Black Oxide Operator Active acetaminophen (TYLENOL 8 HOUR) 650 mg 8 hr tablet Take 1 tablet (650 mg total) by mouth every 8 (eight) hours if needed. Patient buy OTC Active omeprazole (PriLOSEC) [address] capsule Take 1 capsule (20 mg total) by mouth 1 (one) time each day. Do not crush or chew. 90 capsule 1 025 Active cholecalcifero l (VITAMIN D-3) 50 mcg (2,000 unit) tablet Take 1 tablet (2,000 Units total) by mouth 1 (one) time each day. 90 tablet 1 025 Active cetirizine (ZyrTEC) 10 mg tablet Take 1 tablet (10 mg total) by mouth 1 (one) time each day. 90 tablet 1 025 Active atorvastatin (LIPITOR) 20 mg tablet Take 1 tablet (20 mg total) by mouth 1 (one) time each day. 90 tablet 1 025 Active citalopram (CeleXA) 20 mg tablet Take [...] mouth 1 (one) time each day. Active levothyroxine (SYNTHROID, LEVOTHROID) 88 mcg tablet Take 1 tablet (88 mcg total) by mouth 1 (one) time each day. 90 tablet 025 Active diclofenac (VOLTAREN) 1 % topical gel Apply 2 gram four times daily to affected joint 100 g 025 Active lidocaine (LIDODERM) 5 % patchIndicatio ns:Acute right-sided low back pain with right-sided sciatica Apply 1 patch topically 1 (one) time each day. Remove & discard patch within 12 hours or as directed by . 10 patch 025 Active cyclobenzaprin e (FLEXERIL) 5 mg tabletIndicati ons:muscle spasm Take 1 tablet (5 mg total) by mouth 2 (two) times a day if needed for muscle spasms. 30 tablet 025 Active doxycycline (VIBRAMYCIN) 100 mg capsule Take 1 capsule (100 mg total) by mouth 2 (two) times a day. Prescribed by [facility] Active nitrofurantoin , macrocrystal-m onohydrate, (MACROBID) 100 mg capsule Take 1 capsule (100 mg total) by mouth 2 (two) times a day. Every 12 hours from [facility] 025 2024 Discontinued famotidine (PEPCID) 20 mg tabletIndicati ons:Gastroesop hageal reflux disease without esophagitis TAKE 1 TABLET BY MOUTH TWICE A DAY NEEDED FOR HEART BURN TAKE 1 OF THE DOSES AT BEDTIME 180 tablet 1 025 2024 Discontinued cephalexin (KEFLEX) 500 mg capsule Take 1 capsule (500 mg total) by mouth. 025 2024 Discontinued Active Problems Problem Noted Date Diagnosed [...] steroid, started 06/25 Seropositive rheumatoid arth ritis ([facility] V24, [facility] V28) 01/16/2005 Overview (11/21/2023): Symptoms in childhood. Recurrence in 2004: RF POS, CCP NEG; equivocal response to hydroxychloroquine, DC due to muscle weakness On methotrexate started 2005. Humira added 02/03 Last Assessment & Plan: Lab work due in July and September Encounters Date Type Department Care Team Description 08/05/2024 3:00 PM EDT Office Visit [address] [phone] Sussy Merida NP Episode of shaking (Primary Dx); Urinary tract infection without hematuria, site unspecified; Streptococcus infection, group B; Encounter for examination following treatment at hospital 07/01/[address] [phone] Micah Rosado MD prior auth for medication 06/30/2024 3:55 PM EDT - 06/30/2024 11:59 PM EDT Hospital Encounter [address] [phone] Acute right-sided low back pain with right-sided sciatica Discharge Disposition: Home or Self Care 06/30/2024 3:30 PM EDT Office Visit [address] [phone] Sussy Merida NP Acute right-sided low back pain with right-sided sciatica (Primary Dx); Class 2 severe obesity due to excess calories with serious comorbidity and body mass index (BMI) of 36.0 to 36.9 in adult (CMS/HCC V24, CMS/HCC V28); Encounter for screening for cardiovascular disorders 06/27/[address] [phone] Micah Rosado MD Back Pain; Foot Swelling 06/24/2024 Telephone Gastroenterology - [address] [facility] [address] [address] [place] Results 06/18/2024 6:32 AM EDT - 06/18/2024 11:59 PM EDT Hospital Encounter [facility] [address] [place] [address] Choking due to food in larynx, subsequent [...] Sign Reading Time Taken Comments Blood Pressure 116/81 08/05/2024 3:01 PM EDT Pulse 93 08/05/2024 3:01 PM EDT Temperature 36.1 C (96.9 F) 08/05/2024 3:01 PM EDT Respiratory Rate 20 08/05/2024 3:01 PM EDT Oxygen Saturation 99% 08/05/2024 3:01 PM EDT Inhaled Oxygen Concentration - - Weight 84.2 kg (185 lb 9.6 oz) 08/05/2024 3:01 P M EDT Height 152.4 cm (5') 08/05/2024 3:01 PM EDT Body Mass Index 36.25 08/05/2024 3:01 PM EDT Plan of Treatment Upcoming Encounters Date Type Department Care Team (Late st Contact Info) Description 10/07/2024 8:30 AM EDT Office Visit Adult [facility] [place] [facility] [place] [address] [place], [place] [phone] Sussy Merida NP [address] [place], [place] 11/29/2024 9:00 AM EDT Appointment Radiology Department - [address] [phone] Health Maintenance Due Date Last Done Comments [...] Procedure Name Priority Date/Time Associated Diagnosis Comments EXTERNAL CT REPORT 07/21/[address] REPORT 07/21/2024 CBC WITH AUTO DIFFERENTIAL Routine 07/10/2024 10:06 AM EDT Acute right-sided low back pain with right-sided sciatica Encounter for screening for cardiovascular disorders Class 2 severe obesity due to excess calories with serious comorbidity and body mass index (BMI) of 36.0 to 36.9 in adult (CMS/HCC V24, CMS/HCC V28) LIPASE Routine 07/10/2024 10:06 AM EDT [...] (BMI) of 36.0 to 36.9 in adult ([facility] V24, CMS/[facility] V28) CBC AND DIFFERENTIAL Routine 07/10/2024 10:06 AM EDT Acute right-sided low back pain with right-sided sciatica Encounter for screening for cardiovascular disorders Class 2 severe obesity due to excess calories with serious comorbidity and body mass index (BMI) of 36.0 to 36.9 in adult (CMS/[facility] V24, CMS/[facility] V28) VITAMIN B12 Routine 07/10/2024 10:06 AM EDT Acute right-sided low back pain with right-sided sciatica Encounter for screening for cardiovascular disorders Class 2 severe obesity due to excess calories with serious comorbidity and body mass index (BMI) of 36.0 to 36.9 in adult (CMS/[facility] V24, CMS/[facility] V28) COMPREHENSIVE METABOLIC PANEL Routine 07/10/2024 10:06 AM EDT Acute right-sided low back pain with right-sided sciatica Encounter for screening for cardiovascular disorders Class 2 severe obesity due to excess calories with serious comorbidity and body mass index (BMI) of 36.0 to 36.9 in adult (CMS/[facility] V24, CMS/[facility] V28) XR LUMBAR SPINE 4+ VIEWS Routine [...] Routine 11/16/2022 HM DEPRESSION SCREENING Routine 10/10/2022 COLONOSCOPY Routine 11/03/2014 HIV SCREENING Routine 09/03/2006 HEPATITIS C SCREENING Routine 07/19/2005 from Last 3 Months or Most Recently Relevant to Health Maintenance Results * External CT Report (07/21/2024) Only the most recent of2 resultswithin the time period is included. Anatomical Region Laterality Modality Computed Tomogra phy us Provider [facility] IM [facility] PROCEDURES Final Result * (ABNORMAL) Lipid panel with reflex to direct LDL (07/10/2024 10:06 AM EDT) Cholesterol 256(H) 0 - 200 mg/dL LAB CHEMISTRY METHOD [facility]24 [facility] Triglycerides 236(H) 0 - 150 mg/dL LAB CHEMISTRY METHOD 07/10/2024 1:15 PM [facility] HDL 54 >=40 mg/dL LAB CHEMISTRY METHOD 07/10/2024 1:15 PM [facility] LDL Calculated 155(H) 0 - 100 mg/dL LAB CHEMISTRY METHOD 07/10/2024 1:15 PM [facility] VLDL Cholesterol Parrish 47.2 mg/dL LAB CHEMISTRY METHOD 07/10/2024 1:15 PM [facility] Non HDL Chol. (LDL+VLDL) 202(H) <145 mg/dL LAB CHEMISTRY METHOD 07/10/2024 1:15 PM [facility] Chol/HDL Ratio 4.7(H) 0.0 - 4.4 LAB CHEMISTRY METHOD 07/10/2024 1:15 PM [facility] Blood Venous blood specimen / Unknown Venipuncture / Unknown 07/10/2024 10:06 AM EDT 07/10/2024 10:06 AM EDT us Sussy Merida MASTER OCEAN YACHT LAB BLOOD ORDERABLES Final R esult [facility] [address] [place] [address], [place] [phone] * (ABNORMAL) CBC auto differential (07/10/2024 10:06 AM EDT) WBC 7.1 4.8 - 10.8 K/mcL LAB HEMETOLOGY METHOD 07/10/2024 12:16 PM EDT [facility] RBC 5.00(H) 3.80 - 4.80 M/mcL LAB HEMETOLOGY METHOD 07/10/2024 12:16 PM EDT [facility] Hemoglobin 15.6 11.5 - 16.0 g/dL LAB HEMETOLOGY METHOD 07/10/2024 12:16 PM EDT [facility] Hematocrit 45.3 35.0 - 47.0 % LAB HEMETOLOGY METHOD 07/10/2024 12:16 PM EDT [facility] MCV 90.4 79.0 - 98.0 FL LAB HEMETOLOGY METHOD 07/10/2024 12:16 PM EDT [facility] MCH 31.1 27.0 - 32.0 pcg LAB HEMETOLOGY METHOD 07/10/2024 12:16 PM EDT [facility] MCHC 34.4 32.0 - 37.0 g/dL LAB HEMETOLOGY METHOD 07/10/2024 12:16 PM EDT [facility] RDW 13.4 11.0 - 15.0 % LAB HEMETOLOGY METHOD 07/10/2024 12:16 PM EDT [facility] Platelets 258 130 - 400 K/mcL LAB HEMETOLOGY METHOD 07/10/2024 12:16 PM EDT [facility] MPV 10.2 7.0 - 11.0 FL LAB HEMETOLOGY METHOD 07/10/2024 12:16 PM EDT [facility] NRBC 0.0 <1.0 % LAB HEMETOLOGY METHOD 07/10/2024 12:16 PM [facility] NRBC Absolute 0.00 <0.10 K/mcL LAB HEMETOLOGY METHOD 07/10/2024 12:16 PM [facility] Neutrophils Relative 69.0 % LAB HEMETOLOGY METHOD 07/10/2024 12:16 PM [facility] Lymphocytes Relative 19.5 % LAB HEMETOLOGY METHOD 07/10/2024 12:16 PM [facility] Monocytes Relative 7.3 % LAB HEMETOLOGY METHOD 07/10/2024 12:16 PM [facility] Eosinophils Relative 3.1 % LAB HEMETOLOGY METHOD 07/10/2024 12:16 PM [facility] Basophils Relative 0.8 % LAB HEMETOLOGY METHOD 07/10/2024 12:16 PM [facility] Immature Granulocytes Relative 0.3 % LAB HEMETOLOGY METHOD 07/10/2024 12:16 PM [facility] Neutrophils Absolute 4.92 1.50 - 7.00 K/mcL LAB HEMETOLOGY METHOD 07/10/2024 12:16 PM EDT [facility] Lymphocytes Absolute 1.39 1.00 - 5.00 K/mcL LAB HEMETOLOGY METHOD 07/10/2024 12:16 PM [facility] Monocytes Absolute 0.52 0.20 - 1.00 K/mcL LAB HEMETOLOGY METHOD 07/10/2024 12:16 PM [facility] Eosinophils Absolute 0.22 0.00 - 0.50 K/mcL LAB HEMETOLOGY METHOD 07/10/2024 12:16 PM EDT [facility] Basophils Absolute 0.06 0.00 - 0.20 K/mcL LAB HEMETOLOGY METHOD 07/10/2024 12:16 PM EDT [facility] Immature Granulocytes Absolute 0.02 0.00 - 0.03 K/[facility] LAB HEMETOLOGY METHOD 07/10/2024 12:16 PM EDT [facility] Blood Venous blood specimen / Unknown Venipuncture / Unknown 07/10/2024 10:06 AM EDT 07/10/2024 10:06 AM EDT Sussy Merida MASTER OCEAN YACHT LAB BLOOD ORDERABLES Final R esult Performing Organization Address City/[facility]/ZIP Co de Phone Number [facility] [address] [place] [address], [place] [phone] * Lipase (07/10/2024 10:06 AM EDT) Lipase 25 13 - 75 unit/L LAB CHEMISTRY METHOD 07/10/2024 12:48 PM EDT [facility] Blood Venous blood specimen / Unknown Venipuncture / Unknown 07/10/2024 10:06 AM EDT 07/10/2024 10:06 AM EDT Sussy Merida MASTER OCEAN YACHT LAB BLOOD ORDERABLES Final R esult [facility] [address] [place] [address], [place] [phone] * Vitamin B12 (07/10/2024 10:06 AM EDT) Vitamin B-12 589 250 - 900 pcg/mL LAB CHEMISTRY METHOD 07/10/2024 1:15 PM EDT [facility] Blood Venous blood specimen / Unknown Venipuncture / Unknown 07/10/2024 10:06 AM EDT 07/10/2024 10:06 AM EDT us Sussy Merida MASTER OCEAN YACHT LAB BLOOD ORDERABLES Final R esult [facility] [address] [place] [address], [place] [phone] * Comprehensive metabolic panel (07/10/2024 10:06 AM EDT) Sodium 139 133 - 145 mmol/L LAB CHEMISTRY METHOD 07/10/2024 1:15 PM EDT [facility] Potassium 4.5 3.5 - 5.5 mmol/L LAB CHEMISTRY METHOD 07/10/2024 1:15 PM [facility] Chloride 104 96 - 110 mmol/L LAB CHEMISTRY METHOD 07/10/2024 1:15 PM [facility] CO2 27 21 - 32 mmol/L LAB CHEMISTRY METHOD 07/10/2024 1:15 PM [facility] Anion Gap 8 3 - 11 LAB CHEMISTRY METHOD 07/10/2024 1:15 PM [facility] Glucose 93 70 - 100 mg/dL LAB CHEMISTRY METHOD 07/10/2024 1:15 PM [facility] BUN 10 5 - 25 mg/dL LAB CHEMISTRY METHOD 07/10/2024 1:15 PM [facility] Creatinine 0.90 0.50 - 1.10 mg/dL LAB CHEMISTRY METHOD 07/10/2024 1:15 PM [facility] eGFR 74 >=60 mL/min/1. 73m2 LAB CHEMISTRY METHOD 07/10/2024 1:15 PM [facility] Comment:Calculation based on the Chronic Kidney Disease Epidemiology Collaboration (CKD-EPI) equation refit without adjustment for race. BUN/Creatinine Ratio 11.1 LAB CHEMISTRY METHOD 07/10/2024 1:15 PM [facility] Calcium 9.1 8.5 - 10.5 mg/dL LAB CHEMISTRY METHOD 07/10/2024 1:15 PM EDT [facility] AST (SGOT) 21 10 - 42 unit/L LAB CHEMISTRY METHOD 07/10/2024 1:15 PM EDT [facility] ALT (SGPT) 28 10 - 60 unit/L LAB CHEMISTRY METHOD 07/10/2024 1:15 PM EDT [facility] Alkaline Phosphatase 109 42 - 121 unit/L LAB CHEMISTRY METHOD 07/10/2024 1:15 PM EDT [facility] Total Protein 7.5 6.0 - 8.0 g/dL LAB CHEMISTRY METHOD 07/10/2024 1:15 PM EDT [facility] Albumin 3.8 3.2 - 5.0 g/dL LAB CHEMISTRY METHOD 07/10/2024 1:15 PM EDT [facility] Total Bilirubin 0.6 0.0 - 1.4 mg/dL LAB CHEMISTRY METHOD 07/10/2024 1:15 PM EDT [facility] Blood Venous blood specimen / Unknown Venipuncture / Unknown 07/10/2024 10:06 AM EDT 07/10/2024 10:06 AM EDT us Sussy Merida MA[employer]CE[employer] LAB BLOOD ORDERABLES Final R esult [facility] [address] [place] [address], * XR Lumbar Spine 4+ Views (06/30/2024 4:01 PM EDT) Anatomical Region Laterality Modality Spine, L-spine Radiographic Sally ging 07/01/2024 11:3 1 AM EDT Impressions 07/01/2024 11:37 AM EDT Transitional anatomy. Degenerative changes which are more prominent in the lower spine. Grade 1 spondylolisthesis at L4-5. POS - [id number] -------- FINAL REPORT -------- Dictated By: Juany Dorantes Dictated Date: 07/01/2024 11:31 ET Assigned Physician: Juany Dorantes Reviewed and Electronically Signed By: Juany Dorantes Signed Date: 07/01/2024 11:37 ET Workstation ID: [id number] Transcribed By: Self Edit Transcribed Date: 07/01/2024 11:31 ET Narrative 07/01/2024 11:37 AM EDT EXAM: Lumbar spine x-ray HISTORY: Acute right low back pain with right sciatica. COMPARISON: 09/09/2019, correlation with lumbar spine MRI 11/19/2019 FINDINGS: 4 views of the lumbar spine were performed. Assuming hypoplastic ribs at T12, 4 lumbar type vertebral bodies and a transitional L5 element. Vertebral body heights are maintained. Mild disc space narrowing at L4-5. Multilevel endplate spurring. No evidence of spondylolysis. Facet arthropathy at L3-4 and L4-5. Grade 1 anterolisthesis of L4 on L5. Procedure [...] Grade 1 spondylolisthesis at L4-5. POS - [id number] -------- FINAL REPORT -------- Dictated By: Juany Dorantes Dictated Date: 07/01/2024 11:31 ET Assigned Physician: Juany Dorantes Reviewed and Electronically Signed By: Juany Dorantes Signed Date: 07/01/2024 11:37 ET Workstation ID: [id number] Transcribed By: Self Edit Transcribed Date: 07/01/2024 11:31 ET Sussy Merida MASTER [employer]CE[employer] YACHT IMG XR PROCEDURES Final Resu lt * [...] Signed Date: 06/20/2024 16:18 ET Workstation ID: [id number] Transcribed By: Self Edit Transcribed Date: 06/18/2024 10:04 ET Resident/PA/MASTER OCEAN YACHT: Marialuisa Tabares Narrative 06/20/2024 4:18 PM EDT FINDINGS: Double contrast esophagram performed. COMPARISON: No prior esophagram imaging HISTORY: Patient is a 58-year-old female with history of choking sensation, dysphagia. Die Finisher radiographs: 1 view chest radiograph demonstrates cardiac [...] 58-year-old female with history of chokingsensation, dysphagia. Die Finisher radiographs: 1 view chest radiograph demonstrates cardiac [...] Signed Date: 06/20/2024 16:18 ET Workstation ID: [id number] Transcribed By: Self Edit Transcribed Date: 06/18/2024 10:04 ET Resident/PA/MASTER OCEAN YACHT: Marialuisa Tabares Venancio BAKER IMG FLUOROSCOPY PROCEDURES [...] interpreted with the aid of computer-aided detection. Comparison is made with 10/07/2022 and as far back as 11/03/2019. Breast parenchyma is composed of scattered fibroglandular densities. No new suspicious mass, architectural distortion, or suspicious calcifications. Impression: No mammographic evidence of malignancy. BI-RADS 1 - negative [address] [id number] Procedure Note Juany Dorantes MD - 12/18/2023 [...] evidence of malignancy. BI-RADS 1 - negative [address] [phone] Micah Rosado MD IMG XR PROCEDURES Final Result * Cervical Cancer Screening: HPV (11/16/2022) Cervical Cancer Screening: HPV No Interpretation , Abstracted Historical Provider HEALTH MAINTENANCE Final Result * Depression Screening (10/10/2022) Depression Screening Abstracted Historical Provider HEALTH MAINTENANCE Final Result * Colonoscopy (11/03/2014) Colonoscopy No Interpretation , Abstracted Anatomical Region Laterality Modality Other Historical Provider HEALTH MAINTENANCE Final Result * HIV Screening (09/03/2006) Pathologist [facility] HIV Screening Abstracted Historical Provider HEALTH MAINTENANCE Final Result * Hepatitis C Screening (07/19/2005) Hepatitis C Screening Abstracted Historical Provider HEALTH MAINTENANCE Final Result from Last 3 Months or Most Recently Relevant to Health Maintenance Insurance MEDICAID - [place] [employer] MEDICARE Care Teams Clinician Oncology Relationship Specialty Start Date End Date Micah Rosado MD [address] [place] [id number] [facility] - General 06/02/10
== END 2024-08-09 08:55 | disposition home or self-care (01) ==
LOC: HO.CT 08:54
PROVIDERS: PCP Internal Medicine; Visit Provider Physician Assistant Surgical
DX: Z96.651 Presence of right artificial knee joint (principal)
CPT/HCPCS: 73700

== ENCOUNTER → 2024-08-09 09:02 | Outpatient (BNV) | payer MEDICARE, MEDICAID, SELFPAY | PROVIDERS: PCP Internal Medicine; Visit Provider Radiology Diagnostic Radiology | DX: M25.461 Effusion, right knee (principal) | CPT/HCPCS: 73700 ==

== ENCOUNTER 2024-08-14 07:53 | Outpatient (AMB) | payer MEDICARE, MEDICAID, SELFPAY ==
--- OUTSIDE RECORDS SUMMARY | 2024-08-14 07:56 | XMS_ITS | Clinical Summary ---
Author Organization [facility] [address] [facility] Address [address] [place] [address] Phone Care Team Providers Care Drum Sander Offbearer Name Role Phone Micah Rosado MD Primary Care Provider [phone] Allergies Active Allergy Reactions Criticality Noted Date [...] 1 (one) time each day. Prescribed by Compound Specialist 024 Active folic acid (FOLVITE) 1 mg tablet Take 1 tablet (1 mg total) by mouth 1 (one) time each day. Prescribed by [facility] Active methotrexate 2.5 mg tablet Take 1 tablet (2.5 mg total) by mouth 1 (one) time per week Prescribed By St[facility], Dr. Gresham Active multivit-calciminer als/folic acid (ONE-A-DAY WOMEN'S 50 PLUS ORAL) Take 1 tablet by mouth 1 (one) time each day. Patient Buy OTC Active triamcinolone (NASACORT) 55 mcg nasal inhaler Administer 2 sprays into each nostril 1 (one) time each day. Prescribed by Compound Specialist Active albuterol HFA (PROAIR HFA ; PROVENTIL HFA ; VENTOLIN HFA) 90 mcg/actuation inhaler Inhale 2 puffs by mouth every 4 (four) hours if needed for wheezing or shortness of breath. Proscribe by Compound Specialist Active acetaminophen (TYLENOL 8 HOUR) 650 mg [...] 2 (two) times a day. Prescribed by [facility] Active nitrofurantoin , macrocrystal-m onohydrate, (MACROBID) 100 mg capsule Take 1 capsule (100 mg total) by mouth 2 (two) times a day. Every 12 hours from [facility] 025 2024 Discontinued famotidine (PEPCID) 20 mg [...] ANITA (obstructive sleep apnea) 08/10/2014 Overview (11/21/2023): [facility] Home Polysomnogram: Date 06/30/2018; Wt 189#; BMI 37; CHINMAY 15, AI 6; HI 9; Unclassified apneas 1; Obstructive apneas 45; Central apneas 6; Mixed apneas 0; hypopneas 75; average oxygen saturation 93% (lowest 82% with saturations <88% for 5% or more of study) [facility] Polysomnogram treatment study. Date 07/15/2018. Wt 189#; BMI 37; SE 88 % SM 90 %; spent 22 % of the study in REM. On CPAP @ 15; RDI 3.7 (AHI 3.7), Central apneas 12; Obstructive apneas 3; Mixed apneas 0; hypopneas 0; RERAs 0; and, average oxygen saturation was 96%. For the entire study, PLMs ~36. [facility] Sleep Center Polysomnogram: Date 07/21/2020; Wt 172#; [...] steroid, started 06/25 Seropositive rheumatoid arth ritis ([facility] V24, [facility] V28) 01/16/2005 Overview (11/21/2023): Symptoms in childhood. Recurrence in 2004: RF POS, CCP NEG; equivocal response to hydroxychloroquine, DC due to muscle weakness On methotrexate started 2005. Humira added 02/03 Last Assessment & Plan: Lab work due in July and September Encounters Date Type Department Care Team Description 08/05/2024 3:00 PM EDT Office Visit [address] [phone] Sussy Merida NP Episode of shaking (Primary Dx); Urinary tract infection without hematuria, site unspecified; Streptococcus infection, group B; Encounter for examination following treatment at hospital 07/01/[address] [phone] Micah Rosado MD prior auth for medication 06/30/2024 3:55 PM EDT - 06/30/2024 11:59 PM EDT Hospital Encounter [address] [phone] Acute right-sided low back pain with right-sided sciatica Discharge Disposition: Home or Self Care 06/30/2024 3:30 PM EDT Office Visit [address] [phone] Sussy Merida NP Acute right-sided low back pain with right-sided sciatica (Primary Dx); Class 2 severe obesity due to excess calories with serious comorbidity and body mass index (BMI) of 36.0 to 36.9 in adult (CMS/HCC V24, CMS/HCC V28); Encounter for screening for cardiovascular disorders 06/27/[address] [phone] Micah Rosado MD Back Pain; Foot Swelling 06/24/2024 Telephone Gastroenterology - [address] [facility] [address] [phone] [place] Results 06/18/2024 6:32 AM EDT - 06/18/2024 11:59 PM EDT Hospital Encounter [facility] Xray [address] [place] [address] Choking due to food in [...] 8:30 AM EDT Office Visit Adult Medicine [place] [facility] [place] [address] [place], [place] [phone] Sussy Merida NP [address] [place], [place] 11/29/2024 9:00 AM EDT Appointment Radiology Department - [address] [phone] Health Maintenance Due Date Last Done Comments [...] (BMI) of 36.0 to 36.9 in adult ([facility] V24, [facility] V28) CBC AND DIFFERENTIAL Routine 07/10/2024 10:06 AM EDT Acute right-sided low back pain with right-sided sciatica Encounter for screening for cardiovascular disorders Class 2 severe obesity due to excess calories with serious comorbidity and body mass index (BMI) of 36.0 to 36.9 in adult ([facility] V24, [facility] V28) VITAMIN B12 Routine 07/10/2024 10:06 AM EDT Acute right-sided low back pain with right-sided sciatica Encounter for screening for cardiovascular disorders Class 2 severe obesity due to excess calories with serious comorbidity and body mass index (BMI) of 36.0 to 36.9 in adult ([facility] V24, [facility] V28) COMPREHENSIVE METABOLIC PANEL Routine 07/10/2024 10:06 AM EDT Acute right-sided low back pain with right-sided sciatica Encounter for screening for cardiovascular disorders Class 2 severe obesity due to excess calories with serious comorbidity and body mass index (BMI) of 36.0 to 36.9 in adult ([facility] V24, [facility] V28) XR LUMBAR SPINE 4+ VIEWS Routine [...] Modality Computed Tomogra phy us Provider [facility] IM [facility] PROCEDURES Final Result * (ABNORMAL) Lipid panel with reflex to direct LDL (07/10/2024 10:06 AM EDT) Cholesterol 256(H) 0 - 200 mg/dL LAB CHEMISTRY METHOD [facility]/10[facility]2024 1:[facility] Triglycerides 236(H) 0 - 150 mg/dL LAB CHEMISTRY METHOD 07/10/2024 1:15 PM [facility] HDL 54 >=40 mg/dL LAB CHEMISTRY METHOD 07/10/2024 1:15 PM [facility] LDL Calculated 155(H) 0 - 100 mg/dL LAB CHEMISTRY METHOD 07/10/2024 1:15 PM [facility] VLDL Cholesterol Parrish 47.2 mg/dL LAB CHEMISTRY METHOD 07/10/2024 1:15 PM [facility] Non HDL Chol. (LDL+VLDL) 202(H) <145 mg/dL LAB CHEMISTRY METHOD 07/10/2024 1:15 PM [facility] Chol/HDL Ratio 4.7(H) 0.0 - 4.4 LAB CHEMISTRY METHOD 07/10/2024 1:15 PM [facility] Blood Venous blood specimen / Unknown Venipuncture / Unknown 07/10/2024 10:06 AM EDT 07/10/2024 10:06 AM EDT us Sussy Merida REACTOR OPERATOR LAB BLOOD ORDERABLES Final R esult [facility] [address] [place] [address], [place] [phone] * (ABNORMAL) CBC auto differential (07/10/2024 10:06 AM EDT) WBC 7.1 4.8 - 10.8 K/mcL LAB HEMETOLOGY METHOD 07/10/2024 12:16 PM EDT [facility] RBC 5.00(H) 3.80 - 4.80 M/mcL LAB HEMETOLOGY METHOD 07/10/2024 12:16 PM EDT [facility] Hemoglobin 15.6 11.5 - 16.0 g/dL LAB HEMETOLOGY METHOD 07/10/2024 12:16 PM EDT [facility] Hematocrit 45.3 35.0 - 47.0 % LAB HEMETOLOGY METHOD 07/10/2024 12:16 PM EDT [facility] MCV 90.4 79.0 - 98.0 FL LAB HEMETOLOGY METHOD 07/10/2024 12:16 PM EDT [facility] MCH 31.1 27.0 - 32.0 pcg LAB HEMETOLOGY METHOD 07/10/2024 12:16 PM EDT [facility] MCHC 34.4 32.0 - 37.0 g/dL LAB HEMETOLOGY METHOD 07/10/2024 12:16 PM EDT [facility] RDW 13.4 11.0 - 15.0 % LAB HEMETOLOGY METHOD 07/10/2024 12:16 PM EDT [facility] Platelets 258 130 - 400 K/mcL LAB HEMETOLOGY METHOD 07/10/2024 12:16 PM EDT [facility] MPV 10.2 7.0 - 11.0 FL LAB HEMETOLOGY METHOD 07/10/2024 12:16 PM EDT [facility] NRBC 0.0 <1.0 % LAB HEMETOLOGY METHOD 07/10/2024 12:16 PM [facility] NRBC Absolute 0.00 <0.10 K/mcL LAB HEMETOLOGY METHOD 07/10/2024 12:16 PM [facility] Neutrophils Relative 69.0 % LAB HEMETOLOGY METHOD 07/10/2024 12:16 PM [facility] Lymphocytes Relative 19.5 % LAB HEMETOLOGY METHOD 07/10/2024 12:16 PM [facility] Monocytes Relative 7.3 % LAB HEMETOLOGY METHOD 07/10/2024 12:16 PM [facility] Eosinophils Relative 3.1 % LAB HEMETOLOGY METHOD 07/10/2024 12:16 PM [facility] Basophils Relative 0.8 % LAB HEMETOLOGY METHOD 07/10/2024 12:16 PM [facility] Immature Granulocytes Relative 0.3 % LAB HEMETOLOGY METHOD 07/10/2024 12:16 PM [facility] Neutrophils Absolute 4.92 1.50 - 7.00 K/mcL LAB HEMETOLOGY METHOD 07/10/2024 12:16 PM EDT [facility] Lymphocytes Absolute 1.39 1.00 - 5.00 K/mcL LAB HEMETOLOGY METHOD 07/10/2024 12:16 PM [facility] Monocytes Absolute 0.52 0.20 - 1.00 K/mcL LAB HEMETOLOGY METHOD 07/10/2024 12:16 PM [facility] Eosinophils Absolute 0.22 0.00 - 0.50 K/mcL LAB HEMETOLOGY METHOD 07/10/2024 12:16 PM EDT [facility] Basophils Absolute 0.06 0.00 - 0.20 K/mcL LAB HEMETOLOGY METHOD 07/10/2024 12:16 PM EDT [facility] Immature Granulocytes Absolute 0.02 0.00 - 0.03 K/[facility] LAB HEMETOLOGY METHOD 07/10/2024 12:16 PM EDT [facility] Blood Venous blood specimen / Unknown Venipuncture / Unknown 07/10/2024 10:06 AM EDT 07/10/2024 10:06 AM EDT Sussy Merida REACTOR OPERATOR LAB BLOOD ORDERABLES Final R esult Performing Organization Address City/Va Hospital/ZIP Co de Phone Number [facility] [address] [place] [address], [place] [phone] * Lipase (07/10/2024 10:06 AM EDT) Lipase 25 13 - 75 unit/L LAB CHEMISTRY METHOD 07/10/2024 12:48 PM EDT [facility] Blood Venous blood specimen / Unknown Venipuncture / Unknown 07/10/2024 10:06 AM EDT 07/10/2024 10:06 AM EDT Sussy Merida REACTOR OPERATOR LAB BLOOD ORDERABLES Final R esult [facility] [address] [place] [address], [place] [phone] * Vitamin B12 (07/10/2024 10:06 AM EDT) Vitamin B-12 589 250 - 900 pcg/mL LAB CHEMISTRY METHOD 07/10/2024 1:15 PM EDT [facility] Blood Venous blood specimen / Unknown Venipuncture / Unknown 07/10/2024 10:06 AM EDT 07/10/2024 10:06 AM EDT us Sussy Merida REACTOR OPERATOR LAB BLOOD ORDERABLES Final R esult [facility] [address] [place] [address], [place] [phone] * Comprehensive metabolic panel (07/10/2024 10:06 AM EDT) Sodium 139 133 - 145 mmol/L LAB CHEMISTRY METHOD 07/10/2024 1:15 PM EDT [facility] Potassium 4.5 3.5 - 5.5 mmol/L LAB CHEMISTRY METHOD 07/10/2024 1:15 PM [facility] Chloride 104 96 - 110 mmol/L LAB CHEMISTRY METHOD 07/10/2024 1:15 PM [facility] CO2 27 21 - 32 mmol/L LAB CHEMISTRY METHOD 07/10/2024 1:15 PM [facility] Anion Gap 8 3 - 11 LAB CHEMISTRY METHOD 07/10/2024 1:15 PM [facility] Glucose 93 70 - 100 mg/dL LAB CHEMISTRY METHOD 07/10/2024 1:15 PM [facility] BUN 10 5 - 25 mg/dL LAB CHEMISTRY METHOD 07/10/2024 1:15 PM [facility] Creatinine 0.90 0.50 - 1.10 mg/dL LAB CHEMISTRY METHOD 07/10/2024 1:15 PM [facility] eGFR 74 >=60 mL/min/1. 73m2 LAB CHEMISTRY METHOD 07/10/2024 1:15 PM [facility] Comment:Calculation based on the Chronic Kidney Disease Epidemiology Collaboration (CKD-EPI) equation refit without adjustment for race. BUN/Creatinine Ratio 11.1 LAB CHEMISTRY METHOD 07/10/2024 1:15 PM [facility] Calcium 9.1 8.5 - 10.5 mg/dL LAB CHEMISTRY METHOD 07/10/2024 1:15 PM EDT [facility] AST (SGOT) 21 10 - 42 unit/L LAB CHEMISTRY METHOD 07/10/2024 1:15 PM EDT [facility] ALT (SGPT) 28 10 - 60 unit/L LAB CHEMISTRY METHOD 07/10/2024 1:15 PM EDT [facility] Alkaline Phosphatase 109 42 - 121 unit/L LAB CHEMISTRY METHOD 07/10/2024 1:15 PM EDT [facility] Total Protein 7.5 6.0 - 8.0 g/dL LAB CHEMISTRY METHOD 07/10/2024 1:15 PM EDT [facility] Albumin 3.8 3.2 - 5.0 g/dL LAB CHEMISTRY METHOD 07/10/2024 1:15 PM EDT [facility] Total Bilirubin 0.6 0.0 - 1.4 mg/dL LAB CHEMISTRY METHOD 07/10/2024 1:15 PM EDT [facility] Blood Venous blood specimen / Unknown Venipuncture / Unknown 07/10/2024 10:06 AM EDT 07/10/2024 10:06 AM EDT us Sussy Merida REACTOR OPERATOR LAB BLOOD ORDERABLES Final R esult [facility] [address] [place] [address], * XR Lumbar Spine 4+ Views (06/30/2024 4:01 PM EDT) Anatomical Region Laterality Modality Spine, L-spine Radiographic Sally ging 07/01/2024 11:3 1 AM EDT Impressions 07/01/2024 11:37 AM EDT Transitional anatomy. Degenerative changes which are more prominent in the lower spine. Grade 1 spondylolisthesis at L4-5. POS - [id number] -------- FINAL REPORT -------- Dictated By: Juany Dorantes Dictated Date: 07/01/2024 11:31 ET Assigned Physician: Juany Dorantes Reviewed and Electronically Signed By: Juany Dorantes Signed Date: 07/01/2024 11:37 ET Workstation ID: [id number] Transcribed By: Self Edit Transcribed Date: 07/01/2024 [...] Grade 1 spondylolisthesis at L4-5. POS - [id number] -------- FINAL REPORT -------- Dictated By: Juany Dorantes Dictated Date: 07/01/2024 11:31 ET Assigned Physician: Juany Dorantes Reviewed and Electronically Signed By: Juany Dorantes Signed Date: 07/01/2024 11:37 ET Workstation ID: [id number] Transcribed By: Self Edit Transcribed Date: 07/01/2024 11:31 ET Sussy Merida REACTOR OPERATOR IMG XR PROCEDURES Final Resu lt * [...] Signed Date: 06/20/2024 16:18 ET Workstation ID: [id number] Transcribed By: Self Edit Transcribed Date: 06/18/2024 10:04 ET Resident/PA/REACTOR OPERATOR: Marialuisa Tabares Narrative 06/20/2024 4:18 PM EDT FINDINGS: Double contrast esophagram performed. COMPARISON: No prior esophagram imaging HISTORY: Patient is a 58-year-old female with history of choking sensation, dysphagia. Firmware Manager radiographs: 1 view chest radiograph demonstrates cardiac [...] 58-year-old female with history of chokingsensation, dysphagia. Firmware Manager radiographs: 1 view chest radiograph demonstrates cardiac [...] Signed Date: 06/20/2024 16:18 ET Workstation ID: [id number] Transcribed By: Self Edit Transcribed Date: 06/18/2024 10:04 ET Resident/PA/REACTOR OPERATOR: Marialuisa Tabares Venancio BAKER IMG FLUOROSCOPY PROCEDURES [...] evidence of malignancy. BI-RADS 1 - negative [address] [id number] Procedure Note Juany Dorantes MD - 12/18/2023 [...] evidence of malignancy. BI-RADS 1 - negative [address] [phone] Micah Rosado MD IMG XR PROCEDURES Final [...] Final Result * HIV Screening (09/03/2006) Pathologist [facility] HIV Screening Abstracted Historical Provider HEALTH MAINTENANCE Final Result * Hepatitis C Screening (07/19/2005) Hepatitis C Screening Abstracted Historical Provider HEALTH MAINTENANCE Final Result from Last 3 Months or Most Recently Relevant to Health Maintenance Insurance MEDICAID - [place] [employer] MEDICARE Care Teams Drum Sander Offbearer Relationship Specialty Start Date End Date Micah Rosado MD [address] [place] [id number] [facility] - General 06/02/10
[2024-08-14 08:06] VITALS: BP 138/86; BMI 35.0
--- NOTE | 2024-08-14 08:06 | MHC.OFFVIS ---
Vital Signs 08/14/24 08:06 Height 5 ft Weight 179 lb BMI 35.0 BP 138/86 Blood Pressure Location Rt brachial Position Sitting Intake Visit Reasons: [id number] Intake Note: referred from ED for seizure like activity Allergies naproxen (From Naprosyn) Allergy (Severe, Verified 08/14/24 08:08) Anaphylaxis hydrocodone (From Vicodin) Allergy (Mild, Verified 08/14/24 08:08) Anaphylaxis penicillin V Allergy (Mild, Verified 08/14/24 08:08) Hives ibuprofen Allergy (Verified 08/14/24 08:08) Stomach Upset Medication List - Last Reconciled 08/14/24 by Lori Bland MD albuterol sulfate 90 mcg/actuation 2 puffs inhalation Q4H PRN blood pressure monitor As directed citalopram 20 mg PO QAM cyclobenzaprine 10 mg PO TID PRN doxycycline hyclate 100 mg PO BID fluticasone propionate 220 mcg/actuation (Flovent HFA) 1 puff inhalation BID fluticasone propionate 50 mcg/actuation 2 sprays intranasal DAILY PRN folic acid 1 mg PO QAM gabapentin 300 mg PO TID levothyroxine 100 mcg PO DAILY methocarbamol 500 mg PO BEDTIME PRN methotrexate sodium 20 mg PO QWEEK nystatin 1 appl topical TID 2 weeks omeprazole 20 mg PO QAM prednisone 40 mg (2 x 20 mg) PO DAILY simvastatin 20 mg PO BEDTIME HPI Comments Details: This is a 58 yo female with hypothyroidism, rheumatoid arthritis on MTX, HLD, fibromyalgia comes for evaluation of 2 epsiodes of abnormal movements during sleep. she presented to ER on July 21 with concerns for ?seizure like activity . Reported that she woke up at 9 pm ( fell asleep at 8PM) felt hot and cold and was shaking all over and thought she bit her tongue. she was fully awake and aware.No urinary incontinence . the whole episode lasted 10 minutes and she felt fine after that but was scared.she had another episode the next night No headache, did not feel confused after, felt a pain in the back of her head. In ER her exam was normal and she was AA OX3. she has h/o sleep apnea but does not use CPAP now 9 says she lost a part of the equipment.Her CPAP is over 5 years old - she stopped using last year.she has loud snoring , frequent arousals , excessive daytime sleepiness. No h/o head injury [facility] Medical History Neck pain Obstructive sleep apnea Hypersomnia Snoring Abnormal involuntary movements Hypothyroidism Arthritis Spondylolisthesis, grade 1 Surgical History H/O tubal ligation Social History Alcohol intake: never Physical Exam Vital Signs: Last Vital Signs BP 138/86 08/14/24 08:06 BMI result Body Mass Index 35.0 Const General: cooperative and comfortable Nutritional Appearance: obese Orientation/consciousness: patient oriented x3 Eyes Pupils: Equal, round and reactive pupils present Neuro Other: restricted range of motion neck congested mallampatti grade 4 Decreased blink an dfacial expression General: patient oriented x3, gait normal, tone normal, moves all extremities and no focal motor deficits Cranial nerves: Yes Facial sensation intact/muscles of mastication intact, Yes Equal, round and reactive pupils present, Yes Bilaterally intact EOM present, Yes Nystagmus not present, Yes Normal facial strength present, Yes Midline tongue present, Yes Symmetric palate elevation present and Yes Ability to bilaterally elevate shoulders present Cognition (Neuro): normal cognition Gait exam (Neuro): Normal gait present Motor exam (neuro): 5/5 motor strength present throughout and Normal motor muscle tone present throughout Deep tendon reflexes (DTR's): Right triceps reflex intensity grade: 3+, Left triceps reflex intensity grade: 3+, Rt Biceps (C5, C6): 3+, Left biceps reflex intensity grade: 3+, Right brachioradialis reflex intensity grade: 3+, Left brachioradialis reflex intensity grade: 3+, Right patellar reflex intensity grade: 3+ and Left patellar reflex intensity grade: 3+ Coordination: [id number] test normal Assessment & Plan Assessment & Plan (1) Abnormal involuntary movements: Comment: 2 epsiodes of waking up with abnormla shaking in sleep- unlikely to be seizures as the patient reports being fully awake with no post event confusion. The episodes are likley related to her untretaed sleep apnea Code(s): R25.9 - Unspecified abnormal involuntary movements Category: Medical (2) Obstructive sleep apnea: Comment: not on CPAP due to missing parts Code(s): G47.33 - Obstructive sleep apnea (adult) (pediatric) Category: Medical (3) Neck pain: Code(s): M54.2 - Cervicalgia Category: Medical Plan I will evaluate her with MRI brain - has some extrapyramidal signs EEG C spine X ray to evaluate neck pain tightness and hyperreflexia Home sleep test to reevaluate sleep apnea and restart treatment. Orders: Orders MR head/brain wo con Today R25.9 - Unspecified abnormal involuntary movements EEG electroencephalogram Today R25.9 - Unspecified abnormal involuntary movements RT home sleep study Today G47.10 - Hypersomnia, unspecified, G47.33 - Obstructive sleep apnea (adult) (pediatric), R06.83 - Snoring XR cervical spine 3V Today M54.2 - Cervicalgia Coding Level of Care Code New Pt Level 4 (19358) Complex EM visit Add On G2211 Diagnoses Abnormal involuntary movements R25.9 Obstructive sleep apnea G47.33 Neck pain M54.2
== END 2024-08-14 08:50 | disposition home or self-care (01) ==
LOC: HO.HSMS 07:53
PROVIDERS: PCP Internal Medicine; Visit Provider Psychiatry & Neurology Neurology
DX: R25.9 Unspecified abnormal involuntary movements (principal); G47.33 Obstructive sleep apnea (adult) (pediatric); M54.2 Cervicalgia
CPT/HCPCS: 99204; G2211

== ENCOUNTER → 2024-08-14 07:53 | Outpatient (BNVA) | payer MEDICARE, MEDICAID, SELFPAY | PROVIDERS: PCP Internal Medicine; Visit Provider Psychiatry & Neurology Neurology | DX: M54.2 Cervicalgia (principal); R25.9 Unspecified abnormal involuntary movements; G47.33 Obstructive sleep apnea (adult) (pediatric) | CPT/HCPCS: 99202 ==

== ENCOUNTER → 2024-08-18 15:55 | Outpatient (REF) | payer MEDICARE, MEDICAID, SELFPAY ==
--- OUTSIDE RECORDS SUMMARY | 2024-08-18 15:58 | XMS_ITS | Data Portability ---
Author Organization [place] - [facility], [facility] Address [address] [place] [address] Care Team Providers Care Associate Art Director Name Role Phone [facility] Prim darek Care Provider Assessment Encounter Date Assessment Date Assessment LastModified by Organization Details LastModified Time 11/16/2023 11/16/2023 Imaging: Imaging ordered, independently reviewed and interpreted by Jasen Layton MD reveals the following findings: XR Knee Right Knee: Three views of the knee were obtained including AP, sunrise, and lateral views. Status post total knee arthroplasty. No evidence of complication, well fixed, well aligned. There is no evidence of loosening or migration. There is no evidence of osteolysis. No fractures are present. Alignment: Neutral Impression: Status post right total knee arthroplasty, 6 weeks out Plan: The patient is doing well, continue activities as tolerated. I explained to her that it is always different second time around with a knee replacement and she should try not to compare her left knee to her right knee. She is still early on in the recovery process and I anticipate she will continue to improve as she continues to get her range of motion back with physical therapy. I will see her back in 6 weeks for a repeat clinical assessment [email or web address] Not available 11/16/2023 16:17:30 12/25/2023 12/25/2023 Imaging: Imaging ordered, independently reviewed and interpreted by Jasen Layton MD reveals the following findings: XR Knee Right Knee: Three views of the knee were obtained including AP, sunrise, and lateral views. Status post total knee arthroplasty. No evidence of complication, well fixed, well aligned. There is no evidence of loosening or migration. There is no evidence of osteolysis. No fractures are present. Alignment: Neutral Impression: Status post right total knee arthroplasty, 3 months out Plan: The patient is doing well, continue activities as tolerated. Follow up with repeat radiographs in 1 year, or sooner if problems arise. [email or web address] Not available 12/25/2023 09:19:44 Plan of Treatment Reminders Order Date Submit Date Provider Last Modified By Organization Details Last Modified Time Details Appointments RECHEC K 15 2024 10:00A M Aleksandra Calloway tte, PA-C Not available Not available Not available Lab None record ed. Referral None record ed. Procedures None record ed. Surgeries None record ed. Imaging XR, knee, 3 view - RM 306 3V RIGHT KNEE HX OF RTKR 2024 025 DIDI [facility], [address], [place], [address], 07/29/2024 09:15:15 CT, knee, w/o contra st - CT RIGHT KNEE W/O CONTRA ST EVAL FOR LOOSEN ING OF RTKR PT COMPLA INS OF LOCKIN G 2024 025 [email or web address] [place], [address], [address], [place], [address], 07/29/2024 10:07:03 XR, knee, 3 view - 201 RTKR 2nd po 2023 024 [facility], [address], [place], [address], 12/27/2023 16:56:57 XR, knee, 3 view - 201 3v RTKR 2nd po 2023 024 [email or web address] [facility], [address], [place], [address], 11/28/2023 15:30:01 XR, knee, 3 view - room 323 3V R TKR 2023 024 [email or web address] [facility], [address], [place], [address], 10/16/2023 11:58:45 Medication Orders cyclob enzapr ine 10 mg tablet 2024 025 [email or web address] [id number], [address] [place], [address], 07/29/2024 10:07:03 tramad ol 50 mg tablet 2023 024 [email or web address] [id number], [address] [place], [address], 07/29/2024 08:46:28 Patient TargetsNo targets recorded. Patient InstructionsNo instructions recorded. Reason for Referral None Reported. Results Created Date Observation Date Name Description Value Unit Range Abnormal Flag Note LastModifiedBy Organization Detail LastModifiedTime 02/08/20 24 02/09/2024 CBC WITH DIFFE RENTI AL/PL ATELE T WBC 5.8 x10e3 /uL 3.4-10 .8 normal Not Available [facility] ([facility]) [address] [place], [address], 02/09/2024 08:07:53 02/08/20 24 02/09/2024 CBC WITH DIFFE RENTI AL/PL ATELE T RBC 4.60 x10e6 /uL 3.77-5 .28 normal Not Available [facility] ([facility]) [address] [place], [address], 02/09/2024 08:07:53 02/08/20 24 02/09/2024 CBC WITH DIFFE RENTI AL/PL ATELE T hemoglobin 14.0 g/dL 11.1-1 5.9 normal Not Available [facility] ([facility]) [address] [place], [address], 02/09/2024 08:07:53 02/08/20 24 02/09/2024 CBC WITH DIFFE RENTI AL/PL ATELE T hematocrit 41.2 % 34.0-4 6.6 normal Not Available [facility] ([facility]) [address] [place], [address], 02/09/2024 08:07:53 02/08/20 24 02/09/2024 CBC WITH DIFFE RENTI AL/PL ATELE T MCV 90 fL 79-97 normal Not Available [facility] ([facility]) [address] [facility], [place], [address], 02/09/2024 08:07:53 02/08/20 24 02/09/2024 CBC WITH DIFFE RENTI AL/PL ATELE T MCH 30.4 pg 26.6-3 3.0 normal Not Available [facility] ([facility]) [address] [facility], [place], [address], 02/09/2024 08:07:53 02/08/20 24 02/09/2024 CBC WITH DIFFE RENTI AL/PL ATELE T MCHC 34.0 g/dL 31.5-3 5.7 normal Not Available [facility] ([facility]) [address] [facility], [place], [address], 02/09/2024 08:07:53 02/08/20 24 02/09/2024 CBC WITH DIFFE RENTI AL/PL ATELE T RDW 13.9 % 11.7-1 5.4 Not Available [facility] ([facility]) [address] [facility], [place], [address], 02/09/2024 08:07:53 02/08/20 24 02/09/2024 CBC WITH DIFFE RENTI AL/PL ATELE T platelets 260 x10e3 /uL 150-45 0 normal Not Available [facility] ([facility]) [address] [facility], [place], [address], 02/09/2024 08:07:53 02/08/20 24 02/09/2024 CBC WITH DIFFE RENTI AL/PL ATELE T neutrophils 65 % not estab. normal Not Available [facility] ([facility]) [address] [place], [address], 02/09/2024 08:07:53 02/08/20 24 02/09/2024 CBC WITH DIFFE RENTI AL/PL ATELE T lymphs 24 % not estab. normal Not Available [facility] ([facility]) [address] [facility], [place], [address], 02/09/2024 08:07:53 02/08/20 24 02/09/2024 CBC WITH DIFFE RENTI AL/PL ATELE T monocytes 6 % not estab. normal Not Available [facility] ([facility]) [address] [facility], [place], [address], 02/09/2024 08:07:53 02/08/20 24 02/09/2024 CBC WITH DIFFE RENTI AL/PL ATELE T eos 4 % not estab. normal Not Available [facility] ([facility]) [address] [facility], [place], [address], 02/09/2024 08:07:53 02/08/20 24 02/09/2024 CBC WITH DIFFE RENTI AL/PL ATELE T basos 1 % not estab. normal Not Available [facility] ([facility]) [address] [facility], [place], [address], 02/09/2024 08:07:53 02/08/20 24 02/09/2024 CBC WITH DIFFE RENTI AL/PL ATELE T immature cells SHELLS INSPECTOR Not Available [facility] ([facility]) [address] [place], [address], 02/09/2024 08:07:53 02/08/20 24 02/09/2024 CBC WITH DIFFE RENTI AL/PL ATELE T neutrophils (absolute) 3.8 x10e3 /uL 1.4-7. 0 normal Not Available [facility] ([facility]) [address] [place], [address], 02/09/2024 08:07:53 02/08/20 24 02/09/2024 CBC WITH DIFFE RENTI AL/PL ATELE T lymphs (absolute) 1.4 x10e3 /uL 0.7-3. 1 normal Not Available [facility] ([facility]) [address] [facility], [place], [address], 02/09/2024 08:07:53 02/08/20 24 02/09/2024 CBC WITH DIFFE RENTI AL/PL ATELE T monocytes(ab solute) 0.4 x10e3 /uL 0.1-0. 9 normal Not Available [facility] ([facility]) [address] [place], [address], 02/09/2024 08:07:53 02/08/20 24 02/09/2024 CBC WITH DIFFE RENTI AL/PL ATELE T eos (absolute) 0.2 x10e3 /uL 0.0-0. 4 normal Not Available [facility] ([facility]) [address] [place], [address], 02/09/2024 08:07:53 02/08/20 24 02/09/2024 CBC WITH DIFFE RENTI AL/PL ATELE T baso (absolute) 0.0 x10e3 /uL 0.0-0. 2 normal Not Available [facility] ([facility]) [address] [place], [address], 02/09/2024 08:07:53 02/08/20 24 02/09/2024 CBC WITH DIFFE RENTI AL/PL ATELE T immature granulocytes 0 % not estab. Not Available [facility] ([facility]) [address] [place], [address], 02/09/2024 08:07:53 02/08/20 24 02/09/2024 CBC WITH DIFFE RENTI AL/PL ATELE T immature grans (abs) 0.0 x10e3 /uL 0.0-0. 1 Not Available [facility] ([facility]) [address] [place], [address], 02/09/2024 08:07:53 02/08/20 24 02/09/2024 CBC WITH DIFFE RENTI AL/PL ATELE T NRBC SHELLS INSPECTOR Not Available [facility] ([facility]) [address] [facility], [place], [address], 02/09/2024 08:07:53 02/08/20 24 02/09/2024 CBC WITH DIFFE RENTI AL/PL ATELE T hematology comments: SHELLS INSPECTOR Not Available [facility] ([facility]) [address] [facility], [place], [address], 02/09/2024 08:07:53 02/08/20 24 02/09/2024 SEDIM ENTAT ION RATE- WESTE RGREN sedimentatio n rate-westerg joey 22 mm/HR 0-40 normal Not Available [facility] ([facility]) [address] [facility], [place], [address], 02/09/2024 08:07:54 02/08/20 24 02/09/2024 C-ALYSA CTIVE PROTE IN, QUANT C-reactive protein, quant 2 mg/L 0-10 normal Not Available [facility] ([facility]) [address] [facility], [place], [address], 02/09/2024 08:07:55 10/16/19 24 10/16/2023 XR, knee, 3 view [email or web address] ?Encry pted=s hAaTro YD8dLq bEUv6g %2BXZw aYqtaq 0bqfl% 2Fg9IQ a4ajBk vP9nXo QUaueC m3YtLR FvZlgJ JJ8mAn HZtai3 3w2192 AC0Krb n2DVar eUC8mr 84%3D INTERFACE [facility] [address] [facility] [address], [place], [address], 10/16/2023 09:47:33 10/16/19 24 10/16/2023 XR, knee, 3 view [email or web address] ?Encry pted=s hAaTro YD8dLq bEUv6g %2BXZw aYqtaq 0bqfl% 2Fg9IQ a4ajBk vP9nXo QUaueC m3YtLR FvZlgJ JJ8Kilmichael HZtai3 7x2074 AC0Krb n2DVar eUC8mr 84%3D INTERFACE [facility] [address], [place], [address], 10/16/2023 09:47:35 11/16/19 24 11/16/2023 XR, knee, 3 view [email or web address] ?Encry pted=s hAaTro YD8dLq bEUv6g %2BXZw aYqtaq 0bqfl% 2Fg9IQ a4ajBk vP9nXo QUaueC m3YtLR FvZl J8Kilmichael HZtai3 5c2750 AC0Kqa nSNWaG nKiQtr MwF INTERFACE [facility] [address], [place], [address], 11/16/2023 14:42:22 11/16/19 24 11/16/2023 XR, knee, 3 view [email or web address] ?Encry pted=s hAaTro YD8dLq bEUv6g %2BXZw aYqtaq 0bqfl% 2Fg9IQ a4ajBk vP9nXo QUaueC m3YtLR FvZlgJ JJ8mAn HZtai3 7w7824 AC0Kqa nSNWaG nKiQtr MwF INTERFACE [facility] [address], [place], [address], 11/16/2023 14:42:23 12/25/19 24 12/25/2023 XR, knee, 3 view [email or web address] ?Encry pted=s hAaTro YD8dLq bEUv6g %2BXZw aYqtaq 0bqfl% 2Fg9IQ a4ajBk vP9nXo QUaueC m3YtLR FvZlg[address] 3p8415 AC0Kqa HiAVaO lKiQtr MwF INTERFACE [facility] [address], [place], [address], 12/25/2023 08:20:16 12/25/19 24 12/25/2023 XR, knee, 3 view [email or web address] ?Encry pted=s hAaTro YD8dLq bEUv6g %2BXZw aYqtaq 0bqfl% 2Fg9IQ a4ajBk vP9nXo QUaueC m3YtLR [place] [address] 3g0674 AC0Kqa HiAVaO lKiQtr MwF INTERFACE [facility] [address] [facility] [address], [place], [address], 12/25/2023 08:20:18 07/30/19 25 07/29/2024 XR, knee, 3 view [email or web address] ?Encry pted=s hAaTro YD8dLq bEUv6g %2BXZw aYqtaq 0bqfl% 2Fg9IQ a4ajBk vP9nXo QUaueC m3YtLR [place] [address] 0v4120 AC0Kla H%2BFV aClKiQ trMwF INTERFACE [facility] [address], [place], [address], 07/29/2024 09:15:16 07/30/19 25 07/29/2024 XR, knee, 3 view [email or web address] ?Encry pted=s hAaTro YD8dLq bEUv6g %2BXZw aYqtaq 0bqfl% 2Fg9IQ a4ajBk vP9nXo QUaueC m3YtLR FvZlgJ JJ8mAn HZtai3 5c3528 AC0Kla H%2BFV aClKiQ trMwF INTERFACE [facility] [address] [facility] [address], [place], [address], 07/29/2024 09:15:18 Result Notes Documentation Provider Name and Address Organization Details Recorded Time Xr, Knee, 3 View : [email or web address] Encrypted=epGeZatOR0eVtlV Uv6g%3WAVhkQeihq2kvei%2Fg 0APs4deEcbD7cXwGSjnjMo7Mo RMDnHwuDBV3jCnLTste60t125 1DZ2Geuf5SNbtbRK6th56%3D Not Available [facility] 10/16/2023 09:4 7:34 Xr, Knee, 3 View : [email or web address] Encrypted=tvTeHwuVR5nSmdK Uv6g%2LXJmiWgjva2xehb%2Fg 7IQu5ebNplM5sXjGHvslMn6Sd SNIkMckENR8qLuSVjxf39r394 4RY4Sybz9NGiggIN7hm00%3D Not Available [facility] 10/16/2023 09:4 7:36 Xr, Knee, 3 View : [email or web address] Encrypted=epUoXexLU6qEqlT Uv6g%3PWVxvYburi0hjtr%2Fg 0EBt7bqRdzM7yGdEUbttPb3Np CVAsBbhDKM9sDoPFmsz28p007 0BQ0WuxyIYPcCgZzSapDyP Not Available [facility] 11/16/2023 14:42: 22 Xr, Knee, 3 View : [email or web address] Encrypted=qbKqZmfUN5tUvuK Uv6g%5TVVscIbbse9tyit%2Fg 7BJy0nlToyO4wEzLNztsOn2Ln LEUxIvhTPF7lTbLEzet71i377 5RO4NmcvFJMcIhWjIitUfX Not Available [facility] 11/16/2023 14:42: 24 Xr, Knee, 3 View : [email or web address] Encrypted=niOjHkhUU9aBffL Uv6g%7WSZxkRugsk2oyys%2Fg 3ZLq6kaOlhL1uXdQTqjpUy2Rh BGEqTdzLXO4qJoSCyth63i029 2FR0MzmNnWFhJmYpXyiIxS Not Available [facility] 12/25/2023 08:20: 17 Xr, Knee, 3 View : [email or web address] Encrypted=bzOhCleND6eGxhU Uv6g%0BUJrrKuxnw9jdbx%2Fg 2MQq5gnVliZ7sZzIBajvHh8St KICaPiyEAI2vGeMFclx48w839 0NV2FidUpDNkLtLxEphSgT Not Available [facility] 12/25/2023 08:20: 19 Xr, Knee, 3 View : [email or web address] Encrypted=siRdIqeYS0xMqxY Uv6g%4ABTdkZyrhn9jwur%2Fg 3YHi7qtVgwJ1cEoAAfitRs5Io DWIrBrxHAV3zJaCJkhe10x408 3VO8HbaD%2BFVaClKiQtrMwF Not Available [facility] 07/29/2024 09:1 5:17 Xr, Knee, 3 View : [email or web address] Encrypted=daBhMojJB5dIgtP Uv6g%1FWMhjIlbgg4sewk%2Fg 4JJk8qlBakN8lKoWXxsaRv1Uz TRDlEazGYU4lRiRKbeu92f518 1UZ7FajU%2BFVaClKiQtrMwF Not Available [facility] 07/29/2024 09:1 5:19 Problems Name Problem SNOMED Code Status Onset Date Resolution Date Notes Provider Name and Address Organization Details Recorded Time Pain of right knee joint 1469633452913 00 Active 2023 JESSY PERALESJanine sanders [facility] 4 14:07:35 Osteoarthr itis of right knee joint 2913347188340 00 Active 2023 Jasen Layton MD [address], [place], [address] , [facility] 4 09:29:46 History of right total knee replacemen t 6572870302602 102 Active 2023 Jasen Layton MD [address], [place], [address] , [facility] 4 09:19:22 Notes:Some problems listed i n Documents: #[id number], #[id number], #[id number], #[id number] could not be added to this patient's chart. Please review these documents and add these problems to the patient's chart manually as needed. Problem Notes None recorded. Medical Equipment None Reported. Allergies Allergen ID Allergen Name Allergen Category Reaction Reaction Severity Criticality Documentation Date Start Date Code Code System Note Provider Name and Address Organization Details Recorded Time 332901 acetamino phen / hydrocodo ne medicatio n Not available Not available Not available 10/11/2023 80016 2 RxNorm egypt mitchellleroy sanders [facility] 4 11:25:21 63163 Aleve medicatio n Not available Not available Not available 04/23/20232022 22901 1 RxNorm Not Available [facility] 4 12:57:58 02509 Naprosyn medicatio n Not available Not available Not available 04/23/20232022 92025 2 RxNorm Not Available [facility] 4 12:57:58 94983 ibuprofen medicatio n Not available Not available Not available 04/23/20232022 5640 RxNorm Not Available [facility] 12:57:59 27378 Substance with sulfonami de structure and antibacte rial mechanism of action (substanc e) medicatio n Not available Not available Not available 04/23/20232022 47479 8003 SNOMED Not Available [facility] 12:57:59 Medications Name Sig Start Date Stop Date Status Note LastModified by Organization Details LastModified Time cyclobenzap rine 10 mg tablet TAKE 1 TABLET 3 TIMES A DAY BY ORAL ROUTE. active Not Available Not Available No t Available methocarbam ol 500 mg tablet TAKE ONE TABLET BY MOUTH DAILY AT BEDTIME NEEDED FOR BACK PAIN (VIAL) 07/29 completed Not Available Not Available Not Available doxycycline hyclate 100 mg capsule TAKE 1 CAPSULE BY MOUTH TWICE A DAY active Not Available Not Available No t Available atorvastati n 20 mg tablet TAKE ONE TABLET (20 MG TOTAL) BY MOUTH ONCE DAILY active Not Available Not Available No t Available cetirizine 10 mg tablet TAKE ONE TABLET (10 MG TOTAL) BY MOUTH ONCE DAILY active Not Available Not Available No t Available hydrocodone 5 mg-acetamin ophen 325 mg tablet active Not Available Not Available No t Available ondansetron HCl 4 mg tablet TAKE 1 TABLET BY MOUTH THREE TIMES A DAY DIRECTED FOR 7 DAYS 07/29 completed Not Available Not Available Not Available prednisone 20 mg tablet TAKE 2 TABLETS BY MOUTH DAILY active Not Available Not Available No t Available prednisone 5 mg tablet PLEASE SEE ATTACHED FOR DETAILED DIRECTION S active Not Available Not Available No t Available tramadol 50 mg tablet TAKE 1 TABLET BY MOUTH EVERY 6 HOURS NEEDED FOR MILD PAIN 07/29 completed Not Available Not Available Not Available acetaminoph en ER 650 mg tablet,exte nded release TAKE 1 TABLET BY MOUTH 3 TIMES A DAY DIRECTED FOR 33 DAYS. 07/29 completed Not Available Not Available Not Available levothyroxi ne 100 mcg tablet TAKE ONE TABLET BY MOUTH DAILY AT 7AM active Not Available Not Available No t Available levothyroxi ne 88 mcg tablet TAKE 1 TABLET BY MOUTH DAILY. active Not Available Not Available No t Available propranolol 10 mg tablet TAKE 1 TABLET BY MOUTH TWICE A DAY active Not Available Not Available No t Available citalopram 20 mg tablet TAKE 1 TABLET BY MOUTH EVERY DAY IN THE MORNING 07/29 completed Not Available Not Available Not Available famotidine 20 mg tablet TAKE 1 TABLET BY MOUTH TWICE A DAY NEEDED FOR HEARTBURN ,TAKE 1 DOSE AT BEDTIME active Not Available Not Available No t Available methotrexat e sodium 2.5 mg tablet TAKE EIGHT TABLETS BY MOUTH ONCE A WEEK ON MONDAYS active Not Available Not Available No t Available aspirin 325 mg tablet,gordy yed release TAKE 1 TABLET BY MOUTH TWICE A DAY FOR 30 DAYS AFTER SURGERY 07/29 completed Not Available Not Available Not Available cephalexin 500 mg capsule TAKE 1 CAPSULE BY MOUTH 4 TIMES A DAY active Not Available Not Available No t Available simvastatin 20 mg tablet TAKE ONE TABLET BY MOUTH DAILY AT 9PM AT BEDTIME (VIAL) active Not Available Not Available No t Available lidocaine 5 % topical patch APPLY 1 PATCH TO SKIN EVERY DAY REMOVE AND DISCARD PATCH WITHIN 12 HOURS OR DIRECTED BY MD active Not Available Not Available No t Available docusate sodium 100 mg capsule TAKE 1 CAPSULE BY MOUTH TWICE A DAY DIRECTED 2024 active Not Available Not Available Not Avai lable sertraline 25 mg tablet TAKE ONE (1) TABLET BY MOUTH DAILY FOR 14 DAYS THEN STOP 09/03 completed Not Available Not Available Not Available omeprazole 20 mg capsule,del ayed release TAKE ONE CAPSULE (20MG TOTAL) BY MOUTH DAILY DO NOT CRUSH OR CHEW 07/29 completed Not Available Not Available Not Available folic acid 1 mg tablet TAKE ONE TABLET BY MOUTH ONCE DAILY active Not Available Not Available No t Available fluticasone propionate 220 mcg/actuati on HFA aerosol inhaler INHALE 1 PUFF INTO LUNGS TWICE DAILY (BULK) active Not Available Not Available No t Available nystatin 100,000 unit/gram topical powder 07/29 completed Not Available Not Available Not Available estradiol 0.01% (0.1 mg/gram) vaginal cream PLEASE SEE ATTACHED FOR DETAILED DIRECTION S active Not Available Not Available No t Available fluticasone propionate 50 mcg/actuati on nasal spray,suspe nsion INSTILL 2 SPRAYS IN EACH NOSTRIL DAILY NEEDED active Not Available Not Available No t Available sertraline 50 mg tablet TAKE 1 TABLET BY MOUTH EVERY DAY 09/03 completed Not Available Not Available Not Available oxycodone 5 mg tablet TAKE 1 TABLET BY MOUTH EVERY 6 HOURS NEEDED FOR SEVERE PAIN 07/29 completed Not Available Not Available Not Available aripiprazol e 10 mg tablet TAKE 1 TABLET BY MOUTH EVERY MORNING active Not Available Not Available No t Available Vitamin D3 25 mcg (1,000 unit) capsule TAKE 1 CAPSULE BY MOUTH EVERY DAY IN THE MORNING FOR 30 DAYS active Not Available Not Available No t Available cyclobenzap rine 5 mg tablet TAKE 1 TABLET BY MOUTH TWICE A DAY NEEDED FOR MUSCLE SPASMS active Not Available Not Available No t Available nitrofurant oin monohydrate /macrocryst als 100 mg capsule TAKE 1 CAPSULE BY MOUTH EVERY 12 HOURS FOR 7 DAYS. MUST ADMINISTE R WITH A MEAL/FOOD . 07/29 completed Not Available Not Available Not Available diclofenac 1 % topical gel APPLY 2 GRAMS TOPICALLY 4 TIMES DAILY TO AFFECTED JOINTS active Not Available Not Available No t Available cholecalcif ammon (vitamin D3) 50 mcg (2,000 unit) tablet TAKE ONE TABLET (2,000 UNITS TOTAL) BY MOUTH ONCE DAILY active Not Available Not Available No t Available Arnuity Ellipta 200 mcg/actuati on powder for inhalation INHALE 1 PUFF BY MOUTH INTO LUNGS DAILY active Not Available Not Available No t Available Daily-Katarzyna (with folic acid) 400 mcg tablet TAKE 1 TABLET BY MOUTH EVERY MORNING active Not Available Not Available No t Available Vitals Date Recorded Body height Body mass index (BMI) Body weight Provider Name and Address Organization Details Last Updated DateTime 07/29/2024 149.86 cm 35.7 kg/m2 42248.85 g Chadd Whyte [facility] 07/29/2024 08:46:03 Date Recorded Body height Body mass index (BMI) Body weight Provider Name and Address Organization Details Last Updated DateTime 10/16/2023 149.86 cm 35.7 kg/m2 72297.85 g STEVE SLATER [facility] 10/16/2023 09:39:17 Date Recorded Body height Provider Name an d Address Organization Details Last Updated DateTime 11/16/2023 149.86 cm Jasen sandoval MD [address], [place], [address], [facility] 11/16/2023 14:26:33 Date Recorded Body height Provider Name an d Address Organization Details Last Updated DateTime 12/25/2023 149.86 cm Brissa Coronado [facility] 12/25/2023 08:07:31 Date Recorded Body height Body mass index (BMI) Body weight Provider Name and Address Organization Details Last Updated DateTime 02/18/2024 149.86 cm 35.7 kg/m2 37404.85 g Lay Lott [facility] 02/18/2024 14:56:23 Social History None recorded. Functional Status None recorded. Mental Status None recorded. Family History Nothing Reported. Medical History No medical history recorded. Gynecological HistoryNo gynecological history recorded. Obstetrics History GPAL:G 0 P 0 0 0 0 Past Encounters Encounter ID Performer Location Encounter Start Date Encounter Closed Date Diagnosis/Indication Diagnosis SNOMED-CT Code Diagnosis ICD10 Code Diagnosis Note [id number] MARILYN Fox [address] [place] [address] 09/04/2023 13:49:41 09/21/2023 12:04:17 Knee joint prosthesis present [id number] 02 Z96.652 Pain of ri ght knee joint [id number] M25.561 Osteoarthr itis of right knee joint [id number] 42440 M17.11 [id number] MD Holly Luke [address] [place] [address] 09/11/2023 08:24:25 09/26/2023 15:15:35 Osteoarthritis of right knee joint [id number] 58360 M17.11 [id number] KATE Vizcarra [address] [place] [address] 09/21/2023 10:12:41 10/19/2023 11:14:17 Osteoarthritis of right knee joint [id number] 84295 M17.11 [id number] Gabe Mcdowell PA-C [place] [address] [place] [address] 10/16/2023 09:08:58 11/07/2023 10:43:12 Pain of right knee joint [id number] 79530 M25.561 History of right total knee replacement [id number] 417806 Z96.172 [id number] MD Holly Luke [address] [place] [address] 11/16/2023 13:54:09 11/28/2023 15:30:00 History of right total knee replacement [id number] 250355 Z96.137 [id number] Jasen Layton MD [place] [address] [place] [place] [address] 12/25/2023 08:02:44 01/11/2024 09:16:58 History of right total knee replacement [id number] Z96.724 [id number] Gabe Mcdowell PA-C [place] [address] [place] [address] 02/18/2024 14:40:44 03/05/2024 09:24:26 History of total knee arthroplasty [id number] 105 Z96.651 Contusion of right knee [id number] S80.01XA [id number] MARILYN Vidal Fouzianathalie [address] [place] [address] 07/29/2024 08:27:25 08/05/2024 11:05:51 History of right total knee replacement [id number] Z96.651 Health Concerns Section Related Observation LastModified by Organization Detai ls LastModified Time None Recorded Concern Status LastModified by Organization Details LastModified Time None Recorded Advance Directives Directive None Recorded Payers Insurance Date Sequence Insurance Name Policy Number Policy Siddiqui Covered Member ID Siddiqui Member ID Guarantor Name 07/29/2024 2 [place] [facility] Breanne Palacios [id number] Breanne Palacios 08/17/2024 1 [facility] (MEDICARE REPLACEMENT/A DVANTAGE - PPO) [id number] Breanne Palacios [id number] Breanne Palacios Notes Date Note Type Note Provider Name and Address Organization Details Recorded Time 10/16/2023 text/html I am seeing the patient today under the supervision of who was available but who did not see the patient. HISTORY OF PRESENT ILLNESS The patient presents today for a follow-up, now two weeks status post Right total knee arthroplasty. Happy with the results. No significant complaints of pain. Doing well with P.T. Patient has finished in home physical therapy and starting outpatient physical therapy tomorrow. She continues with tramadol Tylenol for pain relief. She is on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
--- OUTSIDE RECORDS SUMMARY | 2024-08-18 15:58 | XMS_ITS | Clinical Summary ---
Author Organization [facility] [address] [facility] Address [address] [place] [address] Phone Care Team Providers Care Band Booker Name Role Phone Micah Rosado MD Primary Care Provider [phone] Allergies Active Allergy Reactions Criticality Noted Date [...] 1 (one) time each day. Prescribed by [facility] 024 Active folic acid (FOLVITE) 1 mg tablet Take 1 tablet (1 mg total) by mouth 1 (one) time each day. Prescribed by [employer] Active methotrexate 2.5 mg tablet Take 1 tablet (2.5 mg total) by mouth 1 (one) time per week Prescribed By [employer], Dr. Gresham Active multivit-salt miner als/folic acid (ONE-A-DAY WOMEN'S 50 PLUS ORAL) Take 1 tablet by mouth 1 (one) time each day. Patient Buy OTC Active triamcinolone (NASACORT) 55 mcg nasal inhaler Administer 2 sprays into each nostril 1 (one) time each day. Prescribed by [facility] [employer] [facility] [employer] Active albuterol HFA (PROAIR HFA ; PROVENTIL HFA ; VENTOLIN HFA) 90 mcg/actuation inhaler Inhale 2 puffs by mouth every 4 (four) hours if needed for wheezing or shortness of breath. Proscribe by [facility] [employer] [facility] [employer] Active acetaminophen (TYLENOL 8 HOUR) 650 mg [...] 2 (two) times a day. Prescribed by [facility] Active nitrofurantoin , macrocrystal-m onohydrate, (MACROBID) 100 mg capsule Take 1 capsule (100 mg total) by mouth 2 (two) times a day. Every 12 hours from [place] 025 2024 Discontinued famotidine (PEPCID) 20 mg [...] ANITA (obstructive sleep apnea) 08/10/2014 Overview (11/21/2023): [facility] Home Polysomnogram: Date 06/30/2018; Wt 189#; BMI 37; CHINMAY 15, AI 6; HI 9; Unclassified apneas 1; Obstructive apneas 45; Central apneas 6; Mixed apneas 0; hypopneas 75; average oxygen saturation 93% (lowest 82% with saturations <88% for 5% or more of study) [facility] Polysomnogram treatment study. Date 07/15/2018. Wt 189#; BMI 37; SE 88 % SM 90 %; spent 22 % of the study in REM. On CPAP @ 15; RDI 3.7 (AHI 3.7), Central apneas 12; Obstructive apneas 3; Mixed apneas 0; hypopneas 0; RERAs 0; and, average oxygen saturation was 96%. For the entire study, PLMs ~36. 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 Recurrence in 2004: RF POS, CCP NEG; equivocal response to hydroxychloroquine, DC due to muscle weakness On methotrexate started 2005. Humira added 02/03 Last Assessment & Plan: Lab work due in July and September Encounters Date Type Department Care Team Description 08/05/2024 3:00 PM EDT Office Visit [address] [phone] Sussy Merida NP Episode of shaking (Primary Dx); Urinary tract infection without hematuria, site unspecified; Streptococcus infection, group B; Encounter for examination following treatment at hospital 07/01/[address] [phone] Micah Rosado MD prior auth for medication 06/30/2024 3:55 PM EDT - 06/30/2024 11:59 PM EDT Hospital Encounter [address] [phone] Acute right-sided low back pain with right-sided sciatica Discharge Disposition: Home or Self Care 06/30/2024 3:30 PM EDT Office Visit [address] [phone] Sussy Merida NP Acute right-sided low back pain with right-sided sciatica (Primary Dx); Class 2 severe obesity due to excess calories with serious comorbidity and body mass index (BMI) of 36.0 to 36.9 in adult (CMS/HCC V24, CMS/HCC V28); Encounter for screening for cardiovascular disorders 06/27/[address] [phone] Micah Rosado MD Back Pain; Foot Swelling 06/24/2024 Telephone Gastroenterology - [address] [facility] [address] [address] [place] Results 06/18/2024 6:32 AM EDT - 06/18/2024 11:59 PM EDT Hospital Encounter [facility] Xray [address] [place] [address] Choking due to food in [...] 8:30 AM EDT Office Visit Adult Medicine [facility] [address] [place], [place] [phone] Sussy Merida NP [address] 11/29/2024 9:00 AM EDT Appointment Radiology Department - [address] [phone] Health Maintenance Due Date Last Done Comments [...] (BMI) of 36.0 to 36.9 in adult ([facility] V24, CMS/[facility] V28) CBC AND DIFFERENTIAL Routine 07/10/2024 10:06 AM EDT Acute right-sided low back pain with right-sided sciatica Encounter for screening for cardiovascular disorders Class 2 severe obesity due to excess calories with serious comorbidity and body mass index (BMI) of 36.0 to 36.9 in adult (CMS/[facility] V24, CMS/[facility] V28) VITAMIN B12 Routine 07/10/2024 10:06 AM EDT Acute right-sided low back pain with right-sided sciatica Encounter for screening for cardiovascular disorders Class 2 severe obesity due to excess calories with serious comorbidity and body mass index (BMI) of 36.0 to 36.9 in adult (CMS/[facility] V24, CMS/[facility] V28) COMPREHENSIVE METABOLIC PANEL Routine 07/10/2024 10:06 AM EDT Acute right-sided low back pain with right-sided sciatica Encounter for screening for cardiovascular disorders Class 2 severe obesity due to excess calories with serious comorbidity and body mass index (BMI) of 36.0 to 36.9 in adult (CMS/[facility] V24, CMS/[facility] V28) XR LUMBAR SPINE 4+ [...] Modality Computed Tomogra phy us Provider [facility] PROCEDURES Final Result * (ABNORMAL) Lipid panel with reflex to direct LDL (07/10/2024 10:06 AM EDT) Cholesterol 256(H) 0 - 200 mg/dL LAB CHEMISTRY METHOD [facility]24 [facility] Triglycerides 236(H) 0 - 150 [...] 07/10/2024 10:06 AM EDT us Sussy Merida [employer] LAB BLOOD ORDERABLES Final R esult [facility] [address] [place] [address], [place] [phone] * (ABNORMAL) CBC auto differential (07/10/2024 10:06 [...] K/mcL LAB HEMETOLOGY METHOD [facility]/10/2024 12:[facility] Neutrophils Relative 69.0 % LAB HEMETOLOGY [...] Immature Granulocytes Absolute 0.02 0.00 - 0.03 [facility] LAB HEMETOLOGY METHOD 07/10/2024 12:16 PM EDT [facility] Blood Venous blood specimen / Unknown Venipuncture / Unknown 07/10/2024 10:06 AM EDT 07/10/2024 10:06 AM EDT Sussy Merida [employer] LAB BLOOD ORDERABLES Final R esult Performing Organization Address City/[facility]/ZIP Co de Phone Number [facility] [address] [place] [address], [place] [phone] * Lipase (07/10/2024 10:06 AM EDT) Lipase 25 13 - 75 unit/L LAB CHEMISTRY METHOD 07/10/2024 12:48 PM EDT [facility] Blood Venous blood specimen / Unknown Venipuncture / Unknown 07/10/2024 10:06 AM EDT 07/10/2024 10:06 AM EDT Sussy Merida [employer] LAB BLOOD ORDERABLES Final R esult [facility] [address] [place] [address], [place] [phone] * Vitamin B12 (07/10/2024 10:06 AM EDT) Vitamin B-12 589 250 - 900 pcg/mL LAB CHEMISTRY METHOD 07/10/2024 1:15 PM EDT [facility] Blood Venous blood specimen / Unknown Venipuncture / Unknown 07/10/2024 10:06 AM EDT 07/10/2024 10:06 AM EDT us Sussy Merida [employer] LAB BLOOD ORDERABLES Final R esult [facility] [address] [place] [address], [place] [phone] * Comprehensive metabolic panel (07/10/2024 10:06 AM [...] 07/10/2024 10:06 AM EDT us Sussy Merida [employer] LAB BLOOD ORDERABLES Final R esult [facility] [address] [place] [address], * XR Lumbar Spine 4+ Views (06/30/2024 4:01 PM EDT) Anatomical Region Laterality Modality Spine, L-spine Radiographic Sally ging 07/01/2024 11:3 1 AM EDT Impressions 07/01/2024 11:37 AM EDT Transitional anatomy. Degenerative changes which are more prominent in the lower spine. Grade 1 spondylolisthesis at L4-5. POS - [id number] -------- FINAL REPORT -------- Dictated By: Juany Dorantes Dictated Date: 07/01/2024 11:31 ET Assigned Physician: Juany Dorantes Reviewed and Electronically Signed By: Juany Dorantes Signed Date: 07/01/2024 11:37 ET Workstation ID: [id number] Transcribed By: Self Edit Transcribed Date: 07/01/2024 [...] Grade 1 spondylolisthesis at L4-5. POS - [id number] -------- FINAL REPORT -------- Dictated By: Juany Dorantes Dictated Date: 07/01/2024 11:31 ET Assigned Physician: Juany Dorantes Reviewed and Electronically Signed By: Juany Dorantes Signed Date: 07/01/2024 11:37 ET Workstation ID: [id number] Transcribed By: Self Edit Transcribed Date: 07/01/2024 11:31 ET Sussy Merida [employer] CONSULTANT IMG XR PROCEDURES Final Resu lt * [...] Signed Date: 06/20/2024 16:18 ET Workstation ID: [id number] Transcribed By: Self Edit Transcribed Date: 06/18/2024 10:04 ET Resident/PA/[employer]S [employer] P[employer]CE CONSULTANT: Marialuisa Tabares Narrative 06/20/2024 4:18 PM EDT FINDINGS: Double contrast esophagram performed. COMPARISON: No prior esophagram imaging HISTORY: Patient is a 58-year-old female with history of choking sensation, dysphagia. Senior Ux Designer radiographs: 1 view chest radiograph demonstrates cardiac [...] female with history of chokingsensation, dysphagia. Senior Ux Designer radiographs: 1 view chest radiograph demonstrates cardiac [...] Signed Date: 06/20/2024 16:18 ET Workstation ID: [id number] Transcribed By: Self Edit Transcribed Date: 06/18/2024 10:04 ET Resident/PA/[employer]S C[employer] HA[employer] PIECE CONSULTANT: Marialuisa Tabares Venancio BAKER IMG FLUOROSCOPY PROCEDURES [...] evidence of malignancy. BI-RADS 1 - negative [address] [address] Procedure Note Juany Dorantes MD - 12/18/2023 [...] evidence of malignancy. BI-RADS 1 - negative [address] [id number] Micah Rosado MD IMG XR PROCEDURES Final [...] Final Result * HIV Screening (09/03/2006) Pathologist [facility] HIV Screening Abstracted Historical Provider HEALTH MAINTENANCE Final Result * Hepatitis C Screening (07/19/2005) Hepatitis C Screening Abstracted Historical Provider HEALTH MAINTENANCE Final Result from Last 3 Months or Most Recently Relevant to Health Maintenance Insurance MEDICAID - [place] [employer] [address] Care Teams Band Booker Relationship Specialty Start Date End Date Micah Rosado MD [address] [place] [id number] PCP - General 06/02/10
== END ==
LOC: HO.SL 15:55
PROVIDERS: PCP Internal Medicine; Visit Provider Psychiatry & Neurology Neurology
DX: R06.83 Snoring (principal); G47.10 Hypersomnia, unspecified; G47.33 Obstructive sleep apnea (adult) (pediatric)
CPT/HCPCS: 95806

== ENCOUNTER → 2024-08-18 16:02 | Outpatient (BNV) | payer MEDICARE, MEDICAID, SELFPAY | PROVIDERS: PCP Internal Medicine; Visit Provider Psychiatry & Neurology Neurology | DX: R06.83 Snoring (principal) | CPT/HCPCS: 95806 ==

== ENCOUNTER → 2024-08-21 07:18 | Outpatient (BNV) | payer MEDICARE, MEDICAID, SELFPAY | PROVIDERS: PCP Internal Medicine; Visit Provider Radiology Diagnostic Radiology | DX: R25.9 Unspecified abnormal involuntary movements (principal) | CPT/HCPCS: 70551 ==

== ENCOUNTER 2024-08-21 07:19 | Outpatient (REF) | payer MEDICARE, MEDICAID, SELFPAY ==
--- NOTE | ~2024-08-21 | MR_ITS ---
EXAMINATION: MR BRAIN WITHOUT CONTRAST CLINICAL INFORMATION: Unspecified abnormal involuntary movements. COMPARISON: None available. TECHNIQUE: MRI of the brain was obtained using routine sequences without contrast. FINDINGS: Patient's motion artifact. No restricted diffusion. No gross susceptibility signal abnormality in the substantia nigra. No acute intracranial hemorrhage, mass effect, midline shift, hydrocephalus or herniation. Feliciano-white matter differentiation is normal. Posterior cranial fossa contents demonstrated no signal abnormality or mass effect. Flow-void signal within the main vessels is normal. Sellar/suprasellar region demonstrated no signal abnormality or masses. Craniocervical junction demonstrates normal position of the cerebellar tonsils. Midline structures are intact. No signal abnormality or gross volume loss in the hippocampi. Mild prominence of the extra-axial CSF spaces and cerebral sulci. MR/MR head/brain wo con IMPRESSION: No swallow tail susceptibility signal pattern in the substantia nigra. No acute brain abnormality. Electronically signed by: Delfino Alva MD 08/21/2024 08:32 AM EDT
--- OUTSIDE RECORDS SUMMARY | 2024-08-21 07:22 | XMS_ITS | Data Portability ---
Author Organization [place] - [facility], [employer] Address [address] [place] [address] Care Team Providers Care Puller Through Name Role Phone [facility] Prim darek Care Provider Assessment Encounter [...] 6 weeks for a repeat clinical assessment Not available 11/16/2023 16:17:30 12/25/2023 12/25/2023 Imaging: [...] 1 year, or sooner if problems arise. [email or web address] Not available 12/25/2023 09:19:44 Plan of Treatment Reminders Order Date Submit Date Provider Last Modified By Organization Details Last Modified Time Details Appointments RECHEC K 15 2024 09:45A M Aleksandra Calloway tte, PA-C Not available Not available Not available Lab None record ed. Referral None record ed. Procedures None record ed. Surgeries None record ed. Imaging XR, knee, 3 view - RM 306 3V RIGHT KNEE HX OF RTKR 2024 025 DIDI [facility], [address], [place], [address], 07/29/2024 09:15:15 CT, knee, w/o contra st - CT RIGHT KNEE W/O CONTRA ST EVAL FOR LOOSEN ING OF RTKR PT COMPLA INS OF LOCKIN G 2024 025 [email or web address] [place], [address], [address], [place], [address], 07/29/2024 10:07:03 XR, knee, 3 view - 201 RTKR 2nd po 2023 024 [email or web address] [facility], [address], [place], [address], 12/27/2023 16:56:57 XR, knee, 3 view - 201 3v RTKR 2nd po 2023 024 [email or web address] [facility], [address], [place], [address], 11/28/2023 15:30:01 XR, knee, 3 view - room 323 3V R TKR 2023 024 [email or web address] [facility], [address], [place], [address], 10/16/2023 11:58:45 Medication Orders cyclob enzapr ine 10 mg tablet 2024 025 [email or web address] [id number], [address] [facility] [place], [address], 07/29/2024 10:07:03 tramad ol 50 mg tablet 2023 024 [email or web address] [id number], [address] [facility] [place], [address], 07/29/2024 08:46:28 Patient TargetsNo targets recorded. Patient InstructionsNo instructions recorded. Reason for Referral None Reported. Results Created Date Observation Date Name Description Value Unit Range Abnormal Flag Note LastModifiedBy Organization Detail LastModifiedTime 02/08/20 24 02/09/2024 CBC WITH DIFFE RENTI AL/PL ATELE T WBC 5.8 x10e3 /uL 3.4-10 .8 normal Not Available [facility] ([facility]) [address] [place], [address], 02/09/2024 08:07:53 02/08/20 24 02/09/2024 CBC WITH DIFFE RENTI AL/PL ATELE T RBC 4.60 x10e6 /uL 3.77-5 .28 normal Not Available [facility] ([facility]) [address] [place], [address], 02/09/2024 08:07:53 02/08/20 24 02/09/2024 CBC WITH DIFFE RENTI AL/PL ATELE T hemoglobin 14.0 g/dL 11.1-1 5.9 normal Not Available [facility] ([facility]) [address] [place], [address], 02/09/2024 08:07:53 02/08/20 24 02/09/2024 CBC WITH DIFFE RENTI AL/PL ATELE T hematocrit 41.2 % 34.0-4 6.6 normal Not Available [facility] ([facility]) [address] [place], [address], 02/09/2024 08:07:53 02/08/20 24 02/09/2024 CBC WITH DIFFE RENTI AL/PL ATELE T MCV 90 fL 79-97 normal Not Available [facility] ([facility]) [address] [facility], [place], [address], 02/09/2024 08:07:53 02/08/20 24 02/09/2024 CBC WITH DIFFE RENTI AL/PL ATELE T MCH 30.4 pg 26.6-3 3.0 normal Not Available [facility] ([facility]) [address] [facility], [place], [address], 02/09/2024 08:07:53 02/08/20 24 02/09/2024 CBC WITH DIFFE RENTI AL/PL ATELE T MCHC 34.0 g/dL 31.5-3 5.7 normal Not Available [facility] ([facility]) [address] [facility], [place], [address], 02/09/2024 08:07:53 02/08/20 24 02/09/2024 CBC WITH DIFFE RENTI AL/PL ATELE T RDW 13.9 % 11.7-1 5.4 Not Available [facility] ([facility]) [address] [facility], [place], [address], 02/09/2024 08:07:53 02/08/20 24 02/09/2024 CBC WITH DIFFE RENTI AL/PL ATELE T platelets 260 x10e3 /uL 150-45 0 normal Not Available [facility] ([facility]) [address] [facility], [place], [address], 02/09/2024 08:07:53 02/08/20 24 02/09/2024 CBC WITH DIFFE RENTI AL/PL ATELE T neutrophils 65 % not estab. normal Not Available [facility] ([facility]) [address] [place], [address], 02/09/2024 08:07:53 02/08/20 24 02/09/2024 CBC WITH DIFFE RENTI AL/PL ATELE T lymphs 24 % not estab. normal Not Available [facility] ([facility]) [address] [facility], [place], [address], 02/09/2024 08:07:53 02/08/20 24 02/09/2024 CBC WITH DIFFE RENTI AL/PL ATELE T monocytes 6 % not estab. normal Not Available [facility] ([facility]) [address] [facility], [place], [address], 02/09/2024 08:07:53 02/08/20 24 02/09/2024 CBC WITH DIFFE RENTI AL/PL ATELE T eos 4 % not estab. normal Not Available [facility] ([facility]) [address] [facility], [place], [address], 02/09/2024 08:07:53 02/08/20 24 02/09/2024 CBC WITH DIFFE RENTI AL/PL ATELE T basos 1 % not estab. normal Not Available [facility] ([facility]) [address] [facility], [place], [address], 02/09/2024 08:07:53 02/08/20 24 02/09/2024 CBC WITH DIFFE RENTI AL/PL ATELE T immature cells CRADLE PLACER Not Available [facility] ([facility]) [address] [place], [address], 02/09/2024 08:07:53 02/08/20 24 02/09/2024 CBC WITH DIFFE RENTI AL/PL ATELE T neutrophils (absolute) 3.8 x10e3 /uL 1.4-7. 0 normal Not Available [facility] ([facility]) [address] [place], [address], 02/09/2024 08:07:53 02/08/20 24 02/09/2024 CBC WITH DIFFE RENTI AL/PL ATELE T lymphs (absolute) 1.4 x10e3 /uL 0.7-3. 1 normal Not Available [facility] ([facility]) [address] [facility], [place], [address], 02/09/2024 08:07:53 02/08/20 24 02/09/2024 CBC WITH DIFFE RENTI AL/PL ATELE T monocytes(ab solute) 0.4 x10e3 /uL 0.1-0. 9 normal Not Available [facility] ([facility]) [address] [place], [address], 02/09/2024 08:07:53 02/08/20 24 02/09/2024 CBC WITH DIFFE RENTI AL/PL ATELE T eos (absolute) 0.2 x10e3 /uL 0.0-0. 4 normal Not Available [facility] ([facility]) [address] [place], [address], 02/09/2024 08:07:53 02/08/20 24 02/09/2024 CBC WITH DIFFE RENTI AL/PL ATELE T baso (absolute) 0.0 x10e3 /uL 0.0-0. 2 normal Not Available [facility] ([facility]) [address] [place], [address], 02/09/2024 08:07:53 02/08/20 24 02/09/2024 CBC WITH DIFFE RENTI AL/PL ATELE T immature granulocytes 0 % not estab. Not Available [facility] ([facility]) [address] [place], [address], 02/09/2024 08:07:53 02/08/20 24 02/09/2024 CBC WITH DIFFE RENTI AL/PL ATELE T immature grans (abs) 0.0 x10e3 /uL 0.0-0. 1 Not Available [facility] ([facility]) [address] [place], [address], 02/09/2024 08:07:53 02/08/20 24 02/09/2024 CBC WITH DIFFE RENTI AL/PL ATELE T NRBC CRADLE [employer]ACER Not Available [facility] ([facility]) [address] [facility], [place], [address], 02/09/2024 08:07:53 02/08/20 24 02/09/2024 CBC WITH DIFFE RENTI AL/PL ATELE T hematology comments: CRADLE PLACER Not Available [facility] ([facility]) [address] [facility], [place], [address], 02/09/2024 08:07:53 02/08/20 24 02/09/2024 SEDIM ENTAT ION RATE- WESTE RGREN sedimentatio n rate-westerg joey 22 mm/HR 0-40 normal Not Available [facility] ([facility]) [address] [facility], [place], [address], 02/09/2024 08:07:54 02/08/20 24 02/09/2024 C-ALYSA CTIVE PROTE IN, QUANT C-reactive protein, quant 2 mg/L 0-10 normal Not Available [facility] ([facility]) [address] [facility], [place], [address], 02/09/2024 08:07:55 10/16/19 24 10/16/2023 XR, knee, 3 view [email or web address] ?Encry pted=s hAaTro YD8dLq bEUv6g %2BXZw aYqtaq 0bqfl% 2Fg9IQ a4ajBk vP9nXo QUaueC m3YtLR FvZlgJ JJ8mAn HZtai3 5z5592 AC0Krb n2DVar eUC8mr 84%3D INTERFACE [facility] [address] [facility] [address], [place], [address], 10/16/2023 09:47:33 10/16/19 24 10/16/2023 XR, knee, 3 view [email or web address] ?Encry pted=s hAaTro YD8dLq bEUv6g %2BXZw aYqtaq 0bqfl% 2Fg9IQ a4ajBk vP9nXo QUaueC m3YtLR FvZlgJ JJ8Peridot HZtai3 1p5899 AC0Krb n2DVar eUC8mr 84%3D INTERFACE [facility] [address], [place], [address], 10/16/2023 09:47:35 11/16/19 24 11/16/2023 XR, knee, 3 view [email or web address] ?Encry pted=s hAaTro YD8dLq bEUv6g %2BXZw aYqtaq 0bqfl% 2Fg9IQ a4ajBk vP9nXo QUaueC m3YtLR FvZl J8Peridot HZtai3 8b8565 AC0Kqa nSNWaG nKiQtr MwF INTERFACE [facility] [address], [place], [address], 11/16/2023 14:42:22 11/16/19 24 11/16/2023 XR, knee, 3 view [email or web address] ?Encry pted=s hAaTro YD8dLq bEUv6g %2BXZw aYqtaq 0bqfl% 2Fg9IQ a4ajBk vP9nXo QUaueC m3YtLR FvZlgJ JJ8mAn HZtai3 0p2351 AC0Kqa nSNWaG nKiQtr MwF INTERFACE [facility] [address], [place], [address], 11/16/2023 14:42:23 12/25/19 24 12/25/2023 XR, knee, 3 view [email or web address] ?Encry pted=s hAaTro YD8dLq bEUv6g %2BXZw aYqtaq 0bqfl% 2Fg9IQ a4ajBk vP9nXo QUaueC m3YtLR FvZ[address] 1w2792 AC0Kqa HiAVaO lKiQtr MwF INTERFACE [facility] [address], [place], [address], 12/25/2023 08:20:16 12/25/19 24 12/25/2023 XR, knee, 3 view [email or web address] ?Encry pted=s hAaTro YD8dLq bEUv6g %2BXZw aYqtaq 0bqfl% 2Fg9IQ a4ajBk vP9nXo QUaueC m3YtLR [place] [address] 2q4151 AC0Kqa HiAVaO lKiQtr MwF INTERFACE [facility] [address] [facility] [address], [place], [address], 12/25/2023 08:20:18 07/30/19 25 07/29/2024 XR, knee, 3 view [email or web address] ?Encry pted=s hAaTro YD8dLq bEUv6g %2BXZw aYqtaq 0bqfl% 2Fg9IQ a4ajBk vP9nXo QUaueC m3YtLR [place] [address] 7o4539 AC0Kla H%2BFV aClKiQ trMwF INTERFACE [facility] [address], [place], [address], 07/29/2024 09:15:16 07/30/19 25 07/29/2024 XR, knee, 3 view [email or web address] ?Encry pted=s hAaTro YD8dLq bEUv6g %2BXZw aYqtaq 0bqfl% 2Fg9IQ a4ajBk vP9nXo QUaueC m3YtLR FvZlgJ JJ8mAn HZtai3 0d7153 AC0Kla H%2BFV aClKiQ trMwF INTERFACE [facility] [address] [facility] [address], [place], [address], 07/29/2024 09:15:18 Result Notes Documentation Provider Name and Address Organization Details Recorded Time Xr, Knee, 3 View : [email or web address] Encrypted=crEjMkqDR3lCjcX Uv6g%7RVIclWpedw0idje%2Fg 5ESq0ipMgpT8fBqKGjzfJg1Sb GIGuRngTWQ5hBfYEizu58l829 0AM7Dkob3SAhitXN7ra11%3D Not Available [facility] 10/16/2023 09:4 7:34 Xr, Knee, 3 View : [email or web address] Encrypted=xlXrPcuTR4dZdqJ Uv6g%2NHVrjUqcmu4oelv%2Fg 1XYo6usXxaI6hYjDLudzTc3By CSDeLgjTTU1mAoGEmpx91e418 3WI9Gsnb6FUhtfQA9zn63%3D Not Available [facility] 10/16/2023 09:4 7:36 Xr, Knee, 3 View : [email or web address] Encrypted=qjHhJiiJV1aLztG Uv6g%2VGJufWeahf1jjkm%2Fg 7NCr0wsHfqW9uWePPmalLd4Sv BILuDirHJZ0zGqZJwtt87o446 0DC9JnlmNOKoAsXtEmcKgZ Not Available [facility] 11/16/2023 14:42: 22 Xr, Knee, 3 View : [email or web address] Encrypted=vbMtXyvPX8qMefL Uv6g%8JXArtRkgex8dfmf%2Fg 2EOs1pjKtjS8hAvLDffzYu7Sq DYVjOtlBLK9iZjZWhty11k465 1KH8BhedNRYjSfNbWmyBbZ Not Available [facility] 11/16/2023 14:42: 24 Xr, Knee, 3 View : [email or web address] Encrypted=msUxRjyJZ9xAvkU Uv6g%4OYOveZaxub5epey%2Fg 0LMt6hxZsdO4cAmDVmrxTu9Vj EGLaKllNJG0tJfCVjcj10m996 0KH1JgbXuVMtQoZpDscUyG Not Available [facility] 12/25/2023 08:20: 17 Xr, Knee, 3 View : [email or web address] Encrypted=xxEbBilPA6nHbxY Uv6g%4ZVHuuAgvdw3cvlg%2Fg 6ZLv6gjVzqL7yTkTBlmoOc4Yb WEAkZsfSKQ1vCmMDelm82f625 4IG6PoaKtYWiUvPjCxjQsV Not Available [facility] 12/25/2023 08:20: 19 Xr, Knee, 3 View : [email or web address] Encrypted=rtWqQjiYL5lTmiL Uv6g%0ZVZaaJlpmi3yjvc%2Fg 8SSc3xxZmhJ3lXeTXfwwVl1Mi EXMvLuzVZX0wHbRUiuh80o296 4NH6JsrJ%2BFVaClKiQtrMwF Not Available [facility] 07/29/2024 09:1 5:17 Xr, Knee, 3 View : [email or web address] Encrypted=qnIhSylUD8aIksS Uv6g%5SOTlzJftba0dptj%2Fg 2VOy4xsRbmR7wJzXWsbhLs3Na SRLbMmjLXF2nLzSXqcz06l143 5UD2PjzF%2BFVaClKiQtrMwF Not Available [facility] 07/29/2024 09:1 5:19 Problems Name Problem SNOMED Code Status Onset Date Resolution Date Notes Provider Name and Address Organization Details Recorded Time Pain of right knee joint 3318651866813 00 Active 2023 JESSY PERALESJanine sanders [facility] 4 14:07:35 Osteoarthr itis of right knee joint 3170337081272 00 Active 2023 Jasen Layton MD [address], [place], [address] , [facility] 4 09:29:46 History of right total knee replacemen t 2222160457358 102 Active 2023 Jasen Layton MD [address], [place], [address] , [facility] 4 09:19:22 Notes:Some problems listed i n Documents: #[id number], #[id number], #[id number], #[id number] could not be added to this patient's chart. Please review these documents and add these problems to the patient's chart manually as needed. Problem Notes None recorded. Medical Equipment None Reported. Allergies Allergen ID Allergen Name Allergen Category Reaction Reaction Severity Criticality Documentation Date Start Date Code Code System Note Provider Name and Address Organization Details Recorded Time 332877 acetamino phen / hydrocodo ne medicatio n Not available Not available Not available 10/11/2023 76882 2 RxNorm egypt mitchellleroy sanders [facility] 4 11:25:21 31295 Aleve medicatio n Not available Not available Not available 04/23/20232022 68647 1 RxNorm Not Available [facility] 4 12:57:58 26584 Naprosyn medicatio n Not available Not available Not available 04/23/20232022 89493 2 RxNorm Not Available [facility] 4 12:57:58 49350 ibuprofen medicatio n Not available Not available Not available 04/23/20232022 5640 RxNorm Not Available [facility] 12:57:59 66414 Substance with sulfonami de structure and antibacte rial mechanism of action (substanc e) medicatio n Not available Not available Not available 04/23/20232022 48553 8003 SNOMED Not Available [facility] 12:57:59 Medications Name Sig Start Date Stop [...] Updated DateTime 07/29/2024 149.86 cm 35.7 kg/m2 32096.85 g Chadd Whyte [facility] 07/29/2024 08:46:03 Date Recorded Body height Body mass index (BMI) Body weight Provider Name and Address Organization Details Last Updated DateTime 10/16/2023 149.86 cm 35.7 kg/m2 21606.85 g STEVE SLATER [facility] 10/16/2023 09:39:17 Date Recorded Body height Provider Name an d Address Organization Details Last Updated DateTime 11/16/2023 149.86 cm Jasen sandoval MD [address], [place], [address], [facility] 11/16/2023 14:26:33 Date Recorded Body height Provider Name an d Address Organization Details Last Updated DateTime 12/25/2023 149.86 cm Brissa Coronado [facility] 12/25/2023 08:07:31 Date Recorded Body height Body mass index (BMI) Body weight Provider Name and Address Organization Details Last Updated DateTime 02/18/2024 149.86 cm 35.7 kg/m2 81888.85 g Lay Lott [facility] 02/18/2024 14:56:23 Social History None recorded. Functional Status None recorded. Mental Status None recorded. Family History Nothing Reported. Medical History No medical history recorded. Gynecological HistoryNo gynecological history recorded. Obstetrics History GPAL:G 0 P 0 0 0 0 Past Encounters Encounter ID Performer Location Encounter Start Date Encounter Closed Date Diagnosis/Indication Diagnosis SNOMED-CT Code Diagnosis ICD10 Code Diagnosis Note [id number] MARILYN Fox [address] [place] [address] 09/04/2023 13:49:41 09/21/2023 12:04:17 Knee joint prosthesis present 4136791128 02 Z96.652 Pain of ri ght knee joint 2337997568 07337 M25.561 Osteoarthr itis of right knee joint 3987801693 69440 M17.11 [id number] MD Holly Luke [address] [place] [address] 09/11/2023 08:24:25 09/26/2023 15:15:35 Osteoarthritis of right knee joint 3731802448 93119 M17.11 [id number] KATE Vizcarra [address] [place] [address] 09/21/2023 10:12:41 10/19/2023 11:14:17 Osteoarthritis of right knee joint 6609852374 30546 M17.11 [id number] Gabe Mcdowell PA-C [place] [address] [place] [address] 10/16/2023 09:08:58 11/07/2023 10:43:12 Pain of right knee joint 5672723314 51755 M25.561 History of right total knee replacement 3458542440 161108 Z96.771 [id number] MD Holly [facility] [address] [place] [address] 11/16/2023 13:54:09 11/28/2023 15:30:00 History of right total knee replacement 9552855355 988716 Z96.620 [id number] Jasen Layton MD [facility] [address] [place] [place] [address] 12/25/2023 08:02:44 01/11/2024 09:16:58 History of right total knee replacement 3667777415 245403 Z96.147 [id number] Gabe Mcdowell PA-C [facility] [address] [place] [address] 02/18/2024 14:40:44 03/05/2024 09:24:26 History of total knee arthroplasty 3715428606 105 Z96.651 Contusion of right knee 6466034140 0990268 S80.01XA [id number] MARILYN Vidal [place] [address] [place] [address] 07/29/2024 08:27:25 08/05/2024 11:05:51 History of right total knee replacement 0395765097 016205 Z96.651 Health Concerns Section Related Observation LastModified by Organization Detai ls LastModified Time None Recorded Concern Status LastModified by Organization Details LastModified Time None Recorded Advance Directives Directive None Recorded Payers Insurance Date Sequence Insurance Name Policy Number Policy Siddiqui Covered Member ID Siddiqui Member ID Guarantor Name 08/20/2024 2 [place]: [facility] Breanne Palacios [id number] Breanne Palacios 08/20/2024 1 [facility] (MEDICARE REPLACEMENT/A DVANTAGE - PPO) [id number] Breanne Palacios [id number] Breanne Palacios Notes Date Note Type Note [...] TESTS X-rays ordered, obtained and reviewed at [facility] today, three views, reveals maintained alignment [...] Mcdowell PA-C [address], [place], [address], [facility] 10/16/2023 10:36:47 11/16/2023 text/html [...] Layton MD [address], [place], [address], [facility] 11/16/2023 16:17:59 12/25/2023 text/html History of [...] chart. Jasen Layton MD [address] [facility] [address], [place], [address], [facility] 12/25/2023 09:19:47 02/18/2024 text/html I am [...] were answered today. Gabe Mcdowell PA-C [address] [facility] [address], [place], [address], [facility] 02/18/2024 16:38:43 07/29/2024 text/html I am [...] above. X-rays ordered, obtained and reviewed at [facility] 3 views of the right knee [...] in 2 weeks for recheck. Questions answered [facility] speech recognition garment examiner software was used to create portions of this document. An attempt at proofreading has been made to minimize errors. Please call for corrections. Aleksandra Cerda PA-C [address] [facility] [address], [place], [address], [facility] 07/29/2024 11:42:27 OBGyn Episode No OBEpisode recorded.
--- OUTSIDE RECORDS SUMMARY | 2024-08-21 07:22 | XMS_ITS | Clinical Summary ---
Author Organization [facility] [address] [facility] Address [address] [place] [address] Phone Care Team Providers Care Manager Golf Name Role Phone Micah Rosado MD Primary Care Provider [phone] Allergies Active Allergy Reactions Criticality Noted Date [...] 1 (one) time each day. Prescribed by Emergency Room Registered Nurse 024 Active folic acid (FOLVITE) 1 mg tablet Take 1 tablet (1 mg total) by mouth 1 (one) time each day. Prescribed by [facility] Bearer Active methotrexate 2.5 mg tablet Take 1 tablet (2.5 mg total) by mouth 1 (one) time per week Prescribed By [facility] Off Bearer, Dr. Gresham Active multivit-skeins yarn examiner als/folic acid (ONE-A-DAY WOMEN'S 50 PLUS ORAL) Take 1 tablet by mouth 1 (one) time each day. Patient Buy OTC Active triamcinolone (NASACORT) 55 mcg nasal inhaler Administer 2 sprays into each nostril 1 (one) time each day. Prescribed by Emergency Room Registered Nurse Active albuterol HFA (PROAIR HFA ; PROVENTIL HFA ; VENTOLIN HFA) 90 mcg/actuation inhaler Inhale 2 puffs by mouth every 4 (four) hours if needed for wheezing or shortness of breath. Proscribe by Emergency Room Registered Nurse Active acetaminophen (TYLENOL 8 HOUR) 650 mg [...] 2 (two) times a day. Prescribed by [facility] Active nitrofurantoin , macrocrystal-m onohydrate, (MACROBID) 100 mg capsule Take 1 capsule (100 mg total) by mouth 2 (two) times a day. [place] 12 [place] [facility] [place] Discontinued famotidine (PEPCID) 20 mg [...] ANITA (obstructive sleep apnea) 08/10/2014 Overview (11/21/2023): [facility] Home Polysomnogram: Date 06/30/2018; Wt 189#; BMI 37; CHINMAY 15, AI 6; HI 9; Unclassified apneas 1; Obstructive apneas 45; Central apneas 6; Mixed apneas 0; hypopneas 75; average oxygen saturation 93% (lowest 82% with saturations <88% for 5% or more of study) [facility] Polysomnogram treatment study. Date 07/15/2018. Wt 189#; BMI 37; SE 88 % SM 90 %; spent 22 % of the study in REM. On CPAP @ 15; RDI 3.7 (AHI 3.7), Central apneas 12; Obstructive apneas 3; Mixed apneas 0; hypopneas 0; RERAs 0; and, average oxygen saturation was 96%. For the entire study, PLMs ~36. [facility] Sleep Center Polysomnogram: Date 07/21/2020; Wt [...] steroid, started 06/25 Seropositive rheumatoid arth ritis ([facility] V24, [facility] V28) 01/16/2005 Overview (11/21/2023): Symptoms in childhood. Recurrence in 2004: RF POS, CCP NEG; equivocal response to hydroxychloroquine, DC due to muscle weakness On methotrexate started 2005. Humira added 02/03 Last Assessment & Plan: Lab work due in July and September Encounters Date Type Department Care Team Description 08/05/2024 3:00 PM EDT Office Visit [address] [phone] Sussy Merida NP Episode of shaking (Primary Dx); Urinary tract infection without hematuria, site unspecified; Streptococcus infection, group B; Encounter for examination following treatment at hospital 07/01/[address] [phone] Micah Rosado MD prior auth for medication 06/30/2024 3:55 PM EDT - 06/30/2024 11:59 PM EDT Hospital Encounter [address] [phone] Acute right-sided low back pain with right-sided sciatica Discharge Disposition: Home or Self Care 06/30/2024 3:30 PM EDT Office Visit [address] [phone] Sussy Merida NP Acute right-sided low back pain with right-sided sciatica (Primary Dx); Class 2 severe obesity due to excess calories with serious comorbidity and body mass index (BMI) of 36.0 to 36.9 in adult (CMS/HCC V24, CMS/HCC V28); Encounter for screening for cardiovascular disorders 06/27/[address] [phone] Micah Rosado MD Back Pain; Foot Swelling 06/24/2024 Telephone Gastroenterology - [address] [facility] [address] [phone] [place] Results 06/18/2024 6:32 AM EDT - 06/18/2024 11:59 PM EDT Hospital Encounter [facility] Xray [address] [place] [address] Choking due to food in [...] 8:30 AM EDT Office Visit [facility] [place] [address] [place], [place] [phone] Sussy Merida NP [address] [place], [place] 11/29/2024 9:00 AM EDT Appointment Radiology Department - [address] [phone] Health Maintenance Due Date Last Done Comments [...] (BMI) of 36.0 to 36.9 in adult ([facility] V24, CMS/[facility] V28) CBC AND DIFFERENTIAL Routine 07/10/2024 10:06 AM EDT Acute right-sided low back pain with right-sided sciatica Encounter for screening for cardiovascular disorders Class 2 severe obesity due to excess calories with serious comorbidity and body mass index (BMI) of 36.0 to 36.9 in adult (CMS/[facility] V24, CMS/[facility] V28) VITAMIN B12 Routine 07/10/2024 10:06 AM EDT Acute right-sided low back pain with right-sided sciatica Encounter for screening for cardiovascular disorders Class 2 severe obesity due to excess calories with serious comorbidity and body mass index (BMI) of 36.0 to 36.9 in adult (CMS/[facility] V24, CMS/[facility] V28) COMPREHENSIVE METABOLIC PANEL Routine 07/10/2024 10:06 AM EDT Acute right-sided low back pain with right-sided sciatica Encounter for screening for cardiovascular disorders Class 2 severe obesity due to excess calories with serious comorbidity and body mass index (BMI) of 36.0 to 36.9 in adult ([facility] V24, CMS/[facility] V28) XR LUMBAR SPINE 4+ VIEWS Routine [...] Modality Computed Tomogra phy us Provider [facility] IM CT PROCEDURES Final Result * (ABNORMAL) Lipid panel with reflex to direct LDL (07/10/2024 10:06 AM EDT) Cholesterol 256(H) 0 - 200 mg/dL LAB CHEMISTRY METHOD [facility] Triglycerides 236(H) 0 - 150 mg/dL LAB CHEMISTRY METHOD 07/10/2024 1:15 PM [facility] HDL 54 >=40 mg/dL LAB CHEMISTRY METHOD 07/10/2024 1:15 PM [facility] LDL Calculated 155(H) 0 - 100 mg/dL LAB CHEMISTRY METHOD 07/10/2024 1:15 PM [facility] VLDL Cholesterol Parrish 47.2 mg/dL LAB CHEMISTRY METHOD 07/10/2024 1:15 PM [facility] Non HDL Chol. (LDL+VLDL) 202(H) <145 mg/dL LAB CHEMISTRY METHOD 07/10/2024 1:15 PM [facility] Chol/HDL Ratio 4.7(H) 0.0 - 4.4 LAB CHEMISTRY METHOD 07/10/2024 1:15 PM [facility] Blood Venous blood specimen / Unknown Venipuncture / Unknown 07/10/2024 10:06 AM EDT 07/10/2024 10:06 AM EDT us Sussy Merida SHIP RIGGER LAB BLOOD ORDERABLES Final R esult [facility] [address] [place] [address], [place] [phone] * (ABNORMAL) CBC auto differential (07/10/2024 10:06 AM EDT) WBC 7.1 4.8 - 10.8 K/mcL LAB HEMETOLOGY METHOD 07/10/2024 12:16 PM EDT [facility] RBC 5.00(H) 3.80 - 4.80 M/mcL LAB HEMETOLOGY METHOD 07/10/2024 12:16 PM EDT [facility] Hemoglobin 15.6 11.5 - 16.0 g/dL LAB HEMETOLOGY METHOD 07/10/2024 12:16 PM EDT [facility] Hematocrit 45.3 35.0 - 47.0 % LAB HEMETOLOGY METHOD 07/10/2024 12:16 PM EDT [facility] MCV 90.4 79.0 - 98.0 FL LAB HEMETOLOGY METHOD 07/10/2024 12:16 PM EDT [facility] MCH 31.1 27.0 - 32.0 pcg LAB HEMETOLOGY METHOD 07/10/2024 12:16 PM EDT [facility] MCHC 34.4 32.0 - 37.0 g/dL LAB HEMETOLOGY METHOD 07/10/2024 12:16 PM EDT [facility] RDW 13.4 11.0 - 15.0 % LAB HEMETOLOGY METHOD 07/10/2024 12:16 PM EDT [facility] Platelets 258 130 - 400 K/mcL LAB HEMETOLOGY METHOD 07/10/2024 12:16 PM EDT [facility] MPV 10.2 7.0 - 11.0 FL LAB HEMETOLOGY METHOD 07/10/2024 12:16 PM EDT [facility] NRBC 0.0 <1.0 % LAB HEMETOLOGY METHOD 07/10/2024 12:16 PM [facility] NRBC Absolute 0.00 <0.10 K/mcL LAB HEMETOLOGY METHOD 07/10/2024 12:16 [facility] Neutrophils Relative 69.0 % LAB HEMETOLOGY METHOD 07/10/2024 12:16 PM [facility] Lymphocytes Relative 19.5 % LAB HEMETOLOGY METHOD 07/10/2024 12:16 PM [facility] Monocytes Relative 7.3 % LAB HEMETOLOGY METHOD 07/10/2024 12:16 PM [facility] Eosinophils Relative 3.1 % LAB HEMETOLOGY METHOD 07/10/2024 12:16 PM [facility] Basophils Relative 0.8 % LAB HEMETOLOGY METHOD 07/10/2024 12:16 PM [facility] Immature Granulocytes Relative 0.3 % LAB HEMETOLOGY METHOD 07/10/2024 12:16 PM [facility] Neutrophils Absolute 4.92 1.50 - 7.00 K/mcL LAB HEMETOLOGY METHOD 07/10/2024 12:16 PM EDT [facility] Lymphocytes Absolute 1.39 1.00 - 5.00 K/mcL LAB HEMETOLOGY METHOD 07/10/2024 12:16 PM [facility] Monocytes Absolute 0.52 0.20 - 1.00 K/mcL LAB HEMETOLOGY METHOD 07/10/2024 12:16 PM [facility] Eosinophils Absolute 0.22 0.00 - 0.50 K/mcL LAB HEMETOLOGY METHOD 07/10/2024 12:16 PM EDT [facility] Basophils Absolute 0.06 0.00 - 0.20 K/mcL LAB HEMETOLOGY METHOD 07/10/2024 12:16 PM EDT [facility] Immature Granulocytes Absolute 0.02 0.00 - 0.03 K/[facility] LAB HEMETOLOGY METHOD 07/10/2024 12:16 PM EDT [facility] Blood Venous blood specimen / Unknown Venipuncture / Unknown 07/10/2024 10:06 AM EDT 07/10/2024 10:06 AM EDT Sussy Merida SHIP RIGGER LAB BLOOD ORDERABLES Final R esult Performing Organization Address City/[facility]/ZIP Co de Phone Number [facility] [address] [place] [address], [place] [phone] * Lipase (07/10/2024 10:06 AM EDT) Lipase 25 13 - 75 unit/L LAB CHEMISTRY METHOD 07/10/2024 12:48 PM EDT [facility] Blood Venous blood specimen / Unknown Venipuncture / Unknown 07/10/2024 10:06 AM EDT 07/10/2024 10:06 AM EDT Sussy Merida SHIP RIGGER LAB BLOOD ORDERABLES Final R esult [facility] [address] [place] [address], [place] [phone] * Vitamin B12 (07/10/2024 10:06 AM EDT) Vitamin B-12 589 250 - 900 pcg/mL LAB CHEMISTRY METHOD 07/10/2024 1:15 PM EDT [facility] Blood Venous blood specimen / Unknown Venipuncture / Unknown 07/10/2024 10:06 AM EDT 07/10/2024 10:06 AM EDT us Sussy Merida SHIP RIGGER LAB BLOOD ORDERABLES Final R esult [facility] [address] [place] [address], [place] [phone] * Comprehensive metabolic panel (07/10/2024 10:06 AM EDT) Sodium 139 133 - 145 mmol/L LAB CHEMISTRY METHOD 07/10/2024 1:15 PM EDT [facility] Potassium 4.5 3.5 - 5.5 mmol/L LAB CHEMISTRY METHOD 07/10/2024 1:15 PM [facility] Chloride 104 96 - 110 mmol/L LAB CHEMISTRY METHOD 07/10/2024 1:15 PM [facility] CO2 27 21 - 32 mmol/L LAB CHEMISTRY METHOD 07/10/2024 1:15 PM [facility] Anion Gap 8 3 - 11 LAB CHEMISTRY METHOD 07/10/2024 1:15 PM [facility] Glucose 93 70 - 100 mg/dL LAB CHEMISTRY METHOD 07/10/2024 1:15 PM [facility] BUN 10 5 - 25 mg/dL LAB CHEMISTRY METHOD 07/10/2024 1:15 PM [facility] Creatinine 0.90 0.50 - 1.10 mg/dL LAB CHEMISTRY METHOD 07/10/2024 1:15 PM [facility] eGFR 74 >=60 mL/min/1. 73m2 LAB CHEMISTRY METHOD 07/10/2024 1:15 PM [facility] Comment:Calculation based on the Chronic Kidney Disease Epidemiology Collaboration (CKD-EPI) equation refit without adjustment for race. BUN/Creatinine Ratio 11.1 LAB CHEMISTRY METHOD 07/10/2024 1:15 PM [facility] Calcium 9.1 8.5 - 10.5 mg/dL LAB CHEMISTRY METHOD 07/10/2024 1:15 PM EDT [facility] AST (SGOT) 21 10 - 42 unit/L LAB CHEMISTRY METHOD 07/10/2024 1:15 PM EDT [facility] ALT (SGPT) 28 10 - 60 unit/L LAB CHEMISTRY METHOD 07/10/2024 1:15 PM EDT [facility] Alkaline Phosphatase 109 42 - 121 unit/L LAB CHEMISTRY METHOD 07/10/2024 1:15 PM EDT [facility] Total Protein 7.5 6.0 - 8.0 g/dL LAB CHEMISTRY METHOD 07/10/2024 1:15 PM EDT [facility] Albumin 3.8 3.2 - 5.0 g/dL LAB CHEMISTRY METHOD 07/10/2024 1:15 PM EDT [facility] Total Bilirubin 0.6 0.0 - 1.4 mg/dL LAB CHEMISTRY METHOD 07/10/2024 1:15 PM EDT [facility] Blood Venous blood specimen / Unknown Venipuncture / Unknown 07/10/2024 10:06 AM EDT 07/10/2024 10:06 AM EDT us Sussy Merida SHIP RIGGER LAB BLOOD ORDERABLES Final R esult [facility] [address] [place] [address], * XR Lumbar Spine 4+ Views (06/30/2024 4:01 PM EDT) Anatomical Region Laterality Modality Spine, L-spine Radiographic Sally ging 07/01/2024 11:3 1 AM EDT Impressions 07/01/2024 11:37 AM EDT Transitional anatomy. Degenerative changes which are more prominent in the lower spine. Grade 1 spondylolisthesis at L4-5. POS - [id number] -------- FINAL REPORT -------- Dictated By: Juany Dorantes Dictated Date: 07/01/2024 11:31 ET Assigned Physician: Juany Dorantes Reviewed and Electronically Signed By: Juany Dorantes Signed Date: 07/01/2024 11:37 ET Workstation ID: [id number] Transcribed By: Self Edit Transcribed Date: 07/01/2024 [...] Grade 1 spondylolisthesis at L4-5. POS - [id number] -------- FINAL REPORT -------- Dictated By: Juany Dorantes Dictated Date: 07/01/2024 11:31 ET Assigned Physician: Juany Dorantes Reviewed and Electronically Signed By: Juany Dorantes Signed Date: 07/01/2024 11:37 ET Workstation ID: [id number] Transcribed By: Self Edit Transcribed Date: 07/01/2024 11:31 ET Sussy Merida SHIP RIGGER IMG XR PROCEDURES Final Resu lt * [...] Signed Date: 06/20/2024 16:18 ET Workstation ID: [id number] Transcribed By: Self Edit Transcribed Date: 06/18/2024 10:04 ET Resident/PA/SHIP RIGGER: Marialuisa Tabares Narrative 06/20/2024 4:18 PM EDT FINDINGS: Double contrast esophagram performed. COMPARISON: No prior esophagram imaging HISTORY: Patient is a 58-year-old female with history of choking sensation, dysphagia. Locator radiographs: 1 view chest radiograph demonstrates cardiac [...] 58-year-old female with history of chokingsensation, dysphagia. Locator radiographs: 1 view chest radiograph demonstrates cardiac [...] Signed Date: 06/20/2024 16:18 ET Workstation ID: [id number] Transcribed By: Self Edit Transcribed Date: 06/18/2024 10:04 ET Resident/PA/SHIP RIGGER: Marialuisa Tabares Venancio BAKER IMG FLUOROSCOPY PROCEDURES [...] evidence of malignancy. BI-RADS 1 - negative [address] [id number] Procedure Note Juany Dorantes MD - 12/18/2023 [...] evidence of malignancy. BI-RADS 1 - negative [address] [phone] Micah Rosado MD IMG XR PROCEDURES Final [...] - [place] [employer] Care Teams Manager Golf Relationship Specialty Start Date End Date Micah Rosado MD [address] [place] [id number] PCP - General 06/02/10
== END 2024-08-21 07:20 | disposition home or self-care (01) ==
LOC: HO.MRI 07:19
PROVIDERS: PCP Internal Medicine; Visit Provider Psychiatry & Neurology Neurology
DX: R25.9 Unspecified abnormal involuntary movements (principal)
CPT/HCPCS: 70551

== ENCOUNTER 2024-10-02 11:40 | Outpatient (REF) | payer MEDICARE, MEDICAID, SELFPAY ==
--- NOTE | 2024-10-02 11:44 | EEG_ITS ---
Reason For EEG: Abnormal involuntary movements Photic stimulation: Completed Hyperventilation: Not performed Sedation: No Skull defect: No Medications: Albuterol, citalopram, cyclobenzaprine, doxycycline hyclate, flovent, fluticasone folic acid, gabapentin, levothyroxine, methocarbamol Behavioral State: Pleasant State of consciousness: awake History: H/O neck pain, ANITA, hypersomnia, snoring, abn involuntary movements, hypothyroidism, arthritis, spondylolisthesis, fibromyalgia- pt c/o 2 episodes of arousal of shaking all over, question of biting tongue, no confusion, fully awake, no incontinence- duration of event 10? minutes Clinical Observation: One brief episode of shaking was noted during this study Study report: This is a 16 channel EEG with an EKG lead. Patient is awake during the tracing. Background EEG rhythm is 7-8 hertz 5-70 microvolt posteriorly and lower amplitude fast anteriorly. No obvious sharp wave spikes or paroxysmal tendency noted. Photic stimulation does not produce any significant abnormality. Hyperventilation is not performed. Cardiac lead does not reveal any significant abnormality. Impression: Mild generalized slowing suggestive of bihemispheric diffuse dysfunction. No epileptic tendency is noted. MTDD
--- OUTSIDE RECORDS SUMMARY | 2024-10-02 12:45 | XMS_ITS | Clinical Summary ---
Author Organization [facility] [address] [facility] Address [address] [place] [address] Phone Care Team Providers Care Associate Sales Representative Name Role Phone Micah Rosado MD Primary Care Provider [phone] Allergies Active Allergy Reactions Criticality Noted Date [...] (one) time each day. Prescribed by Freight Representative 4 Active folic acid (FOLVITE) 1 mg tablet Take 1 tablet (1 mg total) by mouth 1 (one) time each day. Prescribed by Suspender Cutter Active methotrexate 2.5 mg tablet Take 1 tablet (2.5 mg total) by mouth 1 (one) time per week Prescribed By Suspender Cutter, Dr. Gresham Active multivit-health claims examiner als/folic acid (ONE-A-DAY WOMEN'S 50 PLUS ORAL) Take 1 tablet by mouth 1 (one) time each day. Patient Buy OTC Active triamcinolone (NASACORT) 55 mcg nasal inhaler Administer 2 sprays into each nostril 1 (one) time each day. Prescribed by Freight Representative Active albuterol HFA (PROAIR HFA ; PROVENTIL HFA ; VENTOLIN HFA) 90 mcg/actuation inhaler Inhale 2 puffs by mouth every 4 (four) hours if needed for wheezing or shortness of breath. Proscribe by Freight Representative Active acetaminophen (TYLENOL 8 HOUR) 650 mg 8 hr tablet Take 1 tablet (650 mg total) by mouth every 8 (eight) hours if needed. Patient buy OTC Active omeprazole (PriLOSEC) [address] capsule Take 1 capsule (20 mg total) by mouth 1 (one) time each day. Do not crush or chew. 90 capsule 1 5 Active cholecalcifero l (VITAMIN D-3) 50 mcg (2,000 unit) tablet Take 1 tablet (2,000 Units total) by mouth 1 (one) time each day. 90 tablet 1 5 Active cetirizine (ZyrTEC) 10 mg tablet Take 1 tablet (10 mg total) by mouth 1 (one) time each day. 90 tablet 1 5 Active atorvastatin (LIPITOR) 20 mg tablet Take 1 tablet (20 mg total) by mouth 1 (one) time each day. 90 tablet 1 5 Active citalopram (CeleXA) 20 mg tablet Take [...] 1 (one) time each day. 90 tablet 5 Active diclofenac (VOLTAREN) 1 % topical gel Apply 2 gram four times daily to affected joint 100 g 5 Active lidocaine (LIDODERM) 5 % patchIndicatio ns:Acute right-sided low back pain with right-sided sciatica Apply 1 patch topically 1 (one) time each day. Remove & discard patch within 12 hours or as directed by MD. 10 patch 5 Active cyclobenzaprin e (FLEXERIL) 5 mg tabletIndicati ons:muscle spasm Take 1 tablet (5 mg total) by mouth 2 (two) times a day if needed for muscle spasms. 30 tablet 5 Active doxycycline (VIBRAMYCIN) 100 mg capsule Take 1 capsule (100 mg total) by mouth 2 (two) times a day. Prescribed by Cataumet ER Active Active Problems Problem Noted Date Diagnosed Date [...] ANITA (obstructive sleep apnea) 08/10/2014 Overview (11/21/2023): [facility] Home Polysomnogram: Date 06/30/2018; Wt 189#; BMI 37; CHINMAY 15, AI 6; HI 9; Unclassified apneas 1; Obstructive apneas 45; Central apneas 6; Mixed apneas 0; hypopneas 75; average oxygen saturation 93% (lowest 82% with saturations <88% for 5% or more of study) [facility] Polysomnogram treatment study. Date 07/15/2018. Wt 189#; BMI 37; SE 88 % SM 90 %; spent 22 % of the study in REM. On CPAP @ 15; RDI 3.7 (AHI 3.7), Central apneas 12; Obstructive apneas 3; Mixed apneas 0; hypopneas 0; RERAs 0; and, average oxygen saturation was 96%. For the entire study, PLMs ~36. 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 Recurrence in 2004: RF POS, CCP NEG; equivocal response to hydroxychloroquine, DC due to muscle weakness On methotrexate started 2005. Humira added 02/03 Last Assessment & Plan: Lab work due in July and September Encounters Date Type Department Care Team Description 08/05/2024 3:00 PM EDT Office Visit Adult Medicine [address] [address] Sussy Merida PATIENT INFORMATION COORDINATOR Episode of shaking (Primary Dx); Urinary tract infection without hematuria, site unspecified; Streptococcus infection, group B; Encounter for examination following treatment at hospital from Last 3 Months Immunizations Name Administration [...] 8:30 AM EDT Office Visit Adult Medicine [place] [facility] [place] [address] [place], [place] [phone] Sussy Merida NP [address], [place] 11/29/2024 9:00 AM EDT Appointment Radiology Department - [address] [phone] Health Maintenance Due Date Last Done Comments Colorectal Cancer Screening: Stool Based Tests (FOBT/FIT) 01/28/2022 Medicare Annual Wellness Visit 01/28/2022 Social Influencers of Health Screening 01/28/2022 Pneumococcal Vaccine: 50+ Years (3 of 3 - PCV20 or PCV21) 02/20/2022 02/20/2017, 07/03/2014 Depression Screening 02/20/2024 10/10/2022 COVID-19 Vaccine (7 - Moderna risk 2023- season) 2024 11/07/2023, 11/11/2021, 06/07/2021, Additional history exists RSV Immunization Adult Patients (1 - Risk 60-74 years 1-dose series) 2024 Influenza Vaccine (#1) 2024 4, 11/09/2022, 11/23/2021, Additional history exists Breast Cancer Screening 11/23/2025 11/24/19 24, 11/24/2023, 10/07/2022, Additional history exists Cervical Cancer Screening: HPV 11/17/2027 11/16/2022 Cholesterol Screening (Lipid Panel) 07/10/2029 07/10/2024, 11/20/2022 DTaP,Tdap,and Td Vaccines (5 - Td or Tdap) 10/10/2032 10/10/2022, 02/26/2012, 10/14/2005, Additional history exists Hepatitis C Screening Completed 07/19/2005 HIV Screening Completed 09/03/2006 Colorectal Cancer Screening: Colonoscopy Discontinued 11/03/2014 Zoster Vaccines Completed 12/03/2018, 10/03/2018 HIB Vaccines Aged Out No longer eligi ble based on patient's age to complete this topic HPV Vaccines Aged Out No longer eligi ble based on patient's age to complete this topic Hepatitis A Vaccines Aged Out No long er eligible based on patient's age to complete this topic Hepatitis B Vaccines Aged Out No long er eligible [...] Name Priority Date/Time Associated Diagnosis Comments EXTERNAL MRI REPORT 08/21/2024 EXTERNAL MRI REPORT 08/21/[address] REPORT 07/21/[address] REPORT [...] 36.9 in adult (CMS/HCC V24, CMS/HCC V28) CBC AND DIFFERENTIAL Routine 07/10/2024 10:06 AM EDT Acute right-sided low back pain with right-sided sciatica Encounter for screening for cardiovascular disorders Class 2 severe obesity due to excess calories with serious comorbidity and body mass index (BMI) of 36.0 to 36.9 in adult (CMS/HCC V24, CMS/HCC V28) VITAMIN B12 Routine 07/10/2024 10:06 AM EDT Acute right-sided low back pain with right-sided sciatica Encounter for screening for cardiovascular disorders Class 2 severe obesity due to excess calories with serious comorbidity and body mass index (BMI) of 36.0 to 36.9 in adult (CMS/HCC V24, CMS/[facility] V28) COMPREHENSIVE METABOLIC PANEL Routine 07/10/2024 10:06 AM EDT Acute right-sided low back pain with right-sided sciatica Encounter for screening for cardiovascular disorders Class 2 severe obesity due to excess calories with serious comorbidity and body mass index (BMI) of 36.0 to 36.9 in adult (CMS/HCC V24, CMS/HCC V28) SCREENING MAMMOGRAPHY BI 2-VIEW BREAST INC CAD Routine 11/24/2023 9:06 AM EDT Encounter for screening mammogram for malignant neoplasm of breast HPV Routine 11/16/2022 DEPRESSION SCREENING Routine 10/10/2022 COLONOSCOPY Routine 11/03/2014 HIV SCREENING Routine 09/03/2006 HEPATITIS C SCREENING Routine 07/19/2005 from Last 3 Months or Most Recently Relevant to Health Maintenance Results * External MRI Report (08/21/2024) Only the most recent of2 resultswithin the time period is included. Anatomical Region Laterality Modality Magnetic Resonan ce us Provider [facility] IMG MRI PROCEDURES Final Result * External CT Report (07/21/2024) Only the most recent of2 resultswithin the time period is included. Anatomical Region Laterality Modality Computed Tomogra phy [facility] [place] [facility]ED[facility] Final Result * (ABNORMAL) Lipid panel with reflex to direct LDL (07/10/2024 10:06 AM EDT) Cholesterol 256(H) 0 - 200 mg/dL LAB CHEMISTRY METHOD 07/10/2024 1:15 PM EDT [facility] Triglycerides 236(H) 0 - 150 mg/dL LAB CHEMISTRY METHOD 07/10/2024 1:15 PM EDT [facility] HDL 54 >=40 mg/dL LAB CHEMISTRY METHOD 07/10/2024 1:15 PM EDT [facility] LDL Calculated 155(H) 0 - 100 mg/dL LAB CHEMISTRY METHOD 07/10/2024 1:15 PM EDT [facility] VLDL Cholesterol Parrish 47.2 mg/dL LAB CHEMISTRY METHOD 07/10/2024 1:15 PM EDT [facility] Non HDL Chol. (LDL+VLDL) 202(H) <145 mg/dL LAB CHEMISTRY METHOD 07/10/2024 1:15 PM EDT [facility] Chol/HDL Ratio 4.7(H) 0.0 - 4.4 LAB CHEMISTRY METHOD 07/10/2024 1:15 PM EDT [facility] Blood Venous blood specimen / Unknown Venipuncture / Unknown 07/10/2024 10:06 AM EDT 07/10/2024 10:06 AM EDT Sussy Merida NP LAB BLOOD ORDERABLES Final R esult [facility] [address] [place] [address], * (ABNORMAL) CBC auto differential (07/10/2024 10:06 AM EDT) [facility] WBC 7.1 4.8 - 10.8 K/mcL LAB HEMETOLOGY METHOD 07/10/2024 12:16 PM [facility] RBC 5.00(H) 3.80 - 4.80 M/mcL LAB HEMETOLOGY METHOD [facility]24 [facility] Hemoglobin 15.6 11.5 - 16.0 g/dL LAB HEMETOLOGY METHOD 07/10/2024 12:16 PM [facility] Hematocrit 45.3 35.0 - 47.0 % LAB HEMETOLOGY METHOD 07/10/2024 12:16 PM [facility] MCV 90.4 79.0 - 98.0 FL LAB HEMETOLOGY METHOD 07/10/2024 12:16 PM [facility] MCH 31.1 27.0 - 32.0 pcg LAB HEMETOLOGY METHOD 07/10/2024 12:16 PM [facility] MCHC 34.4 32.0 - 37.0 g/dL LAB HEMETOLOGY METHOD 07/10/2024 12:16 PM [facility] RDW 13.4 11.0 - 15.0 % LAB HEMETOLOGY METHOD 07/10/2024 12:16 PM [facility] Platelets 258 130 - 400 K/mcL LAB HEMETOLOGY METHOD 07/10/2024 12:16 PM [facility] MPV 10.2 7.0 - 11.0 FL LAB HEMETOLOGY METHOD 07/10/2024 12:16 PM [facility] NRBC 0.0 <1.0 % LAB HEMETOLOGY METHOD 07/10/2024 12:16 PM [facility] NRBC Absolute 0.00 <0.10 K/mcL LAB HEMETOLOGY METHOD 07/10/2024 12:16 PM T [facility] Neutrophils Relative 69.0 % LAB HEMETOLOGY METHOD 07/10/2024 12:16 PM [facility] Lymphocytes Relative 19.5 % LAB HEMETOLOGY METHOD 07/10/2024 12:16 PM [facility] Monocytes Relative 7.3 % LAB HEMETOLOGY METHOD 07/10/2024 12:16 PM [facility] Eosinophils Relative 3.1 % LAB HEMETOLOGY METHOD 07/10/2024 12:16 PM [facility] Basophils Relative 0.8 % LAB HEMETOLOGY METHOD 07/10/2024 12:16 PM [facility] Immature Granulocytes Relative 0.3 % LAB HEMETOLOGY METHOD 07/10/2024 12:16 PM [facility] Neutrophils Absolute 4.92 1.50 - 7.00 K/mcL LAB HEMETOLOGY METHOD 07/10/2024 12:16 PM [facility] Lymphocytes Absolute 1.39 1.00 - 5.00 K/mcL LAB HEMETOLOGY METHOD 07/10/2024 12:16 PM [facility] Monocytes Absolute 0.52 0.20 - 1.00 K/mcL LAB HEMETOLOGY METHOD 07/10/2024 12:16 PM [facility] Eosinophils Absolute 0.22 0.00 - 0.50 K/mcL LAB HEMETOLOGY METHOD 07/10/2024 12:16 PM [facility] Basophils Absolute 0.06 0.00 - 0.20 K/mcL LAB HEMETOLOGY METHOD 07/10/2024 12:16 PM [facility] Immature Granulocytes Absolute 0.02 0.00 - 0.03 K/mcL LAB HEMETOLOGY METHOD 07/10/2024 12:16 PM [facility] Blood Venous blood specimen / Unknown Venipuncture / Unknown 07/10/2024 10:06 AM EDT 07/10/2024 10:06 AM EDT Sussy Merida PATIENT INFORMATION COORDINATOR LAB BLOOD ORDERABLES Final R esult Performing Organization Address [facility]/ZIP Co de Phone Number [facility] [address] [place] [address], [place] [phone] * Lipase (07/10/2024 10:06 AM EDT) Pathologist [facility] Lipase 25 13 - 75 unit/L LAB CHEMISTRY METHOD 07/10/2024 12:48 PM EDT [facility] Blood Venous blood specimen / Unknown Venipuncture / Unknown 07/10/2024 10:06 AM EDT 07/10/2024 10:06 AM EDT Sussy Merida PATIENT INFORMATION COORDINATOR LAB BLOOD ORDERABLES Final R esult Performing Organization Address [facility]/ZIP Co de Phone Number [facility] [address] [place] [address], [place] [phone] * Vitamin B12 (07/10/2024 10:06 AM EDT) Pathologist [facility] Vitamin B-12 589 250 - 900 pcg/mL LAB CHEMISTRY METHOD 07/10/2024 1:15 PM EDT [facility] Blood Venous blood specimen / Unknown Venipuncture / Unknown 07/10/2024 10:06 AM EDT 07/10/2024 10:06 AM EDT Sussy Merida PATIENT INFORMATION COORDINATOR LAB BLOOD ORDERABLES Final R esult Performing Organization Address City/[facility]/ZIP Co de Phone Number [facility] [address] [place] [address], [place] [phone] * Comprehensive metabolic panel (07/10/2024 10:06 AM EDT) Sodium 139 133 - 145 mmol/L LAB CHEMISTRY METHOD 07/10/2024 1:15 PM [facility] Potassium 4.5 3.5 - 5.5 mmol/L LAB CHEMISTRY METHOD 07/10/2024 1:15 PM [facility] Chloride 104 96 - 110 mmol/L LAB CHEMISTRY METHOD 07/10/2024 1:15 PM [facility] CO2 27 21 - 32 mmol/L LAB CHEMISTRY METHOD 07/10/2024 1:15 PM [facility] Anion Gap 8 3 - 11 LAB CHEMISTRY METHOD 07/10/2024 1:15 PM [facility] Glucose 93 70 - 100 mg/dL LAB CHEMISTRY METHOD 07/10/2024 1:15 PM [facility] BUN 10 5 - 25 mg/dL LAB CHEMISTRY METHOD 07/10/2024 1:15 PM [facility] Creatinine 0.90 0.50 - 1.10 mg/dL LAB CHEMISTRY METHOD 07/10/2024 1:15 PM [facility] eGFR 74 >=60 mL/min/1. 73m2 LAB CHEMISTRY METHOD 07/10/2024 1:15 PM [facility] Comment:Calculation based on the Chronic Kidney Disease Epidemiology Collaboration (CKD-EPI) equation refit without adjustment for race. BUN/Creatinine Ratio 11.1 LAB CHEMISTRY METHOD 07/10/2024 1:15 PM [facility] Calcium 9.1 8.5 - 10.5 mg/dL LAB CHEMISTRY METHOD 07/10/2024 1:15 PM [facility] AST (SGOT) 21 10 - 42 unit/L LAB CHEMISTRY METHOD 07/10/2024 1:15 PM [facility] ALT (SGPT) 28 10 - [...] EDT 07/10/2024 10:06 AM EDT Sussy Merida PATIENT INFORMATION COORDINATOR LAB BLOOD ORDERABLES Final R esult [facility] [address] [place] [address], * SCREENING MAMMOGRAPHY BI 2-VIEW BREAST INC [...] evidence of malignancy. BI-RADS 1 - negative Amelia [address] [address] Procedure Note Juany Dorantes MD - 12/18/2023 [...] evidence of malignancy. BI-RADS 1 - negative [address] [address] Result [facility] Micah Rosado MD IMG XR PROCEDURES Final Result * Cervical Cancer Screening: HPV (11/16/2022) [facility] Cervical Cancer Screening: HPV No Interpretation , Abstracted Result [facility] [employer] Final Result * Depression Screening (10/10/2022) [facility] Depression Screening Abstracted Result [facility] [employer] Final Result * Colonoscopy (11/03/2014) [facility] Colonoscopy No Interpretation , Abstracted Anatomical Region Laterality Modality Other Result [facility] [employer] Final Result * HIV Screening (09/03/2006) [facility] HIV Screening Abstracted Result [facility] [employer] Final Result * Hepatitis C Screening (07/19/2005) [facility] Hepatitis C Screening Abstracted [facility] [employer] Final Result from Last 3 Months or Most Recently Relevant to Health Maintenance Insurance MEDICAID - [place] [employer] MEDICARE Care Teams Associate Sales Representative Relationship Specialty Start Date End Date Micah Rosado MD [address] [place] [address] PCP - General 06/02/10
== END 2024-10-02 11:41 | disposition home or self-care (01) ==
LOC: HO.NEURO 11:40
PROVIDERS: PCP Internal Medicine; Visit Provider Psychiatry & Neurology Neurology
DX: R25.9 Unspecified abnormal involuntary movements (principal)
CPT/HCPCS: 95816

== ENCOUNTER → 2024-10-02 11:44 | Outpatient (BNV) | payer MEDICARE, MEDICAID, SELFPAY | PROVIDERS: PCP Internal Medicine; Visit Provider Psychiatry & Neurology Neurology | DX: R25.8 Other abnormal involuntary movements (principal) | CPT/HCPCS: 95816 ==

== ENCOUNTER 2024-11-19 20:17 | Emergency (ER) | payer MEDICARE, MEDICAID, SELFPAY ==
--- NOTE | 2024-11-19 | ECG_ITS ---
Test Reason : CHEST PAIN Blood Pressure : */* mmHG Vent. Rate : 79 BPM Atrial Rate : 79 BPM P-R Int : 144 ms QRS Dur : 72 ms QT Int : 386 ms P-R-T Axes : 43 9 40 degrees QTcB Int : 442 ms Normal sinus rhythm Normal ECG When compared with ECG of 21-Jul-2024 11:25, No significant change was found Referred By: Generic ED Physician Electronically Signed By: ARUN MALCOLM
--- NOTE | ~2024-11-19 | XR_ITS ---
CLINICAL HISTORY: cough and chest pain CHEST X-RAY FRONTAL AND LATERAL VIEWS COMPARISON: 04/16/2024. FINDINGS: Frontal and lateral views of the chest were performed. Lateral view is significantly limited due to patient positioning.Cardiac size is within normal limits. Mild elevation of the right hemidiaphragm is again noted. On the lateral view, there is an apparent opacity in the infrahilar region. This appearance might be due to confluence of shadows and patient positioning. Atelectasis/infiltrate is difficult to exclude. CT scan of the chest in the ER is advised for a more accurate assessment. Lung parenchyma is otherwise unremarkable. No pleural effusion or pneumothorax. IMPRESSION: 1. On the lateral view is an apparent opacity within the infrahilar region. This appearance might be due to confluence of shadows and patient positioning. Atelectasis/infiltrate is difficult to exclude. CT scan of the chest in the ER is advised for a more accurate assessment. This document has been electronically signed by: Wilmar Priest M.D. on 11/19/2024 22:48:04
--- NOTE | ~2024-11-19 | CT_ITS ---
CLINICAL HISTORY: pneumonia CT CHEST WITHOUT CONTRAST COMPARISON: Chest x-ray 11/19/2024. FINDINGS: CT scan of the right shoulder will be reported separately. No evidence of a pneumothorax or pneumomediastinum. Confluent area of atelectasis/consolidation is noted within the left lower lobe, for example seen on axial images 112-121. Exact dimensions are somewhat difficult to quantify but a videotape sales representative measurement on axial image 114 is 2.9 cm in transverse dimension. A few tiny nodules are suspected in the left lower lobe, for example seen on axial images 113-114. Overall imaging findings raise the question of an infectious etiology. 4 mm noncalcified nodule is noted within the left lingula on axial image 95. The right lung is unremarkable. There is no pleural effusion. There is no lymphadenopathy. Cardiac size is within normal limits. Coronary artery calcifications are noted. Thoracic aorta is partially obscured by motion/streak artifact but is normal in caliber without evidence of an aneurysm. Scans of the upper abdomen demonstrate cholelithiasis, seen on axial image 146. Gallbladder is partially visualized. No pericholecystic inflammation. Bone windows demonstrate no acute abnormalities. Degenerative changes are noted within the thoracic spine. IMPRESSION: 1. A confluent area of atelectasis/consolidation is noted in the left lower lobe. A few tiny nodules are also suspected in the adjacent portion of the left lower lobe. An infectious etiology is questioned. Follow-up CT in 2-3 weeks is advised to confirm resolution and to exclude a pulmonary lesion. 2. A 4 mm noncalcified nodule is noted in the left lingula. This can be followed up according to the revised Fleischner criteria. 3. Cholelithiasis. 4. Additional findings are detailed above. This document has been electronically signed by: Wilmar Priest M.D. on 11/20/2024 03:21:51
--- NOTE | ~2024-11-19 | CT_ITS ---
CLINICAL HISTORY: pain CT RIGHT UPPER EXTREMITY WITHOUT CONTRAST COMPARISON: None provided. FINDINGS: CT chest will be reported separately. The right shoulder was scanned. No evidence of an acute fracture or dislocation involving the right shoulder. No aggressive lytic lesion or aggressive periosteal reaction. Mild degenerative changes are noted within the glenohumeral joint and acromioclavicular joint. Bony spurring is noted involving the acromion. There is narrowing of the acromiohumeral interval, suggesting sequelae of a chronic rotator cuff tear. No evidence of a large glenohumeral joint effusion. IMPRESSION: 1. No evidence of an acute fracture or dislocation. 2. Degenerative changes are noted involving the glenohumeral joint and acromioclavicular joint. 3. Narrowing of the acromiohumeral interval, suggesting sequelae of a chronic rotator cuff tear. 4. CT chest will be reported separately. This document has been electronically signed by: Wilmar Priest M.D. on 11/20/2024 03:11:49
[2024-11-19 20:52] VITALS: BP 128/75; PULSE 78; RESP 18; TEMP 36.4; O2SAT 97; BMI 36.6
[2024-11-19 21:39] LABS: MANUAL DIFF FLAG NO
[2024-11-19 21:41] LABS: Hematocrit 39.0 % (37.0-47.0); Hemoglobin 14.1 g/dl (12.0-16.0); Imm Gran Abs Auto 0.01 X10*3/uL (0.00-0.03); Imm Gran Pct Auto 0.2 % (0.0-0.4); Lymphocytes Absolute Auto 1.9 X10*3/uL (1.2-4.9); Mean Corpuscular HGB Conc 36.2 g/dl (31.0-35.0); Mean Corpuscular Hemoglobin 31.3 pg (27.0-33.0); Mean Corpuscular Volume 86.5 fL (80.0-98.0); NRBC Abs Auto 0.000 X10*3/uL (0.0-0.012); NRBC Pct Auto 0.0 /100WBC (0.0-0.2); Platelet Count 306 X10*3/uL (160-400); Red Blood Count 4.51 X10*6/uL (4.20-5.50); White Blood Count 4.7 X10*3/uL (4.8-10.8)
[2024-11-19 21:55] LABS: Alanine Aminotransferase 23 U/L (0-31); Albumin Level 4.0 g/dL (3.5-5.0); Alkaline Phosphatase 95 U/L (39-117); Anion Gap 11 (12-20); Aspartate Amino Transferase 24 U/L (5-31); Blood Urea Nitrogen 9 mg/dL (9-16); Calcium 9.2 mg/dL (8.4-10.2); Carbon Dioxide 30 mmol/L (22-29); Chloride 105 mmol/L (96-108); Creatinine Clr Calc Pharmacy 75.1; Estimated Glomerular Filt Rate > 60; Magnesium 2.2 mg/dL (1.6-2.6); Potassium 4.3 mmol/L (3.3-5.1); Sodium 142 mmol/L (135-145); Total Protein 7.2 g/dL (6.5-8.0)
[2024-11-19 22:02] LABS: Troponin-I High Sensitivity < 2.7 ng/L (<3.5-17.0)
[2024-11-19 22:03] LABS: NT Pro B Type Natriuretic Pept 35.4 pg/mL (<300)
[2024-11-19 22:16] LABS: Resp Syncy Virus RNA Qual PCR NEGATIVE (Negative); SARS COV2 PCR INHOUSE NEGATIVE (Negative)
[2024-11-19 22:30] VITALS: BP 129/77; PULSE 78; RESP 19; TEMP 36.6; O2SAT 97
--- OUTSIDE RECORDS SUMMARY | 2024-11-19 22:34 | XMS_ITS | Clinical Summary ---
Author Organization [facility] [address] [facility] Address [address] [place] [address] Phone Care Team Providers Care Peripheral Edp Equipment Operator Name Role Phone Micah Rosado MD Primary [...] 1 (one) time each day. Prescribed by Slip Feeder 04/09/19 24 Active folic acid (FOLVITE) 1 mg tablet Take 1 tablet (1 mg total) by mouth 1 (one) time each day. Prescribed by Senior Etl Developer Active methotrexate 2.5 mg tablet Take 1 tablet (2.5 mg total) by mouth 1 (one) time per week Prescribed By Senior Etl Developer, Dr. Gresham Active multivit-mine rals/folic acid (ONE-A-DAY WOMEN'S 50 PLUS ORAL) Take 1 tablet by mouth 1 (one) time each day. Patient Buy OTC Active triamcinolone (NASACORT) 55 mcg nasal inhaler Administer 2 sprays into each nostril 1 (one) time each day. Prescribed by Slip Feeder Active albuterol HFA (PROAIR HFA ; PROVENTIL HFA ; VENTOLIN HFA) 90 mcg/actuation inhaler Inhale 2 puffs by mouth every 4 (four) hours if needed for wheezing or shortness of breath. Proscribe by Slip Feeder Active acetaminophen (TYLENOL 8 HOUR) 650 mg 8 hr tablet Take 1 tablet (650 mg total) by mouth every 8 (eight) hours if needed. Patient buy OTC Active omeprazole (PriLOSEC) [address] capsule Take 1 capsule (20 mg total) by mouth 1 (one) time each day. Do not crush or chew. 90 capsule 1 03/24/19 25 Active docusate (COLACE) 50 mg/5 mL liquid Take 5 mL (50 mg total) by mouth 1 (one) time each day. Patient buy OTC Active diclofenac (VOLTAREN) 1 % topical gel Apply 2 gram four times daily to affected joint 100 g 07/01/19 25 Active Daily-Katarzyna, with folic acid, 400 mcg tablet Take 1 tablet by mouth 1 (one) time each day in the morning. Patient but OTC Active propranoloL (INDERAL) 10 mg tablet Take 1 tablet (10 mg total) by mouth 2 (two) times a day. Prescribed by Dr. Javed Psychiatrist Active citalopram (CeleXA) 20 mg tablet Take 1 tablet (20 mg total) by mouth 1 (one) time each day. Prescribe By Mental Health Provider, Dr Marks Active simvastatin (ZOCOR) 20 mg tablet Take 1 tablet (20 mg total) by mouth at bedtime. 90 tablet 1 10/08/19 25 Active nystatin (MYCOSTATIN) 100,000 unit/gram powder Apply 1 Application topically if needed for rash. 15 g 10/08/19 25 Active ARIPiprazole (ABILIFY) 10 mg tablet Take 1 tablet (10 mg total) by mouth 1 (one) time each day. Prescribe by Psychiatrist, Dr. Marks Active cholecalcifer ol (VITAMIN D-3) 50 mcg (2,000 unit) tablet TAKE ONE TABLET (2,000 UNITS TOTAL) BY MOUTH ONCE DAILY 90 tablet 1 10/17/19 25 Active cetirizine (ZyrTEC) 10 mg tablet TAKE ONE TABLET (10 MG TOTAL) BY MOUTH ONCE DAILY 90 tablet 1 10/17/19 25 Active levothyroxine (SYNTHROID, LEVOTHROID) 88 mcg tablet TAKE 1 TABLET BY MOUTH 1 TIME EACH DAY. 90 tablet 11/19/19 25 Active levothyroxine (SYNTHROID, LEVOTHROID) 88 mcg tablet Take 1 tablet (88 mcg total) by mouth 1 (one) time each day. 90 tablet 07/01/19 25 2024 Discontinued Active Problems Problem Noted Date [...] ANITA (obstructive sleep apnea) 08/10/2014 Overview (11/21/2023): [facility] Home Polysomnogram: Date 06/30/2018; Wt 189#; BMI 37; CHINMAY 15, AI 6; HI 9; Unclassified apneas 1; Obstructive apneas 45; Central apneas 6; Mixed apneas 0; hypopneas 75; average oxygen saturation 93% (lowest 82% with saturations <88% for 5% or more of study) [facility] Polysomnogram treatment study. Date 07/15/2018. Wt 189#; BMI 37; SE 88 % SM 90 %; spent 22 % of the study in REM. On CPAP @ 15; RDI 3.7 (AHI 3.7), Central apneas 12; Obstructive apneas 3; Mixed apneas 0; hypopneas 0; RERAs 0; and, average oxygen saturation was 96%. For the entire study, PLMs ~36. [facility] Sleep Center Polysomnogram: Date 07/21/2020; Wt [...] steroid, started 06/25 Seropositive rheumatoid arth ritis ([facility] V24, [facility] V28) 01/16/2005 Overview (11/21/2023): Symptoms in childhood. Recurrence in 2004: RF POS, CCP NEG; equivocal response to hydroxychloroquine, DC due to muscle weakness On methotrexate started 2005. Humira added 02/03 Last Assessment & Plan: Lab work due in July and September Encounters Date Type Department Care Team Description 10/07/2024 8:30 AM EDT Office Visit Adult Medicine [address] [phone] Sussy Merida, PHOTO TECHNOLOGIST ANITA (obstructive sleep apnea) (Primary Dx); Depression, unspecified depression type; Pure hypercholesterolemia; Encounter for weight management; Need for vaccination with 20-polyvalent pneumococcal conjugate vaccine from Last 3 Months Immunizations Immunization Administration Dates Next Due H1N1 Inj Preservative [...] 13, PCV13) 2mo and older 02/20/2017 Pneumococcal conjugate 20 va lent (Prevnar 20, PCV 20) 2mo and older 10/07/2024 Pneumococcal polysaccharide 23 valent (Pneumovax 23) 2yo [...] Sign Reading Time Taken Comments Blood Pressure 103/65 10/07/2024 8:03 AM EDT Pulse 67 10/07/2024 8:03 AM EDT Temperature 36.3 C (97.3 F) 10/07/2024 8:03 AM EDT Respiratory Rate 14 10/07/2024 8:03 AM EDT Oxygen Saturation 96% 10/07/2024 8:03 AM EDT Inhaled Oxygen Concentration - - Weight 87.1 kg (192 lb) 10/07/2024 8:03 AM EDT Height 152.4 cm (5') 10/07/2024 8:03 AM EDT Body Mass Index 37.5 10/07/2024 8:03 AM EDT Plan of Treatment Upcoming Encounters Date Type Department Care Team (Late st Contact Info) Description 11/29/2024 9:10 AM EDT Appointment Radiology Department - [address] [phone] 04/09/2025 8:30 AM EST Office Visit [facility] - [address] [phone] Micah Rosado MD [address] [place] [address] Health Maintenance Due Date Last Done Comments Colorectal Cancer Screening: Stool Based Tests (FOBT/FIT) 01/28/2022 Medicare Annual Wellness Visit 01/28/2022 Social Influencers of Health Screening 01/28/2022 RSV Immunization Adult Patients (1 - Risk 60-74 years 1-dose series) 2024 Influenza Vaccine (#1) 2024 , 11/09/2022, 11/23/2021, Additional history exists Breast Cancer [...] Zoster Vaccines Completed 12/03/2018, 10/03/2018 COVID-19 Vaccine Discontinued 11/07/2023, , 06/07/2021, Additional history exists Depression Screening Completed 10/07/2024, 10/11/19 23 Pneumococcal Vaccine: 50+ Years Completed 10/07/2024, 02/20/2017, 07/03/2014 HIB Vaccines Aged Out No longer eligi [...] Name Priority Date/Time Associated Diagnosis Comments EXTERNAL NEUROLOGY REPORT 10/02/2024 EXTERNAL MRI REPORT 08/21/2024 EXTERNAL MRI REPORT 08/21/2024 LIPID PANEL WITH REFLEX TO DIRECT LDL Routine 07/10/2024 10:06 AM EDT Acute right-sided low back pain with right-sided sciatica Encounter for screening for cardiovascular disorders Class 2 severe obesity due to excess calories with serious comorbidity and body mass index (BMI) of 36.0 to 36.9 in adult ([facility] V24, [facility] V28) SCREENING MAMMOGRAPHY BI 2-VIEW BREAST INC CAD Routine 11/24/2023 9:06 AM EDT Encounter for screening mammogram for malignant neoplasm of breast HPV Routine 11/16/2022 DEPRESSION SCREENING Routine 10/10/2022 COLONOSCOPY Routine 11/03/2014 HIV SCREENING Routine 09/03/2006 HEPATITIS C SCREENING Routine 07/19/2005 from Last 3 Months or Most Recently Relevant to Health Maintenance Results * External Neurology Report (10/02/2024) [facility] NEUROLOGY ORDERABLES Fin al Result * External MRI Report (08/21/2024) Only the most recent of2 resultswithin the time period is included. Anatomical Region Laterality Modality Magnetic Resonan ce [facility] IMG MRI PROCEDURES Final Result * (ABNORMAL) Lipid panel with reflex to direct LDL (07/10/2024 10:06 AM EDT) Cholesterol 256(H) 0 - 200 mg/dL LAB CHEMISTRY [facility] Triglycerides 236(H) 0 - 150 mg/dL LAB CHEMISTRY METHOD 07/10/2024 1:15 PM EDT [facility] HDL 54 >=40 mg/dL LAB CHEMISTRY METHOD 07/10/2024 1:15 PM EDT [facility] LDL Calculated 155(H) 0 - 100 mg/dL LAB CHEMISTRY METHOD 07/10/2024 1:15 PM [facility] VLDL Cholesterol Parrish 47.2 mg/dL LAB CHEMISTRY METHOD 07/10/2024 1:15 PM [facility] Non HDL Chol. (LDL+VLDL) 202(H) <145 mg/dL LAB CHEMISTRY METHOD 07/10/2024 1:15 PM EDT [facility] Chol/HDL Ratio 4.7(H) 0.0 - 4.4 LAB CHEMISTRY METHOD 07/10/2024 1:15 PM [facility] Blood Venous blood specimen / Unknown Venipuncture / Unknown 07/10/2024 10:06 AM EDT 07/10/2024 10:06 AM EDT Sussy Merida NP LAB BLOOD ORDERABLES Final R esult [facility] [address] [place] [address], * SCREENING MAMMOGRAPHY BI 2-VIEW BREAST INC [...] evidence of malignancy. BI-RADS 1 - negative [address] [id number] Procedure Note Juany Dorantes MD - 12/18/2023 [...] evidence of malignancy. BI-RADS 1 - negative [address] [address] Micah Rosado MD IMG XR PROCEDURES Final Result * Cervical Cancer Screening: HPV (11/16/2022) Pathologist [facility] Cervical Cancer Screening: HPV No Interpretation , Abstracted Historical Provider HEALTH MAINTENANCE Final Result * Depression Screening (10/10/2022) Pathologist [facility] Depression Screening Abstracted [facility] Provider HEALTH MAINTENANCE Final Result * Colonoscopy (11/03/2014) Pathologist [facility] Colonoscopy No Interpretation , Abstracted Anatomical Region Laterality Modality Other [facility] Provider HEALTH MAINTENANCE Final Result * HIV Screening (09/03/2006) [facility] HIV Screening Abstracted [facility] Provider HEALTH MAINTENANCE Final Result * Hepatitis C Screening (07/19/2005) Pathologist [facility] Hepatitis C Screening Abstracted [facility] Provider HEALTH MAINTENANCE Final Result from Last 3 Months or Most Recently Relevant to Health Maintenance Insurance MEDICAID - [place] [employer] MEDICARE Care Teams Peripheral Edp Equipment Operator Relationship Specialty Start Date End Date Micah Rosado MD [address] [place] [address] PCP - General 06/02/10
--- NOTE | 2024-11-19 23:40 | PC.NURSE ---
pt a&ox4, respirations even and unlabored. pt reports x1 month of feeling unwell, with increased weakness and cough with phlegm. pt reports this morning she developed onset of left sided chest pain that has now subsided. pt denies n/v/d and radiation. vss. pt nsr on tele
[2024-11-19 23:42] VITALS: PULSE 74
--- NOTE | 2024-11-20 00:05 | ED_ITS ---
HPI - Chest Pain General Chief Complaint: Chest Pain Stated Complaint: chest pain Time Seen by Provider: 11/19/24 23:30 Source: patient Mode of arrival: ambulatory Limitations: no limitations History of Present Illness ED Provider: Dr. Mantilla HPI narrative: 59-year-old female history of juvenile arthritis, fibromyalgia presented hospital today for right shoulder pain and persistent coughing for months. Patient stated that she has been having right posterior shoulder pain. It is atraumatic in nature. She stated that this more tender when she moves her right shoulder. She has difficulty using her right upper extremity due to this pain. Patient is also stating that she has been having some productive coughing. This has been going on for months now. She stated that the coughing has been improving over time. Related Data Home Medications ?Medication ?Instructions ?Recorded ?Confirmed albuterol sulfate 90 mcg/actuation 2 puff inhalation Q 4H PRN wheezing 11/21/21 08/14/24 aerosol inhaler citalopram 20 mg tablet 20 mg PO QAM 11/21/21 fluticasone propionate 220 1 puff inhalation BID 11/2108/14/24 mcg/actuation HFA aerosol inhaler (Flovent HFA) fluticasone propionate 50 2 spray intranasal DAILY PRN 11/21/21 08/14/24 mcg/actuation nasal Congestion spray,suspension folic acid 1 mg tablet 1 mg PO QAM 11/21/21 5 levothyroxine 100 mcg tablet 100 mcg PO DAILY 11/21/21 08/14/24 methocarbamol 500 mg tablet 500 mg PO BEDTIME PRN low back pain 11/21/21 08/14/24 methotrexate sodium 2.5 mg tablet 20 mg PO QWEEK 11/2108/14/24 omeprazole 20 mg capsule,delayed 20 mg PO QAM 11/21/21 08/14/24 release simvastatin 20 mg tablet 20 mg PO BEDTIME 11/21/21 Previous Rx's ?Medication ?Instructions ?Recorded cyclobenzaprine 10 mg tablet 10 mg PO TID PRN muscle s pasm #10 07/30/22 tabs gabapentin 300 mg capsule 300 mg PO TID #14 caps 07/30 nystatin 100,000 unit/gram topical 1 appl topical TID 2 weeks #60 01/25/24 powder grams blood pressure monitor #1 ea 01/29/24 doxycycline hyclate 100 mg capsule 100 mg PO BID #20 c aps 06/01/24 prednisone 20 mg tablet 40 mg (2 x 20 mg) PO DAILY # 10 tabs 06/01/24 azithromycin 250 mg tablet See Rx Instructions PO .COM PLEX #6 11/20/24 (Zithromax) tabs lidocaine 5 % topical patch 1 patch topical DAILY #15 ea 11/20/24 prednisone 20 mg tablet 20 mg PO DAILY 7 days #7 tab s 11/20/24 Allergies Allergy/AdvReac Type Severity Reaction Status Date / Time naproxen (From Naprosyn) Allergy Severe Anaphylaxis Verified 11/19/24 21:00 hydrocodone (From Vicodin) Allergy Mild Anaphylaxis Verified 11/19/24 21:00 penicillin V Allergy Mild Hives Verified 11/19/24 21:00 ibuprofen Allergy Stomach Verified 11/19/24 21:00 Upset Review of Systems 2 Review of Systems: Pertinent review of systems as mentioned in HPI. All other system otherwise negative. [facility] Past Medical History [facility] Narrative: Medical history as mentioned in HPI Medical History Neck pain Obstructive sleep apnea Hypersomnia Snoring Abnormal involuntary movements Hypothyroidism Arthritis Spondylolisthesis, grade 1 Surgical History H/O tubal ligation Social History Social History Alcohol intake: never Physical Exam 2 Exam: Exam: General: Pleasant, no distress, interacting appropriately Head: Normacephalic, atraumatic ENT: oral mucosa moist, neck supple, no tracheal deviation Cardiovascular: regular rate, regular rhythm, no murmurs, rubbing, gallops Respiratory: CTAB, no wheeze, rales, rhonchi Gastrointestinal: Soft, non distended, non tender, non guarding Extremities: Limited range of motion of the right shoulder due to pain. The pain of her shoulder is mostly in the posterior aspect. This may be rotator cuff in nature. However patient does have tenderness on flexion of the shoulder. Patient's CMS intact in the right upper extremity otherwise no sign of ischemic limb. No obvious bruising no erythema over the shoulder joint concerning for septic arthritis Neurological: Awake and alert, no facial droop noted Skin: Warm and dry Psychiatric: Appropriate mood and thoughts Vital Signs: Vital Signs: Last Vital Signs Temp 98.1 F 11/20/24 04:05 Pulse 67 11/20/24 04:05 Resp 19 11/20/24 04:05 BP 127/71 11/20/24 04:05 Pulse Ox 98 11/20/24 04:05 O2 Del Method Nasal Cannula 11/20/24 04:05 BMI result Body Mass Index 36.6 Course Reevaluation(s) Reevaluation #1: DR. Menezes's progress note: I assumed care for this patient at 02:[address] Mantilla patient was awaiting for CT of the chest and CT of the right shoulder. 1. Right shoulder CT is consistent with chronic rotator cuff injury. Patient currently has no severe pain in the shoulder, was advised to follow up with our orthopedic office as an outpatient. 2. CT of the chest suggesting consolidation versus atelectasis and for mm nodule in the left lung. Patient stated that she was coughing lost week that is improving now which is consistent with findings on the CT that is suggesting pneumonia will start the patient on Z-Luiz. Patient was instructed to follow-up with her PCP for the lung nodule follow-up. Time: 03:33 Medications Administered Discontinued Medications Generic Name Dose Route Start Last Admin Trade Name Brendonq PRN Reason Stop Dose Admin Acetaminophen 975 mg 11/20/24 01:49 11/20/24 02:27 Acetaminophen 325 Mg Tablet PO 11/20/24 01:50 975 mg ONCE ONE Administration Azithromycin 500 mg 11/20/24 01:49 11/20/24 02:27 Azithromycin 500 Mg Tablet PO 11/20/24 01:50 500 mg ONCE ONE Administration Ketorolac Tromethamine 30 mg 11/20/24 01:49 11/20/24 02:26 Ketorolac Tromethamine 30 Mg/Ml Vial IM 11/20/24 01:50 30 mg ONCE ONE Administration Lidocaine 1 patch 11/20/24 01:49 11/20/24 02:27 Lidocaine 4 % Patch Adh..Patch TRANSDERMA 11/20/24 01:50 1 patch ONCE ONE Administration Protocol Medical Decision Making Medical Decision Making MDM Narrative: 59-year-old female presented hospital today for evaluation of right shoulder pain and coughing. I suspect patient has right shoulder pain may be from rotator cuff tear or arthritis. Her pain is mostly on the suprascapular area. Is more tender on range of motion. I suspect this is musculoskeletal in nature. I have low suspicion for septic arthritis she has no leukocytosis patient does not appear to be toxic. No sign of tachycardia or fever. Patient is coughing has been persistent. However it is improving. We will plan to give patient azithromycin to cover for any whooping cough or walking pneumonia. We will plan to prescribe patient azithromycin. We will plan to prescribe her short course of prednisone to take for her right shoulder pain. Lidocaine patch will also be prescribed for the patient. Patient chest x-ray obtained shows possible infiltrate. Radiologist recommended CT imaging of the chest. We will plan to obtain a CT imaging of the chest for further investigation of the opacity. We will also obtain a CT shoulder imaging as well. Patient will be signed out to oncoming provider pending CT imaging results. IM Toradol, lidocaine patch given to the patient for pain control. Differential Diagnosis Differential Diagnoses: The differential diagnosis associated with the presentation includes Rotator cuff tear, arthritis, pneumonia, bronchitis Lab Data MDM Lab Attestation statement: I reviewed the patient's lab results. 11/19/24 21:35 11/19/24 21:35 Labs: Lab Results 11/19/24 Range/Units 21:35 WBC 4.7 L (4.8-10.8) X10*3/uL RBC 4.51 (4.20-5.50) X10*6/uL Hgb 14.1 (12.0-16.0) g/dl Hct 39.0 (37.0-47.0) % MCV 86.5 (80.0-98.0) fL MCH 31.3 (27.0-33.0) pg MCHC 36.2 H (31.0-35.0) g/dl RDW 13.7 (11.0-16.0) % Plt Count 306 (160-400) X10*3/uL MPV 9.0 L (9.4-12.3) fL Immature Gran % (Auto) 0.2 (0.0-0.4) % Neut % (Auto) 46.9 (45-73) % Lymph % (Auto) 40.9 H (20-40) % [place] % (Auto) 6.0 (2-11) % Eos % (Auto) 4.7 H (0-4) % Baso % (Auto) 1.3 (0-2) % Lymph # (Auto) 1.9 (1.2-4.9) X10*3/uL [place] # (Auto) 0.3 (0.1-1.2) X10*3/uL Eos # (Auto) 0.2 (0.0-0.4) X10*3/uL Baso # (Auto) 0.1 (0.0-0.2) X10*3/uL Abs Immat Gran (auto) 0.01 (0.00-0.03) X10*3/uL Absolute Neuts (auto) 2.2 (2.0-8.3) x10*3/uL Absolute Nucleated RBC 0.000 (0.0-0.012) X10*3/uL Nucleated RBC % (auto) 0.0 (0.0-0.2) /100WBC Sodium 142 (135-145) mmol/L Potassium 4.3 (3.3-5.1) mmol/L Chloride 105 (96-108) mmol/L Carbon Dioxide 30 H (22-29) mmol/L Anion Gap 11 L (12-20) BUN 9 (9-16) mg/dL Creatinine 0.77 (0.5-1.4) mg/dL Estim Creat Clear Calc 75.1 Estimated GFR > 60 Random Glucose 127 H (60-115) mg/dL Calcium 9.2 (8.4-10.2) mg/dL Magnesium 2.2 (1.6-2.6) mg/dL Total Bilirubin 0.4 (0.0-1.0) mg/dL AST 24 (5-31) U/L ALT 23 (0-31) U/L Alkaline Phosphatase 95 (39-117) U/L Troponin I High Sens < 2.7 (<3.5-17.0) ng/L NT-Pro-B Natriuret Pep 35.4 (<300) pg/mL Total Protein 7.2 (6.5-8.0) g/dL Albumin 4.0 (3.5-5.0) g/dL Influenza Type A (PCR) NEGATIVE (Negative) Influenza Type B (PCR) NEGATIVE (Negative) RSV RNA Qual (PCR) NEGATIVE (Negative) SARS-CoV-2 RNA (RT-PCR) NEGATIVE (Negative) Discharge Plan Discharge Clinical Impression: Arthritis of shoulder, Cough, Pneumonia, Injury of right rotator cuff, Nodule of left lung Patient Disposition: Home, Self-Care Instructions: Rotator Cuff Injury (ED), Pulmonary Nodules (ED), Pneumonia (ED) Additional Instructions: Take the antibiotic. The steroid and lidocaine patch for your arthritis. You can take 1000mg tylenol every 8 hours for pain and inflammation. Follow up with your primary care doctor. Prescriptions: New prednisone 20 mg tablet 20 mg PO DAILY 7 Days Qty: 7 0RF azithromycin [Zithromax] 250 mg tablet See Rx Instructions .ROUTE .COMPLEX Qty: 6 0RF Rx Instructions: For 250 mg dose pack: take 500 mg today (day 1), then 250 mg for 4 days (days 2-5) lidocaine 5 % adhesive patch,medicated 1 patch topical DAILY Qty: 15 0RF Rx Instructions: leave on most painful area for up to 12 hrs No Action cyclobenzaprine 10 mg tablet 10 mg PO TID PRN (Reason: muscle spasm) Qty: 10 0RF gabapentin 300 mg capsule 300 mg PO TID Qty: 14 0RF (DME) blood pressure monitor Kit See Rx Instructions .Route Qty: 1 0RF Rx Instructions: As directed nystatin 100,000 unit/gram powder 1 appl topical TID 14 Days Qty: 60 0RF prednisone 20 mg tablet 40 mg PO DAILY Qty: 10 0RF doxycycline hyclate 100 mg capsule 100 mg PO BID Qty: 20 0RF fluticasone propionate 50 mcg/actuation spray,suspension 2 spray intranasal DAILY PRN (Reason: Congestion) fluticasone propionate [Flovent HFA] 220 mcg/actuation HFA aerosol inhaler 1 puff inhalation BID methotrexate sodium 2.5 mg tablet 20 mg PO QWEEK folic acid 1 mg tablet 1 mg PO QAM omeprazole 20 mg capsule,delayed release(DR/EC) 20 mg PO QAM citalopram 20 mg tablet 20 mg PO QAM levothyroxine 100 mcg tablet 100 mcg PO DAILY albuterol sulfate 90 mcg/actuation HFA aerosol inhaler 2 puff inhalation Q4H PRN (Reason: wheezing) methocarbamol 500 mg tablet 500 mg PO BEDTIME PRN (Reason: low back pain) simvastatin 20 mg tablet 20 mg PO BEDTIME Referrals: Tristan Sales MD [Physician, Orthopedics] Micah Rosado MD [Primary Care Provider, Medical] Interventions: ED Discharge Assessment Last Done: 11/20/24 04:05 Discharge Date/Time: 11/20/24 04:06 Print Language: Syriac
[2024-11-20] MEDS: Lidocaine 4 % Patch ADH..PATCH 1 PATCH TRANSDERMA (02:27)
[2024-11-20 04:04] VITALS: BP 127/71; PULSE 67; RESP 19; TEMP 36.7; O2SAT 98
[2024-11-20 04:05] VITALS: BP 127/71; PULSE 67; RESP 19; TEMP 36.7; O2SAT 98
== END 2024-11-20 04:06 | disposition home or self-care (01) ==
PROVIDERS: Emergency Provider Student in an Organized Health Care Education/Training Program; PCP Internal Medicine
DX: J18.9 Pneumonia, unspecified organism (principal); S46.001A Unspecified injury of muscle(s) and tendon(s) of the rotator cuff of right shoulder, initial encounter; X58.XXXA Exposure to other specified factors, initial encounter; Y93.9 Activity, unspecified; Y92.9 Unspecified place or not applicable; Y99.9 Unspecified external cause status; R91.1 Solitary pulmonary nodule; M19.011 Primary osteoarthritis, right shoulder; R07.9 Chest pain, unspecified; R05.9 Cough, unspecified; M25.511 Pain in right shoulder
CPT/HCPCS: 36415; 71046; 71250; 73200; 80053; 83735; 83880; 84484; 85025; 87637; 93005; 96372; 99285; J1885

== ENCOUNTER → 2024-11-19 20:22 | Outpatient (BNV) | payer MEDICARE, MEDICAID, SELFPAY | PROVIDERS: Emergency Provider Student in an Organized Health Care Education/Training Program; PCP Internal Medicine; Visit Provider Internal Medicine | DX: R07.9 Chest pain, unspecified (principal) | CPT/HCPCS: 93010 ==

== ENCOUNTER → 2024-11-19 22:05 | Outpatient (BNV) | payer MEDICARE, MEDICAID, SELFPAY | PROVIDERS: PCP Internal Medicine; Visit Provider Radiology Diagnostic Radiology | DX: R91.8 Other nonspecific abnormal finding of lung field (principal) | CPT/HCPCS: 71046 ==

== ENCOUNTER → 2024-11-20 01:49 | Outpatient (BNV) | payer MEDICARE, MEDICAID, SELFPAY | PROVIDERS: Emergency Provider Student in an Organized Health Care Education/Training Program; PCP Internal Medicine; Visit Provider Radiology Diagnostic Radiology | DX: J98.11 Atelectasis (principal); R91.1 Solitary pulmonary nodule; M19.011 Primary osteoarthritis, right shoulder | CPT/HCPCS: 71250; 73200 ==